=== PATIENT | female | born 1960 | race Caucasian/White ===

== ENCOUNTER 2017-06-29 10:26 | Observation (INO) | payer OTHER ==
--- NOTE | 2017-06-29 10:47 | ED ---
General Adult HPI - General Chief complaint: Recheck/Abnormal Lab/Rx Stated complaint: leg and feet swelling, hypertension Time Seen by Provider: 06/29/17 10:36 Source: patient, RN notes reviewed Mode of arrival: wheelchair Limitations: no limitations - History of Present Illness Initial comments: 57-year-old female presenting with bilateral lower extremity swelling. Patient was at her son's wedding yesterday, she was on her feet for prolonged period of time. She states she went home Susan bed and then slept the remaining portion of the night in a lazy boy. Her feet were elevated and she was in bed, but when she was in a lazy boy they were below her heart level. She also reports pain in her lower extremities. Patient has no known history of heart failure. She does have history diabetes and hypertension as well as obesity. Patient denies any chest pain today or over the past 6 weeks to months. She does have shortness of breath with exertion such as climbing stairs. No cough, no fever chills, no nausea vomiting or diarrhea. - Related Data Home Medications Medication Instructions Recorded Confirmed Lisinopril-Hctz 20-12.5 mg 1 tab PO DAILY 06/20/15 06/29/17 [Zestoretic 20-12.5] Omeprazole [PriLOSEC] 20 mg PO AC-BRKFST 06/20/15 06/29/17 Atorvastatin [Lipitor] 40 mg PO HS 11/12/15 06/29/17 Cholecalciferol [Vitamin D3] 2,000 unit PO DAILY 11/12/15 06/29/17 Aspirin [Adult Low Dose Aspirin EC] 81 mg PO HS 11/15/15 06/29/17 Sucralfate [Carafate] 1 gm PO DAILY 11/15/15 06/29/17 Cinnamon Bark [Cinnamon] 2,000 mg PO DAILY 01/23/16 06/29/17 Verapamil HCl [Verapamil ER] 180 mg PO DAILY 01/23/16 06/29/17 metFORMIN HCL [Glucophage] 2 tab PO BID 01/23/16 06/29/17 Amitriptyline HCl [Elavil] 10 mg PO HS 06/29/17 06/29/17 Gabapentin [Neurontin] 200 mg PO DAILY 06/29/17 06/29/17 Loratadine [Claritin] 10 mg PO DAILY 06/29/17 06/29/17 OLANZapine [ZyPREXA] 2.5 mg PO DAILY 06/29/17 06/29/17 Venlafaxine HCl [Effexor XR] 75 mg PO DAILY 06/29/17 06/29/17 glipiZIDE XL [Glucotrol Xl] 5 mg PO DAILY 06/29/17 06/29/17 Allergies Allergy/AdvReac Type Severity Reaction Status Date / Time erythromycin base Allergy Anaphylaxis Verified 06/29/17 11:04 Iodine and Iodide Containing Allergy Anaphylaxis Verified 06/29/17 11:04 Produc morphine Allergy Confusion Verified 06/29/17 11:04 shellfish derived [Shellfish] Allergy Anaphylaxis Verified 06/29/17 11:04 Review of Systems ROS Statement: Those systems with pertinent positive or pertinent negative responses have been documented in the HPI. ROS Other: All systems not noted in ROS Statement are negative. Past Medical History Past Medical History: Cancer, Diabetes Mellitus, GERD/Reflux, Hyperlipidemia, Hypertension, Sleep Apnea/CPAP/BIPAP Additional Past Medical History / Comment(s): 10/2015 Elevated blood sugar at home -380, NOT ON RX AT THAT TIME, admitted W/ C/O CP. Uterine CA w/ Hysterectomy. 2007 Rectal Bleed, colonoscopy showing Diverticulosis, internal/ external hemorrhoids. Bilateral hand numbness. NO TX FOR SLEEP APNEA. History of Any Multi-Drug Resistant Organisms: None Reported Past Surgical History: Appendectomy, Hernia Repair, Hysterectomy Additional Past Surgical History / Comment(s): Umbilical Hernia, post op Hematoma - was surgically drained, developed infection; was tx in wound center. 2007 colonoscopy. EGD. Past Anesthesia/Blood Transfusion Reactions: Postoperative Nausea & Vomiting ( PONV) Additional Past Anesthesia/Blood Transfusion Reaction / Comment(s): Pt had PONV after umbilical hernia repair. She has never received blood. Past Psychological History: Depression Smoking Status: Never smoker Past Alcohol Use History: None Reported Past Drug Use History: None Reported - Past Family History Brother(s) Family Medical History: Cancer Father Family Medical History: Coronary Artery Disease (CAD), Diabetes Mellitus, Eye Disorder, Renal Disease Additional Family Medical History / Comment(s): Father at age 81 yrs. He was on dialysis and was blind due to his diabetes. Mother Family Medical History: AFIB, Congestive Heart Failure (CHF), Hypertension, Osteoarthritis (OA) Additional Family Medical History / Comment(s): Mother at age 81 yrs. General Exam Limitations: no limitations General appearance: alert, in no apparent distress Head exam: Present: atraumatic, normocephalic Eye exam: Present: normal appearance, PERRL, EOMI ENT exam: Present: normal exam, mucous membranes moist Neck exam: Present: normal inspection, full ROM. Absent: tenderness Respiratory exam: Present: normal lung sounds bilaterally. Absent: respiratory distress, wheezes, rales Cardiovascular Exam: Present: regular rate, normal rhythm, normal heart sounds GI/Abdominal exam: Present: soft. Absent: distended, tenderness Extremities exam: Present: normal inspection, normal capillary refill, pedal edema (1+ pitting edema) Back exam: Present: normal inspection, full ROM. Absent: tenderness Neurological exam: Present: alert, oriented X3, CN II-XII intact. Absent: motor sensory deficit Psychiatric exam: Present: normal affect, normal mood Skin exam: Present: warm, dry. Absent: cyanosis, diaphoretic Course Vital Signs 06/29/17 10:30 Temperature 97.5 F L Pulse Rate 92 Respiratory 20 Rate Blood Pressure 129/80 O2 Sat by Pulse 98 Oximetry EKG Findings - EKG Comments: EKG Findings:: EKG shows normal sinus rhythm, ventricular rate of 74, WA interval 166, QRS duration 98, QTC 450, no ST segment elevation, no T-wave abnormality Medical Decision Making - Medical Decision Making 57-year-old female presents with bilateral lower extremity swelling and exertional dyspnea. Patient has no known history of heart failure. Denies any associated symptoms including no chest pain, no cough, no fever chills, no difficult breathing at rest. Patient does have history of hypertension, diabetes, and obesity. Laboratory studies including CBC, CMP, d-dimer, troponin and BNP are unremarkable. Chest x-ray does show pulmonary vascular congestion. EKG shows no arrhythmia or ischemic changes. Patient is informed of these results. Patient will be admitted for serial cardiac enzymes, echo, and cardiology consult. Patient is given an aspirin and 20 mg of IV Lasix in the emergency department. Patient is comfortable at rest, breathing room air, no oxygen requirement. Diagnosis: Pulmonary vascular congestion, concern for new onset heart failure - Lab Data Result diagrams: 06/29/17 11:00 06/29/17 11:00 Lab Results 06/29/17 06/29/17 06/29/17 Range/Units 11:00 11:00 11:00 WBC 5.4 (3.8-10.6) k/uL RBC 4.05 (3.80-5.40) m/uL Hgb 11.9 (11.4-16.0) gm/dL Hct 35.0 (34.0-46.0) % MCV 86.5 (80.0-100.0) fL MCH 29.5 (25.0-35.0) pg MCHC 34.1 (31.0-37.0) g/dL RDW 13.6 (11.5-15.5) % Plt Count 227 (150-450) k/uL Neutrophils % 59 % Lymphocytes % 31 % Monocytes % 5 % Eosinophils % 4 % Basophils % 0 % Neutrophils # 3.2 (1.3-7.7) k/uL Lymphocytes # 1.7 (1.0-4.8) k/uL Monocytes # 0.3 (0-1.0) k/uL Eosinophils # 0.2 (0-0.7) k/uL Basophils # 0.0 (0-0.2) k/uL D-Dimer 0.48 (<0.60) mg/L FEU Sodium 139 (137-145) mmol/L Potassium 3.9 (3.5-5.1) mmol/L Chloride 105 (98-107) mmol/L Carbon Dioxide 23 (22-30) mmol/L Anion Gap 11 mmol/L BUN 13 (7-17) mg/dL Creatinine 0.49 L (0.52-1.04) mg/dL Est GFR (MDRD) Af Amer >60 (>60 ml/min/1.73 sqM) Est GFR (MDRD) Non-Af >60 (>60 ml/min/1.73 sqM) Glucose 292 H (74-99) mg/dL Calcium 8.5 (8.4-10.2) mg/dL Total Bilirubin 0.6 (0.2-1.3) mg/dL AST 29 (14-36) U/L ALT 51 (9-52) U/L Alkaline Phosphatase 114 (38-126) U/L Troponin I (0.000-0.034) ng/mL NT-Pro-B Natriuret Pep pg/mL Total Protein 5.9 L (6.3-8.2) g/dL Albumin 3.6 (3.5-5.0) g/dL 06/29/17 06/29/17 Range/Units 11:00 11:00 WBC (3.8-10.6) k/uL RBC (3.80-5.40) m/uL Hgb (11.4-16.0) gm/dL Hct (34.0-46.0) % MCV (80.0-100.0) fL MCH (25.0-35.0) pg MCHC (31.0-37.0) g/dL RDW (11.5-15.5) % Plt Count (150-450) k/uL Neutrophils % % Lymphocytes % % Monocytes % % Eosinophils % % Basophils % % Neutrophils # (1.3-7.7) k/uL Lymphocytes # (1.0-4.8) k/uL Monocytes # (0-1.0) k/uL Eosinophils # (0-0.7) k/uL Basophils # (0-0.2) k/uL D-Dimer (<0.60) mg/L FEU Sodium (137-145) mmol/L Potassium (3.5-5.1) mmol/L Chloride (98-107) mmol/L Carbon Dioxide (22-30) mmol/L Anion Gap mmol/L BUN (7-17) mg/dL Creatinine (0.52-1.04) mg/dL Est GFR (MDRD) Af Amer (>60 ml/min/1.73 sqM) Est GFR (MDRD) Non-Af (>60 ml/min/1.73 sqM) Glucose (74-99) mg/dL Calcium (8.4-10.2) mg/dL Total Bilirubin (0.2-1.3) mg/dL AST (14-36) U/L ALT (9-52) U/L Alkaline Phosphatase (38-126) U/L Troponin I <0.012 (0.000-0.034) ng/mL NT-Pro-B Natriuret Pep 113 pg/mL Total Protein (6.3-8.2) g/dL Albumin (3.5-5.0) g/dL Disposition Clinical Impression: Pulmonary edema with congestive heart failure Disposition: ADMITTED IP TO THIS HOSP Condition: Stable Referrals: Shankar Veronica MD [Primary Care Provider] - 1-2 days Decision to Admit Reason: Admit from EC Decision Date: 06/29/17 Decision Time: 12:40
[2017-06-29 11:15] LABS: Basophils % (A) 0 %; CH 29.9; CHCM 34.7; Eosinophils # (A) 0.2 k/uL (0-0.7); Eosinophils % (A) 4 %; HGB 11.9 gm/dL (11.4-16.0); Luc # (Auto) 0.09; Luc % (Auto) 2; Lymphocytes # (A) 1.7 k/uL (1.0-4.8); Lymphocytes % (A) 31 %; MCH 29.5 pg (25.0-35.0); MCHC 34.1 g/dL (31.0-37.0); MCV 86.5 fL (80.0-100.0); Mean Platelet Volume 6.8; Monocytes # (A) 0.3 k/uL (0-1.0); Monocytes % (A) 5 %; Neutrophils # (A) 3.2 k/uL (1.3-7.7); Neutrophils % (A) 59 %; RBC 4.05 m/uL (3.80-5.40); RDW 13.6 % (11.5-15.5); WBC 5.4 k/uL (3.8-10.6)
--- NOTE | 2017-06-29 11:26 | XR ---
EXAMINATION TYPE: XR chest 2V DATE OF EXAM: 06/29/2017 HISTORY: Pain. REFERENCE: Previous study dated 02/15/2016. FINDINGS: There is apparent elevation right hemidiaphragm. Heart size is within normal limits. There is mild vascular congestion without suma edema. There is m inimal atelectatic change present at the right lung base. Pleural spaces are clear. IMPRESSION: 1. MILD VASCULAR CONGESTION. 2. PLATELIKE ATELECTASIS, RIGHT LUNG BASE.
[2017-06-29 11:34] LABS: ALT 51 U/L (9-52); AST 29 U/L (14-36); Alkaline Phosphatase 114 U/L (38-126); Anion Gap 11 mmol/L; Blood Urea Nitrogen 13 mg/dL (7-17); Calcium 8.5 mg/dL (8.4-10.2); Carbon Dioxide 23 mmol/L (22-30); Chloride 105 mmol/L (98-107); Glucose 292 mg/dL (74-99); Non-African American GFR(MDRD) >60 (>60 ml/min/1.73 sqM); Potassium 3.9 mmol/L (3.5-5.1); Sodium 139 mmol/L (137-145); Total Bilirubin 0.6 mg/dL (0.2-1.3); Total Protein 5.9 g/dL (6.3-8.2)
[2017-06-29] MEDS ORDERED: ASPIRIN 325 MG TAB PO STA (12:18)
[2017-06-29] MEDS ORDERED: FUROSEMIDE 10 MG/ML 2 ML VIAL IV ONE (12:18)
[2017-06-29] MEDS ORDERED: ONDANSETRON 4 MG/2 ML VIAL IVP PRN (12:51)
[2017-06-29] MEDS ORDERED: ACETAMINOPHEN TAB 325 MG TAB PO PRN (12:51)
[2017-06-29] MEDS ORDERED: NALOXONE 0.4 MG/ML 1 ML VIAL IV PRN (12:51)
[2017-06-29 16:05] LABS: Glucose,Whole Blood 230 mg/dL (75-99)
[2017-06-29] MEDS: OLANZapine 2.5 MG TAB PO SCH (17:02)
[2017-06-29] MEDS: GABAPENTIN 100 MG CAP PO SCH (17:02)
[2017-06-29] MEDS: LORATADINE 10 MG TAB PO SCH (17:02)
[2017-06-29] MEDS: PANTOPRAZOLE 40 MG TABLET PO SCH (17:02)
[2017-06-29] MEDS: ENOXAPARIN 40 MG/0.4 ML SYRINGE SQ SCH (17:02)
[2017-06-29] MEDS: metFORMIN 500 MG TAB PO SCH (17:18)
[2017-06-29 18:09] LABS: Creatine Kinase 238 U/L (30-135)
[2017-06-29 18:22] LABS: Creatine Kinase MB 2.3 ng/mL (0.0-2.4); Troponin I <0.012 ng/mL (0.000-0.034)
--- NOTE | 2017-06-29 18:43 | P.HPIM ---
History of Present Illness H&P Date: 06/29/17 Chief Complaint: Lower extremity swelling This is a pleasant 57-year-old patient of Dr. Bhatt. Chronic stable medical conditions include diabetes, GERD, hyperlipidemia, hypertension, obstructive sleep apnea and does not use a machine, diverticulosis , hemorrhoids, depression. Patient was was at her son's petroleum ge[employer] yesterday. Sat on the chair for about 4 hours. Noticed swelling of both the lower extremity. Went home and by this morning still is having lower extremity edema. Denies any chest pain. Mild shortness of breath. patient has noticed that she's been putting on weight the last 1 year. She uses 3 pillows at night. And get short winded on climbing stairs. Denies any fever and chills. No chest pain GEN.: Tired, weight gain EYES: None HEENT: None NECK: None RESPIRATORY: As above CARDIOVASCULAR: None GASTROINTESTINAL: None GENITOURINARY: None MUSCULOSKELETAL: None LYMPHATICS: None HEMATOLOGICAL: None PSYCHIATRY: Depression controlled NEUROLOGICAL: None Past medical history: diabetes, GERD, hyperlipidemia, hypertension, obstructive sleep apnea and does not use a machine, diverticulosis, hemorrhoids, depression. Past surgical history: Appendectomy, hernia repair, hysterectomy, a medical hernia repair, Social history: , no smoking or alcohol Family history: Coronary artery disease, diabetes, kidney disease VITAL SIGNS: 97.3, 87, 20, 106/87, 98% room air, BMI 42.6 GENERAL: Well built, sitting up, comfortable. EYES: Pupils equal. Conjunctiva normal. HEENT: External appearance of nose and ears normal, oral cavity grossly normal. NECK: JVD not raised; masses not palpable. HEART: First and second heart sounds are normal; mild edema. LUNGS: Respiratory rate normal; clear to auscultation. ABDOMEN: Soft, nontender, liver spleen not palpable, no masses palpable. LYMPHATICS: No lymph nodes palpable in the axilla and neck. PSYCH: Alert and oriented x3; mood and affect normal. NEUROLOGICAL: Cranial nerves grossly intact; no facial asymmetry, power and sensation grossly intact. Investigations: White count 5.4, hemoglobin 11.9, potassium 3.9, present 13, crit and 0.49 Glucose 292, proBNP 113 Chest [id number] reviewed EKG-normal sinus rhythm Assessment: -Bilateral lower extremity edema likely from venous insufficiency, being caused by weight gain/obesity. Patient clinically and have a normal proBNP does not seem to underlying CHF. -Morbid obesity BMI 42.6 -Diabetes mellitus type 2 on oral hypoglycemic -GERD -Hyperlipidemia -Hyperlipidemia -Obstructive sleep apnea does not use CPAP machine -Chronic diverticulosis -Depression not otherwise specified Plan: We will order 2-D echocardiogram. dietitian see the patient for weight loss measures. Ordered NAILA stockings. Home medications be resumed. Care was discussed with the patient. Past Medical History Past Medical History: Cancer, Diabetes Mellitus, GERD/Reflux, Hyperlipidemia, Hypertension, Sleep Apnea/CPAP/BIPAP Additional Past Medical History / Comment(s): Uterine CA w/ Hysterectomy. 2007 Rectal Bleed, colonoscopy showing Diverticulosis, internal/external hemorrhoids. Bilateral hand numbness. NO TX FOR SLEEP APNEA. History of Any Multi-Drug Resistant Organisms: None Reported Past Surgical History: Appendectomy, Hernia Repair, Hysterectomy Additional Past Surgical History / Comment(s): Umbilical Hernia, post op Hematoma - was surgically drained, developed infection; was tx in wound center. 2007 colonoscopy and EGD. Past Anesthesia/Blood Transfusion Reactions: No Reported Reaction Additional Past Anesthesia/Blood Transfusion Reaction / Comment(s): She has never received blood. Past Psychological History: Depression Additional Psychological History / Comment(s): She states her depression is well managed. Smoking Status: Never smoker Past Alcohol Use History: None Reported Past Drug Use History: None Reported - Past Family History Brother(s) Family Medical History: Cancer Father Family Medical History: Coronary Artery Disease (CAD), Diabetes Mellitus, Eye Disorder, Renal Disease Additional Family Medical History / Comment(s): Father at age 81 yrs. He was on dialysis and was blind due to his diabetes. Mother Family Medical History: AFIB, Congestive Heart Failure (CHF), Hypertension, Osteoarthritis (OA) Additional Family Medical History / Comment(s): Mother at age 81 yrs. Medications and Allergies Home Medications Medication Instructions Recorded Confirmed Type Lisinopril-Hctz 20-12.5 mg 1 tab PO DAILY 06/20/15 06/29/17 History [Zestoretic 20-12.5] Omeprazole [PriLOSEC] 20 mg PO AC-BRKFST 06/20/15 06/29/17 History Atorvastatin [Lipitor] 40 mg PO HS 11/12/15 06/29/17 History Cholecalciferol [Vitamin D3] 2,000 unit PO DAILY 11/12/15 06/29/17 History Aspirin [Adult Low Dose Aspirin EC] 81 mg PO HS 11/15/15 06/29/17 History Sucralfate [Carafate] 1 gm PO DAILY 11/15/15 06/29/17 History Cinnamon Bark [Cinnamon] 2,000 mg PO DAILY 01/23/16 06/29/17 History Verapamil HCl [Verapamil ER] 180 mg PO DAILY 01/23/16 06/29/17 History metFORMIN HCL [Glucophage] 2 tab PO BID 01/23/16 06/29/17 History Amitriptyline HCl [Elavil] 10 mg PO HS 06/29/17 06/29/17 History Gabapentin [Neurontin] 200 mg PO DAILY 06/29/17 06/29/17 History Loratadine [Claritin] 10 mg PO DAILY 06/29/17 06/29/17 History OLANZapine [ZyPREXA] 2.5 mg PO DAILY 06/29/17 06/29/17 History Venlafaxine HCl [Effexor XR] 75 mg PO DAILY 06/29/17 06/29/17 History glipiZIDE XL [Glucotrol Xl] 5 mg PO DAILY 06/29/17 06/29/17 History Allergies Allergy/AdvReac Type Severity Reaction Status Date / Time erythromycin base Allergy Anaphylaxis Verified 06/29/17 11:04 Iodine and Iodide Containing Allergy Anaphylaxis Verified 06/29/17 11:04 Produc morphine Allergy Confusion Verified 06/29/17 11:04 shellfish derived [Shellfish] Allergy Anaphylaxis Verified 06/29/17 11:04 Physical Exam Vitals: Delete Results CBC & Chem 7: 06/29/17 11:00 06/29/17 11:00
[2017-06-29 21:22] LABS: Glucose,Whole Blood 274 mg/dL (75-99)
[2017-06-29] MEDS: ATORVASTATIN 40 MG TAB PO SCH (22:32)
[2017-06-29] MEDS: AMITRIPTYLINE HCL 10 MG TAB PO SCH (22:33)
[2017-06-30 00:34] LABS: Creatine Kinase 216 U/L (30-135)
[2017-06-30 00:48] LABS: Troponin I <0.012 ng/mL (0.000-0.034)
[2017-06-30 01:17] VITALS: RESP 18
[2017-06-30 05:47] LABS: Glucose,Whole Blood 201 mg/dL (75-99)
[2017-06-30] MEDS: PANTOPRAZOLE 40 MG TABLET PO SCH (06:55)
[2017-06-30] MEDS: metFORMIN 500 MG TAB PO SCH ×2 (06:55→17:36)
[2017-06-30] MEDS: INSULIN LISPRO (humaLOG) 300 UNIT/3 ML VIAL SQ SCH ×4 (06:58→22:22)
[2017-06-30] MEDS: ENOXAPARIN 40 MG/0.4 ML SYRINGE SQ SCH (08:37)
[2017-06-30] MEDS: GABAPENTIN 100 MG CAP PO SCH (08:38)
[2017-06-30] MEDS: LISINOPRIL-HCTZ 20-12.5 MG 1 EACH TAB PO SCH (08:38)
[2017-06-30] MEDS: VENLAFAXINE HCL ER 75 MG CAP PO SCH (08:39)
[2017-06-30] MEDS: LORATADINE 10 MG TAB PO SCH (08:39)
[2017-06-30] MEDS: OLANZapine 2.5 MG TAB PO SCH (08:39)
[2017-06-30] MEDS: SUCRALFATE 1 GM TAB PO SCH (08:39)
--- NOTE | 2017-06-30 08:53 | P.CRDCN ---
History of Present Illness Consult date: 06/30/17 Requesting physician: James Longoria Reason for Consult (text): Bilateral leg swelling Chief complaint: Bilateral feet and leg swelling History of present illness: This is a pleasant 57-year-old female with history of hypertension, diabetes, hyperlipidemia, moderate obesity, she is a nonsmoker, who presents to the hospital with symptoms of bilateral feet and lower leg edema. Her son had apparently got on Friday, he states that she had been on her feet most of that day, in the evening she noticed significant swelling in her bilateral lower extremities. In spite of sleeping and lying flat the entire night Friday night, Friday morning they persisted to be quite swollen and for this reason she came to the emergency room for further evaluation. She denies any symptoms of chest discomfort, denies any overt shortness of breath over the past couple of days but does state that exertion only with climbing stairs she does get short of breath. Patient did have an echocardiogram with Doppler study performed in October 2015 which revealed an ejection fraction of 50-55%, she also underwent a stress echocardiographic study at that time which was negative for any reversible ischemia. EKG on arrival here showed a normal sinus rhythm with no acute changes. CBC normal. D-dimer 0.48, potassium 3.9, BUN 13, creatinine 0.4. Blood glucose on arrival 292. Troponins have been negative 3. BNP level 113. Patient was given a one-time dose of 20 mg IV Lasix in the emergency room. At the time of my examination this morning, the edema has resolved. Patient states she was recently started on glipizide approximately one month ago, she does take verapamil which she states she's been on for several years. Past Medical History Past Medical History: Cancer, Diabetes Mellitus, GERD/Reflux, Hyperlipidemia, Hypertension, Sleep Apnea/CPAP/BIPAP Additional Past Medical History / Comment(s): Uterine CA w/ Hysterectomy. 2007 Rectal Bleed, colonoscopy showing Diverticulosis, internal/external hemorrhoids. Bilateral hand numbness. NO TX FOR SLEEP APNEA. History of Any Multi-Drug Resistant Organisms: None Reported Past Surgical History: Appendectomy, Hernia Repair, Hysterectomy Additional Past Surgical History / Comment(s): Umbilical Hernia, post op Hematoma - was surgically drained, developed infection; was tx in wound center. 2007 colonoscopy and EGD. Past Anesthesia/Blood Transfusion Reactions: No Reported Reaction Additional Past Anesthesia/Blood Transfusion Reaction / Comment(s): She has never received blood. Past Psychological History: Depression Additional Psychological History / Comment(s): She states her depression is well managed. Smoking Status: Never smoker Past Alcohol Use History: None Reported Past Drug Use History: None Reported - Past Family History Brother(s) Family Medical History: Cancer Father Family Medical History: Coronary Artery Disease (CAD), Diabetes Mellitus, Eye Disorder, Renal Disease Additional Family Medical History / Comment(s): Father at age 81 yrs. He was on dialysis and was blind due to his diabetes. Mother Family Medical History: AFIB, Congestive Heart Failure (CHF), Hypertension, Osteoarthritis (OA) Additional Family Medical History / Comment(s): Mother at age 81 yrs. Medications and Allergies Home Medications Medication Instructions Recorded Confirmed Type Lisinopril-Hctz 20-12.5 mg 1 tab PO DAILY 06/20/15 06/29/17 History [Zestoretic 20-12.5] Omeprazole [PriLOSEC] 20 mg PO -BRKFST 06/20/15 06/29/17 History Atorvastatin [Lipitor] 40 mg PO HS 11/12/15 06/29/17 History Cholecalciferol [Vitamin D3] 2,000 unit PO DAILY 11/12/15 06/29/17 History Aspirin [Adult Low Dose Aspirin EC] 81 mg PO HS 11/15/15 06/29/17 History Sucralfate [Carafate] 1 gm PO DAILY 11/15/15 06/29/17 History Cinnamon Bark [Cinnamon] 2,000 mg PO DAILY 01/23/16 06/29/17 History Verapamil HCl [Verapamil ER] 180 mg PO DAILY 01/23/16 06/29/17 History metFORMIN HCL [Glucophage] 2 tab PO BID 01/23/16 06/29/17 History Amitriptyline HCl [Elavil] 10 mg PO HS 06/29/17 06/29/17 History Gabapentin [Neurontin] 200 mg PO DAILY 06/29/17 06/29/17 History Loratadine [Claritin] 10 mg PO DAILY 06/29/17 06/29/17 History OLANZapine [ZyPREXA] 2.5 mg PO DAILY 06/29/17 06/29/17 History Venlafaxine HCl [Effexor XR] 75 mg PO DAILY 06/29/17 06/29/17 History glipiZIDE XL [Glucotrol Xl] 5 mg PO DAILY 06/29/17 06/29/17 History Allergies Allergy/AdvReac Type Severity Reaction Status Date / Time erythromycin base Allergy Anaphylaxis Verified 06/29/17 11:04 Iodine and Iodide Containing Allergy Anaphylaxis Verified 06/29/17 11:04 Produc morphine Allergy Confusion Verified 06/29/17 11:04 shellfish derived [Shellfish] Allergy Anaphylaxis Verified 06/29/17 11:04 Physical Exam Vitals: Vital Signs Temp Pulse Pulse Resp BP BP BP 06/30/17 04:00 97.2 F L 90 18 149/87 06/30/17 00:00 91 18 132/69 06/29/17 20:00 97.9 F 85 18 131/88 06/29/17 15:32 97.2 F L 79 16 121/67 06/29/17 15:09 97.3 F L 87 20 106/87 06/29/17 13:59 87 20 06/29/17 13:00 71 20 111/60 06/29/17 12:00 71 18 128/61 06/29/17 10:30 97.5 F L 92 20 129/80 Pulse Ox 06/30/17 04:00 94 L 06/30/17 00:00 95 06/29/17 20:00 96 06/29/17 15:32 97 06/29/17 15:09 98 06/29/17 13:59 96 06/29/17 13:00 96 06/29/17 12:00 97 06/29/17 10:30 98 Intake and Output 06/29/17 06/30/17 06/30/17 22:59 06:59 14:59 Other: Voiding Method Toilet Toilet # Voids 1 2 Weight 116.1 kg 114.1 kg PHYSICAL EXAMINATION: HEENT: [Head is atraumatic, normocephalic. Pupils equal, round. Neck is supple. There is no elevated jugular venous pressure.] HEART EXAMINATION: [Heart S1, S2 normal. No murmur or gallop heard.] CHEST EXAMINATION:[ Lungs are clear to with fine crackles to bilateral bases . No chest wall tenderness is noted on palpation or with deep breathing.] ABDOMEN: [ Soft, obese, nontender. Bowel sounds are heard. No organomegaly noted]. EXTREMITIES:[ 2+ peripheral pulses with no evidence of peripheral edema and no calf tenderness noted]. NEUROLOGIC [patient is awake, alert and oriented -3.] . Results 06/29/17 11:00 06/29/17 11:00 Cardiac Enzymes 06/29/17 06/29/17 06/29/17 Range/Units 11:00 11:00 17:18 AST 29 (14-36) U/L CK-MB (CK-2) 2.3 (0.0-2.4) ng/mL Troponin I <0.012 <0.012 (0.000-0.034) ng/mL 06/29/17 Range/Units 23:56 AST (14-36) U/L CK-MB (CK-2) 2.0 (0.0-2.4) ng/mL Troponin I <0.012 (0.000-0.034) ng/mL CBC 06/29/17 Range/Units 11:00 WBC 5.4 (3.8-10.6) k/uL RBC 4.05 (3.80-5.40) m/uL Hgb 11.9 (11.4-16.0) gm/dL Hct 35.0 (34.0-46.0) % Plt Count 227 (150-450) k/uL Comprehensive Metabolic Panel 06/29/17 Range/Units 11:00 Sodium 139 (137-145) mmol/L Potassium 3.9 (3.5-5.1) mmol/L Chloride 105 (98-107) mmol/L Carbon Dioxide 23 (22-30) mmol/L BUN 13 (7-17) mg/dL Creatinine 0.49 L (0.52-1.04) mg/dL Glucose 292 H (74-99) mg/dL Calcium 8.5 (8.4-10.2) mg/dL AST 29 (14-36) U/L ALT 51 (9-52) U/L Alkaline Phosphatase 114 (38-126) U/L Total Protein 5.9 L (6.3-8.2) g/dL Albumin 3.6 (3.5-5.0) g/dL Current Medications Generic Name Dose Route Start Last Admin Trade Name Freq PRN Reason Stop Dose Admin Acetaminophen 650 mg 06/29/17 12:51 Tylenol Tab PO Q6HR PRN Mild Pain or Fever > 100.5 Amitriptyline HCl 10 mg 06/29/17 21:00 06/29/17 22:33 Elavil PO 10 mg HS [facility] Administration Aspirin 81 mg 06/30/17 21:00 Aspirin PO HS [facility] Atorvastatin Calcium 40 mg 06/29/17 21:00 06/29/17 22:32 Lipitor PO 40 mg HS [facility] Administration Cholecalciferol 2,000 unit 06/30/17 09:00 Vitamin D3 PO DAILY [facility] Enoxaparin Sodium 40 mg 06/29/17 16:00 06/29/17 17:02 Lovenox SQ Not Given DAILY [facility] Gabapentin 200 mg 06/29/17 15:30 06/29/17 17:02 Neurontin PO Not Given DAILY [facility] Glipizide 2.5 mg 06/30/17 07:30 06/30/17 06:55 Glucotrol PO 2.5 mg AC-BID [facility] Administration Lisinopril/HCTZ 1 each 06/30/17 09:00 Zestoretic 20-12.5 PO DAILY [facility] Insulin Human Lispro 0 unit 06/30/17 07:30 06/30/17 06:58 Humalog SQ 4 unit ACHS [facility] Administration Protocol Loratadine 10 mg 06/29/17 15:30 06/29/17 17:02 Claritin PO Not Given DAILY [facility] Metformin HCl 1,000 mg 06/29/17 17:30 06/30/17 06:55 Glucophage PO 1,000 mg BID-W/MEALS [facility] Administration Naloxone HCl 0.2 mg 06/29/17 12:51 Narcan IV Q2M PRN Opioid Reversal Olanzapine 2.5 mg 06/29/17 15:30 06/29/17 17:02 Zyprexa PO Not Given DAILY [facility] Ondansetron HCl 4 mg 06/29/17 12:51 Zofran IVP Q8HR PRN Nausea And Vomiting Pantoprazole Sodium 40 mg 06/29/17 15:30 06/30/17 06:55 Protonix PO 40 mg AC-BRKFST [facility] Administration Sucralfate 1 gm 06/30/17 09:00 Carafate PO DAILY [facility] Venlafaxine HCl 75 mg 06/30/17 09:00 Effexor Xr PO DAILY [facility] Verapamil HCl 180 mg 06/30/17 09:00 Isoptin Sr PO DAILY [facility] Intake and Output 06/29/17 06/30/17 06/30/17 22:59 06:59 14:59 Other: Voiding Method Toilet Toilet # Voids 1 2 Weight 116.1 kg 114.1 kg 06/29/17 11:00 06/29/17 11:00 EKG Interpretations (text) EKG shows a normal sinus rhythm with no acute changes. Assessment and Plan Plan: Assessment and plan #1 symptoms of bilateral lower extremity swelling, mild evidence of congestive cardiac failure diastolic acute on chronic. BNP level 114. Chest x-ray suggests mild vascular congestion possible atelectasis. Echocardiogram with Doppler study performed in 2014 revealed a normal left ventricular systolic function. Echo performed at that time was also negative for any ischemia. #2 hypertension #3 diabetes, uncontrolled, patient recently started on glipizide. #4 hyperlipidemia Plan Echo with Doppler study revealed an ejection fraction of 55-60%. We will give the patient more dose of IV Lasix and start her on oral Lasix. DNP note has been reviewed, I agree with a documented findings and plan of care. Patient was seen and examined.
[2017-06-30] MEDS: CHOLECALCIFEROL 1,000 UNIT TAB PO SCH (09:58)
[2017-06-30] MEDS: VERAPAMIL SR 180 MG TABLET.ER PO SCH (09:58)
[2017-06-30 12:02] LABS: Glucose,Whole Blood 162 mg/dL (75-99)
[2017-06-30 12:16] LABS: Hemoglobin A1C 8.2 % (4.2-6.1)
--- NOTE | 2017-06-30 12:23 | ECHOF ---
Referral Reason:assess LV function MEASUREMENTS -------- HEIGHT: 165.1 cm WEIGHT: 113.9 kg BP: 149/87 IVSd: 1.3 cm (0.6 - 1.1) LVIDd: 3.8 cm (3.9 - 5.3) LVPWd: 1.2 cm (0.6 - 1.1) IVSs: 1.9 cm LVIDs: 1.8 cm LVPWs: 2.1 cm Ao Diam: 3.2 cm (2.0 - 3.7) AV Cusp: 2.1 cm (1.5 - 2.6) LA Diam: 3.2 cm (2.7 - 3.8) MV EXCURSION: 10.065 mm (> 18.000) MV EF SLOPE: 52 mm/s (70 - 150) EPSS: 1.9 cm MV E Darren: 0.76 m/s MV DecT: 171 ms MV A Darren: 0.95 m/s MV E/A Ratio: 0.80 RAP: 5.00 mmHg RVSP: 14.10 mmHg FINDINGS -------- Sinus rhythm. This was a technically adequate study. There is borderline concentric left ventricular hypertrophy. Overall left ventricular systolic function is normal with, an EF between 55 - 60 %. The right ventricle is normal in size and function. The left atrium is normal in size. The right atrium is normal in size. The aortic valve is trileaflet, and appears structurally normal. No aortic stenosis or regurgitation. The mitral valve leaflets are mildly thickened. Mild mitral annular calcification present. There is trace mitral regurgitation. Trace tricuspid regurgitation present. The right ventricular systolic pressure, as measured by Doppler, is 14.10mmHg. Pulmonic valve appears structurally normal. The aortic root size is normal. The pericardium is normal. CONCLUSIONS -------- 1. Sinus rhythm. 2. Mild mitral annular calcification present. 3. There is trace mitral regurgitation. 4. Trace tricuspid regurgitation present. 5. The right ventricular systolic pressure, as measured by Doppler, is 14.10mmHg. 6. Pulmonic valve appears structurally normal. 7. The aortic root size is normal. 8. The pericardium is normal. 9. This was a technically adequate study. 10. There is borderline concentric left ventricular hypertrophy. 11. Overall left ventricular systolic function is normal with, an EF between 55 - 60 %. 12. The right ventricle is normal in size and function. 13. The left atrium is normal in size. 14. The right atrium is normal in size. 15. The aortic valve is trileaflet, and appears structurally normal. No aortic stenosis or regurgitation. 16. The mitral valve leaflets are mildly thickened. HIGH LIFT MULE OPERATOR: Ivana Charles RDCS
[2017-06-30] MEDS ORDERED: FUROSEMIDE 10 MG/ML 2 ML VIAL IV ONE (15:37)
[2017-06-30 16:55] LABS: Glucose,Whole Blood 201 mg/dL (75-99)
--- NOTE | 2017-06-30 19:00 | P.PN ---
<Alia Rivers - Last Filed: 06/30/17 18:49> Progress Note - Text DATE OF SERVICE: 06/30/2017 PRESENTING COMPLAINT: Lower extremity swelling INTERVAL HISTORY: 57-year-old patient putting on weight finds she is using 3 pillows at night short winded on climbing stairs. Noticeable increased swelling of her lower extremities REVIEW OF SYSTEMS: Done for constitutional ,cardiovascular, GI, pulmonary with relevant findings as above. CURRENT MEDICATIONS Aspirin, Lipitor, Lovenox, Lasix, Neurontin, Glucotrol, lisinopril, Zyprexa PHYSICAL EXAM VITAL SIGNS: Temperature 97.8, pulse 93, respiratory rate 18, blood pressure 134/75, oxygen saturation 95% on room air. GENERAL APPEARANCE: Lying in bed, not in distress. EYES: Pupils equal. Conjunctiva normal. NECK: JVD not raised. Mass not palpable. RESPIRATORY: Respiratory effort normal. Lungs clear to auscultation. CARDIOVASCULAR: First and second sounds normal. No edema. ABDOMEN: Soft. Liver and spleen not palpable. No tenderness. No mass palpable. PSYCHIATRY: Alert and oriented x3. Mood and affect normal. INVESTIGATIONS: Labs:None new Echocardiogram: Sinus rhythm, EF of 55-60% ASSESSMENT: -Bilateral lower extremity edema likely from venous insufficiency, being caused by weight gain/obesity. Patient clinically has a normal proBNP does not seem to be underlying CHF. -Morbid obesity BMI 42.6. -Diabetes mellitus type II on oral oral hypoglycemics, controlled in-GERD. -Hyperlipidemia. -Obstructive sleep apnea does not use a CPAP machine. -Chronic diverticulosis. -Depression not otherwise specified. PLAN: Extra dose of Lasix IV by cardiology will switch patient to by mouth Lasix in the morning. Probable discharge tomorrow if no acute events overnight we'll continue to monitor closely. YEAST WASHER statement: Patient was seen and examined by nurse practitioner Alia Rivers and all elements of the case discussed with attending Dr. Longoria <James Longoria - Last Filed: 07/02/17 18:32> Progress Note - Text Attending note. Date of service-06/30/2017 This patient was seen and examined by me . I reviewed the note of my nurse practitioner, Ms. Rivers. Discussed with her, additional findings as below. Edema is getting better. Patient did get some Lasix. Cardiology workup is in place. On examination: Lungs clear, cardiovascular hi up and decrease edema Investigations: 2-D echo shows EF of 55-60% Assessment and plan: Bilateral lower extremity edema secondary to venous insufficiency and possibly a side effect of verapamil. Doubt CHF care was discussed with the patient. Encouraged to ambulate
[2017-06-30] MEDS ORDERED: ASPIRIN 81 MG CHEW PO SCH (21:00)
[2017-06-30 21:06] LABS: Glucose,Whole Blood 237 mg/dL (75-99)
[2017-06-30] MEDS: AMITRIPTYLINE HCL 10 MG TAB PO SCH (22:21)
[2017-06-30] MEDS: ATORVASTATIN 40 MG TAB PO SCH (22:24)
[2017-07-01 05:53] LABS: Glucose,Whole Blood 160 mg/dL (75-99)
[2017-07-01] MEDS: INSULIN LISPRO (humaLOG) 300 UNIT/3 ML VIAL SQ SCH ×2 (06:44→12:01)
[2017-07-01] MEDS: PANTOPRAZOLE 40 MG TABLET PO SCH (06:45)
[2017-07-01] MEDS: metFORMIN 500 MG TAB PO SCH (06:45)
[2017-07-01] MEDS: CHOLECALCIFEROL 1,000 UNIT TAB PO SCH (08:26)
[2017-07-01] MEDS: FUROSEMIDE 20 MG TAB PO SCH ×2 (08:26→17:17)
[2017-07-01] MEDS: ENOXAPARIN 40 MG/0.4 ML SYRINGE SQ SCH (08:26)
[2017-07-01] MEDS: LISINOPRIL-HCTZ 20-12.5 MG 1 EACH TAB PO SCH (08:27)
[2017-07-01] MEDS: GABAPENTIN 100 MG CAP PO SCH (08:27)
[2017-07-01] MEDS: LORATADINE 10 MG TAB PO SCH (08:27)
[2017-07-01] MEDS: OLANZapine 2.5 MG TAB PO SCH (08:28)
[2017-07-01] MEDS: SUCRALFATE 1 GM TAB PO SCH (08:28)
[2017-07-01] MEDS: VERAPAMIL SR 180 MG TABLET.ER PO SCH (08:29)
[2017-07-01] MEDS: VENLAFAXINE HCL ER 75 MG CAP PO SCH (08:29)
[2017-07-01 11:18] VITALS: TEMP 97.3
[2017-07-01 11:33] VITALS: BMI 41.2
[2017-07-01 11:52] LABS: Glucose,Whole Blood 192 mg/dL (75-99)
--- NOTE | 2017-07-01 12:29 | P.PN ---
Subjective This is a pleasant 57-year-old female with history of hypertension, diabetes, hyperlipidemia, moderate obesity, she is a nonsmoker, who presents to the hospital with symptoms of bilateral feet and lower leg edema. Her son had apparently got on Friday, he states that she had been on her feet most of that day, in the evening she noticed significant swelling in her bilateral lower extremities. In spite of sleeping and lying flat the entire night Friday night, Friday morning they persisted to be quite swollen and for this reason she came to the emergency room for further evaluation. She denies any symptoms of chest discomfort, denies any overt shortness of breath over the past couple of days but does state that exertion only with climbing stairs she does get short of breath. Patient did have an echocardiogram with Doppler study performed in October 2015 which revealed an ejection fraction of 50-55%, she also underwent a stress echocardiographic study at that time which was negative for any reversible ischemia. EKG on arrival here showed a normal sinus rhythm with no acute changes. CBC normal. D-dimer 0.48, potassium 3.9, BUN 13, creatinine 0.4. Blood glucose on arrival 292. Troponins have been negative 3. BNP level 113. Patient was given a one-time dose of 20 mg IV Lasix in the emergency room. At the time of my examination this morning, the edema has resolved. Patient states she was recently started on glipizide approximately one month ago, she does take verapamil which she states she's been on for several years. 07/01/2017 Patient was seen and examined this morning, ambulating without difficulty. No peripheral edema today. Breathing is stable. She was given an additional dose of IV Lasix one time, weight is down 2 kg today. We also started her on Lasix 20 mg one tablet by mouth twice a day yesterday. Echocardiogram with Doppler study reveals normal left ventricular systolic function. From cardiology's perspective, patient may be able to be discharged home today. Objective - Vital Signs Vital signs: Vital Signs Temp 97.3 F L 07/01/17 11:14 Pulse 103 H 07/01/17 11:14 Resp 18 07/01/17 11:14 BP 134/87 07/01/17 11:14 Pulse Ox 96 07/01/17 11:14 Intake & Output 06/30/17 07/01/17 07/01/17 18:59 06:59 18:59 Intake Total 420 240 420 Balance 420 240 420 Weight 112.4 kg 112.4 kg Intake: Oral 420 240 420 Other: Voiding Method Toilet Toilet # Voids 0 1 # Bowel Movements 0 - Exam PHYSICAL EXAMINATION: HEENT: Head is atraumatic, normocephalic. Pupils equal, round. Neck is supple. There is no elevated jugular venous pressure. HEART EXAMINATION: Heart S1, S2 normal. No murmur or gallop heard. CHEST EXAMINATION: Lungs are clear to auscultation and precussion. No chest wall tenderness is noted on palpation or with deep breathing. ABDOMEN: Soft, nontender. Bowel sounds are heard. No organomegaly noted. EXTREMITIES: 2+ peripheral pulses with no evidence of peripheral edema and no calf tenderness noted. NEUROLOGIC [patient is awake, alert and oriented -3.] . - Labs CBC & Chem 7: 06/29/17 11:00 06/29/17 11:00 Labs: Abnormal Lab Results - Last 24 Hours (Table) 06/29/17 06/30/17 06/30/17 Range/Units 11:00 16:47 21:05 POC Glucose (mg/dL) 201 H 237 H (75-99) mg/dL Hemoglobin A1c 8.2 H (4.2-6.1) % 07/01/17 07/01/17 Range/Units 05:50 11:50 POC Glucose (mg/dL) 160 H 192 H (75-99) mg/dL Hemoglobin A1c (4.2-6.1) % Assessment and Plan Plan: Assessment and plan #1 symptoms of bilateral lower extremity swelling, mild evidence of congestive cardiac failure diastolic acute on chronic. BNP level 114. Chest x-ray suggests mild vascular congestion possible atelectasis. Echocardiogram with Doppler study performed in 2014 revealed a normal left ventricular systolic function. Echo performed at that time was also negative for any ischemia. #2 hypertension #3 diabetes, uncontrolled, patient recently started on glipizide. #4 hyperlipidemia Plan Echo with Doppler study revealed an ejection fraction of 55-60%. Patient may be able to be discharged home from cardiology's perspective, we will make her a follow-up appointment to see Dr. Araiza in the office post discharge. We will continue the patient on 20 mg of by mouth Lasix twice a day.. DNP note has been reviewed, I agree with a documented findings and plan of care. Patient was seen and examined.
[2017-07-01 16:52] LABS: Glucose,Whole Blood 278 mg/dL (75-99)
[2017-07-01 17:19] VITALS: BP 130/71; PULSE 94
[2017-07-01 17:40] LABS: Anion Gap 12 mmol/L; Blood Urea Nitrogen 16 mg/dL (7-17); Calcium 9.4 mg/dL (8.4-10.2); Carbon Dioxide 30 mmol/L (22-30); Chloride 94 mmol/L (98-107); Glucose 268 mg/dL (74-99); Non-African American GFR(MDRD) >60 (>60 ml/min/1.73 sqM); Sodium 136 mmol/L (137-145)
--- NOTE | 2017-07-02 18:35 | P.DS ---
Providers Date of admission: 06/29/17 12:56 Expected date of discharge: 07/01/17 Attending physician: James Longoria Consults: 06/29/17 12:53 Consult Physician Urgent Consulting Provider: Jarret Posada Consult Reason/Comments: Pulmonary edema, concern for new onset heart failure Do you want consulting provider notified?: Yes, Notify in am Primary care physician: Shankar Veronica Hospital Course: Final diagnoses: -Bilateral lower extremity edema likely from venous insufficiency, being caused by weight gain/obesity, and is a side effect of verapamil -Morbid obesity BMI 42.6. -Diabetes mellitus type II on oral oral hypoglycemics, controlled in-GERD. -Hyperlipidemia. -Obstructive sleep apnea does not use a CPAP machine. -Chronic diverticulosis. -Depression not otherwise specified. Hospital course: Patient presented with bilateral lower extremity edema. [place] to be combination of venous insufficiency and side effect of verapamil. Patient's BMP is normal and today showed preserved LV function. Patient advised to lose weight. Consultations: Antenna Engineer-Dr. VC Cortez Patient Condition at Discharge: Stable Plan - Discharge Summary New Discharge Prescriptions: New Furosemide [Lasix] 20 mg PO MOWEFR #30 tab Continue Lisinopril-Hctz 20-12.5 mg [Zestoretic 20-12.5] 1 tab PO DAILY Omeprazole [PriLOSEC] 20 mg PO AC-BRKFST Cholecalciferol [Vitamin D3] 2,000 unit PO DAILY Atorvastatin [Lipitor] 40 mg PO HS Sucralfate [Carafate] 1 gm PO DAILY Aspirin [Adult Low Dose Aspirin EC] 81 mg PO HS metFORMIN HCL [Glucophage] 2 tab PO BID Cinnamon Bark [Cinnamon] 2,000 mg PO DAILY Gabapentin [Neurontin] 200 mg PO DAILY Amitriptyline HCl [Elavil] 10 mg PO HS glipiZIDE XL [Glucotrol XL] 5 mg PO DAILY OLANZapine [ZyPREXA] 2.5 mg PO DAILY Loratadine [Claritin] 10 mg PO DAILY Venlafaxine HCl [Effexor XR] 75 mg PO DAILY Discontinued Verapamil HCl [Verapamil ER] 180 mg PO DAILY Discharge Medication List Lisinopril-Hctz 20-12.5 mg [Zestoretic 20-12.5] 1 tab PO DAILY 06/20/15 [History ] Omeprazole [PriLOSEC] 20 mg PO AC-BRKFST 06/20/15 [History] Atorvastatin [Lipitor] 40 mg PO HS 11/12/15 [History] Cholecalciferol [Vitamin D3] 2,000 unit PO DAILY 11/12/15 [History] Aspirin [Adult Low Dose Aspirin EC] 81 mg PO HS 11/15/15 [History] Sucralfate [Carafate] 1 gm PO DAILY 11/15/15 [History] Cinnamon Bark [Cinnamon] 2,000 mg PO DAILY 01/23/16 [History] metFORMIN HCL [Glucophage] 2 tab PO BID 01/23/16 [History] Amitriptyline HCl [Elavil] 10 mg PO HS 06/29/17 [History] Gabapentin [Neurontin] 200 mg PO DAILY 06/29/17 [History] Loratadine [Claritin] 10 mg PO DAILY 06/29/17 [History] OLANZapine [ZyPREXA] 2.5 mg PO DAILY 06/29/17 [History] Venlafaxine HCl [Effexor XR] 75 mg PO DAILY 06/29/17 [History] glipiZIDE XL [Glucotrol XL] 5 mg PO DAILY 06/29/17 [History] Furosemide [Lasix] 20 mg PO MOWEFR #30 tab 07/01/17 [Rx] Follow up Appointment(s)/Referral(s): Denver Gray MD [STAFF PHYSICIAN] - 07/08/17 4:15 pm () Shankar Veronica MD [Primary Care Provider] - 3 Days Ambulatory/Diagnostic Orders: Basic Metabolic Panel [LAB.AMB] Location: Determined By Patient Complete Blood Count w/diff [LAB.AMB] Location: Determined By Patient Patient Instructions/Handouts: Heart Failure (DC), Heart Healthy Diet (DC) Activity/Diet/Wound Care/Special Instructions: consistent carb heart healthy diet Discharge Disposition: HOME SELF-CARE
== END 2017-07-01 17:40 | disposition home or self-care (01) ==
LOC: EC 10:26 → INTOOBSV 12:56 → 6SEL 12:56
PROVIDERS: ADMIT Hospitalist; ATTEND Hospitalist
DX: R60.0 Localized edema (principal); I11.0 Hypertensive heart disease with heart failure; I50.33 Acute on chronic diastolic (congestive) heart failure; E11.9 Type 2 diabetes mellitus without complications; E66.01 Morbid (severe) obesity due to excess calories; Z68.41 Body mass index [BMI] 40.0-44.9, adult; G47.33 Obstructive sleep apnea (adult) (pediatric); K57.90 Diverticulosis of intestine, part unspecified, without perforation or abscess without bleeding; F32.9 Major depressive disorder, single episode, unspecified; E78.5 Hyperlipidemia, unspecified; K21.9 Gastro-esophageal reflux disease without esophagitis; Z79.899 Other long term (current) drug therapy; Z79.82 Long term (current) use of aspirin; Z79.84 Long term (current) use of oral hypoglycemic drugs; Z88.1 Allergy status to other antibiotic agents; Z88.3 Allergy status to other anti-infective agents; Z88.5 Allergy status to narcotic agent; Z91.013 Allergy to seafood; Z85.42 Personal history of malignant neoplasm of other parts of uterus; I87.2 Venous insufficiency (chronic) (peripheral)
CPT/HCPCS: 99284; 96374 ×2; 96376; 96372 ×2; 36415; 93005; 93306; 85379; 83880; 80053; 80048; 83036; 82550; 82553; 84484; 85025; 71020; G0378 ×3; J1940 ×2; J1650 ×2

== ENCOUNTER → 2017-07-03 | Outpatient (CLI) | payer OTHER ==
[2017-07-03 11:33] LABS: ALT 71 U/L (9-52); AST 41 U/L (14-36); Alkaline Phosphatase 144 U/L (38-126); Anion Gap 13 mmol/L; Blood Urea Nitrogen 14 mg/dL (7-17); Calcium 9.6 mg/dL (8.4-10.2); Carbon Dioxide 25 mmol/L (22-30); Chloride 99 mmol/L (98-107); Glucose 316 mg/dL (74-99); Non-African American GFR(MDRD) >60 (>60 ml/min/1.73 sqM); Potassium 4.7 mmol/L (3.5-5.1); Sodium 137 mmol/L (137-145); Total Bilirubin 0.7 mg/dL (0.2-1.3); Total Protein 7.1 g/dL (6.3-8.2)
[2017-07-03 11:34] LABS: CH 29.1; CHCM 34.3; HCT 38.3 % (34.0-46.0); HDW 3.18; HGB 13.8 gm/dL (11.4-16.0); MCH 30.6 pg (25.0-35.0); MCV 85.1 fL (80.0-100.0); Mean Platelet Volume 6.1; RDW 13.3 % (11.5-15.5); WBC 8.1 k/uL (3.8-10.6)
[2017-07-03 11:36] LABS: Appearance,Urine Clear (Clear); Bacteria,Urine Rare /hpf; Bilirubin,Urine Negative (Negative); Glucose,Urine (UA) 4+ (Negative); Ketones,Urine Negative (Negative); Leukocyte Esterase,Urine Negative (Negative); Mucus,Urine Rare /hpf; Nitrite,Urine Negative (Negative); Particle Count 1687; Protein,Urine Trace (Negative); RBC,Urine 1 /hpf (0-5); Specific Gravity,Urine 1.017 (1.001-1.035); Squamous Epithelial Cell,Urine 3 /hpf (0-4); UA Billing (MACRO vs. MICRO) MICRO; Urobilinogen,Urine <2.0 mg/dL (<2.0); WBC,Urine <1 /hpf (0-5)
[2017-07-03 12:23] LABS: INR 0.9 (<1.2)
[2017-07-03 12:24] LABS: Partial Thromboplastin Time 22.6 sec (22.0-30.0); Prothrombin Time 9.6 sec (9.0-12.0)
== END | disposition home or self-care (01) ==
LOC: LABPAT 10:35
PROVIDERS: ATTEND Orthopaedic Surgery Sports Medicine
DX: Z01.812 Encounter for preprocedural laboratory examination (principal)
CPT/HCPCS: 80053; 81001; 85027; 85610; 85730; 87070

== ENCOUNTER → 2017-07-09 | Outpatient (CLI) | payer OTHER ==
[2017-07-09 10:57] LABS: CH 29.4; CHCM 34.7; HCT 37.2 % (34.0-46.0); HDW 3.12; HGB 12.9 gm/dL (11.4-16.0); MCH 29.5 pg (25.0-35.0); MCHC 34.6 g/dL (31.0-37.0); MCV 85.3 fL (80.0-100.0); Mean Platelet Volume 6.4; RBC 4.36 m/uL (3.80-5.40); RDW 13.4 % (11.5-15.5); WBC 9.8 k/uL (3.8-10.6)
[2017-07-09 11:00] LABS: Anion Gap 11 mmol/L; Blood Urea Nitrogen 14 mg/dL (7-17); Carbon Dioxide 30 mmol/L (22-30); Chloride 99 mmol/L (98-107); Glucose 156 mg/dL (74-99); Non-African American GFR(MDRD) >60 (>60 ml/min/1.73 sqM); Sodium 140 mmol/L (137-145)
== END | disposition home or self-care (01) ==
LOC: LABWHC1 10:26
PROVIDERS: ATTEND Hospitalist
DX: E11.9 Type 2 diabetes mellitus without complications (principal)
CPT/HCPCS: 36415; 80048; 85027

== ENCOUNTER 2017-07-17 09:29 | Inpatient (IN) | payer OTHER ==
[~2017-07-17 09:29] MED LIST: ACETAMINOPHEN TAB 500 MG TAB PO ONE; DEXAMETHASONE SOD PHOSPHATE 10 MG/ML 1 ML VIAL IV ONE; LIDOCAINE 1% 20 ML VIAL (10MG/ML) FOR IV START INTRADERMA PRN; MELOXICAM 7.5 MG TAB PO ONE; ONDANSETRON 4 MG/2 ML VIAL IVP ONE; SCOPOLAMINE 1.5MG/72HR PATCH TRANSDERM ONE; TRANEXAMIC ACID 1,000 MG in SODIUM CHLORIDE 0.9% 100 ML IVPB ONE; ceFAZolin 2 GM in SODIUM CHLORIDE 0.9% 100 ML IVPB ONE; fentaNYL (PF) 50 MCG/ML 2 ML AMP IV PRN
[2017-07-17] MEDS: LACTATED RINGERS 1,000 ML IV SCH ×2 (10:31→22:53)
[2017-07-17 10:52] LABS: Glucose,Whole Blood 120 mg/dL (75-99)
[2017-07-17] MEDS ORDERED: ceFAZolin 3,000 MG in SODIUM CHLORIDE 0.9% IRRIGATIO 3,000 ML IRRIGATION ONE (12:10)
[2017-07-17] MEDS: ROPIVACAINE 246.25 MG, EPINEPHrine 0.5 MG, KETOROLAC 30 MG, cloNIDine HCL/PF 80 MCG, WA... MISCELLANE ONE ×10 (12:33→13:10)
[2017-07-17] MEDS ORDERED: LACTATED RINGERS 1,000 ML IV ONE (13:20)
[2017-07-17] MEDS ORDERED: ONDANSETRON 4 MG/2 ML VIAL IVP PRN (14:07)
[2017-07-17] MEDS ORDERED: HYDROmorphone 1 MG/ML 1 ML SYRINGE IVP PRN ×3 (14:07)
[2017-07-17] MEDS ORDERED: hydrOXYzine PAMOATE 25 MG CAP PO PRN (14:07)
[2017-07-17] MEDS ORDERED: HYDROcodone/APAP 7.5-325MG 1 EACH TAB PO PRN (14:07)
[2017-07-17] MEDS ORDERED: BISACODYL 10 MG SUPP RECTAL PRN (14:07)
[2017-07-17] MEDS ORDERED: ACETAMINOPHEN TAB 325 MG TAB PO PRN (14:07)
[2017-07-17] MEDS ORDERED: MAGNESIUM HYDROXIDE 2,400 MG/10 ML CUP PO PRN (14:07)
[2017-07-17] MEDS ORDERED: NA PHOS,M-B/NA PHOS,DI-BA 133 ML ENEMA RECTAL PRN (14:07)
[2017-07-17] MEDS ORDERED: DIAZEPAM 5 MG TAB PO PRN (14:07)
[2017-07-17] MEDS ORDERED: TEMAZEPAM 15 MG CAP PO PRN (14:07)
[2017-07-17] MEDS ORDERED: NALOXONE 0.4 MG/ML 1 ML VIAL IV PRN ×2 (14:07→14:58)
--- NOTE | 2017-07-17 14:32 | XR ---
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 There is soft tissue edema and emphysema. IMPRESSION: 1. Postoperative change. Appears in near-anatomic alignment
[2017-07-17] MEDS ORDERED: diphenhydrAMINE 50 MG/ML 1 ML VIAL IVP ONE (14:45)
[2017-07-17 14:58] LABS: Glucose,Whole Blood 145 mg/dL (75-99)
[2017-07-17] MEDS ORDERED: diphenhydrAMINE 50 MG/ML 1 ML VIAL IVP PRN (14:58)
[2017-07-17] MEDS ORDERED: MORPHINE SULFATE 4 MG/ML SYRINGE IVP PRN (14:58)
[2017-07-17 15:29] VITALS: BMI 40.2
[2017-07-17] MEDS: ONDANSETRON 4 MG/2 ML VIAL IVP PRN ×2 (15:49→23:20)
[2017-07-17 16:41] LABS: Glucose,Whole Blood 180 mg/dL (75-99)
[2017-07-17] MEDS: INSULIN LISPRO (humaLOG) 300 UNIT/3 ML VIAL SQ SCH ×2 (17:49→21:07)
[2017-07-17] MEDS ORDERED: METOCLOPRAMIDE 5 MG/ML 2 ML VIAL IVP PRN (19:47)
[2017-07-17] MEDS: ceFAZolin 2 GM in SODIUM CHLORIDE 0.9% 100 ML IVPB SCH (20:31)
[2017-07-17] MEDS: SENNOSIDES-DOCUSATE SODIUM 1 EACH TAB PO SCH (20:31)
[2017-07-17] MEDS: ASPIRIN 325 MG TAB PO SCH (20:31)
[2017-07-17 21:12] LABS: Glucose,Whole Blood 184 mg/dL (75-99)
--- NOTE | 2017-07-17 22:31 | P.CONS ---
History of Present Illness - Reason for Consult Consult date: 07/17/17 Medical management Requesting physician: Shen Alberts - Chief Complaint Knee surgery - History of Present Illness Consultation: This is a very pleasant [address] Veronica. Underwent right total knee arthroplasty per Dr. Alberts. Chronic stable medical conditions include diabetes , GERD, hyperlipidemia, hypertension, osteoarthritis, depression, diverticulosis. Postsurgery did have nausea vomiting. Feeling but better now. No chest pain or shortness of breath. GEN.: Tired EYES: None HEENT: None NECK: None RESPIRATORY: None CARDIOVASCULAR: None GASTROINTESTINAL: As above GENITOURINARY: None MUSCULOSKELETAL: Pain in different joints LYMPHATICS: None HEMATOLOGICAL: None PSYCHIATRY: None NEUROLOGICAL: None Past medical history: Diabetes, GERD, hyperlipidemia, hypertension, osteoarthritis, obstructive sleep apnea does not use CPAP, diverticulosis, uterine cancer with hysterectomy, depression, hemorrhoids he did Past surgical history: Appendectomy, hernia repair, history, homemaker hernia, Social history: Lives alone. no smoking. No alcohol. Family history: Diabetes and coronary artery disease Home medications: Reviewed in the computer. ALLERGIES: Erythromycin, iodine, morphine, shellfish VITAL SIGNS: 97.4, 104, 16, 151/91, 97% on room air, GENERAL: Well-built, BMI 40.3, laying in bed, tired appearing. EYES: Pupils equal. Conjunctiva normal. HEENT: External appearance of nose and ears normal, oral cavity grossly normal. NECK: JVD not raised; masses not palpable. HEART: First and second heart sounds are normal; no edema. LUNGS: Respiratory rate normal; decreased breath sounds. ABDOMEN: Soft, nontender, liver spleen not palpable, no masses palpable. LYMPHATICS: No lymph nodes palpable in the axilla and neck. PSYCH: Alert and oriented x3; mood and affect normal. NEUROLOGICAL: Cranial nerves grossly intact; no facial asymmetry, power and sensation grossly intact. MUSCULOSKELETAL: Dressing over the right knee Investigation: Accu-Cheks noted Labs from 07/09/2017 include white count 9.8, implement upper 9, potassium 4 Assessment: -Right total knee arthroplasty, -Diabetes mellitus type 2 on oral hypoglycemic -GERD -Hyperlipidemia -Essential hypertension -Primary osteoarthritis multiple joints -Obstructive sleep apnea does not use CPAP machine -Colonic diverticulosis -Depression not otherwise specified controlled -Morbid obesity BMI 40.3 Plan: Home medications are resumed. Accu-Cheks to be followed. Patient received antiemetics for nausea vomiting. Doing better now. Patient getting aspirin 325 twice a day put on daily prophylaxis. Care was discussed with the patient. Thank you Dr. Alberts Past Medical History Past Medical History: Cancer, Diabetes Mellitus, GERD/Reflux, Hyperlipidemia, Hypertension, Osteoarthritis (OA), Sleep Apnea/CPAP/BIPAP Additional Past Medical History / Comment(s): Uterine CA w/ Hysterectomy. 2007 Rectal Bleed, colonoscopy showing Diverticulosis, internal/external hemorrhoids. NO TX FOR SLEEP APNEA. EDEMA BLE 06/29/17, IMPROVED. USING CANE. History of Any Multi-Drug Resistant Organisms: None Reported Past Surgical History: Appendectomy, Hernia Repair, Hysterectomy Additional Past Surgical History / Comment(s): Umbilical Hernia, Post op Hematoma - was surgically drained, developed infection; was tx in wound center. 2007 colonoscopy. EGD. Past Anesthesia/Blood Transfusion Reactions: Postoperative Nausea & Vomiting ( PONV) Additional Past Anesthesia/Blood Transfusion Reaction / Comm: Pt had PONV after Umbilical Hernia Repair. She has never received blood. Smoking Status: Former smoker - Past Family History Brother(s) Family Medical History: Cancer Father Family Medical History: Coronary Artery Disease (CAD), Diabetes Mellitus, Eye Disorder, Renal Disease Additional Family Medical History / Comment(s): Father at age 81 yrs. He was on dialysis and was blind due to his diabetes. Mother Family Medical History: AFIB, Congestive Heart Failure (CHF), Hypertension, Osteoarthritis (OA) Additional Family Medical History / Comment(s): Mother at age 81 yrs. Medications and Allergies Home Medications Medication Instructions Recorded Confirmed Type Lisinopril-Hctz 20-12.5 mg 1 tab PO DAILY 06/20/15 07/17/17 History [Zestoretic 20-12.5] Omeprazole [PriLOSEC] 20 mg PO AC-BRKFST 06/20/15 07/17/17 History Atorvastatin [Lipitor] 40 mg PO HS 11/12/15 07/17/17 History Cholecalciferol [Vitamin D3] 2,000 unit PO DAILY 11/12/15 07/17/17 History Aspirin [Adult Low Dose Aspirin EC] 81 mg PO HS 11/15/15 07/17/17 History Sucralfate [Carafate] 1 gm PO DAILY 11/15/15 07/17/17 History Cinnamon Bark [Cinnamon] 1,000 mg PO BID 01/23/16 07/17/17 History metFORMIN HCL [Glucophage] 1,000 mg PO BID 01/23/16 07/17/17 History Amitriptyline HCl [Elavil] 10 mg PO HS 06/29/17 07/17/17 History Gabapentin [Neurontin] 100 mg PO DAILY 06/29/17 07/17/17 History Loratadine [Claritin] 10 mg PO DAILY 06/29/17 07/17/17 History OLANZapine [ZyPREXA] 2.5 mg PO HS 06/29/17 07/17/17 History glipiZIDE XL [Glucotrol XL] 5 mg PO DAILY 06/29/17 07/17/17 History Verapamil Sr [Isoptin Sr] 180 mg PO DAILY 07/11/17 07/17/17 History Venlafaxine HCl ER [Effexor Xr] 150 mg PO DAILY 07/17/17 07/17/17 History Allergies Allergy/AdvReac Type Severity Reaction Status Date / Time erythromycin base Allergy Anaphylaxis Verified 07/17/17 10:30 Iodine and Iodide Containing Allergy Anaphylaxis Verified 07/17/17 10:30 Produc morphine Allergy Confusion Verified 07/17/17 10:30 shellfish derived [Shellfish] Allergy Anaphylaxis Verified 07/17/17 10:30
[2017-07-17] MEDS: AMITRIPTYLINE HCL 10 MG TAB PO SCH (23:16)
[2017-07-17] MEDS: OLANZapine 2.5 MG TAB PO SCH (23:16)
[2017-07-17] MEDS: ATORVASTATIN 40 MG TAB PO SCH (23:16)
[2017-07-18] MEDS: LACTATED RINGERS 1,000 ML IV SCH ×3 (01:36→08:33)
[2017-07-18] MEDS: ceFAZolin 2 GM in SODIUM CHLORIDE 0.9% 100 ML IVPB SCH (03:22)
[2017-07-18 07:23] LABS: Glucose,Whole Blood 116 mg/dL (75-99)
--- NOTE | 2017-07-18 07:24 | P.PN ---
Progress Note - Text Date: 07/18/2017 Time: 706 The patient is status post, right total knee arthroplasty Vital signs stable VAS:[2-3-10. Patient incurred some nausea yesterday, the nausea has now subsided. The patient also incurred some itching yesterday, this itching is now subsiding. Pain meds to be managed by service.
[2017-07-18 07:33] LABS: Basophils % (A) 0 %; CH 30.2; CHCM 33.9; Eosinophils % (A) 0 %; HCT 33.2 % (34.0-46.0); HDW 3.03; HGB 10.7 gm/dL (11.4-16.0); Luc % (Auto) 1; Lymphocytes # (A) 1.2 k/uL (1.0-4.8); Lymphocytes % (A) 10 %; MCH 28.9 pg (25.0-35.0); MCHC 32.3 g/dL (31.0-37.0); MCV 89.5 fL (80.0-100.0); Mean Platelet Volume 6.7; Monocytes # (A) 0.5 k/uL (0-1.0); Monocytes % (A) 5 %; Neutrophils # (A) 9.5 k/uL (1.3-7.7); Neutrophils % (A) 84 %; RBC 3.71 m/uL (3.80-5.40); RDW 13.8 % (11.5-15.5); WBC 11.3 k/uL (3.8-10.6); WBC (Perox) 11.26
[2017-07-18] MEDS: INSULIN LISPRO (humaLOG) 300 UNIT/3 ML VIAL SQ SCH ×3 (07:47→17:17)
[2017-07-18 07:51] LABS: Anion Gap 6 mmol/L; Blood Urea Nitrogen 14 mg/dL (7-17); Calcium 8.2 mg/dL (8.4-10.2); Carbon Dioxide 30 mmol/L (22-30); Chloride 101 mmol/L (98-107); Glucose 120 mg/dL (74-99); Non-African American GFR(MDRD) >60 (>60 ml/min/1.73 sqM); Potassium 3.5 mmol/L (3.5-5.1); Sodium 137 mmol/L (137-145)
[2017-07-18] MEDS: metFORMIN 500 MG TAB PO SCH ×2 (08:06→17:29)
[2017-07-18] MEDS: VERAPAMIL SR 180 MG TABLET.ER PO SCH (08:06)
[2017-07-18] MEDS: LISINOPRIL-HCTZ 20-12.5 MG 1 EACH TAB PO SCH (08:06)
[2017-07-18] MEDS: VENLAFAXINE HCL ER 150 MG CAP PO SCH (08:06)
[2017-07-18] MEDS: GABAPENTIN 100 MG CAP PO SCH (08:06)
[2017-07-18] MEDS: SUCRALFATE 1 GM TAB PO SCH (08:06)
[2017-07-18] MEDS: PANTOPRAZOLE 40 MG TABLET PO SCH (08:06)
[2017-07-18] MEDS: LORATADINE 10 MG TAB PO SCH (08:06)
[2017-07-18] MEDS: ASPIRIN 325 MG TAB PO SCH ×2 (08:06→20:17)
[2017-07-18] MEDS: HYDROcodone/APAP 7.5-325MG 1 EACH TAB PO PRN ×2 (08:55→15:53)
--- NOTE | 2017-07-18 09:50 | P.PN ---
Subjective Principal diagnosis: Status post right total knee arthroplasty Patient is postop day #1 from right total knee arthroplasty. She is seen at bedside this morning. She has pain at the surgical site as expected. She has no new complaints. She denies calf pain, fever, chills, chest pain, shortness of breath, numbness, tingling or other. Objective - Vital Signs Vital signs: Vital Signs Temp 97.5 F L 07/18/17 07:00 Pulse 68 07/18/17 07:00 Resp 16 07/18/17 07:00 BP 109/71 07/18/17 07:00 Pulse Ox 98 07/18/17 07:00 Intake & Output 07/17/17 07/18/17 07/18/17 18:59 06:59 18:59 Intake Total 1301 1250 Output Total 280 1500 Balance 1021 1250 -1500 Weight 109.769 kg Intake: IV 1301 Intake, IV Titration 1000 Amount Lactated Ringers 1,000 ml 800 @ 100 mls/hr IV .Q10H ROSALVA Rx#:[id number] ceFAZolin 2 gm In Sodium 200 Chloride 0.9% 100 ml @ 100 mls/hr IVPB Q8H ROSALVA Rx#:[id number] Oral 250 Output: Urine 180 1500 Uretheral ([place]) 1500 Estimated Blood Loss 100 Other: Voiding Method Indwelling Catheter Indwelling Catheter Indwelling Catheter - Exam Inspection of the right lower extremity shows benign surgical wound. There is no active bleeding or drainage. Neurovascular status is intact throughout the right lower extremity with motor and sensation. 2+ dorsalis pedis pulses less than 2 second cap refill is present. Calf is soft and nontender. - Constitutional General appearance: Present: no acute distress - Psychiatric Psychiatric: Present: A&O x's 3, appropriate affect, intact judgment & insight - Labs CBC & Chem 7: 07/18/17 07:11 07/18/17 07:11 Labs: Abnormal Lab Results - Last 24 Hours (Table) 07/17/17 07/17/17 07/17/17 Range/Units 10:44 14:54 16:31 WBC (3.8-10.6) k/uL RBC (3.80-5.40) m/uL Hgb (11.4-16.0) gm/dL Hct (34.0-46.0) % Neutrophils # (1.3-7.7) k/uL Creatinine (0.52-1.04) mg/dL Glucose (74-99) mg/dL POC Glucose (mg/dL) 120 H 145 H 180 H (75-99) mg/dL Calcium (8.4-10.2) mg/dL 07/17/17 07/18/17 07/18/17 Range/Units 21:05 07:08 07:11 WBC 11.3 H (3.8-10.6) k/uL RBC 3.71 L (3.80-5.40) m/uL Hgb 10.7 L (11.4-16.0) gm/dL Hct 33.2 L (34.0-46.0) % Neutrophils # 9.5 H (1.3-7.7) k/uL Creatinine (0.52-1.04) mg/dL Glucose (74-99) mg/dL POC Glucose (mg/dL) 184 H 116 H (75-99) mg/dL Calcium (8.4-10.2) mg/dL 07/18/17 Range/Units 07:11 WBC (3.8-10.6) k/uL RBC (3.80-5.40) m/uL Hgb (11.4-16.0) gm/dL Hct (34.0-46.0) % Neutrophils # (1.3-7.7) k/uL Creatinine 0.51 L (0.52-1.04) mg/dL Glucose 120 H (74-99) mg/dL POC Glucose (mg/dL) (75-99) mg/dL Calcium 8.2 L (8.4-10.2) mg/dL Assessment and Plan (1) Osteoarthritis of right knee Narrative/Plan: She'll continue with routine postop orthopedic protocol including pain management, wound care, physical therapy, DVT prophylaxis and postoperative medical management. Expect discharge to either rehab or home with home health in the next 1-2 days. Status: Acute Time with Patient: Less than 30
[2017-07-18 11:49] LABS: Hemoglobin A1C 7.9 % (4.2-6.1)
[2017-07-18 11:52] LABS: Glucose,Whole Blood 190 mg/dL (75-99)
[2017-07-18] MEDS: MULTIVITAMINS, THERA 1 EACH TAB PO SCH (13:00)
[2017-07-18] MEDS: traMADol 50 MG TAB PO PRN ×2 (13:05→18:50)
--- NOTE | 2017-07-18 16:06 | OP ---
DATE OF PROCEDURE: 07/17/2017 PREOPERATIVE DIAGNOSIS: Right knee osteoarthrosis. POSTOPERATIVE DIAGNOSIS: Right knee osteoarthrosis. PROCEDURE PERFORMED: Right total knee arthroplasty. SURGEON: MARTIN QUEZADA MD OPERATIONS CONSULTANT: CURTIS HASKINS ANESTHESIA: Spinal with sedation. ESTIMATED BLOOD LOSS: 100 mL. TOURNIQUET: 52 minutes at 250 mmHg. DRAINS: None. COMPLICATIONS: None apparent. DISPOSITION: Postanesthesia care unit. INDICATIONS: Melany is a 57 -year-old female with long standing history of right knee pain. History and physical examination are consistent advanced right knee osteoarthrosis. She has been through significant nonoperative management at this point. Further treatment options were discussed and she has decided to go forward with right total knee arthroplasty. The risks of the procedure were discussed with her in detail. These risks include but are not limited to risk of infection, nerve damage, bleeding, pain, small risk of deep vein thrombosis which could lead to fatal pulmonary embolism. There is also risk of loosening of the implant which could require revision operation. The patient understands these risks and all her questions were answered to her satisfaction. Appropriate informed consent was obtained. DESCRIPTION OF THE PROCEDURE: The patient was identified in the preoperative holding area. Surgical site was marked by both the patient and myself. She was given 2 gm Ancef IV for prophylactic purposes. She was then transferred to the operative suite and placed supine on the operating room table. Spinal anesthetic was then administered and dosed per the anesthesia department without apparent complications. Examination under anesthesia was then performed. The patient was 2 to 3 degrees shy of full extension. She had 100 degrees of flexion in the medial collateral ligament, lateral collateral ligament and posterior cruciate ligaments were stable. The tourniquet was placed high on the right upper thigh, well padded in preparation for surgery. The patients right lower extremity was then prepped and draped in the usual sterile fashion. Standard surgical pause was then undertaken to ensure that we were operating in the correct site and that appropriate preoperative antibiotics had been given. All staff in the room were in agreement and we proceeded. The outlines of the patellar were marked with surgical pen. I planned a 12 cm incision, vertical incision centered over the patella with marked surgical pen. The leg was then exsanguinated with an Esmarch dressing. The knee was then flexed and tourniquet inflated to 250 mmHg. Total tourniquet time for the procedure was 52 minutes at 250 mmHg. Incision was then made with a 10 blade scalpel. Dissection was carried down sharply to the overlying fascia. Great care was taken to minimize the skin flaps. The knee was then exposed using standard medial parapatellar approach. A small cuff of quadriceps tendon was left for suturing. She was in a mild amount of varus preoperatively. Standard medial release was made. The superficial medial collateral ligament was dissected off bone, around the posterior aspect of the proximal tibial. The medial meniscus was also excised as well. The lateral meniscus was also released anteriorly. The leg was then externally rotated. The patellar was everted and the knee was flexed. The retractors were then placed to protect the collateral ligaments. I then proceeded to remove the infrapatellar fat pad. This was excised sharply tangentially with the fibers of the patellar tendon. I then proceed to remove the peripheral osteophytes. This was done with a rongeur. I then proceed with distal femoral resection. She did have near full extension. Planned 9 mm resection was done. The femoral canal was then entered in the midline of the femur, approximately 10 mm anterior to the origin of the posterior cruciate ligament. The reggie was then advanced down the center of the femur and placed intramedullary. Based on preoperative radiographs of the angle between the anatomic and the mechanical axis of the femur, was approximately 4 to 5 degrees. The valgus angle of the distal femoral cutting guide was then set at 4 degrees for the right knee. The distal femoral cutting guide was then advanced over the intramedullary reggie. This was seated firmly against the femur. I then, as mentioned, planned to take 9 mm off the distal femur. Cutting block was then secured onto the femur with pins. The jig was then removed and the distal femoral cut was made through the slot of the block. The pins were then removed from the distal femoral cutting block was removed. The accuracy of the distal femoral cuts was checked with two flats bars. I then proceeded with femoral sizing. The posterior referencing sizing guide was held firmly against it to resect the distal surface of the femur. The posterior condyles were resting on the posterior plane of the guide. Sizing stylist was then placed onto the anterior femur. The size was measured as a size 7. I then assessed for femoral rotation. The plan was for 3 degrees of external rotation. 3 degrees of external rotation was placed onto the jig. These holes were then marked. I then confirmed the rotation by three separate methods. This was done using epicondylar axis as well as white sides line and posterior referencing. It was deemed that the external rotation was proper. I then went forward placing the femoral cutting block. This was placed over the previously placed pin holes. The mayte wing was then placed onto the anterior slots to make sure that we had not notched the anterior femur with the anterior femoral cut. I then proceeded with the anterior femoral cut. This was flushed with the anterior cortex of the femur. Posterior cuts were then made followed by the anterior chamfer cut and the posterior chamfer cut. The cutting block was then removed. Throughout the resection, the collateral ligaments were protected with retractors. I then placed a trial size 7 femur. It fit flush with the distal end of the femur. It was slightly wide, medial and lateral. The notches for the narrow component were appropriate. The drill holes were then made. I then proceeded with tibial cutter. I planned for a cruciate retaining knee. The guide was placed and set for varus valgus and for slope. The height was set for approximate 2 mm resection from the medial tibial plateau which was the lower side. I was happy with the alignment and the amount of resection. The cutting block was then pinned to the proximal tibia. The alignment reggie was removed and the proximal tibia was resected with reciprocating saw. Again this was done with retractors protecting the collateral ligaments as well as the posterior cruciate ligament. I then proceeded to evaluate the flexion and extension gaps. 10 mm block was placed. The flexion and extension gaps were equal. I then proceeded with resection of the posterior osteophytes. She had very minimal posterior osteophytes. This was done with a curved osteotome. This resected the posterior osteophytes and posterior capsule. Stripping was also done of the posterior aspect of the femur at this time. The osteophytes were then removed. I then proceeded to resect the patella. The thickness of the patella was measured using the caliper. The thickness was 18 mm. The thickness anticipated of the patellar dome was taken into account. The resection was then performed and confirmed to be equal in four quadrants using a caliper. Approximately 11 mm of bone remained after resection. A 29 x 8 mm standard patellar trial was then placed. The holes were then drilled and trial was then placed. I then proceeded with sizing the tibial plate. A size D tibial plate fit very nicely. I then placed a trial femur, the tibial tray and the patellar button. A 10 mm trial tibial insert was also placed. The components fit very nicely. She had full flexion and extension. The extension flexion gaps were equal and stable to both varus and valgus stress. The patella tracked appropriately. The tibial tray rotation was marked with Bovie. This was externally rotated properly. I then proceeded with tibial preparation. I first drilled the femoral holes and removed the femoral component. The tibial tray was then set for proper external rotation as well as medial lateral placement onto the tibia. It was pinned into place. I then proceed with punching the [place]. I then proceeded with cementing of all our components. The knee was thoroughly irrigated with sterile saline solution via pulse lavage. The lateral geniculate artery was then identified and cauterized. All blood was removed from the bone at the tibial femur and patella with pulse lavage. I then proceeded with cementing. Two packs of antibiotic bone cement were prepared on the back table by pyrotechnic mixer. I then proceeded with cementing the tibia. First, the cement was impacted into the keel as well as deeply seated into the bone. A second coat of cement was then placed. The tibia was then impacted into place. Excess cement was removed with Cushings and Jokers. I then proceeded with cementing of the femoral component. Femoral component was also cemented using standard technique. Excess cement was removed. A 10 mm trial insert was then placed into the knee. It was brought into full extension with constant axial load placed until the cement had hardened. The patellar component was then cemented. This was held firmly with a compressive device until the cement had dried. When the cement had dried, the knee was taken out of extension. All excess cement was removed from around the prosthesis. I then trialed the knee with 10 mm insert. Flexion/extension gaps were appropriate. The knee was stable. It came into full extension. I decided to go forward with a 10 mm cross link medial congruent cruciate retaining tibial insert. Polyethylene was then placed onto the tibial tray and locked into place. The knee was then reduced. The knee was again further irrigated with sterile saline solution with antibiotic added. The tourniquet was then deflated. The total tourniquet time for the procedure was 52 minutes at 250 mmHg. Final components were Nora Persona size 7 narrow cruciate retaining femoral component, a size D tibial tray, a 10 mm medial congruent cruciate retaining polyethylene insert and a 29 x 8 mm patella. I then proceeded with closure. Again, the knee was then thoroughly irrigated. The quadriceps tendon and the medial retinaculum were then reapproximated with # 2 Ethibond suture. The extension mechanism was then closed with a running #2 Quill suture. Subcutaneous tissues were then closed with 2-0 Vicryl interrupted suture. The skin was closed with running 3-0 Quill suture. Dermabond was then applied to the incision. Sterile compressive dressings were then applied. All sponge and needle counts were deemed correct prior to closure. The patient then tolerated the procedure without apparent complications. She was transferred to recovery room in stable condition. LAZARO
[2017-07-18 16:59] LABS: Glucose,Whole Blood 130 mg/dL (75-99)
--- NOTE | 2017-07-18 19:19 | P.PN ---
<Alia Rivers - Last Filed: 07/18/17 19:11> Progress Note - Text DATE OF SERVICE: 07/18/2017 PRESENTING COMPLAINT: Status post right total knee arthroplasty-medical management INTERVAL HISTORY: 57-year-old female patient of Dr. Alberts who is status post right total knee arthroplasty. 07/18/2017: Patient lying in bed appears comfortable. Work with physical therapy, had some nausea and vomiting last night however is now able to tolerate her diet, passing some gas, pain fairly well controlled. REVIEW OF SYSTEMS: Done for constitutional ,cardiovascular, GI, pulmonary with relevant findings as above. CURRENT MEDICATIONS [place] aspirin, Lipitor, Dulcolax, Valium, Zyprexa, Protonix. PHYSICAL EXAM VITAL SIGNS: Temperature 97.5, pulse 68, respiratory rate 16, blood pressure 109/71, oxygen saturation 98% on room air. GENERAL APPEARANCE: Lying in bed, not in distress. EYES: Pupils equal. Conjunctiva normal. NECK: JVD not raised. Mass not palpable. RESPIRATORY: Respiratory effort normal. Lungs clear to auscultation. CARDIOVASCULAR: First and second sounds normal. No edema. ABDOMEN: Soft. Liver and spleen not palpable. No tenderness. No mass palpable. PSYCHIATRY: Alert and oriented x3. Mood and affect normal. NEUROLOGICAL: Power and sensation grossly intact MUSCULOSKELETAL: Right knee dressing in place mild swelling noted. INVESTIGATIONs: White blood cell count 11.3 hemoglobin 10.7 Accu-Cheks noted creatinine 0.51 ASSESSMENT: -Right total knee arthroplasty, -Leukocytosis as an acute phase reactant from surgery. -Diabetes mellitus type 2 on oral hypoglycemic -GERD -Hyperlipidemia -Essential hypertension -Primary osteoarthritis multiple joints -Obstructive sleep apnea does not use CPAP machine -Colonic diverticulosis -Depression not otherwise specified controlled -Morbid obesity BMI 40.3 PLAN: Continue current medication and treatment plan we will continue to follow closely. FIRMWARE ARCHITECT statement: Patient was seen and examined by nurse practitioner Alia Rivers and all elements of the case discussed with attending Dr. Longoria <James Longoria - Last Filed: 07/19/17 12:52> Progress Note - Text Attending note. Date of service-07/18/2017 This patient was seen and examined by me . Discussed the patient with my nurse practitioner Ms. Rivers. Feeling better. Some pain in the operative site. Did eat a meal. Been out of bed. On examination: Lungs-clear, cardiovascular-first seconds are normal Investigations: White count 11.3, bilirubin 10.7 Assessment and plan: Right total arthroplasty/other medical problems stable. Discussed with the patient. Doing well. Continue current medications.
[2017-07-18] MEDS: OLANZapine 2.5 MG TAB PO SCH (20:17)
[2017-07-18] MEDS: ATORVASTATIN 40 MG TAB PO SCH (20:17)
[2017-07-18] MEDS: AMITRIPTYLINE HCL 10 MG TAB PO SCH (20:17)
[2017-07-18] MEDS: SENNOSIDES-DOCUSATE SODIUM 1 EACH TAB PO SCH (20:17)
[2017-07-18 20:22] LABS: Glucose,Whole Blood 134 mg/dL (75-99)
[2017-07-19] MEDS: INSULIN LISPRO (humaLOG) 300 UNIT/3 ML VIAL SQ SCH ×5 (01:10→21:38)
[2017-07-19] MEDS: LACTATED RINGERS 1,000 ML IV SCH ×4 (01:10→15:03)
[2017-07-19] MEDS: HYDROcodone/APAP 7.5-325MG 1 EACH TAB PO PRN ×4 (05:09→21:37)
[2017-07-19 07:30] LABS: Glucose,Whole Blood 140 mg/dL (75-99)
[2017-07-19] MEDS: LORATADINE 10 MG TAB PO SCH (08:05)
[2017-07-19] MEDS: ASPIRIN 325 MG TAB PO SCH ×2 (08:05→21:17)
[2017-07-19] MEDS: VERAPAMIL SR 180 MG TABLET.ER PO SCH (08:05)
[2017-07-19] MEDS: VENLAFAXINE HCL ER 150 MG CAP PO SCH (08:05)
[2017-07-19] MEDS: LISINOPRIL-HCTZ 20-12.5 MG 1 EACH TAB PO SCH (08:05)
[2017-07-19] MEDS: metFORMIN 500 MG TAB PO SCH ×2 (08:06→17:44)
[2017-07-19] MEDS: GABAPENTIN 100 MG CAP PO SCH (08:06)
[2017-07-19] MEDS: SUCRALFATE 1 GM TAB PO SCH (08:06)
[2017-07-19] MEDS: PANTOPRAZOLE 40 MG TABLET PO SCH (08:06)
[2017-07-19] MEDS: traMADol 50 MG TAB PO PRN ×3 (08:10→19:56)
[2017-07-19 08:39] LABS: Anion Gap 8 mmol/L; Blood Urea Nitrogen 10 mg/dL (7-17); Calcium 8.7 mg/dL (8.4-10.2); Carbon Dioxide 29 mmol/L (22-30); Chloride 100 mmol/L (98-107); Glucose 136 mg/dL (74-99); Non-African American GFR(MDRD) >60 (>60 ml/min/1.73 sqM); Potassium 3.8 mmol/L (3.5-5.1); Sodium 137 mmol/L (137-145)
[2017-07-19 11:59] LABS: Glucose,Whole Blood 180 mg/dL (75-99)
--- NOTE | 2017-07-19 12:08 | P.PN ---
Progress Note - Text Patient is a very pleasant 57-year-old female who is seen and examined at the bedside for follow-up evaluation after undergoing a right total knee arthroplasty performed by Dr. Shen Alberts on 07/17/2017. Postsurgically she has continued to have some improvement. She's been able to ambulating the hallways with the assistance of therapy. She states she does not feel she'll be able to be discharged home as she does not have much help at home. She is planning discharge to debilitation facility at discharge. After discussion with the patient and her case mgr, she is currently planning for discharge to [facility] this coming 07/21/2017. She's been eating and voiding without difficulty. She does not have any new complaints. Physical Exam Total Knee Arthroplasty: Status post surgical day number 2 Patient is awake, alert, and oriented 3 Vital signs stable Good chest excursion with deep inspiration and expiration Abdomen soft nontender No signs or symptoms of DVT; no calf pain Dressing of the right knee is clean, dry, and intact; no erythema, purulence, or signs of infection Patient has full foot and ankle motion without difficulty bilateral lower extremities Dorsiflexion, plantar flexion, and extensor hallucis longus positive sustained bilaterally Neurovascular status left lower extremity intact Capillary refill lower extremity is bilaterally less than 2 seconds Assessment: Status post right total knee arthroplasty for right knee osteoarthrosis Plan: 1. Patient to remain weight-bear as tolerated on the lower extremity; patient may work with physical therapy to increase mobility and ambulation 2. Continue pain control 3. Medicine to continue following the patient for his other medical issues 4. Patient will continue with anticoagulation therapy 5. We'll continue to follow the patient 6. Patient will more than likely remain in the hospital over the weekend with plans to be discharged to [facility] this coming Friday, 828-17 7. Patient can follow-up with Dr. Shen Alberts at [facility] in 2-3 weeks following discharge
[2017-07-19] MEDS: MULTIVITAMINS, THERA 1 EACH TAB PO SCH (12:50)
--- NOTE | 2017-07-19 14:52 | P.PN ---
<Alia Rivers - Last Filed: 07/19/17 14:48> Progress Note - Text DATE OF SERVICE: 07/19/2017 PRESENTING COMPLAINT: Status post right total knee arthroplasty-medical management INTERVAL HISTORY: 57-year-old female patient of Dr. Alberts who is status post right total knee arthroplasty. 07/19/2017: Patient seen in follow-up, lying in bed appears comfortable. Agreeable to work with physical therapy, tolerating her diet passing gas, no BM. Pain fairly well controlled. 07/18/2017: Patient lying in bed appears comfortable. Work with physical therapy, had some nausea and vomiting last night however is now able to tolerate her diet, passing some gas, pain fairly well controlled. REVIEW OF SYSTEMS: Done for constitutional ,cardiovascular, GI, pulmonary with relevant findings as above. CURRENT MEDICATIONS [place] aspirin, Lipitor, Dulcolax, Valium, Zyprexa, Protonix. PHYSICAL EXAM VITAL SIGNS: Temperature 97.5, pulse 68, respiratory rate 16, blood pressure 109/71, oxygen saturation 98% on room air. GENERAL APPEARANCE: Lying in bed, not in distress. EYES: Pupils equal. Conjunctiva normal. NECK: JVD not raised. Mass not palpable. RESPIRATORY: Respiratory effort normal. Lungs clear to auscultation. CARDIOVASCULAR: First and second sounds normal. No edema. ABDOMEN: Soft. Liver and spleen not palpable. No tenderness. No mass palpable. PSYCHIATRY: Alert and oriented x3. Mood and affect normal. NEUROLOGICAL: Power and sensation grossly intact MUSCULOSKELETAL: Right knee dressing in place mild swelling noted. INVESTIGATIONs: Sodium 137 BUN 10, creatinine 0.50 Accu-Cheks noted. ASSESSMENT: -Right total knee arthroplasty, -Leukocytosis as an acute phase reactant from surgery. -Diabetes mellitus type 2 on oral hypoglycemic -GERD -Hyperlipidemia -Essential hypertension -Primary osteoarthritis multiple joints -Obstructive sleep apnea does not use CPAP machine -Colonic diverticulosis -Depression not otherwise specified controlled -Morbid obesity BMI 40.3 PLAN: Continue current medication and treatment plan, chronic medical condition stable. We will continue to follow closely. COLOR BLENDER statement: Patient was seen and examined by nurse practitioner Alia Rivers and all elements of the case discussed with attending Dr. Longoria <James Longoria - Last Filed: 07/19/17 17:18> Progress Note - Text Attending note. Date of service-07/19/2017 This patient was seen and examined by me . Discussed the patient with my nurse practitioner Ms. Rivers. Stable doing well. No chest pain starting a diet. Been out of bed. With therapy. Pain better controlled On examination: Lungs-clear, cardio vascular-first seconds are normal Investigations: Potassium 3.8 Assessment and plan: Right total arthroplasty. Stable. Continue current medication treatment plan. Care discussed with the patient.
[2017-07-19 17:05] LABS: Glucose,Whole Blood 162 mg/dL (75-99)
[2017-07-19 20:02] LABS: Glucose,Whole Blood 179 mg/dL (75-99)
[2017-07-19] MEDS: OLANZapine 2.5 MG TAB PO SCH (21:17)
[2017-07-19] MEDS: AMITRIPTYLINE HCL 10 MG TAB PO SCH (21:17)
[2017-07-19] MEDS: ATORVASTATIN 40 MG TAB PO SCH (21:17)
[2017-07-19] MEDS: SENNOSIDES-DOCUSATE SODIUM 1 EACH TAB PO SCH (21:17)
[2017-07-20] MEDS: LACTATED RINGERS 1,000 ML IV SCH ×3 (04:07→11:15)
[2017-07-20 07:12] LABS: Glucose,Whole Blood 130 mg/dL (75-99)
[2017-07-20] MEDS: INSULIN LISPRO (humaLOG) 300 UNIT/3 ML VIAL SQ SCH ×4 (07:30→20:23)
[2017-07-20] MEDS: LISINOPRIL-HCTZ 20-12.5 MG 1 EACH TAB PO SCH (07:53)
[2017-07-20] MEDS: SUCRALFATE 1 GM TAB PO SCH (07:53)
[2017-07-20] MEDS: GABAPENTIN 100 MG CAP PO SCH (07:53)
[2017-07-20] MEDS: VERAPAMIL SR 180 MG TABLET.ER PO SCH (07:53)
[2017-07-20] MEDS: HYDROcodone/APAP 7.5-325MG 1 EACH TAB PO PRN ×3 (07:53→20:15)
[2017-07-20] MEDS: ASPIRIN 325 MG TAB PO SCH ×2 (07:53→20:16)
[2017-07-20] MEDS: VENLAFAXINE HCL ER 150 MG CAP PO SCH (07:54)
[2017-07-20] MEDS: LORATADINE 10 MG TAB PO SCH (07:54)
[2017-07-20] MEDS: PANTOPRAZOLE 40 MG TABLET PO SCH (07:54)
[2017-07-20] MEDS: metFORMIN 500 MG TAB PO SCH ×2 (07:54→17:46)
[2017-07-20 08:48] LABS: Basophils % (A) 0 %; CH 29.3; Eosinophils # (A) 0.1 k/uL (0-0.7); Eosinophils % (A) 2 %; HCT 33.5 % (34.0-46.0); HDW 3.16; HGB 11.6 gm/dL (11.4-16.0); Luc # (Auto) 0.07; Luc % (Auto) 1; Lymphocytes # (A) 1.1 k/uL (1.0-4.8); Lymphocytes % (A) 15 %; MCHC 34.7 g/dL (31.0-37.0); MCV 86.6 fL (80.0-100.0); Mean Platelet Volume 6.1; Monocytes # (A) 0.4 k/uL (0-1.0); Monocytes % (A) 6 %; Neutrophils # (A) 5.8 k/uL (1.3-7.7); Neutrophils % (A) 77 %; RBC 3.87 m/uL (3.80-5.40); RDW 13.7 % (11.5-15.5); WBC 7.5 k/uL (3.8-10.6)
--- NOTE | 2017-07-20 10:58 | P.PN ---
Progress Note - Text Patient is a very pleasant 57-year-old female who is seen and examined at the bedside for follow-up evaluation after undergoing a right total knee arthroplasty performed by Dr. Shen Alberts on 07/17/2017. Postsurgically she has continued to have some improvement. She's been able to ambulating the hallways with the assistance of therapy. She again states today that she does not feel she'll be able to be discharged home as she does not have any help at home. She is planning discharge to debilitation facility at discharge. After discussion with the patient and her case assistant, she is currently planning for discharge to [facility] this coming 07/21/2017. She's been eating and voiding without difficulty. She does not have any new complaints. She feels she continues to improve as compared to yesterday. Physical Exam Total Knee Arthroplasty: Status post surgical day number 3 Patient is awake, alert, and oriented 3 Vital signs stable Good chest excursion with deep inspiration and expiration Abdomen soft nontender No signs or symptoms of DVT; no calf pain Dressing of the right knee is clean, dry, and intact; no erythema, purulence, or signs of infection Patient has full foot and ankle motion without difficulty bilateral lower extremities Dorsiflexion, plantar flexion, and extensor hallucis longus positive sustained bilaterally Neurovascular status left lower extremity intact Capillary refill lower extremity is bilaterally less than 2 seconds Assessment: Status post right total knee arthroplasty for right knee osteoarthrosis Plan: 1. Patient to remain weight-bear as tolerated on the lower extremity; patient may work with physical therapy to increase mobility and ambulation 2. Continue pain control 3. Medicine to continue following the patient for his other medical issues 4. Patient will continue with anticoagulation therapy 5. We'll continue to follow the patient 6. Patient will more than likely remain in the hospital over the weekend with plans to be discharged to [facility] this coming 07/21/17 7. Patient can follow-up with Dr. Shen Alberts at [facility] in 2-3 weeks following discharge
[2017-07-20] MEDS: traMADol 50 MG TAB PO PRN ×2 (11:05→17:48)
[2017-07-20] MEDS: MULTIVITAMINS, THERA 1 EACH TAB PO SCH (11:05)
[2017-07-20 11:51] LABS: Glucose,Whole Blood 181 mg/dL (75-99)
[2017-07-20 16:35] LABS: Glucose,Whole Blood 127 mg/dL (75-99)
--- NOTE | 2017-07-20 18:14 | US ---
EXAMINATION TYPE: US venous doppler duplex LE RT DATE OF EXAM: 07/20/2017 5:53 PM COMPARISON: NONE CLINICAL HISTORY: right lower ext swelling. s/p R TKA. Right leg edema, right knee replacement SIDE PERFORMED: Right TECHNIQUE: The lower extremity deep venous system is examined utilizing real time linear array sonog anthony with graded compression, doppler sonography and color-flow sonography. VESSELS IMAGED: External Iliac Vein (EIV) Common Femoral Vein Deep Femoral Vein Greater Saphenous Vein * Femoral Vein Popliteal Vein Small Saphenous Vein * Proximal Calf Veins (* superficial vessels) Right Leg: NO evidence of DVT Grayscale, color doppler, spectral doppler imaging performed of the deep veins of the lower extremiti es. There is normal flow, compressibility, vascular waveforms. IMPRESSION: No evidence of deep venous thrombosis within the right lower extremity.
--- NOTE | 2017-07-20 18:58 | P.PN ---
<Alia Rivers Varsha - Last Filed: 07/20/17 18:52> Progress Note - Text DATE OF SERVICE: 07/20/2017 PRESENTING COMPLAINT: Status post right total knee arthroplasty-medical management HISTORY OF PRESENT ILLNESS: 57-year-old female patient of Dr. Alberts who is status post right total knee arthroplasty. INTERVAL HISTORY: 07/19/2017: Patient seen in follow-up, sitting up in a recliner, appears calm and comfortable. Agreeable to work with physical therapy, tolerating her diet, passing gas no BM today. Pain fairly well controlled. Does notice some right calf swelling and pain. 07/19/2017: Patient seen in follow-up, lying in bed appears comfortable. Agreeable to work with physical therapy, tolerating her diet passing gas, no BM. Pain fairly well controlled. 07/18/2017: Patient lying in bed appears comfortable. Work with physical therapy, had some nausea and vomiting last night however is now able to tolerate her diet, passing some gas, pain fairly well controlled. REVIEW OF SYSTEMS: Done for constitutional ,cardiovascular, GI, pulmonary with relevant findings as above. CURRENT MEDICATIONS [place] aspirin, Lipitor, Dulcolax, Valium, gabapentin, lisinopril/ hydrochlorothiazide, Claritin, milk of magnesia, Glucophage, Zyprexa, Protonix. PHYSICAL EXAM VITAL SIGNS: Temperature 98.0, pulse 85, respirations 16, blood pressure 128/79, oxygen saturation 94% on room air. GENERAL APPEARANCE: Sitting up in a chair, appears comfortable. EYES: Pupils equal. Conjunctiva normal. NECK: JVD not raised. Mass not palpable. RESPIRATORY: Respiratory effort normal. Lungs diminished to auscultation. CARDIOVASCULAR: First and second sounds normal. No edema. ABDOMEN: Soft. Liver and spleen not palpable. No tenderness. No mass palpable. PSYCHIATRY: Alert and oriented x3. Mood and affect normal. NEUROLOGICAL: Power and sensation grossly intact MUSCULOSKELETAL: Right knee dressing in place mild swelling noted. Right calf painful with mild swelling. INVESTIGATIONs: White blood cell count 7.5, Accu-Cheks noted. ASSESSMENT: -Right total knee arthroplasty, -Leukocytosis as an acute phase reactant from surgery. -Diabetes mellitus type 2 on oral hypoglycemic -GERD -Hyperlipidemia -Essential hypertension -Primary osteoarthritis multiple joints -Obstructive sleep apnea does not use CPAP machine -Colonic diverticulosis -Depression not otherwise specified controlled -Morbid obesity BMI 40.3 PLAN: Continue current medication and treatment plan, chronic medical condition stable. Discharge planning to rehab on Friday. We will continue to follow closely. PAPER PATTERN FOLDER statement: Patient was seen and examined by nurse practitioner Alia Rivers and all elements of the case discussed with Dr. Longoria. <James Longoria - Last Filed: 07/20/17 21:51> Progress Note - Text Attending note. Date of service-07/20/2017 This patient was seen and examined by me . Discussed the patient with my nurse practitioner Ms. Rivers. Right knee arthroplasty. Complaining of some swelling of the right leg. Otherwise feeling well. Breathing stable. On examination: Some edema in the right lower extremity. Lungs-clear Investigations: Assessment and plan: Right lower extremity swelling likely venous insufficiency essentially from surgery. Doppler ultrasound was ordered to rule out DVT. Which did come back as negative. Other medical conditions stable
[2017-07-20] MEDS ORDERED: LACTULOSE 20 GM/30 ML CUP PO ONE (18:59)
[2017-07-20] MEDS: SENNOSIDES-DOCUSATE SODIUM 1 EACH TAB PO SCH (20:15)
[2017-07-20] MEDS: AMITRIPTYLINE HCL 10 MG TAB PO SCH (20:15)
[2017-07-20] MEDS: OLANZapine 2.5 MG TAB PO SCH (20:16)
[2017-07-20] MEDS: ATORVASTATIN 40 MG TAB PO SCH (20:16)
[2017-07-20 20:31] LABS: Glucose,Whole Blood 153 mg/dL (75-99)
[2017-07-21 03:07] VITALS: RESP 16
[2017-07-21] MEDS: HYDROcodone/APAP 7.5-325MG 1 EACH TAB PO PRN ×2 (05:39→11:22)
[2017-07-21 06:56] LABS: Glucose,Whole Blood 139 mg/dL (75-99)
[2017-07-21] MEDS: LACTATED RINGERS 1,000 ML IV SCH ×4 (07:46→12:10)
[2017-07-21] MEDS: VERAPAMIL SR 180 MG TABLET.ER PO SCH (09:28)
[2017-07-21] MEDS: INSULIN LISPRO (humaLOG) 300 UNIT/3 ML VIAL SQ SCH ×2 (09:28→12:09)
[2017-07-21] MEDS: LORATADINE 10 MG TAB PO SCH (09:29)
[2017-07-21] MEDS: ASPIRIN 325 MG TAB PO SCH (09:29)
[2017-07-21] MEDS: PANTOPRAZOLE 40 MG TABLET PO SCH (09:29)
[2017-07-21] MEDS: LISINOPRIL-HCTZ 20-12.5 MG 1 EACH TAB PO SCH (09:29)
[2017-07-21] MEDS: VENLAFAXINE HCL ER 150 MG CAP PO SCH (09:29)
[2017-07-21] MEDS: GABAPENTIN 100 MG CAP PO SCH (09:30)
[2017-07-21] MEDS: metFORMIN 500 MG TAB PO SCH (09:30)
[2017-07-21] MEDS: SUCRALFATE 1 GM TAB PO SCH (09:30)
[2017-07-21] MEDS ORDERED: NA PHOS,M-B/NA PHOS,DI-BA 133 ML ENEMA RECTAL ONE (10:15)
[2017-07-21] MEDS: MULTIVITAMINS, THERA 1 EACH TAB PO SCH (11:13)
[2017-07-21 11:38] LABS: Glucose,Whole Blood 121 mg/dL (75-99)
--- NOTE | 2017-07-21 12:05 | P.DS ---
Providers Date of admission: 07/17/17 09:29 Expected date of discharge: 07/21/17 Attending physician: Shen Alberts Consults: 07/17/17 14:07 Consult Physician Routine Consulting Provider: Shankar Veronica Consult Reason/Comments: post op medical management Do you want consulting provider notified?: Yes 07/17/17 15:28 Consult Physician Routine Consulting Provider: James Longoria Consult Reason/Comments: Medical management Do you want consulting provider notified?: Already Contacted Primary care physician: Shankar Veronica - Discharge Diagnosis(es) (1) Osteoarthritis of right knee Patient was admitted to the OR on 07/17/2017 to undergo right total knee arthroplasty. She had failed conservative measures as an outpatient and desired to proceed with elective surgery after given informed consent. She underwent the above procedure which she tolerated well without competition. Her postoperative hospital course has remained without complication. On day of discharge she desires transfer to extended care facility for further rehab and management. On day of discharge she is afebrile, vital signs stable, labs within acceptable ranges, pain is controlled with oral pain medication, tolerating by mouth meds and diet, denies any new complaints, wound is benign, neurovascular status intact, distal pulses intact, calf is soft and nontender, voiding without difficulty, positive bowel movement, abdomen soft and nontender , denying abdominal pain, denying calf pain. Review of systems is negative for fever, chills, chest pain, shortness breath, nausea, vomiting, dizziness, headaches, slurred speech, numbness, tingling, weakness or other. Current Visit: Yes Status: Acute Priority: Medium Procedures: Right total knee arthroplasty Patient Condition at Discharge: Good Plan - Discharge Summary New Discharge Prescriptions: New Aspirin 325 mg PO BID #60 tab Docusate [Colace] 100 mg PO BID #60 capsule HYDROcodone/APAP 7.5-325MG [[place] 7.5-325] 1 - 2 each PO Q6HR PRN #90 tab PRN Reason: Pain Continue Lisinopril-Hctz 20-12.5 mg [Zestoretic 20-12.5] 1 tab PO DAILY Omeprazole [PriLOSEC] 20 mg PO AC-BRKFST Cholecalciferol [Vitamin D3] 2,000 unit PO DAILY Atorvastatin [Lipitor] 40 mg PO HS Sucralfate [Carafate] 1 gm PO DAILY Aspirin [Adult Low Dose Aspirin EC] 81 mg PO HS metFORMIN HCL [Glucophage] 1,000 mg PO BID Cinnamon Bark [Cinnamon] 1,000 mg PO BID Gabapentin [Neurontin] 100 mg PO DAILY Amitriptyline HCl [Elavil] 10 mg PO HS glipiZIDE XL [Glucotrol XL] 5 mg PO DAILY OLANZapine [ZyPREXA] 2.5 mg PO HS Loratadine [Claritin] 10 mg PO DAILY Verapamil Sr [Isoptin Sr] 180 mg PO DAILY Venlafaxine HCl ER [Effexor XR] 150 mg PO DAILY Discharge Medication List Lisinopril-Hctz 20-12.5 mg [Zestoretic 20-12.5] 1 tab PO DAILY 06/20/15 [History ] Omeprazole [PriLOSEC] 20 mg PO AC-BRKFST 06/20/15 [History] Atorvastatin [Lipitor] 40 mg PO HS 11/12/15 [History] Cholecalciferol [Vitamin D3] 2,000 unit PO DAILY 11/12/15 [History] Aspirin [Adult Low Dose Aspirin EC] 81 mg PO HS 11/15/15 [History] Sucralfate [Carafate] 1 gm PO DAILY 11/15/15 [History] Cinnamon Bark [Cinnamon] 1,000 mg PO BID 01/23/16 [History] metFORMIN HCL [Glucophage] 1,000 mg PO BID 01/23/16 [History] Amitriptyline HCl [Elavil] 10 mg PO HS 06/29/17 [History] Gabapentin [Neurontin] 100 mg PO DAILY 06/29/17 [History] Loratadine [Claritin] 10 mg PO DAILY 06/29/17 [History] OLANZapine [ZyPREXA] 2.5 mg PO HS 06/29/17 [History] glipiZIDE XL [Glucotrol XL] 5 mg PO DAILY 06/29/17 [History] Verapamil Sr [Isoptin Sr] 180 mg PO DAILY 07/11/17 [History] Venlafaxine HCl ER [Effexor XR] 150 mg PO DAILY 07/17/17 [History] Aspirin 325 mg PO BID #60 tab 07/18/17 [Rx] Docusate [Colace] 100 mg PO BID #60 capsule 07/18/17 [Rx] HYDROcodone/APAP 7.5-325MG [[place] 7.5-325] 1 - 2 each PO Q6HR PRN #90 tab [Rx] Follow up Appointment(s)/Referral(s): Shen Alberts MD [STAFF PHYSICIAN] - 07/29/17 10:45 am Activity/Diet/Wound Care/Special Instructions: Weight-bear as tolerated Take meds as directed Keep wound clean and dry Follow up with Dr. Alberts in office May shower in 72 hours Discharge Disposition: TRANSFER TO SNF/ECF
[2017-07-21 14:17] VITALS: BP 130/61; PULSE 91; TEMP 98.1
--- NOTE | 2017-07-21 19:06 | PN ---
DATE OF SERVICE: 07/21/2017 PRESENTING COMPLAINT: Right knee surgery. INTERVAL HISTORY: The patient is status post right knee surgery, doing well, sitting up in a chair, comfortable. Through the night had a bowel movement. Up with therapy. Pain is controlled. REVIEW OF SYSTEMS: CONSTITUTIONAL: None. CARDIOVASCULAR: None. GI: None. PULMONARY: None. Findings as above. Current medications reviewed. On examination, temperature 98.1, pulse 91, respirations 16, blood pressure 130/ 61, pulse ox 95% on room air. GENERAL APPEARANCE: Sitting up in chair, comfortable. EYES: Conjunctivae normal. NECK: JVD not raised. Thyroid not palpable. RESPIRATORY EFFORT: Lungs have fair air entry. CARDIOVASCULAR: First and second sounds normal. Minimal edema. ABDOMEN: Soft, nontender. Liver and spleen not palpable. PSYCHIATRY: Alert and oriented x3. Mood and affect normal. INVESTIGATIONS: Accu-Cheks are noted. ASSESSMENT: 1. Right total knee arthroplasty. 2. Leukocytosis as an acute phase reaction from surgery with no evidence of infection. 3. Diabetes mellitus type 2 on oral hypoglycemic. 4. Gastroesophageal reflux disease. 5. Hyperlipidemia. 6. Essential hypertension. 7. Primary osteoarthritis in multiple joints. 8. Obstructive sleep apnea, does not use CPAP machine. 9. Colonic diverticulosis. 10. Depression, not otherwise specified. 11. Morbid obesity, body mass index 40.3. PLAN: Care was discussed with the patient, doing well. After discharge should follow up with her family doctor. LAZARO
== END 2017-07-21 14:20 | DRG 470 ==
LOC: 2ORMAIN 09:29 → 3SUR 14:30
PROVIDERS: ADMIT Orthopaedic Surgery Sports Medicine; ATTEND Orthopaedic Surgery Sports Medicine
PROC: 0SRC0J9 Replacement of Right Knee Joint with Synthetic Substitute, Cemented, Open Approach (ICD-10-PCS; principal; 2017-07-17 12:00)
DX: M17.11 Unilateral primary osteoarthritis, right knee (principal); Z68.41 Body mass index [BMI] 40.0-44.9, adult; I10 Essential (primary) hypertension; E66.01 Morbid (severe) obesity due to excess calories; E78.5 Hyperlipidemia, unspecified; F32.9 Major depressive disorder, single episode, unspecified; E11.9 Type 2 diabetes mellitus without complications; G47.33 Obstructive sleep apnea (adult) (pediatric); I87.2 Venous insufficiency (chronic) (peripheral); K21.9 Gastro-esophageal reflux disease without esophagitis; K57.30 Diverticulosis of large intestine without perforation or abscess without bleeding; Z79.82 Long term (current) use of aspirin; Z79.84 Long term (current) use of oral hypoglycemic drugs; Z79.899 Other long term (current) drug therapy; Z85.42 Personal history of malignant neoplasm of other parts of uterus; Z87.11 Personal history of peptic ulcer disease; Z91.041 Radiographic dye allergy status; Z90.710 Acquired absence of both cervix and uterus; Z88.5 Allergy status to narcotic agent; Z91.013 Allergy to seafood
CPT/HCPCS: 80048; 83036; 85025; 88300; 94760

== ENCOUNTER 2017-11-23 09:18 | Observation (INO) | payer OTHER ==
[2017-11-23] MEDS ORDERED: NITROGLYCERIN OINT 1 INCH/GM PACKET TOPICAL STA (09:54)
[2017-11-23] MEDS ORDERED: ASPIRIN 81 MG PO STA (09:54)
--- NOTE | 2017-11-23 09:56 | ED ---
General Adult HPI - General Chief complaint: Chest Pain Stated complaint: High heart rate Time Seen by Provider: 11/23/17 09:33 Source: patient, RN notes reviewed Mode of arrival: ambulatory Limitations: no limitations - History of Present Illness Initial comments: Patient is a pleasant 57-year-old female presenting to the emergency department complaining of chest discomfort. Onset of symptoms was a couple of weeks ago. Symptoms have been intermittent. Symptoms do usually worsen with exertion. Discomfort is described as tightness or no radiation. Yesterday and today patient has had some palpitations. Patient has had associated dyspnea, nausea, and diaphoresis. Last stress test was around 2 years ago. discomfort is currently rated 3/10. - Related Data Home Medications Medication Instructions Recorded Confirmed Lisinopril-Hctz 20-12.5 mg 1 tab PO DAILY 06/20/15 11/23/17 [Zestoretic 20-12.5] Atorvastatin [Lipitor] 40 mg PO HS 11/12/15 11/23/17 Cholecalciferol [Vitamin D3] 2,000 unit PO DAILY 11/12/15 11/23/17 Cinnamon Bark [Cinnamon] 1,000 mg PO BID 01/23/16 11/23/17 metFORMIN HCL [Glucophage] 1,000 mg PO BID 01/23/16 11/23/17 Amitriptyline HCl [Elavil] 10 mg PO HS 06/29/17 11/23/17 Loratadine [Claritin] 10 mg PO DAILY 06/29/17 11/23/17 OLANZapine [ZyPREXA] 2.5 mg PO BID 06/29/17 11/23/17 glipiZIDE XL [Glucotrol XL] 5 mg PO DAILY 06/29/17 11/23/17 Venlafaxine HCl ER [Effexor XR] 150 mg PO DAILY 07/17/17 11/23/17 Allergies Allergy/AdvReac Type Severity Reaction Status Date / Time erythromycin base Allergy Anaphylaxis Verified 11/23/17 09:59 Iodine and Iodide Containing Allergy Anaphylaxis Verified 11/23/17 09:59 Produc morphine Allergy Confusion Verified 11/23/17 09:59 shellfish derived [Shellfish] Allergy Anaphylaxis Verified 11/23/17 09:59 Review of Systems ROS Statement: Those systems with pertinent positive or pertinent negative responses have been documented in the HPI. ROS Other: All systems not noted in ROS Statement are negative. Constitutional: Denies: fever Eyes: Denies: eye pain ENT: Denies: ear pain Respiratory: Denies: cough Cardiovascular: Reports: chest pain Endocrine: Denies: fatigue Gastrointestinal: Reports: nausea. Denies: abdominal pain Genitourinary: Denies: dysuria Musculoskeletal: Denies: back pain Skin: Denies: rash Neurological: Denies: weakness Past Medical History Past Medical History: Cancer, Diabetes Mellitus, GERD/Reflux, Hyperlipidemia, Hypertension, Sleep Apnea/CPAP/BIPAP Additional Past Medical History / Comment(s): Uterine CA w/ Hysterectomy. 2007 Rectal Bleed, colonoscopy showing Diverticulosis, internal/external hemorrhoids. Bilateral hand numbness. NO TX FOR SLEEP APNEA. History of Any Multi-Drug Resistant Organisms: None Reported Past Surgical History: Appendectomy, Hernia Repair, Hysterectomy, Orthopedic Surgery Additional Past Surgical History / Comment(s): Umbilical Hernia, post op Hematoma - was surgically drained, developed infection; was tx in wound center. 2007 colonoscopy and EGD. right knee surgery Past Anesthesia/Blood Transfusion Reactions: No Reported Reaction Additional Past Anesthesia/Blood Transfusion Reaction / Comment(s): She has never received blood. Past Psychological History: Anxiety, Depression, Panic Disorder Smoking Status: Former smoker Past Alcohol Use History: None Reported Past Drug Use History: None Reported - Past Family History Brother(s) Family Medical History: Cancer Father Family Medical History: Coronary Artery Disease (CAD), Diabetes Mellitus, Eye Disorder, Renal Disease Additional Family Medical History / Comment(s): Father at age 81 yrs. He was on dialysis and was blind due to his diabetes. Mother Family Medical History: AFIB, Congestive Heart Failure (CHF), Hypertension, Osteoarthritis (OA) Additional Family Medical History / Comment(s): Mother at age 81 yrs. General Exam Limitations: no limitations General appearance: alert, in no apparent distress Head exam: Present: atraumatic Eye exam: Present: normal appearance, PERRL ENT exam: Present: normal oropharynx Neck exam: Present: normal inspection Respiratory exam: Present: normal lung sounds bilaterally Cardiovascular Exam: Present: regular rate, normal rhythm Expanded Peripheral pulses: 2+: Radial (R), Radial (L), Dorsalis Pedis (R), Dorsalis Pedis (L) GI/Abdominal exam: Present: soft. Absent: tenderness Extremities exam: Present: normal inspection. Absent: pedal edema, calf tenderness Neurological exam: Present: alert Psychiatric exam: Present: normal affect, normal mood Skin exam: Present: normal color. Absent: rash Course Vital Signs 11/23/17 11/23/17 09:23 10:26 Temperature 97 F L Pulse Rate 103 H 88 Respiratory 18 18 Rate Blood Pressure 152/81 129/68 O2 Sat by Pulse 98 97 Oximetry EKG Findings - EKG Comments: EKG Findings:: normal sinus rhythm 100. WA 150. QRS 86. QT 324. QTC 417. Left axis. Q waves in [address]VF. No acute ST change. Medical Decision Making - Medical Decision Making patient reevaluated and resting comfortably in bed. Patient is still having some discomfort. Patient updated on results and plan. Case discussed in detail with Dr. Hawk, who will admit for Dr. tinsley, who admits for Dr. Veronica. VQ scan will be ordered. - Lab Data Result diagrams: 11/23/17 09:41 11/23/17 09:41 Lab Results 11/23/17 11/23/17 11/23/17 Range/Units 09:41 09:41 09:41 WBC 9.1 (3.8-10.6) k/uL RBC 4.81 (3.80-5.40) m/uL Hgb 13.5 (11.4-16.0) gm/dL Hct 42.0 (34.0-46.0) % MCV 87.3 (80.0-100.0) fL MCH 27.9 (25.0-35.0) pg MCHC 32.0 (31.0-37.0) g/dL RDW 15.0 (11.5-15.5) % Plt Count 290 (150-450) k/uL Neutrophils % 78 % Lymphocytes % 16 % Monocytes % 4 % Eosinophils % 1 % Basophils % 0 % Neutrophils # 7.1 (1.3-7.7) k/uL Lymphocytes # 1.5 (1.0-4.8) k/uL Monocytes # 0.4 (0-1.0) k/uL Eosinophils # 0.1 (0-0.7) k/uL Basophils # 0.0 (0-0.2) k/uL PT (9.0-12.0) sec INR (<1.2) APTT (22.0-30.0) sec D-Dimer (<0.60) mg/L FEU Sodium 138 (137-145) mmol/L Potassium 4.3 (3.5-5.1) mmol/L Chloride 98 (98-107) mmol/L Carbon Dioxide 26 (22-30) mmol/L Anion Gap 14 mmol/L BUN 16 (7-17) mg/dL Creatinine 0.60 (0.52-1.04) mg/dL Est GFR (MDRD) Af Amer >60 (>60 ml/min/1.73 sqM) Est GFR (MDRD) Non-Af >60 (>60 ml/min/1.73 sqM) Glucose 153 H (74-99) mg/dL Calcium 9.9 (8.4-10.2) mg/dL Magnesium 1.6 (1.6-2.3) mg/dL Total Bilirubin 0.6 (0.2-1.3) mg/dL AST 22 (14-36) U/L ALT 42 (9-52) U/L Alkaline Phosphatase 172 H (38-126) U/L Total Creatine Kinase 79 (30-135) U/L CK-MB (CK-2) 1.2 (0.0-2.4) ng/mL CK-MB (CK-2) Rel Index 1.5 Troponin I <0.012 (0.000-0.034) ng/mL NT-Pro-B Natriuret Pep pg/mL Total Protein 7.3 (6.3-8.2) g/dL Albumin 4.3 (3.5-5.0) g/dL 11/23/17 11/23/17 Range/Units 09:41 09:41 WBC (3.8-10.6) k/uL RBC (3.80-5.40) m/uL Hgb (11.4-16.0) gm/dL Hct (34.0-46.0) % MCV (80.0-100.0) fL MCH (25.0-35.0) pg MCHC (31.0-37.0) g/dL RDW (11.5-15.5) % Plt Count (150-450) k/uL Neutrophils % % Lymphocytes % % Monocytes % % Eosinophils % % Basophils % % Neutrophils # (1.3-7.7) k/uL Lymphocytes # (1.0-4.8) k/uL Monocytes # (0-1.0) k/uL Eosinophils # (0-0.7) k/uL Basophils # (0-0.2) k/uL PT 9.6 (9.0-12.0) sec INR 1.0 (<1.2) APTT 22.8 (22.0-30.0) sec D-Dimer 1.40 H (<0.60) mg/L FEU Sodium (137-145) mmol/L Potassium (3.5-5.1) mmol/L Chloride (98-107) mmol/L Carbon Dioxide (22-30) mmol/L Anion Gap mmol/L BUN (7-17) mg/dL Creatinine (0.52-1.04) mg/dL Est GFR (MDRD) Af Amer (>60 ml/min/1.73 sqM) Est GFR (MDRD) Non-Af (>60 ml/min/1.73 sqM) Glucose (74-99) mg/dL Calcium (8.4-10.2) mg/dL Magnesium (1.6-2.3) mg/dL Total Bilirubin (0.2-1.3) mg/dL AST (14-36) U/L ALT (9-52) U/L Alkaline Phosphatase (38-126) U/L Total Creatine Kinase (30-135) U/L CK-MB (CK-2) (0.0-2.4) ng/mL CK-MB (CK-2) Rel Index Troponin I (0.000-0.034) ng/mL NT-Pro-B Natriuret Pep 32 pg/mL Total Protein (6.3-8.2) g/dL Albumin (3.5-5.0) g/dL - Radiology Data Radiology results: image reviewed (Chest x-ray shows no acute process) Critical Care Time Critical Care Time: Yes Total Critical Care Time: 31 Disposition Clinical Impression: Unstable angina pectoris Disposition: ADMITTED IP TO THIS [facility] Referrals: Shankar Veronica MD [Primary Care Provider] - 1-2 days Decision Time: 11:00
[2017-11-23 10:02] LABS: Basophils % (A) 0 %; Eosinophils # (A) 0.1 k/uL (0-0.7); Eosinophils % (A) 1 %; HGB 13.5 gm/dL (11.4-16.0); Lymphocytes # (A) 1.5 k/uL (1.0-4.8); Lymphocytes % (A) 16 %; MCH 27.9 pg (25.0-35.0); MCV 87.3 fL (80.0-100.0); Mean Platelet Volume 6.4; Monocytes # (A) 0.4 k/uL (0-1.0); Monocytes % (A) 4 %; Neutrophils # (A) 7.1 k/uL (1.3-7.7); Neutrophils % (A) 78 %; Platelet Count 290 k/uL (150-450); RBC 4.81 m/uL (3.80-5.40); WBC 9.1 k/uL (3.8-10.6)
[2017-11-23] MEDS ORDERED: OLANZapine 2.5 MG TAB PO ONE (10:15)
[2017-11-23 10:16] LABS: D-Dimer 1.4 mg/L FEU (<0.60); Partial Thromboplastin Time 22.8 sec (22.0-30.0); Prothrombin Time 9.6 sec (9.0-12.0)
[2017-11-23 10:18] LABS: ALT 42 U/L (9-52); AST 22 U/L (14-36); Albumin 4.3 g/dL (3.5-5.0); Alkaline Phosphatase 172 U/L (38-126); Anion Gap 14 mmol/L; Blood Urea Nitrogen 16 mg/dL (7-17); Calcium 9.9 mg/dL (8.4-10.2); Carbon Dioxide 26 mmol/L (22-30); Chloride 98 mmol/L (98-107); Glucose 153 mg/dL (74-99); Magnesium 1.6 mg/dL (1.6-2.3); Potassium 4.3 mmol/L (3.5-5.1); Sodium 138 mmol/L (137-145); Total Bilirubin 0.6 mg/dL (0.2-1.3); Total Protein 7.3 g/dL (6.3-8.2)
--- NOTE | 2017-11-23 10:20 | XR ---
EXAMINATION TYPE: XR chest 2V DATE OF EXAM: 11/23/2017 COMPARISON: 10/20/2017 HISTORY: Chest pain TECHNIQUE: Frontal and lateral views of the chest are obtained. FINDINGS: There is no heart failure nor confluent pneumonic infiltrate. Heart and mediastinum are no rmal. There are chest leads. Bony thorax is intact. IMPRESSION: Normal chest. No change.
[2017-11-23 10:27] LABS: Creatine Kinase 79 U/L (30-135)
[2017-11-23 10:39] LABS: Creatine Kinase MB 1.2 ng/mL (0.0-2.4); Troponin I <0.012 ng/mL (0.000-0.034)
[2017-11-23] MEDS ORDERED: NITROGLYCERIN SL TABS 0.4 MG TAB SUBLINGUAL PRN (11:01)
[2017-11-23] MEDS ORDERED: HEPARIN SODIUM,PORCINE 5,000 UNIT/ML 1 ML VIAL IV ONE (11:01)
[2017-11-23] MEDS: HEPARIN SOD,PORK IN 0.45% NACL 25,000 UNIT in 0.45% NACL 1 500ML.BAG IV SCH (11:26)
[2017-11-23 11:48] LABS: Glucose,Whole Blood 110 mg/dL (75-99)
[2017-11-23] MEDS: INSULIN ASPART 100 UNIT/ML 1 ML 10 ML VIAL SQ SCH ×3 (13:28→21:11)
[2017-11-23] MEDS: NITROGLYCERIN OINT 1 INCH/GM PACKET TOPICAL SCH ×3 (13:33→23:08)
[2017-11-23 15:21] VITALS: BMI 42.7
--- NOTE | 2017-11-23 15:39 | NM ---
EXAMINATION TYPE: NM pul vent and perfuse DATE OF EXAM: 11/23/2017 COMPARISON: NONE HISTORY: TECHNIQUE: Utilizing inhalation of 75.8 mCi Tc 99m DTPA aerosol and intravenous injection of 5.4 mCi of Tc 99m MAA, ventilation and perfusion images are acquired post injection in multiple projections. FINDINGS: Normal radiotracer distribution is noted in the lungs. There is no evidence of mismatched defects. IMPRESSION: Normal exam. There is a very low probability of pulmonary embolism.
[2017-11-23 16:36] LABS: Glucose,Whole Blood 119 mg/dL (75-99)
[2017-11-23] MEDS ORDERED: HEPARIN SODIUM,PORCINE 5,000 UNIT/ML 1 ML VIAL IV PRN (17:28)
[2017-11-23 17:34] LABS: Creatine Kinase 59 U/L (30-135)
[2017-11-23 17:43] LABS: Creatine Kinase MB 0.9 ng/mL (0.0-2.4); Troponin I <0.012 ng/mL (0.000-0.034)
--- NOTE | 2017-11-23 18:44 | HP ---
HISTORY AND PHYSICAL CHIEF COMPLAINT: Chest discomfort and palpations. HISTORY OF PRESENT ILLNESS: This 57-year-old woman with a past medical history of multiple medical problems including history of diabetes, hypertension, hyperlipidemia, also had panic episodes. The patient also had chest discomfort today and the patient was presented to [facility] for further evaluation and treatment. The patient was felt to be high heart rate with heart palpitating at this time. The patient is followed by Dr. Veronica in the outpatient setting. There is no history of fever, rigors or chills. No history of cough, hemoptysis, hematemesis, hematuria or melena at this time. PAST MEDICAL HISTORY: History of diabetes type 2, GERD, hypertension, hyperlipidemia, sleep apnea, uterine cancer, anxiety and depression. MEDICATIONS: Prior to admission include home medications are: 1. Glucophage 1000 mg p.o. b.i.d. 2. Glucotrol 5 mg p.o. daily. 3. Effexor XR 150 mg p.o. daily. 4. Zyprexa 2.5 mg b.i.d. 5. Claritin 10 mg p.o. daily. 6. Zestoretic 1 tablet p.o. daily. 7. Cinnamon 1000 p.o. b.i.d. 8. Vitamin D3 2000 daily. 9. Lipitor 40 mg p.o. q.h.s. 10.Elavil 10 mg q.h.s. ALLERGIES: ERYTHROMYCIN BASE, IODINE, MORPHINE, SHELLFISH. FAMILY HISTORY: History of CAD, diabetes type 2, history of renal disease. SOCIAL HISTORY: No history of smoking, no history of alcohol. REVIEW OF SYSTEMS: ENT: No diminished vision. No diminished hearing. CARDIOVASCULAR: No angina or palpitations. Respiratory: As mentioned earlier. GI: As mentioned earlier. : No dysuria. Central nervous system: No numbness or weakness. Allergy/Immunology: No asthma or hayfever. Musculoskeletal: As mentioned earlier. HEMATOLOGY/ONCOLOGY: No history of anemia. Endocrine: Diabetes present. Constitutional: As mentioned earlier. Dermatology: Negative. Rheumatology: Negative. Psychiatric: As mentioned earlier. PHYSICAL EXAMINATION: The patient is alert and oriented x3. The pulse is 88, blood pressure 105/66, respirations 16, temperature 98.9, pulse ox 98% on 2 L. HEENT is conjunctivae normal. Oral mucosa moist. Neck is no jugular venous distention. No carotid bruit. No lymph node enlargement. Cardiovascular S1, S2 muffled. No S3, no S4. RESPIRATORY: Breath sounds diminished in the bases. No rhonchi and no crackles. ABDOMEN: Soft, nontender. No mass palpable. Legs no edema. No swelling. NERVOUS SYSTEM: Higher functions as mentioned earlier. Moves all 4 limbs, no focal motor or sensory deficits. Lymphatics: No lymph nodes palpable in the neck, axillae or groin. Skin: No ulcer, rash or bleeding. LABS: CBC within normal limits. D-dimer is 1.4. ASSESSMENT: 1. Chest pain possible unstable angina possibly musculoskeletal or possibly secondary to panic disorder. 2. History of tachycardia with possible panic disorder. 3. Increased D-dimer with no evidence of pulmonary embolism very low V/Q scan. 4. Diabetes type 2. 5. Gastroesophageal reflux disease. 6. Hypertension. 7. Obstructive sleep apnea. 8. Uterine cancer. 9. History of anxiety/depression, panic disorder. RECOMMENDATIONS AND DISCUSSION: In this 57-year-old woman who presented with multiple complex medical issues, we will monitor the patient closely, continue the current management and symptomatic treatment. Otherwise, at this time, we will obtain cardiology consultation. I would also rule out myocardial infarction, resume the home medications also. Obtain psych evaluation also. We will resume the home medications. MMODL / IJN: [id number] /
[2017-11-23 21:07] LABS: Glucose,Whole Blood 178 mg/dL (75-99)
[2017-11-23] MEDS: OLANZapine 2.5 MG TAB PO SCH (21:11)
[2017-11-23] MEDS: metFORMIN 500 MG TAB PO SCH (21:11)
[2017-11-23] MEDS: ATORVASTATIN 40 MG TAB PO SCH (21:11)
[2017-11-23] MEDS: AMITRIPTYLINE HCL 10 MG TAB PO SCH (21:11)
[2017-11-23 21:14] VITALS: RESP 18
[2017-11-23 22:51] LABS: Hemoglobin A1C 7.5 % (4.0-6.0)
[2017-11-23 23:12] LABS: Creatine Kinase 58 U/L (30-135)
[2017-11-23 23:24] LABS: Creatine Kinase MB 0.9 ng/mL (0.0-2.4); Troponin I <0.012 ng/mL (0.000-0.034)
[2017-11-24] MEDS: NITROGLYCERIN OINT 1 INCH/GM PACKET TOPICAL SCH ×5 (04:41→18:11)
[2017-11-24 06:56] LABS: Glucose,Whole Blood 116 mg/dL (75-99)
[2017-11-24 07:17] LABS: Basophils % (A) 0 %; Eosinophils # (A) 0.1 k/uL (0-0.7); Eosinophils % (A) 1 %; HCT 37.8 % (34.0-46.0); HGB 11.9 gm/dL (11.4-16.0); Lymphocytes # (A) 2.7 k/uL (1.0-4.8); Lymphocytes % (A) 29 %; MCH 27.8 pg (25.0-35.0); MCHC 31.5 g/dL (31.0-37.0); MCV 88.3 fL (80.0-100.0); Mean Platelet Volume 6.3; Monocytes # (A) 0.4 k/uL (0-1.0); Monocytes % (A) 4 %; Neutrophils # (A) 5.8 k/uL (1.3-7.7); Neutrophils % (A) 63 %; Platelet Count 252 k/uL (150-450); RBC 4.28 m/uL (3.80-5.40); RDW 14.9 % (11.5-15.5); WBC 9.2 k/uL (3.8-10.6)
[2017-11-24] MEDS: INSULIN ASPART 100 UNIT/ML 1 ML 10 ML VIAL SQ SCH ×3 (07:46→17:13)
[2017-11-24] MEDS: HEPARIN SOD,PORK IN 0.45% NACL 25,000 UNIT in 0.45% NACL 1 500ML.BAG IV SCH (08:29)
[2017-11-24 08:42] LABS: Anion Gap 8 mmol/L; Blood Urea Nitrogen 17 mg/dL (7-17); Calcium 9.5 mg/dL (8.4-10.2); Carbon Dioxide 30 mmol/L (22-30); Chloride 100 mmol/L (98-107); Cholesterol 129 mg/dL (<200); Glucose 113 mg/dL (74-99); HDL Cholesterol 46 mg/dL (40-60); LDL Cholesterol,Calculated 63 mg/dL (0-99); Potassium 4.6 mmol/L (3.5-5.1); Sodium 138 mmol/L (137-145); Triglycerides 101 mg/dL (<150)
[2017-11-24] MEDS ORDERED: OLANZapine 2.5 MG TAB PO SCH (09:00)
[2017-11-24] MEDS: ASPIRIN 325 MG TAB PO SCH (10:42)
[2017-11-24] MEDS: LORATADINE 10 MG TAB PO SCH (10:43)
[2017-11-24] MEDS: CHOLECALCIFEROL 1,000 UNIT TAB PO SCH (10:43)
[2017-11-24] MEDS: LISINOPRIL-HCTZ 20-12.5 MG 1 EACH TAB PO SCH (10:43)
[2017-11-24] MEDS: metFORMIN 500 MG TAB PO SCH ×2 (10:43→20:27)
[2017-11-24] MEDS: VENLAFAXINE HCL ER 150 MG CAP PO SCH (10:43)
[2017-11-24] MEDS: OLANZapine 2.5 MG TAB PO SCH ×2 (10:43→20:27)
--- NOTE | 2017-11-24 11:54 | CONS ---
CONSULTATION Mrs. Hector is a 57-year-old female, who is seen for cardiac evaluation. The patient's medical records were reviewed. The patient came with a complaint of chest heaviness and discomfort on and off for couple of weeks. The pain comes and goes. It frequently occurs when she lies on the right side and may last for an hour. The pain is associated with some palpitations. The patient denies any prior history of myocardial infarction. Patient has a history of diabetes or hypertension. The patient is moderately active physically. She can walk 3-4 blocks. The patient in the emergency room patient had a lung scan done which was low probability of pulmonary embolism. HOME MEDICATIONS: Include: 1. Lisinopril. 2. Lipitor. 3. Glucophage. 4. Elavil. 5. Claritin. 6. Zyprexa. 7. Glucotrol. ALLERGIES: IODINE. REVIEW OF THE SYSTEM: Otherwise unremarkable. PAST MEDICAL HISTORY: Includes appendicectomy, hernia repair, hysterectomy, orthopedic surgery, umbilical hernia surgery. PHYSICAL EXAMINATION: At present reveals a 57-year-old, obesely built female who does not appear to be in any acute distress. In the emergency room, patient's oxygen saturation was 98%. The patient's blood pressure now is 127/73 mmHg. Heart rate is 100 per minute. HEENT examination is negative. NECK: Supple. There is no increase in jugular venous pressure. Both the carotid pulses are felt. There is no bruit. Chest is symmetrical. Heart the PMI is not felt. First and second heart sounds are normal. There is no evidence of any murmur. Lungs are clinically clear to auscultation and percussion. ABDOMEN: Soft. Liver and spleen are not enlarged. Bowel sounds are heard. Extremities: Peripheral pulsations are 2+. EKG shows normal sinus rhythm, sinus tachycardia without any acute ischemic changes. Cardiac enzymes are normal. Patient's electrolytes are normal. Chest x-ray is normal. FINAL IMPRESSION: Chest pain, suggestive of atypical angina. Patient has a multiple risk factors, including diabetes, hypertension, and hyperlipidemia. RECOMMENDATIONS: Patient will be evaluated with echocardiogram and stress echocardiographic study. Thank you very much for letting me participate in the care of this nice lady. MMODL / IJN: [id number] /
[2017-11-24 12:27] LABS: Glucose,Whole Blood 211 mg/dL (75-99)
[2017-11-24 17:04] LABS: Glucose,Whole Blood 90 mg/dL (75-99)
[2017-11-24] MEDS: AMITRIPTYLINE HCL 10 MG TAB PO SCH (20:27)
[2017-11-24] MEDS: ATORVASTATIN 40 MG TAB PO SCH (20:27)
[2017-11-24 20:44] LABS: Glucose,Whole Blood 118 mg/dL (75-99)
[2017-11-25] MEDS: NITROGLYCERIN OINT 1 INCH/GM PACKET TOPICAL SCH ×3 (01:30→12:54)
[2017-11-25] MEDS: INSULIN ASPART 100 UNIT/ML 1 ML 10 ML VIAL SQ SCH ×3 (01:30→13:12)
[2017-11-25 06:59] LABS: Glucose,Whole Blood 133 mg/dL (75-99)
[2017-11-25 07:04] LABS: Basophils % (A) 0 %; Eosinophils # (A) 0.1 k/uL (0-0.7); Eosinophils % (A) 2 %; HCT 40.9 % (34.0-46.0); HGB 12.8 gm/dL (11.4-16.0); Lymphocytes # (A) 2.1 k/uL (1.0-4.8); Lymphocytes % (A) 25 %; MCH 27.3 pg (25.0-35.0); MCHC 31.3 g/dL (31.0-37.0); MCV 87.3 fL (80.0-100.0); Mean Platelet Volume 6.6; Monocytes # (A) 0.5 k/uL (0-1.0); Monocytes % (A) 5 %; Neutrophils # (A) 5.6 k/uL (1.3-7.7); Neutrophils % (A) 67 %; Platelet Count 255 k/uL (150-450); RBC 4.69 m/uL (3.80-5.40); RDW 14.9 % (11.5-15.5); WBC 8.4 k/uL (3.8-10.6)
[2017-11-25 07:29] LABS: Anion Gap 10 mmol/L; Blood Urea Nitrogen 18 mg/dL (7-17); Calcium 9.7 mg/dL (8.4-10.2); Carbon Dioxide 28 mmol/L (22-30); Chloride 98 mmol/L (98-107); Glucose 133 mg/dL (74-99); Potassium 4.9 mmol/L (3.5-5.1); Sodium 136 mmol/L (137-145)
--- NOTE | 2017-11-25 10:55 | P.PN ---
Subjective Progress Note Date: 11/25/17 Mrs. Hector is a pleasant 57-year-old female with past medical history significant for diabetes mellitus, anxiety, hypertension and dyslipidemia. We are seeing her in follow-up today from initial consultation for chest pain. She denies any further episodes of chest pain and telemetry tracings have been unremarkable. D-dimer on admission was elevated and she had a negative pulmonary perfusion scan. Cardiac enzymes are negative x3. Repeat labs this am are unremarkable. Objective - Vital Signs Vital signs: Vital Signs Temp 98.0 F 11/25/17 08:00 Pulse 95 11/25/17 08:00 Resp 18 11/25/17 08:00 BP 126/78 11/25/17 08:00 Pulse Ox 94 L 11/25/17 08:00 Intake & Output 11/24/17 11/25/17 11/25/17 18:59 06:59 18:59 Intake Total 1240.333 Balance 1240.333 Weight 116.5 kg Intake: Intake, IV Titration 380.333 Amount Heparin Sod,Pork in 0.45% 380.333 NaCl 25,000 unit In 0.45 % NaCl 1 500ml.bag @ 8. 579 UNITS/KG/HR 20 mls/hr IV .Q24H ROSALVA Rx#: [id number] Oral 660 Other 200 Other: Voiding Method Toilet Toilet Toilet # Voids 3 2 - Exam Blood pressure 126/78, heart rate 95, afebrile. GENERAL: Well-appearing, well-nourished and in no acute distress. Morbidly obese. NECK: Supple without JVD or thyromegaly. LUNGS: Breath sounds clear to auscultation bilaterally. Respiration equal and unlabored. No wheezes, rales or rhonchi. HEART: Regular rate and rhythm without murmurs, rubs or gallops. S1 and S2 heard. EXTREMITIES: Normal range of motion, no edema. No clubbing or cyanosis. Peripheral pulses intact and strong. - Labs CBC & Chem 7: 11/25/17 06:38 11/25/17 06:38 Labs: Abnormal Lab Results - Last 24 Hours (Table) 11/23/17 11/24/17 11/24/17 Range/Units 16:51 12:20 20:23 Sodium (137-145) mmol/L BUN (7-17) mg/dL Glucose (74-99) mg/dL POC Glucose (mg/dL) 211 H 118 H (75-99) mg/dL Hemoglobin A1c 7.5 H (4.0-6.0) % 11/25/17 11/25/17 Range/Units 06:38 06:56 Sodium 136 L (137-145) mmol/L BUN 18 H (7-17) mg/dL Glucose 133 H (74-99) mg/dL POC Glucose (mg/dL) 133 H (75-99) mg/dL Hemoglobin A1c (4.0-6.0) % Assessment and Plan Assessment: ASSESSMENT 1. Chest pain, atypical for an acute coronary event 2. Hypertension 3. Diabetes mellitus 4. Dyslipidemia 5. Morbid obesity 6. Former tobacco use PLAN Proceed with stress echocardiogram as was previously ordered. Nurse Practitioner note has been reviewed, I agree with a documented findings and plan of care. Patient was seen and examined.
[2017-11-25] MEDS: LISINOPRIL-HCTZ 20-12.5 MG 1 EACH TAB PO SCH (11:04)
[2017-11-25] MEDS: VENLAFAXINE HCL ER 150 MG CAP PO SCH (11:05)
[2017-11-25] MEDS: metFORMIN 500 MG TAB PO SCH (11:05)
[2017-11-25] MEDS: LORATADINE 10 MG TAB PO SCH (11:05)
[2017-11-25] MEDS: ASPIRIN 325 MG TAB PO SCH (11:05)
[2017-11-25] MEDS: CHOLECALCIFEROL 1,000 UNIT TAB PO SCH (11:05)
[2017-11-25] MEDS: OLANZapine 2.5 MG TAB PO SCH (11:05)
[2017-11-25 12:09] LABS: Glucose,Whole Blood 244 mg/dL (75-99)
--- NOTE | 2017-11-25 12:25 | ECHOF ---
Referral Reason:chest pain MEASUREMENTS -------- HEIGHT: 165.1 cm WEIGHT: 116.1 kg BP: 118/65 RVIDd: 2.8 cm (< 3.3) IVSd: 1.2 cm (0.6 - 1.1) LVIDd: 3.9 cm (3.9 - 5.3) LVPWd: 1.1 cm (0.6 - 1.1) IVSs: 1.7 cm LVIDs: 2.6 cm LVPWs: 1.6 cm LA Diam: 3.3 cm (2.7 - 3.8) LAESV Index (A-L): 15.68 ml/m Ao Diam: 3.0 cm (2.0 - 3.7) AV Cusp: 1.8 cm (1.5 - 2.6) MV EXCURSION: 13.189 mm (> 18.000) MV EF SLOPE: 59 mm/s (70 - 150) EPSS: 0.9 cm MV E Darren: 0.73 m/s MV DecT: 187 ms MV A Darren: 1.09 m/s MV E/A Ratio: 0.67 FINDINGS -------- Resting tachycardia (HR>100bpm). This was a technically adequate study. The left ventricular size is normal. There is borderline concentric left ventricular hypertrophy. Overall left ventricular systolic function is normal with, an EF between 55 - 60 %. The right ventricle is normal in size. The left atrial size is normal. The right atrium is normal in size. The aortic valve is trileaflet and appears structurally normal. The mitral valve is normal. The tricuspid valve appears structurally normal. Trace/mild (physiologic) pulmonic regurgitation. The aortic root size is normal. IVC Not well visulized. There is no pericardial effusion. CONCLUSIONS -------- 1. Resting tachycardia (HR>100bpm). 2. This was a technically adequate study. 3. The left ventricular size is normal. 4. There is borderline concentric left ventricular hypertrophy. 5. Overall left ventricular systolic function is normal with, an EF between 55 - 60 %. 6. The right ventricle is normal in size. 7. The left atrial size is normal. 8. The right atrium is normal in size. 9. The aortic valve is trileaflet and appears structurally normal. 10. The mitral valve is normal. 11. The tricuspid valve appears structurally normal. 12. Trace/mild (physiologic) pulmonic regurgitation. 13. The aortic root size is normal. 14. IVC Not well visulized. 15. There is no pericardial effusion. OFFICE SERVICES ASSISTANT: Maria Luisa Billingsley RDCS
--- NOTE | 2017-11-25 14:13 | ECHOS ---
STRESS ECHOCARDIOGRAM INDICATIONS: History of chest discomfort. BASELINE HEART RATE: 100 BASELINE BLOOD PRESSURE: 140/82 MAXIMUM HEART RATE: 147 MAXIMUM BLOOD PRESSURE: 173/66 85% MPHR: 140 100% MPHR: 165 METS: 6.4 MAXIMUM STAGE REACHED: I TOTAL EXERCISE TIME: 4:30 CLINICAL INFORMATION: Baseline heart rate 100 beats per minute. Baseline blood pressure of 140/82 mmHg. Baseline 12-lead ECG showed nonspecific ST-T abnormalities. The patient exercised on a Caden protocol for only 4 minutes 30 seconds. She complained of low back pain during the procedure. Normal heart rate and blood pressure in response to exercise. There was no ECG evidence for ischemia. No arrhythmias were noted. The baseline 2D echo images showed normal LV size and systolic function without segmental wall motion abnormalities. At peak exercise, there was augmentation of overall LV contractility without developing any wall motion abnormalities. At recovery, regional global LV systolic function remained normal. IMPRESSION: 1. No ECG or echocardiographic evidence of ischemia. 2. Low workload level achieved during stress test. MMODL / IJN: [id number] /
--- NOTE | 2017-11-25 15:33 | P.PN ---
Subjective Progress Note Date: 11/24/17 Principal diagnosis: Chest pain Patient is a 57-year-old female with known history of hypertension, diabetes and hyperlipidemia and also history of panic attacks admitted to the hospital with complaints of chest discomfort and heart racing up fast palpitations. Otherwise patient denied any nausea vomiting or abdominal pain. No recent illnesses or sick contacts. Serial EKG and troponins are negative. Patient had elevated d-dimer and VQ scan showed low probability for PE. Currently patient denied any chest pain. Cardiology has seen the patient and recommended stress test possibly tomorrow. Other review of systems negative except the above Current medications reviewed Objective - Vital Signs Vital signs: Vital Signs Temp 97.6 F 11/25/17 11:45 Pulse 102 H 11/25/17 11:45 Resp 18 11/25/17 11:45 BP 139/79 11/25/17 11:45 Pulse Ox 94 L 11/25/17 11:45 Intake & Output 11/24/17 11/25/17 11/25/17 18:59 06:59 18:59 Intake Total 1240.333 657 Balance 1240.333 657 Weight 116.5 kg Intake: Intake, IV Titration 380.333 Amount Heparin Sod,Pork in 0.45% 380.333 NaCl 25,000 unit In 0.45 % NaCl 1 500ml.bag @ 8. 579 UNITS/KG/HR 20 mls/hr IV .Q24H ROSALVA Rx#: [id number] Oral 660 657 Other 200 Other: Voiding Method Toilet Toilet Toilet # Voids 3 2 - Exam PHYSICAL EXAMINATION: Patient is lying in the bed comfortably, no acute distress, awake alert and oriented.. HEENT: Normocephalic. Neck is supple. Pupils reactive. Nostrils clear. Oral cavity is moist. Ears reveal no drainage. Neck reveals no JVD, carotid bruits, or thyromegaly. CHEST EXAMINATION: Trachea is central. Symmetrical expansion. Lung abdi clear to auscultation and percussion. CARDIAC: Normal S1, S2 with no gallops. No murmurs ABDOMEN: Soft. Bowel sounds normal. No organomegaly. No abdominal bruits. Extremities: reveal no edema. No clubbing or cyanosis Neurologically awake, alert, oriented x3 with well-coordinated movements. No focal deficits noted Skin: No rash or skin lesions. Psychiatric: Coperative. Nonsuicidal Musculoskeletal: No joint swelling or deformity. Normal range of motion. - Labs CBC & Chem 7: 11/25/17 06:38 11/25/17 06:38 Labs: Abnormal Lab Results - Last 24 Hours (Table) 11/23/17 11/24/17 11/25/17 Range/Units 16:51 20:23 06:38 Sodium 136 L (137-145) mmol/L BUN 18 H (7-17) mg/dL Glucose 133 H (74-99) mg/dL POC Glucose (mg/dL) 118 H (75-99) mg/dL Hemoglobin A1c 7.5 H (4.0-6.0) % 11/25/17 11/25/17 Range/Units 06:56 12:07 Sodium (137-145) mmol/L BUN (7-17) mg/dL Glucose (74-99) mg/dL POC Glucose (mg/dL) 133 H 244 H (75-99) mg/dL Hemoglobin A1c (4.0-6.0) % Assessment and Plan Assessment: Atypical chest pain. Likely due to musculoskeletal versus panic disorder Tachycardia Elevated d-dimer with low probability for pulmonary embolism on v/q scan Diabetes mellitus II GERD Hypertension Obstetrical sleep apnea History of uterine cancer Anxiety depression and panic disorder. Plan: Patient will be continued on telemetry monitoring. Serial EKG and troponins are negative. No evidence of PE on VQ scan. Cardiology is planning for stress test tomorrow. We'll continue the current management and follow closely. We consider psych evaluation if needed. Time with Patient: Greater than 30
[2017-11-26 22:55] VITALS: BP 137/73; PULSE 104; TEMP 98.1
--- NOTE | 2018-01-01 11:23 | P.DS ---
Providers Date of admission: 11/23/17 11:01 Expected date of discharge: 11/25/17 Attending physician: Coby Patterson MD Consults: 11/23/17 11:01 Consult Physician Urgent Consulting Provider: Denver Gray Consult Reason/Comments: ua Do you want consulting provider notified?: Yes 11/23/17 16:06 Consult Physician Routine Consulting Provider: Otoniel Maguire Consult Reason/Comments: Anxiety attack Do you want consulting provider notified?: Already Contacted Primary care physician: Shankar Veronica Hospital Course: Discharge diagnosis Atypical chest pain. Likely due to musculoskeletal versus panic disorder Tachycardia Elevated d-dimer with low probability for pulmonary embolism on v/q scan Diabetes mellitus II GERD Hypertension Obstetrical sleep apnea History of uterine cancer Anxiety depression and panic disorder. Patient is a 57-year-old female with known history of hypertension, diabetes and hyperlipidemia and also history of panic attacks admitted to the hospital with complaints of chest discomfort and heart racing up fast palpitations. Otherwise patient denied any nausea vomiting or abdominal pain. No recent illnesses or sick contacts. Serial EKG and troponins are negative. Patient had elevated d-dimer and VQ scan showed low probability for PE. Currently patient denied any chest pain. Cardiology has seen the patient and recommended stress test. Patient was continued on telemetry monitoring. Serial EKG and troponins are negative. No evidence of PE on VQ scan. Cardiology is planning for stress test . Patient underwent stress echocardiogram showed no EKG are echocardiographic evidence of ischemia. Patient is cleared for discharge at this time. Discharge physical examination was done and vitals reviewed. Patient Condition at Discharge: Fair Plan - Discharge Summary Discharge Rx Participant: No New Discharge Prescriptions: New Pantoprazole Sodium [Protonix] 40 mg PO -BRKFST #30 tablet.dr Continue Lisinopril-Hctz 20-12.5 mg [Zestoretic 20-12.5] 1 tab PO DAILY Cholecalciferol [Vitamin D3] 2,000 unit PO DAILY Atorvastatin [Lipitor] 40 mg PO HS metFORMIN HCL [Glucophage] 1,000 mg PO BID Cinnamon Bark [Cinnamon] 1,000 mg PO BID Amitriptyline HCl [Elavil] 10 mg PO HS glipiZIDE XL [Glucotrol XL] 5 mg PO DAILY Loratadine [Claritin] 10 mg PO DAILY Venlafaxine HCl ER [Effexor XR] 150 mg PO DAILY OLANZapine [ZyPREXA] 2.5 mg PO BID #30 tablet No Action Famotidine [Pepcid] 40 mg PO DAILY Aspirin 81 mg PO DAILY Aspirin 325 mg PO BID #60 tab Docusate [Colace] 100 mg PO BID #60 capsule Verapamil HCl [Verapamil ER] 180 mg PO DAILY HYDROcodone/APAP 10-325MG [[place] 10-325] 1 - 2 tab PO Q4-6H PRN #90 tab PRN Reason: Pain Discharge Medication List Lisinopril-Hctz 20-12.5 mg [Zestoretic 20-12.5] 1 tab PO DAILY 06/20/15 [History ] Atorvastatin [Lipitor] 40 mg PO HS 11/12/15 [History] Cholecalciferol [Vitamin D3] 2,000 unit PO DAILY 11/12/15 [History] Cinnamon Bark [Cinnamon] 1,000 mg PO BID 01/23/16 [History] metFORMIN HCL [Glucophage] 1,000 mg PO BID 01/23/16 [History] Amitriptyline HCl [Elavil] 10 mg PO HS 06/29/17 [History] Loratadine [Claritin] 10 mg PO DAILY 06/29/17 [History] glipiZIDE XL [Glucotrol XL] 5 mg PO DAILY 06/29/17 [History] Venlafaxine HCl ER [Effexor XR] 150 mg PO DAILY 07/17/17 [History] OLANZapine [ZyPREXA] 2.5 mg PO BID #30 tablet 11/25/17 [Rx] Pantoprazole Sodium [Protonix] 40 mg PO [place]DRICK #30 tablet. 11/25/17 [Rx] Aspirin 81 mg PO DAILY 12/18/17 [History] Famotidine [Pepcid] 40 mg PO DAILY 12/18/17 [History] Aspirin 325 mg PO BID #60 tab 12/25/17 [Rx] Docusate [Colace] 100 mg PO BID #60 capsule 12/25/17 [Rx] HYDROcodone/APAP 10-325MG [[place] 10-325] 1 - 2 tab PO Q4-6H PRN #90 tab [Rx] Verapamil HCl [Verapamil ER] 180 mg PO DAILY 12/27/17 [History] Follow up Appointment(s)/Referral(s): Shankar Veronica MD [Primary Care Provider] - 1-2 days Patient Instructions/Handouts: Chest Pain (DC) Discharge Disposition: HOME SELF-CARE
== END 2017-11-25 16:16 | disposition home or self-care (01) ==
LOC: EC 09:18 → 6SEL 11:01 → 3OBS 19:50
PROVIDERS: ADMIT Internal Medicine; ATTEND Internal Medicine
DX: R07.89 Other chest pain (principal); R00.2 Palpitations; R61 Generalized hyperhidrosis; R11.0 Nausea; R79.89 Other specified abnormal findings of blood chemistry; R06.00 Dyspnea, unspecified; R00.0 Tachycardia, unspecified; E11.9 Type 2 diabetes mellitus without complications; I10 Essential (primary) hypertension; E78.5 Hyperlipidemia, unspecified; K21.9 Gastro-esophageal reflux disease without esophagitis; G47.33 Obstructive sleep apnea (adult) (pediatric); F32.9 Major depressive disorder, single episode, unspecified; F41.0 Panic disorder [episodic paroxysmal anxiety]; Z85.42 Personal history of malignant neoplasm of other parts of uterus; Z79.899 Other long term (current) drug therapy; Z79.84 Long term (current) use of oral hypoglycemic drugs; Z88.1 Allergy status to other antibiotic agents; Z88.5 Allergy status to narcotic agent; Z91.013 Allergy to seafood; Z91.048 Other nonmedicinal substance allergy status; Z82.49 Family history of ischemic heart disease and other diseases of the circulatory system; Z87.891 Personal history of nicotine dependence; E66.01 Morbid (severe) obesity due to excess calories; Z68.41 Body mass index [BMI] 40.0-44.9, adult; Z99.89 Dependence on other enabling machines and devices
CPT/HCPCS: 99291; 96376 ×3; 96365; 96366; 36415; 94760; 93005; 93017; 93306; 93350; 85379; 83880; 80061; 80053; 80048 ×2; 82550; 82553; 83735; 84484; 85025 ×3; 85610; 85730; 87502; 83036; 71020; 78582; G0378 ×4; A9540; A9567; J1644 ×3

== ENCOUNTER → 2017-12-11 | Outpatient (CLI) | payer OTHER ==
[2017-12-11 10:47] LABS: Appearance,Urine Clear (Clear); Bilirubin,Urine Negative (Negative); Blood,Urine Negative (Negative); Color,Urine Light Yellow; Glucose,Urine (UA) Negative (Negative); Ketones,Urine Negative (Negative); Leukocyte Esterase,Urine Negative (Negative); Nitrite,Urine Negative (Negative); Protein,Urine Negative (Negative); Specific Gravity,Urine 1.008 (1.001-1.035); Urobilinogen,Urine <2.0 mg/dL (<2.0)
[2017-12-11 10:56] LABS: HCT 37.4 % (34.0-46.0); HGB 11.9 gm/dL (11.4-16.0); MCHC 31.8 g/dL (31.0-37.0); MCV 87.9 fL (80.0-100.0); Mean Platelet Volume 6.3; Platelet Count 316 k/uL (150-450); RBC 4.26 m/uL (3.80-5.40); RDW 14.3 % (11.5-15.5); WBC 7.7 k/uL (3.8-10.6)
[2017-12-11 10:57] LABS: ALT 46 U/L (9-52); AST 23 U/L (14-36); Albumin 3.9 g/dL (3.5-5.0); Alkaline Phosphatase 134 U/L (38-126); Anion Gap 12 mmol/L; Blood Urea Nitrogen 12 mg/dL (7-17); Calcium 9.9 mg/dL (8.4-10.2); Carbon Dioxide 30 mmol/L (22-30); Chloride 99 mmol/L (98-107); Glucose 209 mg/dL (74-99); Potassium 4.9 mmol/L (3.5-5.1); Sodium 141 mmol/L (137-145); Total Bilirubin 0.6 mg/dL (0.2-1.3); Total Protein 6.6 g/dL (6.3-8.2)
[2017-12-11 11:35] LABS: INR 0.9 (<1.2); Partial Thromboplastin Time 22.1 sec (22.0-30.0); Prothrombin Time 9.4 sec (9.0-12.0)
== END | disposition home or self-care (01) ==
LOC: LABPAT 10:05
PROVIDERS: ATTEND Orthopaedic Surgery Sports Medicine
DX: Z01.818 Encounter for other preprocedural examination (principal)
CPT/HCPCS: 36415; 80053; 81003; 85027; 85610; 85730; 87070

== ENCOUNTER 2017-12-25 09:50 | Inpatient (IN) | payer OTHER ==
[2017-12-18 09:40] VITALS: BMI 44.4
[~2017-12-25 09:50] MED LIST changes: +HYDROmorphone 0.5 MG/0.5 ML SYRINGE IVP PRN; +MIDAZOLAM 2 MG/2 ML VIAL IV PRN; +ROPIVACAINE 246.25 MG, EPINEPHrine 0.5 MG, KETOROLAC 30 MG, cloNIDine HCL/PF 80 MCG, WA... MISCELLANE ONE; -TRANEXAMIC ACID 1,000 MG in SODIUM CHLORIDE 0.9% 100 ML IVPB ONE; +TRANEXAMIC ACID 1,000 MG in SODIUM CHLORIDE 0.9% 50 ML IVPB ONE; -ceFAZolin 2 GM in SODIUM CHLORIDE 0.9% 100 ML IVPB ONE; -fentaNYL (PF) 50 MCG/ML 2 ML AMP IV PRN
[2017-12-25] MEDS: LACTATED RINGERS 1,000 ML IV SCH ×2 (10:39→16:04)
[2017-12-25 10:43] LABS: Glucose,Whole Blood 206 mg/dL (75-99)
[2017-12-25] MEDS ORDERED: MIDAZOLAM 2 MG/2 ML VIAL ONE (11:30)
[2017-12-25] MEDS ORDERED: SODIUM CHLORIDE 0.9% 100 ML BAG ONE (11:30)
[2017-12-25] MEDS ORDERED: TRANEXAMIC ACID 1,000 MG/10 ML VIAL ONE (11:30)
[2017-12-25] MEDS ORDERED: ePHEDrine SULFATE/0.9% NACL/PF 50 MG/5 ML SYRINGE IV ONE (11:30)
[2017-12-25] MEDS ORDERED: PHENYLEPHRINE-0.9% NACL SYG 1 MG/10 ML SYRINGE ONE (11:30)
[2017-12-25] MEDS ORDERED: SODIUM CHLORIDE 0.9% 50 ML with ceFAZolin 2,000 MG IV ONE ×2 (11:42)
[2017-12-25] MEDS ORDERED: ceFAZolin 1,000 MG in SODIUM CHLORIDE 0.9% 1,000 ML IRRIGATION ONE ×3 (12:06→12:49)
[2017-12-25] MEDS ORDERED: HYDROmorphone 4 MG/ML 1 ML SYRINGE IVP PRN ×3 (13:45)
[2017-12-25] MEDS ORDERED: ONDANSETRON 4 MG/2 ML VIAL IVP PRN (13:45)
[2017-12-25] MEDS ORDERED: TEMAZEPAM 15 MG CAP PO PRN (13:45)
[2017-12-25] MEDS ORDERED: MAGNESIUM HYDROXIDE 2,400 MG/10 ML CUP PO PRN (13:45)
[2017-12-25] MEDS ORDERED: DIAZEPAM 5 MG TAB PO PRN (13:45)
[2017-12-25] MEDS ORDERED: NALOXONE 0.4 MG/ML 1 ML VIAL IV PRN (13:45)
[2017-12-25] MEDS ORDERED: ACETAMINOPHEN TAB 325 MG TAB PO PRN (13:45)
[2017-12-25] MEDS ORDERED: BISACODYL 10 MG SUPP RECTAL PRN (13:45)
[2017-12-25] MEDS ORDERED: HYDROcodone/APAP 7.5-325MG 1 EACH TAB PO PRN (13:45)
[2017-12-25] MEDS ORDERED: NA PHOS,M-B/NA PHOS,DI-BA 133 ML ENEMA RECTAL PRN (13:45)
--- NOTE | 2017-12-25 13:59 | OP ---
OPERATIVE REPORT DATE OF PROCEDURE: 12/25/2017 PREOPERATIVE DIAGNOSIS: Left knee osteoarthrosis. POSTOPERATIVE DIAGNOSIS: Left knee osteoarthrosis. OPERATION: Left total knee arthroplasty. SURGEON: Shen Alberts MD [employer] INSPECTOR: CURTIS Morales ANESTHESIA: Spinal with sedation. ESTIMATED BLOOD LOSS: 100 mL. TOURNIQUET TIME: 52 minutes at 250 mmHg. COMPLICATIONS: None apparent. DRAINS: None. DISPOSITION: Postanesthesia care unit. INDICATIONS: Melany is a very pleasant 57-year-old female with longstanding history of left knee pain. History and physical examination are consist with advanced left knee osteoarthrosis. She has been through significant nonoperative management up to this point. Further treatment options were discussed and she has decided to go forward with a left total knee arthroplasty. The risks of the procedure were discussed with her in detail. These risks include, but are not limited to risk of infection, nerve damage, bleeding, pain, and a small risk of deep vein thrombosis which could lead to fatal pulmonary embolism. There is also risk of loosening of the implant which could require revision operation. The patient understands these risks. All of her questions were answered to her satisfaction. An appropriate informed consent was obtained. DESCRIPTION OF THE PROCEDURE: patient was identified in the preoperative holding area. Surgical site marked by both the patient and myself. She was given 3 g of Ancef IV for prophylactic purposes. She was then transferred to the operative suite. She was placed supine on the operative table. Spinal anesthetic was administered and dosed per the Anesthesia Department without apparent complication. An examination under anesthesia was then performed. The patient had full extension. She had 100 degrees of flexion and the medial collateral ligament, lateral collateral ligament and posterior cruciate ligaments were stable. Tourniquet was then placed high on the left upper thigh well-padded in preparation for surgery. The patient's left lower extremity was then prepped and draped in usual sterile fashion. Standard surgical pause was then undertaken to ensure that we were operating on the correct site and that appropriate preoperative antibiotics have been given. All staff in the room were in agreement and then we proceeded. The outlines of the patella were marked with a surgical pen. A planned 12 cm vertical incision centered over the patella was marked with a surgical pen. The leg was then exsanguinated with an Esmarch dressing. The knee was then flexed and the tourniquet was inflated to 250 mmHg. The total tourniquet time for the procedure was 52 minutes. Incision was then made with a 10 blade scalpel. Dissection was carried down sharply of the overlying fascia. Great care was taken to minimize the skin flaps. The knee was then exposed using a standard medial parapatellar approach. A small cuff of quadriceps tendon was left for suturing. She was in a bit of varus preoperatively. A standard medial release was then made. Superficial medial collateral ligament was dissected off of the bone around the posterior aspect of the proximal tibia. The medial meniscus was then excised as well. The lateral meniscus was also released anteriorly. The leg was then externally rotated. The patella was everted and the knee was flexed. The retractors were then placed to protect the collateral ligaments. I then proceeded to remove the infrapatellar fat pad. This was excised sharply, tangentially with the fibers of the patellar tendon. I then proceeded to remove peripheral osteophytes. This was done with a rongeur. I then proceeded with distal femoral resection. She did have full extension. A planned 9 mm resection was then done. The femoral canal was then entered in the midline of the femur approximately 10 mm anterior to the origin of the posterior cruciate ligament. The reggie was then advanced down the center of the femur and placed intramedullary. Based on preop radiographs, the angle between the anatomic and mechanical axis of the femur was approximately 4 to 5 degrees. The valgus angle of the distal femoral cutting guide was then set at 4 degrees for the left knee. The distal femoral cutting guide was then advanced over the intramedullary reggie. This was seated firmly against the femur. I then as mentioned planned to take 9 mm off the distal femur. The cutting block was then secured to the femur with pins. The jig was removed and the distal femoral cut was made through the slot of the block. The pins were then removed and the distal femoral cutting block was removed. The accuracy of the distal femoral cuts was checked with 2 flat bars. I then proceeded to femoral sizing. The posterior referencing sizing guide was held firmly against the resected distal surface of the femur. The posterior condyles were resting on the posterior plane of the guide. The sizing stylus was then placed on the anterior femur. The size was measured as a size 6 narrow. I then assessed for femoral rotation. The plan was for 3 degrees of external rotation. Three degrees of external rotation was placed onto the jig. These holes were then marked. I then confirmed the rotation by 3 separate methods. This was done using the epicondylar axis as well as Whitesides line and posterior referencing. It was deemed that the external rotation was proper. I then went forward with placing the femoral cutting block. This was placed over the previously placed pin holes. The Oneal wing was then placed onto the anterior slots to ensure that we would not notch the anterior femur with the anterior femoral cut. I then proceeded with the anterior femoral cut. This was flush with the anterior cortex of the femur. Posterior cuts were then made followed by the anterior chamfer cut, then the posterior chamfer cut. The cutting block was then removed. Throughout the resection, the collateral ligaments were protected with retractors. I then placed a trial size 6 narrow femur. It fit very nice medial-lateral and fit flush with the distal end of the femur. The drill holes were then made. I then proceeded with the tibial cut. I planned for a cruciate retaining knee. The guide was placed and set for varus valgus, then for slope. The height was set for approximate 2 mm resection from the medial tibial plateau which was the lower side. I was happy with the alignment and the amount of resection. The cutting block was then pinned to the proximal tibia. The alignment reggie was removed and the proximal tibia was resected with a reciprocating saw. Again, this was done with retractors protecting the collateral ligaments as well as the posterior cruciate ligament. I then proceeded to evaluate the flexion and extension gaps. A 10 mm block was placed. The flexion and extension gaps were equal. I then proceeded with resection of the posterior osteophytes. She had very minimal posterior osteophytes. This is done using a curved osteotome. This resected the posterior osteophytes and posterior capsule stripping was also done off the posterior aspect of the femur at this time. The osteophytes were removed. I then proceed to resection of the patella. The thickness of the patella was measured using the caliper. The thickness was 22 mm. The thickness of the anticipated patellar dome was taken into account. The resection was then performed and confirmed to be equal in 4 quadrants using a caliper. Approximately 14 mm of bone remained after the resection. A 29 x 8 standard patellar trial was then placed. The holes were drilled and the trial was then placed. I then proceeded with sizing the tibial plate. A size D tibial plate fit very nicely. I then placed the trial femur, the tibial tray and patellar button. A 10 mm trial tibial insert was also placed. The components fit very nicely. She had full flexion and extension. The extension and flexion gaps were equal and stable to both varus and valgus stress. The patella tracked appropriately. The tibial tray rotation was marked with a Bovie. This was externally rotated properly. I then proceed with tibial preparation. I first drilled the femoral holes and removed femoral component. The tibial tray was then set for proper external rotation as well as mediolateral placement onto the tibia. It was then pinned into place. I then proceeded with punching the keel. I then decided to proceed with cementing of all of our components. The knee was thoroughly irrigated with sterile saline solution via pulse lavage. The lateral geniculate artery was identified and cauterized. All blood was removed from the bone of the tibia, femur and patella with pulse lavage. I then proceeded with cementing. Two packs of antibiotic bone cement were prepared on the back table by the surgical pathologist. I then proceed with cementing the tibia first. The cement was impacted into the keel as well as deeply seated in the bone. A second coat of cement was then placed. The tibia was then impacted into place. The excess cement was removed with Alexandria's and Joker's. I then proceeded with cementing the femoral component. The femoral component was also cemented using standard technique. Excess cement was removed. A 10 mm trial insert was then placed into the knee. It was brought into full extension with a constant axial load placed until the cement had hardened. The patellar component was then cemented. This was held firmly with a compressive device until the cement had dried. When the cement had dried, the knee was taken out of extension. All excess cement was removed from around the prosthesis. I then trialed the knee with a 10 mm insert. The flexion-extension gaps were appropriate. The knee was stable. It came into full extension. I decided to go forward with a 10 mm cross-linked cruciate-retaining tibial insert. Polyethylene was then placed onto the tibial tray and locked into place. The knee was then reduced. The knee was again further irrigated with sterile saline solution with antibiotic added. The tourniquet was then deflated. Total tourniquet time for the procedure was 52 minutes at 250 mmHg. Final components were a Nora Persona size 6 narrow, cruciate-retaining femoral component a size D tibial tray, a 10 mm medial congruent cruciate-retaining polyethylene insert, and a 29 x 8 mm patella I then proceeded with closure. Again, the knee was thoroughly irrigated. The quadriceps tendon and the medial retinaculum were reapproximated with #2 Ethibond suture. The extensor mechanism was then closed with a running #2 Quill suture. Subcutaneous tissues were then closed with 2-0 Vicryl interrupted suture. The skin was closed with a running 3-0 Quill suture. Dermabond was applied to the incision. Sterile compressive dressings were then applied. All sponge and needle counts were deemed correct prior to closure. The patient tolerated the procedure without apparent complication. She was transferred to the recovery room in stable condition. MMODL / IJN: [id number] /
--- NOTE | 2017-12-25 14:20 | XR ---
Limited left knee HISTORY: Status post left knee arthroplasty 2 views of the left knee No comparisons Patient is status post left knee arthroplasty. There is anatomic alignment. Lucency present in the so ft tissues compatible with postop state. IMPRESSION: Orthopedic follow-up.
[2017-12-25] MEDS ORDERED: INSULIN ASPART 100 UNIT/ML 1 ML 10 ML VIAL SQ ONE ×2 (14:30→14:34)
[2017-12-25] MEDS ORDERED: HYDROmorphone 2 MG/ML 1 ML SYRINGE IVP ONE ×3 (14:35→14:45)
[2017-12-25 14:41] LABS: Glucose,Whole Blood 234 mg/dL (75-99)
[2017-12-25] MEDS ORDERED: ceFAZolin 3 GM in SODIUM CHLORIDE 0.9% 100 ML IVPB SCH (16:00)
[2017-12-25] MEDS: hydrOXYzine PAMOATE 25 MG CAP PO PRN (16:40)
[2017-12-25] MEDS: HYDROcodone/APAP 7.5-325MG 1 EACH TAB PO PRN ×2 (16:40→21:54)
[2017-12-25 17:05] LABS: Glucose,Whole Blood 323 mg/dL (75-99)
[2017-12-25 17:05] LABS: Glucose,Whole Blood 318 mg/dL (75-99)
[2017-12-25] MEDS: INSULIN ASPART 100 UNIT/ML 1 ML 10 ML VIAL SQ SCH ×2 (17:28→20:42)
[2017-12-25 20:13] LABS: Glucose,Whole Blood 294 mg/dL (75-99)
[2017-12-25] MEDS: ASPIRIN 325 MG TAB PO SCH (20:42)
[2017-12-25] MEDS: SENNOSIDES-DOCUSATE SODIUM 1 EACH TAB PO SCH (20:42)
--- NOTE | 2017-12-25 23:34 | CONS ---
CONSULTATION DATE OF CONSULTATION: 12/25/2017 REASON FOR CONSULTATION: Medical management, requested by Dr. Alberts. CONSULTATION: This is a 57-year-old patient of Dr. Veronica who has undergone a left total knee arthroplasty. Having some pain. Did tolerate her supper. No chest pain or shortness of breath. The patient's chronic stable medical conditions include diabetes, GERD, hypertension, hyperlipidemia, arthritis, anxiety, depression. Patient is lying in bed. REVIEW OF SYSTEMS: CONSTITUTIONAL: None. HEENT: None. RESPIRATORY: None. CARDIOVASCULAR: None. GASTROINTESTINAL: Heartburn GENITOURINARY: catheter. MUSCULOSKELETAL: Pains in different joints. HEMATOLOGICAL: None. LYMPHATICS: None. PSYCHIATRY: Anxiety, depression, controlled. NEUROLOGICAL: None. PAST MEDICAL HISTORY: 1. Diabetes, type 2. 2. GERD. 3. Hypertension. 4. Hyperlipidemia. 5. Osteoarthritis. 6. Anxiety. 7. Depression. PAST SURGICAL HISTORY: 1. Appendectomy. 2. Hernia repair. 3. Hysterectomy. 4. Joint replacement. Umbilical hernia repair. 5. Drainage of hematoma. PSYCH HISTORY: Anxiety, depression. SOCIAL HISTORY: Lives by herself. Alcohol rarely. Does not smoke. FAMILY HISTORY: Father was on dialysis due to diabetes. Cancer, type unknown. HOME MEDICATIONS: 1. Glucophage 1000 mg p.o. b.i.d. 2. Glucotrol XL 5 mg p.o. daily. 3. Effexor XR 150 mg p.o. daily. 4. Protonix 40 mg with breakfast. 5. Zyprexa 2.5 p.o. b.i.d. 6. Claritin 10 mg p.o. daily. 7. Zestoretic 12.5 one tablet p.o. daily. 8. Pepcid 40 mg p.o. daily. 9. Cinnamon 1000 mg p.o. b.i.d. 10.Vitamin D3 2000 units p.o. daily. 11.Lipitor 40 mg at bedtime. 12.Aspirin 81 mg p.o. daily. 13.Elavil 10 mg p.o. at bedtime. 14.[place] 7.5 one to two tablets q.6 p.r.n. 15.Colace 100 mg p.o. b.i.d. 16.Aspirin 325 p.o. b.i.d. ALLERGIES: 1. ERYTHROMYCIN. 2. IODINE. 3. MORPHINE. 4. SHELLFISH. PHYSICAL EXAMINATION: Afebrile, pulse 100, respiration 16, blood pressure 130/92, pulse ox 94%. GENERAL APPEARANCE: Well built. BMI of 44.4. Lying in bed, propped up, awake. EYES: Pupils equal. Conjunctivae normal. HEENT: Oral cavity normal. NECK: JVD unable to assess. Mass not palpable. RESPIRATORY: Effort normal. LUNGS: Slightly decreased breath sounds. CARDIOVASCULAR: First and second sounds normal. No edema. ABDOMEN: Soft, nontender. Liver and spleen not palpable. LYMPHATIC: No lymph node palpable in neck or axillae. PSYCHIATRY: Alert and oriented x3. Mood and affect normal. NEUROLOGICAL: Pupils equal. Cranial nerves grossly intact. Power and sensation grossly intact. MUSCULOSKELETAL: Dressing of the left knee. Evidence of osteoarthritis in the hands. INVESTIGATIONS: Accu-Cheks are noted. Blood work from 12/11/2017 shows a white count of 7.7, hemoglobin 11.9, potassium 4.9. BUN creatinine are normal. ASSESSMENT: 1. Left total knee arthroplasty. 2. Morbid obesity; body mass index of 44.4. 3. Diabetes mellitus, type 2, on oral hypoglycemic. 4. Gastroesophageal reflux disease. 5. Hypertension. 6. Hyperlipidemia. 7. Primary osteoarthritis in multiple joints. 8. Anxiety, depression not otherwise specified. PLAN: Home medications are resumed. Accu-Cheks will be followed. The patient is on aspirin 325 twice a day for DVT prophylaxis per Dr. Alberts. Pain control is in place. Care was discussed with the patient. She should see a dietitian for weight loss measures. Thank you, Dr. Alberts. MMDUKEL / IJN: [id number] /
[2017-12-26] MEDS: AMITRIPTYLINE HCL 10 MG TAB PO SCH ×2 (00:47→20:39)
[2017-12-26] MEDS: OLANZapine 2.5 MG TAB PO SCH ×3 (00:47→20:40)
[2017-12-26] MEDS: metFORMIN 500 MG TAB PO SCH ×3 (00:47→20:40)
[2017-12-26] MEDS: ATORVASTATIN 40 MG TAB PO SCH ×2 (00:47→20:40)
[2017-12-26] MEDS: LACTATED RINGERS 1,000 ML IV SCH ×2 (00:48→07:43)
[2017-12-26] MEDS: HYDROcodone/APAP 7.5-325MG 1 EACH TAB PO PRN ×4 (03:42→20:40)
[2017-12-26] MEDS: hydrOXYzine PAMOATE 25 MG CAP PO PRN ×4 (03:43→20:41)
[2017-12-26 07:27] LABS: Glucose,Whole Blood 187 mg/dL (75-99)
[2017-12-26 07:38] LABS: Basophils % (A) 0 %; Eosinophils # (A) 0.1 k/uL (0-0.7); Eosinophils % (A) 1 %; Lymphocytes # (A) 1.9 k/uL (1.0-4.8); Lymphocytes % (A) 27 %; MCH 28.5 pg (25.0-35.0); MCHC 32.3 g/dL (31.0-37.0); MCV 88.2 fL (80.0-100.0); Mean Platelet Volume 6.7; Monocytes # (A) 0.4 k/uL (0-1.0); Monocytes % (A) 6 %; Neutrophils # (A) 4.6 k/uL (1.3-7.7); Neutrophils % (A) 65 %; Platelet Count 295 k/uL (150-450); RBC 3.85 m/uL (3.80-5.40); RDW 14.4 % (11.5-15.5); WBC 7.1 k/uL (3.8-10.6)
[2017-12-26] MEDS: INSULIN ASPART 100 UNIT/ML 1 ML 10 ML VIAL SQ SCH ×4 (07:39→20:40)
[2017-12-26] MEDS: PANTOPRAZOLE 40 MG TABLET PO SCH (07:45)
[2017-12-26] MEDS: LISINOPRIL-HCTZ 20-12.5 MG 1 EACH TAB PO SCH (07:45)
[2017-12-26] MEDS: ASPIRIN 325 MG TAB PO SCH ×2 (07:45→20:40)
[2017-12-26] MEDS: glipiZIDE 5 MG TAB PO SCH (07:45)
[2017-12-26] MEDS: VENLAFAXINE HCL ER 150 MG CAP PO SCH (07:46)
--- NOTE | 2017-12-26 08:53 | P.PN ---
Subjective Progress Note Date: 12/26/17 This is a 57 year-old female who is status post left total knee arthroplasty. This is postoperative day #1. Patient does complain of pain to the left knee and states she has not been up and out of bed yet. Patient states her plan is to go to rehab. Patient denies any chest pain, shortness of breath, abdominal pain, calf pain, numbness, weakness or tingling. Objective - Vital Signs Vital signs: Vital Signs Temp 97.5 F L 12/26/17 07:42 Pulse 93 12/26/17 07:42 Resp 18 12/26/17 07:42 BP 129/76 12/26/17 07:42 Pulse Ox 97 12/26/17 07:42 Intake & Output 12/25/17 12/26/17 12/26/17 18:59 06:59 18:59 Intake Total 1003 240 711 Output Total 500 800 Balance 503 -560 711 Weight 121.109 kg 121.109 kg Intake: IV 1003 Oral 240 711 Output: Urine 400 800 Estimated Blood Loss 100 Other: Voiding Method Toilet # Voids 1 - Exam Vital signs are stable. Patient is in no acute distress and is alert and oriented 3. Calf is soft and nontender to palpation. Incision is clean, dry, and intact. Patient has full foot and ankle motion without pain or difficulty. Neurovascular status and circulatory status are intact. - Labs CBC & Chem 7: 12/26/17 06:22 Labs: Abnormal Lab Results - Last 24 Hours (Table) 12/25/17 12/25/17 12/25/17 Range/Units 10:38 14:24 17:02 Hgb (11.4-16.0) gm/dL POC Glucose (mg/dL) 206 H 234 H 318 H (75-99) mg/dL 12/25/17 12/25/17 12/26/17 Range/Units 17:03 20:08 06:22 Hgb 11.0 L (11.4-16.0) gm/dL POC Glucose (mg/dL) 323 H 294 H (75-99) mg/dL 12/26/17 Range/Units 07:14 Hgb (11.4-16.0) gm/dL POC Glucose (mg/dL) 187 H (75-99) mg/dL Assessment and Plan (1) S/P total knee arthroplasty Current Visit: Yes Status: Acute Code(s): Z96.659 - PRESENCE OF UNSPECIFIED ARTIFICIAL KNEE JOINT SNOMED Code(s): 1679515912630 (2) Primary osteoarthritis of left knee Current Visit: Yes Status: Acute Code(s): M17.12 - UNILATERAL PRIMARY OSTEOARTHRITIS, LEFT KNEE SNOMED Code(s): 796921751 Plan: #1 Continue with routine postoperative care #2 Anticoagulation with aspirin. #3 Physical therapy today. #4 Appreciate input from medicine. #5 Anticipate discharge to rehab on Friday.
[2017-12-26] MEDS: traMADol 50 MG TAB PO PRN ×2 (10:21→17:41)
--- NOTE | 2017-12-26 10:55 | XR ---
EXAMINATION TYPE: XR chest 1V DATE OF EXAM: 12/26/2017 COMPARISON: 11/23/2017 HISTORY: Rehabilitation placement TECHNIQUE: Single frontal view of the chest is obtained. FINDINGS: There is no focal air space opacity, pleural effusion, or pneumothorax seen. There is unc hanged mild right hemidiaphragm elevation. The cardiac silhouette size is within normal limits. The osseous structures are intact. Copious soft tissues partially obscure the left costophrenic angle. IMPRESSION: No acute cardiopulmonary process.
[2017-12-26 11:33] LABS: Glucose,Whole Blood 203 mg/dL (75-99)
[2017-12-26] MEDS ORDERED: MULTIVITAMINS, THERA 1 EACH TAB PO SCH (12:00)
[2017-12-26] MEDS ORDERED: HYDROmorphone 2 MG TAB PO PRN ×3 (13:04→13:07)
[2017-12-26] MEDS ORDERED: HYDROmorphone 4 MG TABLET PO PRN (13:07)
[2017-12-26 16:04] LABS: Hemoglobin A1C 7.1 % (4.0-6.0)
[2017-12-26 16:57] LABS: Glucose,Whole Blood 188 mg/dL (75-99)
[2017-12-26 19:07] LABS: Glucose,Whole Blood 195 mg/dL (75-99)
[2017-12-26] MEDS: SENNOSIDES-DOCUSATE SODIUM 1 EACH TAB PO SCH (20:44)
--- NOTE | 2017-12-27 01:30 | P.PN ---
Progress Note - Text Progress Note Date: 12/26/17 DATE OF SERVICE: 12/26/2017 PRESENTING COMPLAINT: Left knee osteoarthritis HISTORY OF PRESENT ILLNESS: 57-year-old female with status post left total knee arthroplasty. INTERVAL HISTORY: 12/26/2017 Lying in bed appears somewhat comfortable. States pain is is controlled but operative the is really tender. Agreeable to work with physical therapy. Ambulatory with the use of walker and assistance. Tolerating her diet eating about 50% of each meal. Has a long-standing history of constipation has not yet had any gas or bowel movement. Cathartics added. REVIEW OF SYSTEMS: Done for constitutional ,cardiovascular, GI, pulmonary with relevant findings as above. CURRENT MEDICATIONS Tylenol, [place], aspirin, Lipitor, Dulcolax, Valium, Vistaril, NovoLog, milk of magnesia, Glucophage, Theragran vitamin, Narcan, Zyprexa, Zofran, Protonix, Senokot-S, fleets enema, Restoril, Ultram, Effexor XR PHYSICAL EXAM VITAL SIGNS: Temperature 98.7, pulse 81, respiratory rate 17, blood pressure 127/67, oxygen saturation 96% on room air. GENERAL APPEARANCE: Lying in bed, not in distress. HENT: Normocephalic, JVD not raised. Mass not palpable. Oral cavity normal, external appearance of ears and nose normal. EYES:Pupils equal. Conjunctiva normal. RESPIRATORY: Respiratory effort normal. Lungs clear to auscultation. CARDIOVASCULAR: First and second sounds normal. No edema. ABDOMEN: Soft. Liver and spleen not palpable. No tenderness. No mass palpable. PSYCHIATRY: Alert and oriented x3. Mood and affect normal. MUSCULOSKELETAL: Dressing on the left knee intact. Evidence of osteoarthritis of the hands. INVESTIGATIONS: LABS: Hemoglobin 11.0 Chest x-ray: No acute cardiopulmonary process. ASSESSMENT: -Left total knee arthroplasty. -Morbid obesity, body mass index of 44.4. -Diabetes mellitus type 2 on oral hypoglycemics. -Gastroesophageal reflux disease. -Essential Hypertension. -Hyperlipidemia. -Primary osteoarthritis in multiple joints. -Anxiety, depression not otherwise specified. PLAN: Continue aspirin for DVT prophylaxis per Dr. Alberts. Continue current pain management regimen. Continue to work PT and OT. Discharge planning per orthopedic preference. We will continue to follow closely plan of care discussed at the bedside patient's agreeable. RN PRIVATE DUTY statement: Patient was seen and examined by nurse practitioner Alia Rivers and all elements of the case discussed with attending Dr. Longoria
[2017-12-27] MEDS: hydrOXYzine PAMOATE 25 MG CAP PO PRN (03:53)
[2017-12-27] MEDS: HYDROcodone/APAP 7.5-325MG 1 EACH TAB PO PRN (03:53)
[2017-12-27 06:53] LABS: Glucose,Whole Blood 192 mg/dL (75-99)
--- NOTE | 2017-12-27 07:47 | PN ---
PROGRESS NOTE DATE OF SERVICE: December 26, 2017. ATTENDING NOTE: Patient seen and examined by me on December 26, 2017. I discussed with nurse practitioner, Ms. Rivers. The patient is status post left knee surgery having some pain at the operative site. Has been out of bed. Tolerating a diet. No chest pain. No shortness of breath. PHYSICAL EXAMINATION: Afebrile. Pulse 93, respiration 18, blood pressure 110/76, pulse ox 97% room air. Lungs distant breath sounds. Cardiovascular 1st and 2nd sounds normal. INVESTIGATION: White count 7.1, hemoglobin 11. ASSESSMENT: 1. Left total knee arthroplasty. 2. Diabetes mellitus type 2. 3. Other medical conditions stable. Continue current medication and treatment plan. MMODL / IJN: [id number] /
[2017-12-27] MEDS: PANTOPRAZOLE 40 MG TABLET PO SCH (07:48)
[2017-12-27] MEDS: ASPIRIN 325 MG TAB PO SCH ×2 (07:49→20:34)
[2017-12-27] MEDS: traMADol 50 MG TAB PO PRN (07:49)
[2017-12-27] MEDS: glipiZIDE 5 MG TAB PO SCH (07:51)
[2017-12-27] MEDS: LISINOPRIL-HCTZ 20-12.5 MG 1 EACH TAB PO SCH (07:51)
[2017-12-27] MEDS: metFORMIN 500 MG TAB PO SCH ×2 (07:51→20:34)
[2017-12-27] MEDS: OLANZapine 2.5 MG TAB PO SCH ×2 (07:52→20:34)
[2017-12-27] MEDS: VENLAFAXINE HCL ER 150 MG CAP PO SCH (07:53)
[2017-12-27] MEDS: INSULIN ASPART 100 UNIT/ML 1 ML 10 ML VIAL SQ SCH ×4 (08:04→20:33)
[2017-12-27] MEDS ORDERED: HYDROcodone/APAP 10-325MG 1 EACH TAB PO PRN (08:58)
--- NOTE | 2017-12-27 09:02 | P.PN ---
Subjective Progress Note Date: 12/27/17 This is a 57 year-old female who is status post left total knee arthroplasty. This is postoperative day #2. States her pain is a little worse today after working with physical therapy. Patient states she's been up and walking and this is going well. Patient denies any chest pain, shortness of breath, abdominal pain, calf pain, numbness, weakness or tingling. Objective - Vital Signs Vital signs: Vital Signs Temp 98.8 F 12/27/17 07:00 Pulse 112 H 12/27/17 07:00 Resp 18 12/27/17 07:00 BP 159/91 12/27/17 07:00 Pulse Ox 97 12/27/17 07:00 Intake & Output 12/26/17 12/27/17 12/27/17 18:59 06:59 18:59 Intake Total 948 Balance 948 Intake: Oral 948 Other: Voiding Method Toilet Toilet # Voids 3 1 1 - Exam Vital signs are stable. Patient is in no acute distress and is alert and oriented 3. Calf is soft and nontender to palpation. Dressing is clean, dry, and intact. Patient has full foot and ankle motion without pain or difficulty. Neurovascular status and circulatory status are intact. - Labs CBC & Chem 7: 12/26/17 06:22 Labs: Abnormal Lab Results - Last 24 Hours (Table) 12/26/17 12/26/17 12/26/17 Range/Units 06:22 11:12 16:55 POC Glucose (mg/dL) 203 H 188 H (75-99) mg/dL Hemoglobin A1c 7.1 H (4.0-6.0) % 12/26/17 12/27/17 Range/Units 19:04 06:51 POC Glucose (mg/dL) 195 H 192 H (75-99) mg/dL Hemoglobin A1c (4.0-6.0) % Assessment and Plan (1) S/P total knee arthroplasty Current Visit: Yes Status: Acute Code(s): Z96.659 - PRESENCE OF UNSPECIFIED ARTIFICIAL KNEE JOINT SNOMED Code(s): 7574026265289 (2) Primary osteoarthritis of left knee Current Visit: Yes Status: Acute Code(s): M17.12 - UNILATERAL PRIMARY OSTEOARTHRITIS, LEFT KNEE SNOMED Code(s): 707467699 Plan: #1 Continue with routine postoperative care. Increase [place] for pain. #2 Anticoagulation with aspirin. #3 Physical therapy today. #4 Appreciate input from medicine. #5 Anticipate discharge to rehab on Friday.
[2017-12-27] MEDS: HYDROcodone/APAP 10-325MG 1 EACH TAB PO PRN ×2 (10:16→16:15)
[2017-12-27 10:51] LABS: Glucose,Whole Blood 223 mg/dL (75-99)
[2017-12-27 17:45] LABS: Glucose,Whole Blood 213 mg/dL (75-99)
[2017-12-27 19:58] LABS: Glucose,Whole Blood 240 mg/dL (75-99)
[2017-12-27] MEDS: ATORVASTATIN 40 MG TAB PO SCH (20:34)
[2017-12-27] MEDS: AMITRIPTYLINE HCL 10 MG TAB PO SCH (20:34)
--- NOTE | 2017-12-27 23:05 | PN ---
PROGRESS NOTE DATE OF SERVICE: 12/27/2017 PRESENT COMPLAINT: Left knee surgery. INTERVAL HISTORY: Patient is status post left total knee arthroplasty. Pain is still present, but doing better. No nausea, vomiting, tolerating a diet. Did work with Therapy. REVIEW OF SYSTEMS: Done for constitutional, cardiovascular, GI, pulmonary, musculoskeletal; relevant findings as above. CURRENT MEDICATIONS: Reviewed that include aspirin for DVT prophylaxis. PHYSICAL EXAMINATION: Temperature 97.8, pulse 116, respirations 21, blood pressure 136/82, pulse ox 94% on room air. GENERAL APPEARANCE: Lying in bed, comfortable. EYES: Pupils equal. Conjunctivae normal. HEENT: External appearance of nose, ears normal. Oral cavity normal. RESPIRATORY: Effort normal/ LUNGS: Slightly distant breath sounds. CARDIOVASCULAR: First and second sounds normal. No edema. ABDOMEN: Soft, nontender. Liver and spleen not palpable. No mass palpable. PSYCHIATRY: Alert and oriented x3. Mood and affect normal. MUSCULOSKELETAL: Dressing on the left knee. INVESTIGATIONS: Accu-Cheks are noted. ASSESSMENT: 1. Left total knee arthroplasty. 2. Morbid obesity, BMI 44.1. 3. Diabetes mellitus type 2 on oral hypoglycemic. 4. Gastroesophageal reflux disease. 5. Essential hypertension. 6. Hyperlipidemia. 7. Primary osteoarthritis in multiple joints. 8. Anxiety, depression, not otherwise specified. PLAN: Continue medication and treatment plan. [facility] MMDUKEL / MISTIN: [id number] /
[2017-12-28] MEDS: HYDROcodone/APAP 10-325MG 1 EACH TAB PO PRN ×5 (00:01→22:55)
[2017-12-28 07:03] LABS: Glucose,Whole Blood 196 mg/dL (75-99)
[2017-12-28] MEDS: INSULIN ASPART 100 UNIT/ML 1 ML 10 ML VIAL SQ SCH ×4 (08:10→22:54)
[2017-12-28] MEDS: ASPIRIN 325 MG TAB PO SCH ×2 (08:23→22:56)
[2017-12-28] MEDS: metFORMIN 500 MG TAB PO SCH ×2 (08:23→22:55)
[2017-12-28] MEDS: glipiZIDE 5 MG TAB PO SCH (08:23)
[2017-12-28] MEDS: PANTOPRAZOLE 40 MG TABLET PO SCH (08:24)
[2017-12-28] MEDS: LISINOPRIL-HCTZ 20-12.5 MG 1 EACH TAB PO SCH (08:24)
[2017-12-28] MEDS: VENLAFAXINE HCL ER 150 MG CAP PO SCH (08:24)
[2017-12-28] MEDS: OLANZapine 2.5 MG TAB PO SCH ×2 (08:24→22:56)
--- NOTE | 2017-12-28 09:21 | P.PN ---
Subjective Progress Note Date: 12/28/17 Principal diagnosis: Status post total left knee arthroplasty This is a 57-year-old female who is status post total left knee arthroplasty. She is postoperative day #3. She is doing well from an orthopedic standpoint. She states that her pain is a little bit better controlled today. She is awaiting discharged to inpatient rehab tomorrow. She denies shortness of breath or calf pain. Objective - Vital Signs Vital signs: Vital Signs Temp 98.2 F 12/28/17 01:15 Pulse 117 H 12/28/17 01:15 Resp 18 12/28/17 01:15 BP 142/84 12/28/17 01:15 Pulse Ox 94 L 12/28/17 07:42 Intake & Output 12/27/17 12/28/17 12/28/17 18:59 06:59 18:59 Intake Total 1060 500 Balance 1060 500 Intake: Oral 1060 500 Other: # Voids 1 1 - Exam this is a pleasant 57-year-old female in no acute distress. She is alert and oriented 3. Exam of the left knee reveals that her dressing is clean, dry and intact. There is no drainage noted on the dressing. She has full foot and ankle motion without difficulty or pain. There is no calf pain with palpation. Neurovascular status to the lower extremities intact. - Labs CBC & Chem 7: 12/26/17 06:22 Labs: Abnormal Lab Results - Last 24 Hours (Table) 12/27/17 12/27/17 12/27/17 Range/Units 10:49 17:42 19:50 POC Glucose (mg/dL) 223 H 213 H 240 H (75-99) mg/dL 12/28/17 Range/Units 06:55 POC Glucose (mg/dL) 196 H (75-99) mg/dL Assessment and Plan (1) Osteoarthritis of left knee Current Visit: Yes Status: Acute Code(s): M17.12 - UNILATERAL PRIMARY OSTEOARTHRITIS, LEFT KNEE SNOMED Code(s): 984442697471339 (2) S/P total knee arthroplasty Current Visit: Yes Status: Acute Code(s): Z96.659 - PRESENCE OF UNSPECIFIED ARTIFICIAL KNEE JOINT SNOMED Code(s): 7210351555856 Plan: The clinical findings are discussed with the patient. We are planning discharge to inpatient rehab tomorrow if cleared medically. Continue physical therapy.
[2017-12-28 11:19] LABS: Glucose,Whole Blood 177 mg/dL (75-99)
[2017-12-28] MEDS: VERAPAMIL SR 180 MG TABLET.ER PO SCH (16:29)
[2017-12-28 17:09] LABS: Glucose,Whole Blood 220 mg/dL (75-99)
[2017-12-28 19:41] LABS: Glucose,Whole Blood 299 mg/dL (75-99)
--- NOTE | 2017-12-28 20:28 | PN ---
PROGRESS NOTE DATE OF SERVICE: 12/28/17 PRESENT COMPLAINT: Left knee surgery. INTERVAL HISTORY: Patient is status post left knee arthroplasty. Some pain is still present. Working with physical therapy. Tolerating a diet. No new issues. The patient is a little bit tachycardic. The patient mentioned that she takes verapamil at home, that will be resumed. REVIEW OF SYSTEMS: Done for constitutional, cardiovascular, GI, pulmonary, relevant findings as above. The patient is not short of breath. CURRENT MEDICATIONS: Reviewed. EXAMINATION: Temperature 98.3, pulse 101, respiration 21, blood pressure 120/85, pulse ox 96% on room air. General appearance: Sitting up in a chair, comfortable. Eyes: Pupil equal. Conjunctivae normal. HEENT external appearance of nose and ears, oral cavity normal. Neck JVD not raised. Mass not palpable. Respiratory effort: Lungs distant breath sounds. Cardiovascular 1st 2nd sounds normal. No edema. ABDOMEN: Soft, nontender. Liver and spleen not palpable. Psychiatry: Alert and oriented times three. Mood and affect normal. INVESTIGATIONS: Accu-Cheks are noted. EKG shows sinus tachycardia. ASSESSMENT: 1. Left total knee arthroplasty. 2. Morbid obesity BMI 44.1. 3. Diabetes mellitus type 2 on oral hypoglycemic. 4. Gastroesophageal reflux disease. 5. Essential hypertension. 6. Hyperlipidemia. 7. Primary osteoarthritis multiple joints. 8. Anxiety, depression, not otherwise specified. 9. Sinus tachycardia confirmed on EKG. PLAN: The patient does take verapamil at home, that will be started. Continue other medical treatment plan. MMODL / IJN: [id number] /
[2017-12-28] MEDS: AMITRIPTYLINE HCL 10 MG TAB PO SCH (22:56)
[2017-12-28] MEDS: ATORVASTATIN 40 MG TAB PO SCH (23:49)
[2017-12-29] MEDS: HYDROcodone/APAP 10-325MG 1 EACH TAB PO PRN ×2 (06:05→11:56)
[2017-12-29 07:28] LABS: Glucose,Whole Blood 206 mg/dL (75-99)
[2017-12-29] MEDS: INSULIN ASPART 100 UNIT/ML 1 ML 10 ML VIAL SQ SCH ×2 (07:50→11:56)
[2017-12-29] MEDS: LISINOPRIL-HCTZ 20-12.5 MG 1 EACH TAB PO SCH (07:51)
[2017-12-29] MEDS: ASPIRIN 325 MG TAB PO SCH (07:51)
[2017-12-29] MEDS: OLANZapine 2.5 MG TAB PO SCH (07:51)
[2017-12-29] MEDS: VERAPAMIL SR 180 MG TABLET.ER PO SCH (07:52)
[2017-12-29] MEDS: metFORMIN 500 MG TAB PO SCH (07:52)
[2017-12-29] MEDS: PANTOPRAZOLE 40 MG TABLET PO SCH (07:52)
[2017-12-29] MEDS: VENLAFAXINE HCL ER 150 MG CAP PO SCH (07:53)
[2017-12-29] MEDS: glipiZIDE 5 MG TAB PO SCH (07:53)
--- NOTE | 2017-12-29 09:41 | P.DS ---
Providers Date of admission: 12/25/17 09:50 Expected date of discharge: 12/25/17 Attending physician: Shen Alberts Consults: 12/25/17 13:45 Consult Physician Routine Consulting Provider: Shankar Veronica Consult Reason/Comments: post op medical management Do you want consulting provider notified?: Yes 12/25/17 14:40 Consult Physician Routine Consulting Provider: James Longoria Consult Reason/Comments: Medical Management Do you want consulting provider notified?: Yes Primary care physician: Shankar Veronica - Discharge Diagnosis(es) (1) Osteoarthritis of left knee Patient was admitted to the OR on 12/25/17 to undergo left total knee arthroplasty. She had failed conservative measures as an outpatient and desired to proceed with elective surgery after given informed consent. She underwent the above procedure which she tolerated well without complication. Postoperative hospital course has remained without complication. On day of discharge she is afebrile, vital signs stable, labs within acceptable ranges, tolerating by mouth meds and diet, voiding without difficulty, positive flatus, denies abdominal pain or calf pain, pain is controlled on oral pain medication and has no new complaints. Wound is benign, neurovascular status is intact, calf is soft and nontender, abdomen soft and nontender. Review of systems is negative for numbness, tingling, fever, chills, chest pain, shortness breath, nausea, vomiting, dizziness, headaches, slurred speech or other. Current Visit: Yes Status: Acute Priority: Medium Procedures: Left TKA Patient Condition at Discharge: Good Plan - Discharge Summary Discharge Rx Participant: Yes New Discharge Prescriptions: New Aspirin 325 mg PO BID #60 tab Docusate [Colace] 100 mg PO BID #60 capsule HYDROcodone/APAP 10-325MG [[place] 10-325] 1 - 2 tab PO Q4-6H PRN #90 tab PRN Reason: Pain No Action Lisinopril-Hctz 20-12.5 mg [Zestoretic 20-12.5] 1 tab PO DAILY Cholecalciferol [Vitamin D3] 2,000 unit PO DAILY Atorvastatin [Lipitor] 40 mg PO HS metFORMIN HCL [Glucophage] 1,000 mg PO BID Cinnamon Bark [Cinnamon] 1,000 mg PO BID Amitriptyline HCl [Elavil] 10 mg PO HS glipiZIDE XL [Glucotrol XL] 5 mg PO DAILY Loratadine [Claritin] 10 mg PO DAILY Venlafaxine HCl ER [Effexor XR] 150 mg PO DAILY OLANZapine [ZyPREXA] 2.5 mg PO BID #30 tablet Pantoprazole Sodium [Protonix] 40 mg PO AC-BRKFST #30 tablet. Famotidine [Pepcid] 40 mg PO DAILY Aspirin 81 mg PO DAILY Verapamil HCl [Verapamil ER] 180 mg PO DAILY Discharge Medication List Lisinopril-Hctz 20-12.5 mg [Zestoretic 20-12.5] 1 tab PO DAILY 06/20/15 [History ] Atorvastatin [Lipitor] 40 mg PO HS 11/12/15 [History] Cholecalciferol [Vitamin D3] 2,000 unit PO DAILY 11/12/15 [History] Cinnamon Bark [Cinnamon] 1,000 mg PO BID 01/23/16 [History] metFORMIN HCL [Glucophage] 1,000 mg PO BID 01/23/16 [History] Amitriptyline HCl [Elavil] 10 mg PO HS 06/29/17 [History] Loratadine [Claritin] 10 mg PO DAILY 06/29/17 [History] glipiZIDE XL [Glucotrol XL] 5 mg PO DAILY 06/29/17 [History] Venlafaxine HCl ER [Effexor XR] 150 mg PO DAILY 07/17/17 [History] OLANZapine [ZyPREXA] 2.5 mg PO BID #30 tablet 11/25/17 [Rx] Pantoprazole Sodium [Protonix] 40 mg PO AC-BRKFST #30 tablet. 11/25/17 [Rx] Aspirin 81 mg PO DAILY 12/18/17 [History] Famotidine [Pepcid] 40 mg PO DAILY 12/18/17 [History] Aspirin 325 mg PO BID #60 tab 12/25/17 [Rx] Docusate [Colace] 100 mg PO BID #60 capsule 12/25/17 [Rx] HYDROcodone/APAP 10-325MG [[place] 10-325] 1 - 2 tab PO Q4-6H PRN #90 tab [Rx] Verapamil HCl [Verapamil ER] 180 mg PO DAILY 12/27/17 [History] Follow up Appointment(s)/Referral(s): Shen Alberts MD [STAFF PHYSICIAN] - 01/05/18 3:05 pm Activity/Diet/Wound Care/Special Instructions: take meds as directed f/u with Dr. Alberts in office WBAT keep wound clean and dry may shower in 72 hrs Discharge Disposition: TRANSFER TO SNF/ECF
[2017-12-29 12:05] LABS: Glucose,Whole Blood 223 mg/dL (75-99)
[2017-12-29 14:43] VITALS: BP 118/68; PULSE 100; RESP 17; TEMP 98.2
--- NOTE | 2018-01-04 22:03 | PN ---
PROGRESS NOTE DATE OF SERVICE: 12/29/17. PRESENTING COMPLAINT: Left knee surgery. INTERVAL HISTORY: This patient was seen on 12/29/17. Status post left knee surgery, doing much better. No chest pain or shortness of breath. Heart rate is doing better. REVIEW OF SYSTEMS: Done for constitutional, cardiovascular, GI, pulmonary done, relevant findings as above. CURRENT MEDICATIONS: Reviewed. EXAMINATION: Temperature 98.3, pulse 103, respiration 18, blood pressure 150/87, pulse ox 92% on room air. General appearance: Sitting up comfortable. Eyes: Pupils equal. Conjunctivae normal. HEENT: External appearance of nose and ears normal. Oral cavity normal. Neck JVD not raised. Mass not palpable. Respiratory effort lungs distant breath sounds. Cardiovascular 1st and 2nd sounds normal. No edema. ABDOMEN: Soft, nontender. Liver and spleen not palpable. Psychiatry: Alert and oriented times three. Mood and affect is normal. INVESTIGATIONS: Accu-Cheks noted. ASSESSMENT: 1. Left total knee arthroplasty. 2. Morbid obesity BMI 44.1. 3. Diabetes mellitus type 2, on oral hypoglycemic. 4. Gastroesophageal reflux disease. 5. Essential hypertension. 6. Hyperlipidemia. 7. Primary osteoarthritis multiple joints. 8. Anxiety, depression not otherwise specified. 9. Sinus tachycardia. PLAN: The patient is stable. Continue current medication and treatment plan. The patient otherwise doing well. MMODL / IJN: [id number] /
== END 2017-12-29 17:05 | DRG 470 ==
LOC: 2ORMAIN 09:50 → 3SUR 13:40
PROVIDERS: ADMIT Orthopaedic Surgery Sports Medicine; ATTEND Orthopaedic Surgery Sports Medicine
PROC: 0SRD069 Replacement of Left Knee Joint with Oxidized Zirconium on Polyethylene Synthetic Substitute, Cemented, Open Approach (ICD-10-PCS; principal; 2017-12-25 12:00)
DX: M17.12 Unilateral primary osteoarthritis, left knee (principal); E66.01 Morbid (severe) obesity due to excess calories; Z68.41 Body mass index [BMI] 40.0-44.9, adult; E11.9 Type 2 diabetes mellitus without complications; M25.762 Osteophyte, left knee; K21.9 Gastro-esophageal reflux disease without esophagitis; I10 Essential (primary) hypertension; E78.5 Hyperlipidemia, unspecified; R00.0 Tachycardia, unspecified; F32.9 Major depressive disorder, single episode, unspecified; F41.9 Anxiety disorder, unspecified; K59.00 Constipation, unspecified; Z79.84 Long term (current) use of oral hypoglycemic drugs; Z79.899 Other long term (current) drug therapy; Z79.82 Long term (current) use of aspirin; Z79.891 Long term (current) use of opiate analgesic; Z90.89 Acquired absence of other organs; Z83.3 Family history of diabetes mellitus; Z87.19 Personal history of other diseases of the digestive system; Z90.710 Acquired absence of both cervix and uterus; Z88.6 Allergy status to analgesic agent; Z88.1 Allergy status to other antibiotic agents; Z91.041 Radiographic dye allergy status; Z91.013 Allergy to seafood; Z87.11 Personal history of peptic ulcer disease; Z96.651 Presence of right artificial knee joint; Z82.49 Family history of ischemic heart disease and other diseases of the circulatory system; Z85.42 Personal history of malignant neoplasm of other parts of uterus
CPT/HCPCS: 71045; 83036; 85025; 88300; 93005; 94760

== ENCOUNTER 2017-12-30 12:41 | Emergency (ER) | payer OTHER ==
[2017-12-30 12:54] VITALS: TEMP 96.9
--- NOTE | 2017-12-30 14:38 | ED ---
General Adult HPI - General Chief complaint: Extremity Problem,Nontraumatic Stated complaint: Knee Pain-post op Time Seen by Provider: 12/30/17 14:01 Source: patient, RN notes reviewed Mode of arrival: ambulatory Limitations: no limitations - History of Present Illness Initial comments: 57 yo female presents to the ER with cc of left knee pain. She was discharged from hospice today she states she's having some increased pain in her upper does not seem to be helping. She does feel pop in her knee when she fell onto it yesterday when she was getting out of the bed and states that she is concerned that she may have injured it. She is still able to ambulate. She states that she is hoping we can give her something stronger for pain here. She denies any head injury from the fall. She denies any other symptoms at this time. She denies any redness or erythema around the area. Patient denies any recent fever, chills, shortness of breath, chest pain, back pain, abdominal pain, nausea vomiting, numbness or tingling, dysuria or hematuria, constipation or diarrhea, headaches or visual changes, or any other current symptoms. - Related Data Home Medications Medication Instructions Recorded Confirmed Lisinopril-Hctz 20-12.5 mg 1 tab PO DAILY 06/20/15 12/25/17 [Zestoretic 20-12.5] Atorvastatin [Lipitor] 40 mg PO HS 11/12/15 12/25/17 Cholecalciferol [Vitamin D3] 2,000 unit PO DAILY 11/12/15 12/25/17 Cinnamon Bark [Cinnamon] 1,000 mg PO BID 01/23/16 12/25/17 metFORMIN HCL [Glucophage] 1,000 mg PO BID 01/23/16 12/25/17 Amitriptyline HCl [Elavil] 10 mg PO HS 06/29/17 12/25/17 Loratadine [Claritin] 10 mg PO DAILY 06/29/17 12/25/17 glipiZIDE XL [Glucotrol XL] 5 mg PO DAILY 06/29/17 12/25/17 Venlafaxine HCl ER [Effexor XR] 150 mg PO DAILY 07/17/17 12/25/17 Aspirin 81 mg PO DAILY 12/18/17 12/25/17 Famotidine [Pepcid] 40 mg PO DAILY 12/18/17 12/25/17 Verapamil HCl [Verapamil ER] 180 mg PO DAILY 12/27/17 12/27/17 Previous Rx's Medication Instructions Recorded OLANZapine [ZyPREXA] 2.5 mg PO BID #30 tablet 11/25/17 Pantoprazole Sodium [Protonix] 40 mg PO AC-BRKFST #30 tablet. 11/25/17 Aspirin 325 mg PO BID #60 tab 12/25/17 Docusate [Colace] 100 mg PO BID #60 capsule 12/25/17 HYDROcodone/APAP 10-325MG [[place] 1 - 2 tab PO Q4-6H PRN #90 tab 12/27/17 10-325] Allergies Allergy/AdvReac Type Severity Reaction Status Date / Time erythromycin base Allergy Anaphylaxis Verified 12/30/17 12:54 Iodine and Iodide Containing Allergy Anaphylaxis Verified 12/30/17 12:54 Produc morphine Allergy Confusion Verified 12/30/17 12:54 shellfish derived [Shellfish] Allergy Anaphylaxis Verified 12/30/17 12:54 Review of Systems ROS Statement: Those systems with pertinent positive or pertinent negative responses have been documented in the HPI. ROS Other: All systems not noted in ROS Statement are negative. Past Medical History Past Medical History: Cancer, Diabetes Mellitus, GERD/Reflux, Hyperlipidemia, Hypertension, Sleep Apnea/CPAP/BIPAP Additional Past Medical History / Comment(s): Uterine CA w/ Hysterectomy. 2007 Rectal Bleed, colonoscopy showing Diverticulosis, internal/external hemorrhoids. Bilateral hand numbness. NO TX FOR SLEEP APNEA. History of Any Multi-Drug Resistant Organisms: None Reported Past Surgical History: Appendectomy, Hernia Repair, Hysterectomy, Joint Replacement, Orthopedic Surgery Additional Past Surgical History / Comment(s): left knee replacement Past Anesthesia/Blood Transfusion Reactions: No Reported Reaction Additional Past Anesthesia/Blood Transfusion Reaction / Comment(s): She has never received blood. Past Psychological History: Anxiety, Depression, Panic Disorder Smoking Status: Never smoker Past Alcohol Use History: None Reported - Past Family History Brother(s) Family Medical History: Cancer Father Family Medical History: Coronary Artery Disease (CAD), Diabetes Mellitus, Eye Disorder, Renal Disease Additional Family Medical History / Comment(s): Father at age 81 yrs. He was on dialysis and was blind due to his diabetes. Mother Family Medical History: AFIB, Congestive Heart Failure (CHF), Hypertension, Osteoarthritis (OA) Additional Family Medical History / Comment(s): Mother at age 81 yrs. General Exam - General Exam Comments Initial Comments: General: The patient is awake and alert, in no distress, and does not appear acutely ill. Neck: The neck is supple, there is no tenderness. Cardiovascular: There is a regular rate and rhythm. No murmur, rub or gallop is appreciated. Respiratory: Lungs are clear to auscultation, respirations are non-labored, breath sounds are equal. No wheezes, stridor, rales, or rhonchi. Musculoskeletal: Sensation intact with 2+ pulses throughout the left lower extremity. Full range of motion of left hip. Patient does have a bandage over the left knee no associated erythema around the area. Patient has good range of motion of the left knee good range of motion of left ankle. Neurological: CN II-XII intact, There are no obvious motor or sensory deficits. Coordination appears grossly intact. Speech is normal. Skin: Skin is warm and dry and no rashes or lesions are noted. Psychiatric: Normal mood and affect. Limitations: no limitations Course Vital Signs 12/30/17 12/30/17 12:50 15:06 Temperature 96.9 F L Pulse Rate 120 H 105 H Respiratory 20 16 Rate Blood Pressure 118/57 150/88 O2 Sat by Pulse 97 97 Oximetry Medical Decision Making - Medical Decision Making 57-year-old female presents with a left knee pain after a fall. At this time patient's x-rays reviewed that essentially acute process. There does not appear to be infection around the site. She is requesting to the edition for pain. We discussed she is to call her surgeon for follow-up information and continued pain control. We did give her Percocet prior to discharge. We discussed return parameters all questions. Patient stated that she understood. All her questions have been answered. She's had a tachycardic however when reviewing the patient's obstruction, history of tachycardia that they Don't for this. This does appear to be a chronic problem for the patient. All questions have been answered. Patient discharged home at this time. - Radiology Data Radiology results: report reviewed, image reviewed Disposition Clinical Impression: Left knee pain Disposition: HOME SELF-CARE Condition: Stable Instructions: Knee Pain (ED) Additional Instructions: Please use medication as discussed. Please follow up with family doctor if symptoms have not improved over the next two days. Please return to the emergency room if your symptoms increase or worsen or for any other concerns. Referrals: Shankar Veronica MD [Primary Care Provider] - 1-2 days Time of Disposition: 15:09
--- NOTE | 2017-12-30 14:39 | XR ---
EXAMINATION TYPE: XR knee complete LT DATE OF EXAM: 12/30/2017 CLINICAL HISTORY: pain TECHNIQUE: Three views of the left knee are obtained. COMPARISON: None. FINDINGS: There is no acute fracture/dislocation total knee arthroplasty in place. Suprapatellar kendal nt effusion noted. The overlying soft tissue appears unremarkable. IMPRESSION: There is no acute fracture or dislocation ICD 10 NO FRACTURE, INITIAL EVALUATION
[2017-12-30] MEDS ORDERED: HYDROmorphone 4 MG/ML 1 ML SYRINGE IM STA (14:40)
[2017-12-30] MEDS ORDERED: oxyCODONE-APAP 10-325MG 1 EACH TAB PO STA (14:51)
[2017-12-30 15:06] VITALS: BP 150/88; PULSE 105; RESP 16
== END 2017-12-30 15:16 | disposition home or self-care (01) ==
LOC: EC 12:41
DX: M25.562 Pain in left knee (principal); E11.9 Type 2 diabetes mellitus without complications; K21.9 Gastro-esophageal reflux disease without esophagitis; E78.5 Hyperlipidemia, unspecified; I10 Essential (primary) hypertension; G47.30 Sleep apnea, unspecified; Z99.89 Dependence on other enabling machines and devices; F32.9 Major depressive disorder, single episode, unspecified; F41.0 Panic disorder [episodic paroxysmal anxiety]; Z85.42 Personal history of malignant neoplasm of other parts of uterus; Z96.652 Presence of left artificial knee joint; Z79.82 Long term (current) use of aspirin; Z79.84 Long term (current) use of oral hypoglycemic drugs; Z79.899 Other long term (current) drug therapy; Z88.1 Allergy status to other antibiotic agents; Z88.5 Allergy status to narcotic agent; Z91.013 Allergy to seafood; Z88.8 Allergy status to other drugs, medicaments and biological substances; Z98.890 Other specified postprocedural states; W06.XXXA Fall from bed, initial encounter; Z53.8 Procedure and treatment not carried out for other reasons
CPT/HCPCS: 99283

== ENCOUNTER 2018-04-22 13:12 | Emergency (ER) | payer OTHER ==
[2018-04-22 13:21] VITALS: RESP 18
[2018-04-22] MEDS ORDERED: KETOROLAC 60 MG/2 ML VIAL IM STA (15:05)
--- NOTE | 2018-04-22 15:17 | ED ---
General Adult HPI - General Chief complaint: Abdominal Pain Stated complaint: Constipated Time Seen by Provider: 04/22/18 13:20 Source: patient, RN notes reviewed Mode of arrival: ambulatory - History of Present Illness Initial comments: This is a 58-year-old female presents emergency Department complaining of constipation. Patient states when she tries ago she has some rectal pain as well. Patient denies any abdominal pain. Patient denies any nausea or vomiting. Patient denies any recent fevers. Patient states she has history of some constipation but this is the worst ever been. Patient denies any blood per rectum. Patient states she had a colonoscopy about 3 years ago. - Related Data Home Medications Medication Instructions Recorded Confirmed Lisinopril-Hctz 20-12.5 mg 1 tab PO DAILY 06/20/15 04/22/18 [Zestoretic 20-12.5] Atorvastatin [Lipitor] 40 mg PO HS 11/12/15 04/22/18 Cinnamon Bark [Cinnamon] 1,000 mg PO DAILY 01/23/16 04/22/18 metFORMIN HCL [Glucophage] 500 mg PO DAILY 01/23/16 04/22/18 Amitriptyline HCl [Elavil] 10 mg PO HS 06/29/17 04/22/18 Loratadine [Claritin] 10 mg PO DAILY 06/29/17 04/22/18 glipiZIDE XL [Glucotrol XL] 5 mg PO DAILY 06/29/17 04/22/18 Venlafaxine HCl ER [Effexor XR] 150 mg PO DAILY 07/17/17 04/22/18 Verapamil HCl [Verapamil ER] 180 mg PO DAILY 12/27/17 04/22/18 Empagliflozin [Jardiance] 25 mg PO DAILY 04/22/18 04/22/18 OLANZapine [ZyPREXA] 10 mg PO DAILY 04/22/18 04/22/18 sitaGLIPtin [Januvia] 100 mg PO DAILY 04/22/18 04/22/18 Allergies Allergy/AdvReac Type Severity Reaction Status Date / Time erythromycin base Allergy Anaphylaxis Verified 04/22/18 15:10 Iodine and Iodide Containing Allergy Anaphylaxis Verified 04/22/18 15:10 Produc morphine Allergy Confusion Verified 04/22/18 15:10 shellfish derived [Shellfish] Allergy Anaphylaxis Verified 04/22/18 15:10 Review of Systems ROS Statement: Those systems with pertinent positive or pertinent negative responses have been documented in the HPI. ROS Other: All systems not noted in ROS Statement are negative. Past Medical History Past Medical History: Cancer, Diabetes Mellitus, GERD/Reflux, Hyperlipidemia, Hypertension, Sleep Apnea/CPAP/BIPAP Additional Past Medical History / Comment(s): Uterine CA w/ Hysterectomy. 2008 Rectal Bleed, colonoscopy showing Diverticulosis, internal/external hemorrhoids. Bilateral hand numbness. NO TX FOR SLEEP APNEA. History of Any Multi-Drug Resistant Organisms: None Reported Past Surgical History: Appendectomy, Hernia Repair, Hysterectomy, Joint Replacement, Orthopedic Surgery Additional Past Surgical History / Comment(s): left knee replacement Past Anesthesia/Blood Transfusion Reactions: No Reported Reaction Additional Past Anesthesia/Blood Transfusion Reaction / Comment(s): She has never received blood. Past Psychological History: Anxiety, Depression, Panic Disorder Smoking Status: Never smoker Past Alcohol Use History: None Reported Past Drug Use History: None Reported - Past Family History Brother(s) Family Medical History: Cancer Father Family Medical History: Coronary Artery Disease (CAD), Diabetes Mellitus, Eye Disorder, Renal Disease Additional Family Medical History / Comment(s): Father at age 81 yrs. He was on dialysis and was blind due to his diabetes. Mother Family Medical History: AFIB, Congestive Heart Failure (CHF), Hypertension, Osteoarthritis (OA) Additional Family Medical History / Comment(s): Mother at age 81 yrs. General Exam - General Exam Comments Initial Comments: GENERAL: Patient is well-developed and well-nourished. Patient is nontoxic and well- hydrated and is in mild distress. ENT: Neck is soft and supple. No significant lymphadenopathy is noted. Oropharynx is clear. Moist mucous membranes. Neck has full range of motion without eliciting any pain. EYES: The sclera were anicteric and conjunctiva were pink and moist. Extraocular movements were intact and pupils were equal round and reactive to light. Eyelids were unremarkable. PULMONARY: Unlabored respirations. Good breath sounds bilaterally. No audible rales rhonchi or wheezing was noted. CARDIOVASCULAR: There is a regular rate and rhythm without any murmurs gallops or rubs. ABDOMEN: Soft and nontender with normal bowel sounds. No palpable organomegaly was noted. There is no palpable pulsatile mass. SKIN: Skin is clear with no lesions or rashes and otherwise unremarkable. NEUROLOGIC: Patient is alert and oriented x3. Cranial nerves II through XII are grossly intact. Motor and sensory are also intact. Normal speech, volume and content. Symmetrical smile. MUSCULOSKELETAL: Normal extremities with adequate strength and full range of motion. No lower extremity swelling or edema. No calf tenderness. LYMPHATICS: No significant lymphadenopathy is noted PSYCHIATRIC: Normal psychiatric evaluation. RECTAL: No fissures or hemorrhoids are noted. Course Vital Signs 04/22/18 04/22/18 13:17 15:15 Temperature 97.9 F Pulse Rate 112 H 98 Respiratory 18 18 Rate Blood Pressure 114/72 116/74 O2 Sat by Pulse 94 L 94 L Oximetry Medical Decision Making - Medical Decision Making Patient has an enema in the emergency Department with great success. Disposition Clinical Impression: Constipation Disposition: HOME SELF-CARE Condition: Good Instructions: Constipation in Children (ED), High Fiber Diet (ED) Is patient prescribed a controlled substance at d/c from ED?: No Referrals: Shankar Veronica MD [Primary Care Provider] - 1-2 days Time of Disposition: 17:06
--- NOTE | 2018-04-22 15:42 | XR ---
EXAMINATION TYPE: XR KUB DATE OF EXAM: 04/22/2018 COMPARISON: 11/15/2015 INDICATION: Pain, constipation TECHNIQUE: Single view abdomen upright view FINDINGS: Nonspecific bowel gas is present. Fecal debris is in the ascending colon. Psoas margins are normal. No organomegaly is present. Osseous structures appear unremarkable. IMPRESSION: 1. Unremarkable Abdomen
[2018-04-22 17:15] VITALS: BP 122/58; PULSE 94; TEMP 97.6
== END 2018-04-22 17:15 | disposition home or self-care (01) ==
LOC: EC 13:12
DX: K59.00 Constipation, unspecified (principal); E11.9 Type 2 diabetes mellitus without complications; K21.9 Gastro-esophageal reflux disease without esophagitis; E78.5 Hyperlipidemia, unspecified; I10 Essential (primary) hypertension; F32.9 Major depressive disorder, single episode, unspecified; F41.0 Panic disorder [episodic paroxysmal anxiety]; Z90.49 Acquired absence of other specified parts of digestive tract; Z88.1 Allergy status to other antibiotic agents; Z88.5 Allergy status to narcotic agent; Z91.013 Allergy to seafood; Z91.048 Other nonmedicinal substance allergy status; Z79.84 Long term (current) use of oral hypoglycemic drugs; Z79.899 Other long term (current) drug therapy
CPT/HCPCS: 99284; 96372; 93005; 74018; J1885

== ENCOUNTER 2018-06-04 20:25 | Emergency (ER) | payer OTHER ==
[2018-06-04 20:39] VITALS: BP 103/60; PULSE 105; RESP 18; TEMP 98.8
--- NOTE | 2018-06-04 21:32 | ED ---
Lower Extremity Injury HPI - General Chief Complaint: Extremity Injury, Lower Stated Complaint: foot injury Time Seen by Provider: 06/04/18 20:57 Source: patient, RN notes reviewed, old records reviewed Mode of arrival: wheelchair Limitations: no limitations - History of Present Illness Initial Comments: Patient's 58-year-old female presenting to emergency Department with complaint of right foot and ankle pain. She reports she was stepping on a boat today and she twisted her foot and ankle. She reports she felt a pop. She's not been able to bear weight. Patient states that she's had no other symptoms. She does have bilateral knee surgeries. She reports no knee pain or leg pain. Patient denies any recent fever, chills, shortness of breath, chest pain, back pain, abdominal pain, nausea vomiting, numbness or tingling, dysuria or hematuria, constipation or diarrhea, headaches or visual changes, or any other current symptoms - Related Data Home Medications Medication Instructions Recorded Confirmed Lisinopril-Hctz 20-12.5 mg 1 tab PO DAILY 06/20/15 04/22/18 [Zestoretic 20-12.5] Atorvastatin [Lipitor] 40 mg PO HS 11/12/15 04/22/18 Cinnamon Bark [Cinnamon] 1,000 mg PO DAILY 01/23/16 04/22/18 metFORMIN HCL [Glucophage] 500 mg PO DAILY 01/23/16 04/22/18 Amitriptyline HCl [Elavil] 10 mg PO HS 06/29/17 04/22/18 Loratadine [Claritin] 10 mg PO DAILY 06/29/17 04/22/18 glipiZIDE XL [Glucotrol XL] 5 mg PO DAILY 06/29/17 04/22/18 Venlafaxine HCl ER [Effexor XR] 150 mg PO DAILY 07/17/17 04/22/18 Verapamil HCl [Verapamil ER] 180 mg PO DAILY 12/27/17 04/22/18 Empagliflozin [Jardiance] 25 mg PO DAILY 04/22/18 04/22/18 OLANZapine [ZyPREXA] 10 mg PO DAILY 04/22/18 04/22/18 sitaGLIPtin [Januvia] 100 mg PO DAILY 04/22/18 04/22/18 Previous Rx's Medication Instructions Recorded Ibuprofen [Motrin] 600 mg PO Q8HR PRN #20 tab 06/04/18 Allergies Allergy/AdvReac Type Severity Reaction Status Date / Time erythromycin base Allergy Anaphylaxis Verified 06/04/18 20:39 Iodine and Iodide Containing Allergy Anaphylaxis Verified 06/04/18 20:39 Produc morphine Allergy Confusion Verified 06/04/18 20:39 shellfish derived [Shellfish] Allergy Anaphylaxis Verified 06/04/18 20:39 Review of Systems ROS Statement: Those systems with pertinent positive or pertinent negative responses have been documented in the HPI. ROS Other: All systems not noted in ROS Statement are negative. Past Medical History Past Medical History: Cancer, Diabetes Mellitus, GERD/Reflux, Hyperlipidemia, Hypertension, Sleep Apnea/CPAP/BIPAP Additional Past Medical History / Comment(s): Uterine CA w/ Hysterectomy. 2007 Rectal Bleed, colonoscopy showing Diverticulosis, internal/external hemorrhoids. Bilateral hand numbness. NO TX FOR SLEEP APNEA. History of Any Multi-Drug Resistant Organisms: None Reported Past Surgical History: Appendectomy, Hernia Repair, Hysterectomy, Joint Replacement, Orthopedic Surgery Additional Past Surgical History / Comment(s): left knee replacement Past Anesthesia/Blood Transfusion Reactions: No Reported Reaction Additional Past Anesthesia/Blood Transfusion Reaction / Comment(s): She has never received blood. Past Psychological History: Anxiety, Depression, Panic Disorder Smoking Status: Never smoker Past Alcohol Use History: None Reported Past Drug Use History: None Reported - Past Family History Brother(s) Family Medical History: Cancer Father Family Medical History: Coronary Artery Disease (CAD), Diabetes Mellitus, Eye Disorder, Renal Disease Additional Family Medical History / Comment(s): Father at age 81 yrs. He was on dialysis and was blind due to his diabetes. Mother Family Medical History: AFIB, Congestive Heart Failure (CHF), Hypertension, Osteoarthritis (OA) Additional Family Medical History / Comment(s): Mother at age 81 yrs. General Exam - General Exam Comments Initial Comments: Patient 58-year-old male. Alert and oriented. No significant distress. Limitations: no limitations General appearance: alert, in no apparent distress Head exam: Present: atraumatic, normocephalic, normal inspection Eye exam: Present: normal appearance, PERRL, EOMI. Absent: scleral icterus, conjunctival injection, periorbital swelling ENT exam: Present: normal exam, mucous membranes moist Neck exam: Present: normal inspection. Absent: tenderness, meningismus, lymphadenopathy Respiratory exam: Present: normal lung sounds bilaterally. Absent: respiratory distress, wheezes, rales, rhonchi, stridor Cardiovascular Exam: Present: regular rate, normal rhythm, normal heart sounds. Absent: systolic murmur, diastolic murmur, rubs, gallop, clicks GI/Abdominal exam: Present: soft, normal bowel sounds. Absent: distended, tenderness, guarding, rebound, rigid Extremities exam: Present: normal inspection, full ROM, normal capillary refill. Absent: tenderness, pedal edema, joint swelling, calf tenderness Right Lower Leg exam: Present: normal inspection, full ROM Ankle exam: Present: full ROM, tenderness (Over lateral malleolus.). Absent: normal inspection Foot/Toe exam: Present: normal inspection, full ROM Neurovascular tendon exam: Present: no vascular compromise Gait: antalgic Back exam: Present: normal inspection Neurological exam: Present: alert, oriented X3, CN II-XII intact Psychiatric exam: Present: normal affect, normal mood Skin exam: Present: warm, dry, intact, normal color. Absent: rash Course Vital Signs 06/04/18 20:37 Temperature 98.8 F Pulse Rate 105 H Respiratory 18 Rate Blood Pressure 103/60 O2 Sat by Pulse 95 Oximetry Medical Decision Making - Medical Decision Making 58-year-old female presents after rolling her right foot and ankle of stepping on a boat. She complains of pain over the lateral malleolus. She has no significant swelling noted this time. Patient has full range of motion of the toes and foot. Neurovascularly intact. Patient's x-rays were negative for any acute process. At this time Patient was placed in a ankle stirrup splint and Austen wrap. Discussed I'll discharge her with crutches. She can follow-up with computer system validation specialist. SINCE RETURN PARAMETERS WERE DISCUSSED. Disposition Clinical Impression: Foot sprain, Ankle sprain Disposition: HOME SELF-CARE Condition: Good Instructions: Ankle Sprain (ED) Additional Instructions: Patient has a take Motrin for pain. Rest, ice, and elevate the foot and ankle. Return to emergency department if any alarming signs or symptoms occur. Prescriptions: Ibuprofen [Motrin] 600 mg PO Q8HR PRN #20 tab PRN Reason: Pain Is patient prescribed a controlled substance at d/c from ED?: No When asked, does pt state using other controlled substances?: No If prescribed controlled substance>3 days was MAPS reviewed?: No If opioid is for acute pain is fill amount 7 days or less?: No If Rx opioid, was Start Talking consent form obtained?: No Referrals: Shankar Veronica MD [Primary Care Provider] - 1-2 days Shen Alberts MD [STAFF PHYSICIAN] - 1-2 days Time of Disposition: 21:55
--- NOTE | 2018-06-04 21:40 | XR ---
PROCEDURE: XR foot complete RT 3 views DATE AND TIME: 06/04/2018 9:16 PM REFERRING PHYSICIAN: Deepika Matthew CLINICAL INDICATION: [facility], Pain TECHNIQUE: Department protocol. COMPARISON: None FINDINGS: There is no fracture or malalignment. The soft tissues are unremarkable. Multifocal moderat enma advanced osteoarthritis changes noted. IMPRESSION: NO ACUTE PROCESS.
--- NOTE | 2018-06-04 21:41 | XR ---
PROCEDURE: XR ankle complete RT 3 views DATE AND TIME: 06/04/2018 9:15 PM REFERRING PHYSICIAN: Deepika Matthew CLINICAL INDICATION: [facility], Pain TECHNIQUE: Department protocol. COMPARISON: None FINDINGS: There is no fracture or malalignment. The soft tissues are unremarkable. IMPRESSION: NO ACUTE PROCESS.
== END 2018-06-04 22:12 | disposition home or self-care (01) ==
LOC: EC 20:25
DX: S93.401A Sprain of unspecified ligament of right ankle, initial encounter (principal); S93.601A Unspecified sprain of right foot, initial encounter; E11.9 Type 2 diabetes mellitus without complications; K21.9 Gastro-esophageal reflux disease without esophagitis; E78.5 Hyperlipidemia, unspecified; I10 Essential (primary) hypertension; F41.0 Panic disorder [episodic paroxysmal anxiety]; F32.9 Major depressive disorder, single episode, unspecified; Z79.84 Long term (current) use of oral hypoglycemic drugs; Z79.899 Other long term (current) drug therapy; Z88.1 Allergy status to other antibiotic agents; Z88.5 Allergy status to narcotic agent; Z91.013 Allergy to seafood; Z88.8 Allergy status to other drugs, medicaments and biological substances; Z85.42 Personal history of malignant neoplasm of other parts of uterus; Z96.652 Presence of left artificial knee joint; X50.1XXA Overexertion from prolonged static or awkward postures, initial encounter; Y92.89 Other specified places as the place of occurrence of the external cause
CPT/HCPCS: 73610; 73630; 99284; 29515; L4350

== ENCOUNTER 2018-09-28 11:08 | Emergency (ER) | payer OTHER ==
--- NOTE | 2018-09-28 11:30 | ED ---
Psych HPI - General Chief Complaint: Psychiatric Symptoms Stated Complaint: Panic attack/depression Time Seen by Provider: 09/28/18 11:24 Source: patient, RN notes reviewed Mode of arrival: ambulatory Limitations: no limitations - History of Present Illness Initial Comments: This a 58-year-old female presents to the emergency Department chief complaint of depression, anxiety she's. Patient states she has been offered Zyprexa for 1 week states that she is very depressed and is not sure what to do. Patient states she needs help. Patient denies any thoughts of suicide or homicidal ideations. Denies any drug or alcohol abuse. Patient states that the pharmacy has been out of her medications so she has not had a. Patient felt that she is to be evaluated for her psychiatric issues. Denies any other complaints. - Related Data Home Medications Medication Instructions Recorded Confirmed Lisinopril-Hctz 20-12.5 mg 1 tab PO DAILY 06/20/15 09/28/18 [Zestoretic 20-12.5] Atorvastatin [Lipitor] 40 mg PO HS 11/12/15 09/28/18 Cinnamon Bark [Cinnamon] 1,000 mg PO DAILY 01/23/16 09/28/18 metFORMIN HCL [Glucophage] 1,000 mg PO BID 01/23/16 09/28/18 Amitriptyline HCl [Elavil] 10 mg PO HS 06/29/17 09/28/18 Loratadine [Claritin] 10 mg PO DAILY 06/29/17 09/28/18 Venlafaxine HCl ER [Effexor XR] 150 mg PO DAILY 07/17/17 09/28/18 Verapamil HCl [Verapamil ER] 180 mg PO DAILY 12/27/17 09/28/18 Empagliflozin [Jardiance] 25 mg PO DAILY 04/22/18 09/28/18 sitaGLIPtin [Januvia] 100 mg PO DAILY 04/22/18 09/28/18 Docusate [Colace] 100 mg PO BID PRN 09/28/18 09/28/18 Famotidine 40 mg PO DAILY 09/28/18 09/28/18 Mirabegron [Myrbetriq] 50 mg PO DAILY 09/28/18 09/28/18 OLANZapine 15 mg PO DAILY 09/28/18 09/28/18 OLANZapine [ZyPREXA] 5 mg PO BID 09/28/18 09/28/18 Omeprazole [PriLOSEC] 20 mg PO DAILY 09/28/18 09/28/18 Pantoprazole [Protonix] 40 mg PO DAILY 09/28/18 09/28/18 Allergies Allergy/AdvReac Type Severity Reaction Status Date / Time erythromycin base Allergy Anaphylaxis Verified 09/28/18 12:06 Iodine and Iodide Containing Allergy Anaphylaxis Verified 09/28/18 12:06 Produc morphine Allergy Confusion Verified 09/28/18 12:06 shellfish derived [Shellfish] Allergy Anaphylaxis Verified 09/28/18 12:06 Review of Systems ROS Statement: Those systems with pertinent positive or pertinent negative responses have been documented in the HPI. ROS Other: All systems not noted in ROS Statement are negative. Past Medical History Past Medical History: Cancer, Diabetes Mellitus, GERD/Reflux, Hyperlipidemia, Hypertension, Sleep Apnea/CPAP/BIPAP Additional Past Medical History / Comment(s): Uterine CA w/ Hysterectomy. 2007 Rectal Bleed, colonoscopy showing Diverticulosis, internal/external hemorrhoids. Bilateral hand numbness. NO TX FOR SLEEP APNEA. History of Any Multi-Drug Resistant Organisms: None Reported Past Surgical History: Appendectomy, Hernia Repair, Hysterectomy, Joint Replacement, Orthopedic Surgery Additional Past Surgical History / Comment(s): left knee replacement Past Anesthesia/Blood Transfusion Reactions: No Reported Reaction Additional Past Anesthesia/Blood Transfusion Reaction / Comment(s): She has never received blood. Past Psychological History: Anxiety, Depression, Panic Disorder Smoking Status: Never smoker Past Alcohol Use History: None Reported Past Drug Use History: None Reported - Past Family History Brother(s) Family Medical History: Cancer Father Family Medical History: Coronary Artery Disease (CAD), Diabetes Mellitus, Eye Disorder, Renal Disease Additional Family Medical History / Comment(s): Father at age 81 yrs. He was on dialysis and was blind due to his diabetes. Mother Family Medical History: AFIB, Congestive Heart Failure (CHF), Hypertension, Osteoarthritis (OA) Additional Family Medical History / Comment(s): Mother at age 81 yrs. General Exam Limitations: no limitations General appearance: alert, in no apparent distress, other (Patient is tearful) Neck exam: Present: normal inspection. Absent: tenderness, meningismus, lymphadenopathy Respiratory exam: Present: normal lung sounds bilaterally. Absent: respiratory distress, wheezes, rales, rhonchi, stridor Cardiovascular Exam: Present: regular rate, normal rhythm, normal heart sounds. Absent: systolic murmur, diastolic murmur, rubs, gallop, clicks Neurological exam: Present: alert, oriented X3, CN II-XII intact Psychiatric exam: Present: depressed Course Vital Signs 09/28/18 11:17 Temperature 98.1 F Pulse Rate 95 Respiratory 16 Rate Blood Pressure 125/80 O2 Sat by Pulse 96 Oximetry Medical Decision Making - Medical Decision Making 58-year-old female presented emergency from for psychiatric evaluation. Patient is depressed and anxious secondary to not having her Zyprexa. Patient not suicidal or homicidal. Patient was evaluated by [facility] and [facility] and a discuss case with psychiatrist who does not recommend inpatient treatment. Patient was given doses Zyprexa here and is scheduled to have her prescription filled today. - Lab Data Lab Results 09/28/18 Range/Units 13:13 Urine Opiates Screen Not Detected (NotDetected) Ur Oxycodone Screen Not Detected (NotDetected) Urine Methadone Screen Not Detected (NotDetected) Ur Propoxyphene Screen Not Detected (NotDetected) Ur Barbiturates Screen Not Detected (NotDetected) U Tricyclic Antidepress Not Detected (NotDetected) Ur Phencyclidine Scrn Not Detected (NotDetected) Ur Amphetamines Screen Not Detected (NotDetected) U Methamphetamines Scrn Not Detected (NotDetected) U Benzodiazepines Scrn Not Detected (NotDetected) Urine Cocaine Screen Not Detected (NotDetected) U Marijuana (THC) Screen Not Detected (NotDetected) Disposition Clinical Impression: Depression, Acute anxiety Disposition: HOME SELF-CARE Condition: Stable Instructions: Depression (ED) Additional Instructions: Please return to the Emergency Department if symptoms worsen or any other concerns. Is patient prescribed a controlled substance at d/c from ED?: No Referrals: Shankar Veronica MD [Primary Care Provider] - 1-2 days Time of Disposition: 13:58
[2018-09-28] MEDS ORDERED: OLANZapine 5 MG TAB PO STA (12:13)
[2018-09-28 13:32] LABS: Amphetamine Screen,Urine Not Detected (NotDetected); Barbiturate Screen,Urine Not Detected (NotDetected); Benzodiazepines Screen,Urine Not Detected (NotDetected); Cocaine Screen,Urine Not Detected (NotDetected); Methadone Screen, Urine Not Detected (NotDetected); Opiate Screen,Urine Not Detected (NotDetected); Oxycodone Screen, Urine Not Detected (NotDetected); Phencyclidine Screen,Urine Not Detected (NotDetected); Tricyclic Antidepressant,Urine Not Detected (NotDetected); Urn Cannabinoid Scrn Not Detected (NotDetected)
[2018-09-28 14:58] VITALS: BP 118/65; PULSE 80; RESP 18; TEMP 98
== END 2018-09-28 14:57 | disposition home or self-care (01) ==
LOC: EC 11:08
DX: F32.9 Major depressive disorder, single episode, unspecified (principal); F41.0 Panic disorder [episodic paroxysmal anxiety]; E11.9 Type 2 diabetes mellitus without complications; K21.9 Gastro-esophageal reflux disease without esophagitis; E78.5 Hyperlipidemia, unspecified; I10 Essential (primary) hypertension; Z85.42 Personal history of malignant neoplasm of other parts of uterus; Z79.84 Long term (current) use of oral hypoglycemic drugs; Z79.899 Other long term (current) drug therapy; Z88.1 Allergy status to other antibiotic agents; Z88.5 Allergy status to narcotic agent; Z91.013 Allergy to seafood; Z88.8 Allergy status to other drugs, medicaments and biological substances
CPT/HCPCS: 80306; 99284

== ENCOUNTER → 2019-01-01 | Outpatient (CLI) | payer OTHER ==
[2019-01-01 14:46] VITALS: BP 124/83; PULSE 95; RESP 18; TEMP 98.8
--- NOTE | 2019-01-01 14:57 | P.GSHP ---
History of Present Illness H&P Date: 01/01/19 Chief Complaint: Lump in her right breast Melany is a 58-year-old white female who presents for breast evaluation. She states she has had an area of nodularity in her right breast in the upper inner quadrant for multiple years. This has not changed. On her mammogram however she was noted to have an area of concern at the 6 o'clock position in the right breast. This was a 1.7 cm mass in the anterior subareolar region with associated heterogeneous calcifications. The patient had an ultrasound performed and at the 6 o'clock position 1 cm from the nipple there is an irregular mass corresponding to the mammographic abnormality with echogenic margins that are indistinct and a central radiating stellate hypoechoic pattern was present. The mass was oriented in a parallel fashion. Ultrasound-guided core biopsy of this area is recommended. The patient's last mammogram was approximately 3 years ago. The patient has no history of any recent trauma or infection in the breast. Patient has no nipple discharge or skin changes for which she is concerned. The patient does complain of some discomfort posterior to her right nipple areolar complex. The patient has been present several months. Family History: 1. brother: colon cancer 2. neice: bilateral breast cancer at 35, not know if she was tested for BRCA gene 3. patient: uterine cancer Hormonal History: menarche: 16 : 1 at 28, 1 child, breat fed: no menopause: 52 BCP: none hormones: 2 months Past surgical history: 1. Hysterectomy removed ovaries done for uterine cancer 2. hernia repairs right abdomen 3. arthroscopic bilateral knee surgery, bilateral knee replacement Past medical history: 1. Diabetic 2. Hypertension 3. High cholesterol 4. Depression 5. GERD Social History: smoke: none alcohol: none drugs: none - Constitutional Constitutional: Denies chills, Denies fever - EENT Eyes: denies blurred vision, denies pain Ears: deny: decreased hearing, tinnitus Ears, nose, mouth and throat: Denies headache, Denies sore throat - Breasts Breasts: bilateral: as per HPI - Cardiovascular Cardiovascular: Reports high blood pressure - Respiratory Respiratory: Denies cough, Denies 7 - Gastrointestinal Comment: last colonoscopy 4 years ago GERD Gastrointestinal: Denies abdominal pain, Denies diarrhea, Denies nausea, Denies vomiting - Genitourinary (Female) Genitourinary: Denies dysuria, Denies hematuria - Menstruation Comment: uterine cancer Menstruation: Reports post hysterectomy - Musculoskeletal Comment: arthritis - Integumentary Integumentary: Denies pruritus, Denies rash - Neurological Neurological: Reports numbness, Denies weakness - Psychiatric Psychiatric: Reports anxiety, Reports depression - Endocrine Comment: diabetes since 2004 - Hematologic/Lymphatic Comment: none - Allergic/Immunologic Allergic/Immunologic: Reports seasonal allergies Past Medical History Past Medical History: Cancer, Diabetes Mellitus, GERD/Reflux, Hyperlipidemia, Hypertension, Sleep Apnea/CPAP/BIPAP Additional Past Medical History / Comment(s): Uterine CA w/ Hysterectomy. 2008 Rectal Bleed, colonoscopy showing Diverticulosis, internal/external hemorrhoids. Bilateral hand numbness. NO TX FOR SLEEP APNEA. History of Any Multi-Drug Resistant Organisms: None Reported Past Surgical History: Appendectomy, Hernia Repair, Hysterectomy, Joint Replacement, Orthopedic Surgery Additional Past Surgical History / Comment(s): left knee replacement, right knee replacement 2017 Past Anesthesia/Blood Transfusion Reactions: No Reported Reaction Additional Past Anesthesia/Blood Transfusion Reaction / Comment(s): She has never received blood. Past Psychological History: Anxiety, Depression, Panic Disorder Additional Psychological History / Comment(s): She states her depression is well managed. Smoking Status: Never smoker Past Alcohol Use History: None Reported Past Drug Use History: None Reported - Past Family History Brother(s) Family Medical History: Cancer Father Family Medical History: Coronary Artery Disease (CAD), Diabetes Mellitus, Eye Disorder, Renal Disease Additional Family Medical History / Comment(s): Father at age 81 yrs. He was on dialysis and was blind due to his diabetes. Mother Family Medical History: AFIB, Congestive Heart Failure (CHF), Hypertension, Osteoarthritis (OA) Additional Family Medical History / Comment(s): Mother at age 81 yrs. Medications and Allergies Home Medications Medication Instructions Recorded Confirmed Type Lisinopril-Hctz 20-12.5 mg 1 tab PO QAM 06/20/15 01/01/19 History [Zestoretic 20-12.5] Atorvastatin [Lipitor] 40 mg PO HS 11/12/15 01/01/19 History Cinnamon Bark [Cinnamon] 1,000 mg PO DAILY 01/23/16 01/01/19 History metFORMIN HCL [Glucophage] 500 mg PO QAM 01/23/16 01/01/19 History Loratadine [Claritin] 10 mg PO QAM 06/29/17 01/01/19 History Venlafaxine HCl ER [Effexor XR] 150 mg PO QAM 07/17/17 01/01/19 History Verapamil HCl [Verapamil ER] 180 mg PO QAM 12/27/17 01/01/19 History Empagliflozin [Jardiance] 25 mg PO QAM 04/22/18 01/01/19 History sitaGLIPtin [Januvia] 100 mg PO QAM 04/22/18 01/01/19 History Mirabegron [Myrbetriq] 50 mg PO QAM 09/28/18 01/01/19 History buPROPion XL [Wellbutrin Xl] 150 mg PO DAILY 12/24/18 01/01/19 History QUEtiapine XR [SEROquel XR] 50 mg PO HS 01/01/19 01/01/19 History Allergies Allergy/AdvReac Type Severity Reaction Status Date / Time erythromycin base Allergy Anaphylaxis Verified 01/01/19 14:19 Iodine and Iodide Containing Allergy Anaphylaxis Verified 01/01/19 14:19 Produc morphine Allergy Confusion Verified 01/01/19 14:19 shellfish derived [Shellfish] Allergy Anaphylaxis Verified 01/01/19 14:19 Surgical - Exam BMI 40.8 - General well developed, well nourished, no distress, obese - Eyes normal ocular movement - ENT no hearing loss, no congestion - Neck no masses, trachea midline - Respiratory normal respiratory effort, clear to auscultation - Cardiovascular Rhythm: regular Heart Sounds: normal: S1, S2 - Abdomen Abdomen: soft, non tender, no guarding, no rigid, no rebound - Integumentary no rash, no abnormal pigmentation - Neurologic no disoriented, no combative - Musculoskeletal normal gait - Psychiatric oriented to time, oriented to person, oriented to place, speech is normal, memory intact Breast exam: Right breast: Multi-positional examination reveals 2 areas of concern, there is a soft mobile area in the upper inner quadrant which may be consistent with a lipoma, there is a second area near the 6 o'clock position in the retroareolar region which is firmer and I believe corresponds to that seen radiographically and on the ultrasound this will undergo ultrasound core biopsy No other lesions of concern identified in the breast, fibrocystic changes are noted Right axilla: No adenopathy of concern Left breast: Multi-positional exam fibrocystic changes no dominant masses or notches of concern Left axilla: No adenopathy of concern Results Mammogram and ultrasound reports reviewed Assessment and Plan Assessment: Impression: 1. Radiographic abnormality right breast 2. Palpable abnormality right breast which is in a different location the radiographic abnormality 3. Hypertension 4. Diabetes 5. Bilateral knee replacement 6. High cholesterol 7. GERD 8. Anxiety/depression 9. Prior history of uterine cancer status post total abdominal hysterectomy Plan: 1. Ultrasound-guided core biopsy of the right breast 2. Patient will undergo FNA for ultrasound-guided core biopsies of palpable abnormality in the upper inner quadrant 3. Medical management of medical conditions 4. Follow-up 1 week after ultrasound core biopsy of the right breast Cc: Dr. Veronica
== END ==
LOC: WWCWWP 13:58
PROVIDERS: ATTEND Surgery
DX: Z53.9 Procedure and treatment not carried out, unspecified reason (principal)

== ENCOUNTER → 2019-01-07 | Day surgery (SDC) | payer OTHER ==
[2019-01-07 11:49] VITALS: RESP 12; BMI 40.7
[2019-01-07 12:57] VITALS: BP 99/60; PULSE 87; TEMP 98.7
--- NOTE | 2019-01-07 16:35 | USB ---
EXAMINATION TYPE: US biopsy breast VAD RT DATE OF EXAM: 01/07/2019 CLINICAL HISTORY: R92.8 ABNORMAL MAMMOGRAM. TECHNIQUE: Ultrasound guided core biopsy of right breast. COMPARISON: 12/07/2018 FINDINGS: The procedure of ultrasound guided core biopsy was explained to the patient. Benefits, alternatives, and risks were discussed. An informed consent was then obtained. Timeout was performed. The patient was placed in supine positioning for imaging and for the procedure. The overlying skin was prepped and draped in usual sterile fashion. Lidocaine buffered with bicarbonate was used as anesthetic into the skin and subcutaneous tissue up to area of concern in the right breast. A bryson was made with surgical scalpel. Under ultrasound guidance, a 12-gauge vacuum assisted biopsy gun device was used to obtain 6 core samples. Following this, a biopsy clip was left in lesion. Postprocedure mammogram was obtained. Clip is identified in the nodular density within the right breast. IMPRESSION: 1. Successful ultrasound-guided core biopsy right breast. Recommendations: 1. Recommendations are pending pathology results. Pathology Results: Malignant RIGHT BREAST, ULTRASOUND GUIDED CORE BIOPSY: Invasive high grade ductal carcinoma (Grade 3). See Surgical Pathology Cancer Case Summary and Comment. Recommendation Surgical consult of the right breast. (Definitive surgical management. Note of a second satellite mass at the 5 o' clock position is made on biopsy exam of 01/07/19 image 6. This is located 1cm away and measures 3mm.) [facility] [place] [facility]
--- NOTE | 2019-01-07 16:36 | MM ---
EXAMINATION TYPE: US biopsy breast VAD RT DATE OF EXAM: 01/07/2019 CLINICAL HISTORY: R92.8 ABNORMAL MAMMOGRAM. TECHNIQUE: Ultrasound guided core biopsy of right breast. COMPARISON: 12/07/2018 FINDINGS: The procedure of ultrasound guided core biopsy was explained to the patient. Benefits, alt ernatives, and risks were discussed. An informed consent was then obtained. Timeout was performed. The patient was placed in supine positioning for imaging and for the procedure. The overlying skin w as prepped and draped in usual sterile fashion. Lidocaine buffered with bicarbonate was used as anes thetic into the skin and subcutaneous tissue up to area of concern in the right breast. A bryson was m carey with surgical scalpel. Under ultrasound guidance, a 12-gauge vacuum assisted biopsy gun device was used to obtain 6 core salome ples. Following this, a biopsy clip was left in lesion. Postprocedure mammogram was obtained. Clip is identified in the nodular density within the right kem st. IMPRESSION: 1. Successful ultrasound-guided core biopsy right breast. Recommendations: 1. Recommendations are pending pathology results.
== END ==
LOC: RADUSWWP 11:26
PROVIDERS: ATTEND Surgery
DX: C50.911 Malignant neoplasm of unspecified site of right female breast (principal)
CPT/HCPCS: 77065; 19083; A4648; J2001; 88305; 88341; 88342

== ENCOUNTER → 2019-01-14 | Outpatient (CLI) | payer OTHER ==
[2019-01-14 16:14] VITALS: BP 134/76; PULSE 92; RESP 18; TEMP 97.1; BMI 40.1
--- NOTE | 2019-01-14 16:44 | P.PCN ---
Date of Procedure: 01/14/19 Preoperative Diagnosis: Right breast nodule, probable lipoma Postoperative Diagnosis: same Procedure(s) Performed: Right breast core biopsy Anesthesia: local Surgeon: Ellie Menon Estimated Blood Loss (ml): 0 Pathology: other (Breast tissue) Condition: stable Disposition: same day Indications for Procedure: The patient is a 58-year-old white female with a palpable abnormality at the 2 to 3 o'clock position of the right breast, this was not seen radiographically. Operative Findings: Fatty tissue Description of Procedure: Melany was brought to the procedure room. The area of concern in the right breast was prepped using Betadine. 1% lidocaine was used to anesthetize the area of concern. The area was approximately 2 to 3 o'clock position of the upper inner area of the right breast. This appears to be soft and is most likely consistent with a lipoma. The lesion was not seen radiographically. An 18-gauge spring-loaded core biopsy needle was inserted into the area of concern. 3 samples were obtained. The specimens were retrieved and will be sent to pathology for evaluation. The patient tolerated the procedure in stable condition.
--- NOTE | 2019-01-14 17:05 | P.PN ---
Subjective Progress Note Date: 01/14/19 Principal diagnosis: Invasive high-grade ductal carcinoma right breast Melany is a 58-year-old white female status post ultrasound-guided core biopsy of a 1.7 cm solid lesion in the retroareolar area of the right breast on . Pathology revealed invasive high-grade ductal carcinoma. After review of her radiographs with the radiologist. 2 additional areas of some concern in the right breast. He has recommended stereotactic core biopsy of both of these areas. Additionally the patient has a palpable change in the 2 o' clock position of the right breast and a core biopsy of this area was obtained today. This is most likely consistent with a lipoma. Objective - Vital Signs Vital signs: Vital Signs Temp 97.1 F L 01/14/19 16:09 Pulse 92 01/14/19 16:09 Resp 18 01/14/19 16:09 BP 134/76 01/14/19 16:09 Pulse Ox 96 01/14/19 16:09 Intake & Output 01/13/19 01/14/19 01/14/19 18:59 06:59 18:59 Weight 111.13 kg - Exam MS 40.1 - Constitutional General appearance: Present: obese - EENT Eyes: Present: EOMI ENT: Present: hearing grossly normal - Neck Neck: Present: normal ROM - Respiratory Respiratory: bilateral: CTA - Cardiovascular Rhythm: regular Heart sounds: normal: S1, S2 - Integumentary Integumentary Comment(s): Mild ecchymosis 6 o'clock position right breast - Psychiatric Psychiatric: Present: A&O x's 3, appropriate affect, intact judgment & insight Assessment and Plan Assessment: Impression: 1. 1.7 cm invasive high-grade ductal carcinoma right breast 2. 2 additional radiographic areas of concern stereo biopsy recommended right breast 3. Patient status post biopsy palpable lesion right breast in the 2 to 3 o' clock position probable lipoma 4. Patient has had discussion regarding BRCA1 testing, a niece with breast cancer at 35 BRCA1 positive Plan: 1. Appointment with medical oncology 2. Appointment with radiation oncology 3. Stereo biopsy of 2 areas of concern in the right breast 4. Consider genetic testing 5. Presentation at tumor board 6. Follow-up next week for results of core biopsy of palpable abnormality Risk and benefits of stereo biopsy of been discussed with the patient is scheduled in the near future. CC: Dr. Veronica
== END | disposition home or self-care (01) ==
LOC: WWCWWP 15:26
PROVIDERS: ATTEND Surgery
DX: N63.10 Unspecified lump in the right breast, unspecified quadrant (principal)
CPT/HCPCS: 88305

== ENCOUNTER → 2019-01-21 | Outpatient (CLI) | payer OTHER ==
[2019-01-21 16:36] VITALS: BP 124/76; PULSE 85; RESP 18; TEMP 98; BMI 39.6
--- NOTE | 2019-01-21 16:39 | P.PN ---
Progress Note - Text Progress Note Date: 01/21/19 Melany is a 58-year-old white female who is status post ultrasound-guided core biopsy of the lesion in the right breast. This was a 1.7 cm subareolar lesion which was a grade 3 invasive ductal carcinoma. This is ER/KS positive and HER-2 negative. Secondary to the high grade and discordant HER-2 status she will most likely have to studies done on the HER-2. The patient additionally had a palpable area in the right breast in the upper inner quadrant area for which a core biopsy was performed. Findings were consistent with benign fibroadipose tissue, which would be in concordance with the fact that it was felt to be a lipoma. The patient additionally has 2 areas of microcalcifications within the breast for which stereotactic core biopsy had been recommended. The patient states that she is concerned and feels that she would like to have a bilateral mastectomy performed. I have discussed with her that if the additional biopsies in the right breast are consistent with malignancy and this was multifocal disease that this would be reasonable. I have also discussed with her that if these are negative for cancer that she would be a candidate for lumpectomy and radiation therapy. The patient has no complaints related to the recent core biopsy. Physical exam: Lungs: Clear Heart: Regular rate and rhythm Breasts: Biopsy site clean and dry Impression: 1. Invasive ductal carcinoma right breast T1 N0 M0 ER positive. Positive HER-2 /deepa negative grade 3 stage Ia 2. Probable lipoma of the medial aspect of the right breast 3. 2 areas of microcalcification of concern in the right breast Plan: 1. Stereo biopsy 2 areas of concern in the right breast 2. Consultation with radiation oncology 3. Presentation at tumor board after results of stereo biopsy obtained CC:DR. Veronica
== END ==
LOC: WWCWWP 16:15
PROVIDERS: ATTEND Surgery
DX: Z53.9 Procedure and treatment not carried out, unspecified reason (principal)

== ENCOUNTER 2019-08-07 12:00 | Emergency (ER) | payer MEDICARE, OTHER ==
[2019-08-07 12:24] VITALS: BP 95/62; PULSE 117; RESP 18; TEMP 98.5
[2019-08-07] MEDS ORDERED: HYDROcodone/APAP 5-325MG 1 EACH TAB PO STA (12:59)
[2019-08-07] MEDS ORDERED: KETOROLAC 30 MG/ML 1 ML VIAL IM STA (12:59)
--- NOTE | 2019-08-07 13:42 | XR ---
EXAMINATION TYPE: XR knee complete RT , 3 VIEWS DATE OF EXAM ORDERED: 08/07/2019 HISTORY: knee pain, hx cancer, replaced. COMPARISON: Previous study dated 07/17/2017. FINDINGS: The right knee arthroplasty has been performed. Prosthetic elements appear in good positio n. No fracture, dislocation or other acute osseous lesion is seen. IMPRESSION: STATUS POST RIGHT ARTHROPLASTY.
--- NOTE | 2019-08-07 13:48 | ED ---
Lower Extremity Injury HPI - General Chief Complaint: Extremity Injury, Lower Stated Complaint: right knee swelling/pain Time Seen by Provider: 08/07/19 12:38 Source: patient, RN notes reviewed, old records reviewed Mode of arrival: ambulatory Limitations: no limitations - History of Present Illness Initial Comments: Patient is a 59-year-old female presenting today with chief complaint of right knee pain. Patient reports that she had a right knee replacement approximately year ago with Dr. Alberts. Patient reportedly has had increased pain with amb ulation over the past 2 days. Patient reports that she has some warmth and swelling to the medial aspect of her knee. Patient reports the pain is better when she is resting it. Patient denies any fevers or chills. She denies any recent falls or trauma. - Related Data Home Medications Medication Instructions Recorded Confirmed Lisinopril-Hctz 20-12.5 mg 1 tab PO QAM 06/20/15 01/21/19 [Zestoretic 20-12.5] Atorvastatin [Lipitor] 40 mg PO HS 11/12/15 01/21/19 Cinnamon Bark [Cinnamon] 1,000 mg PO DAILY 01/23/16 01/21/19 metFORMIN HCL [Glucophage] 500 mg PO QAM 01/23/16 01/21/19 Loratadine [Claritin] 10 mg PO QAM 06/29/17 01/21/19 Venlafaxine HCl ER [Effexor XR] 150 mg PO QAM 07/17/17 01/21/19 Verapamil HCl [Verapamil ER] 180 mg PO QAM 12/27/17 01/21/19 Empagliflozin [Jardiance] 25 mg PO QAM 04/22/18 01/21/19 sitaGLIPtin [Januvia] 100 mg PO QAM 04/22/18 01/21/19 Mirabegron [Myrbetriq] 50 mg PO QAM 09/28/18 01/21/19 buPROPion XL [Wellbutrin Xl] 150 mg PO DAILY 12/24/18 01/21/19 QUEtiapine XR [SEROquel XR] 100 mg PO HS 01/01/19 01/21/19 Previous Rx's Medication Instructions Recorded Acetaminophen with Codeine 1 tab PO Q6H PRN 3 Days #12 tab 08/07/19 [Tylenol w/codeine #3] Ibuprofen [Motrin] 600 mg PO Q8HR PRN #12 tab 08/07/19 Allergies Allergy/AdvReac Type Severity Reaction Status Date / Time erythromycin base Allergy Anaphylaxis Verified 08/07/19 12:22 Iodine and Iodide Containing Allergy Anaphylaxis Verified 08/07/19 12:22 Produc morphine Allergy Confusion Verified 08/07/19 12:22 shellfish derived [Shellfish] Allergy Anaphylaxis Verified 08/07/19 12:22 Review of Systems ROS Statement: Those systems with pertinent positive or pertinent negative responses have been documented in the HPI. ROS Other: All systems not noted in ROS Statement are negative. Past Medical History Past Medical History: Cancer, Diabetes Mellitus, GERD/Reflux, Hyperlipidemia, Hypertension, Sleep Apnea/CPAP/BIPAP Additional Past Medical History / Comment(s): Uterine CA w/ Hysterectomy. 2007 Rectal Bleed, colonoscopy showing Diverticulosis, internal/external hemorrhoids. Bilateral hand numbness. NO TX FOR SLEEP APNEA. breast CA History of Any Multi-Drug Resistant Organisms: None Reported Past Surgical History: Appendectomy, Hernia Repair, Hysterectomy, Joint Replacement, Orthopedic Surgery Additional Past Surgical History / Comment(s): left knee replacement, right knee replacement 2018 Past Anesthesia/Blood Transfusion Reactions: No Reported Reaction Additional Past Anesthesia/Blood Transfusion Reaction / Comment(s): She has never received blood. Past Psychological History: Anxiety, Depression, Panic Disorder Smoking Status: Former smoker Past Alcohol Use History: None Reported Past Drug Use History: None Reported - Past Family History Brother(s) Family Medical History: Cancer Additional Family Medical History / Comment(s): COLON CANCER Father Family Medical History: Coronary Artery Disease (CAD), Diabetes Mellitus, Eye Disorder, Renal Disease Additional Family Medical History / Comment(s): Father at age 81 yrs. He was on dialysis and was blind due to his diabetes. Mother Family Medical History: AFIB, Congestive Heart Failure (CHF), Hypertension, Osteoarthritis (OA) Additional Family Medical History / Comment(s): Mother at age 81 yrs. General Exam - General Exam Comments Initial Comments: Alert and oriented 59-year-old female. No distress. Limitations: no limitations General appearance: alert, in no apparent distress Head exam: Present: atraumatic Eye exam: Present: normal appearance ENT exam: Present: normal exam, mucous membranes moist Neck exam: Present: normal inspection. Absent: tenderness, meningismus, lymphadenopathy Respiratory exam: Present: normal lung sounds bilaterally. Absent: respiratory distress, wheezes, rales, rhonchi, stridor Cardiovascular Exam: Present: regular rate, normal rhythm, normal heart sounds. Absent: systolic murmur, diastolic murmur, rubs, gallop, clicks GI/Abdominal exam: Present: soft, normal bowel sounds. Absent: distended, tenderness, guarding, rebound, rigid Extremities exam: Present: normal inspection, full ROM, normal capillary refill. Absent: tenderness, pedal edema, joint swelling, calf tenderness Right Upper Leg exam: Present: normal inspection, full ROM Knee exam: Present: full ROM, swelling (over medial aspect. ). Absent: normal inspection Lower Leg exam: Present: normal inspection, full ROM Ankle exam: Present: normal inspection Foot/Toe exam: Present: normal inspection, full ROM Neurovascular tendon exam: Present: no vascular compromise Gait: observed and normal Back exam: Present: normal inspection Neurological exam: Present: alert Psychiatric exam: Present: normal affect, normal mood Skin exam: Present: warm, dry, intact, normal color. Absent: rash Course Vital Signs 08/07/19 12:22 Temperature 98.5 F Pulse Rate 117 H Respiratory 18 Rate Blood Pressure 95/62 O2 Sat by Pulse 97 Oximetry Medical Decision Making - Medical Decision Making 59-year-old feel presents emergency department today with nontraumatic right knee pain. Status post knee replacement one year ago. When he is warm, swollen over the medial aspect. Discussed possibly bursitis. Patient was advised that she's with history of chemotherapy and not do any knee injections or fluid drainage. She can follow-up with orthopedic for this procedure. Discussed that she should take Motrin Tylenol for pain. We'll discharge patient's short course of pain management. All questions answered return parameters were discussed. - Radiology Data Radiology results: report reviewed Status post right arthroplasty. Disposition Clinical Impression: Right knee pain, Bursitis, knee Disposition: HOME SELF-CARE Condition: Good Instructions (If sedation given, give patient instructions): Knee Pain (ED) Additional Instructions: Take medications as prescribed. Follow-up with her primary care physician. Take Motrin Tylenol with Austen wrap. Rest ice and elevate the knee. follow up with clinical support specialist. Prescriptions: Ibuprofen [Motrin] 600 mg PO Q8HR PRN #12 tab PRN Reason: Pain Acetaminophen with Codeine [Tylenol w/codeine #3] 1 tab PO Q6H PRN 3 Days #12 tab PRN Reason: Pain Is patient prescribed a controlled substance at d/c from ED?: No Referrals: Shankar Veronica MD [Primary Care Provider] - 1-2 days Shen Alberts MD [STAFF PHYSICIAN] - 1-2 days Time of Disposition: 13:48
== END 2019-08-07 14:05 | disposition home or self-care (01) ==
LOC: EC 12:00
DX: M70.51 Other bursitis of knee, right knee (principal); E11.9 Type 2 diabetes mellitus without complications; E78.5 Hyperlipidemia, unspecified; I10 Essential (primary) hypertension; F32.9 Major depressive disorder, single episode, unspecified; F41.0 Panic disorder [episodic paroxysmal anxiety]; Z87.891 Personal history of nicotine dependence; Z88.1 Allergy status to other antibiotic agents; Z88.5 Allergy status to narcotic agent; Z91.013 Allergy to seafood; Z91.041 Radiographic dye allergy status; Z79.84 Long term (current) use of oral hypoglycemic drugs; Z79.899 Other long term (current) drug therapy; Z92.21 Personal history of antineoplastic chemotherapy; Z85.42 Personal history of malignant neoplasm of other parts of uterus; Z85.3 Personal history of malignant neoplasm of breast; Z90.710 Acquired absence of both cervix and uterus; Z96.653 Presence of artificial knee joint, bilateral; Z82.61 Family history of arthritis
CPT/HCPCS: 73562; 99284; 96372; J1885

== ENCOUNTER 2019-11-26 12:04 | Emergency (ER) | payer MEDICARE, OTHER ==
[2019-11-26 12:18] VITALS: RESP 18
[2019-11-26] MEDS ORDERED: ASPIRIN 81 MG PO STA (13:07)
--- NOTE | 2019-11-26 13:11 | ED ---
General Adult HPI - General Chief complaint: Neck Pain/Injury Stated complaint: neck & shoulder pain Time Seen by Provider: 11/26/19 12:42 Source: patient Mode of arrival: ambulatory Limitations: no limitations - History of Present Illness Initial comments: Patient is 59-year-old female with history of diabetes, hypertension and hyperlipidemia presenting to emergency Department with a chief complaint of right-sided neck pain and right upper extremity pain. She reports a sudden onset of pain about 2 hours prior to ED arrival. She denies any traumatic injury to the region. She also reports lightheadedness and feeling clammy right after the onset of pain. She reports the pain is throbbing in nature and exacerbated with any movement of the upper extremity. Denies any chest pain or shortness of breath. However, she does report dyspnea on exertion that occurred recently. Denies any nausea vomiting blurry vision one-sided weakness or paresthesias. Patient is currently in remission for breast cancer. Denies shortness of breath, one-sided leg swelling. Denies recent physically extraneous activity - Related Data Home Medications Medication Instructions Recorded Confirmed Lisinopril-Hctz 20-12.5 mg 1 tab PO QAM 06/20/15 01/21/19 [Zestoretic 20-12.5] Atorvastatin [Lipitor] 40 mg PO HS 11/12/15 01/21/19 Cinnamon Bark [Cinnamon] 1,000 mg PO DAILY 01/23/16 01/21/19 metFORMIN HCL [Glucophage] 500 mg PO QAM 01/23/16 01/21/19 Loratadine [Claritin] 10 mg PO QAM 06/29/17 01/21/19 Venlafaxine HCl ER [Effexor XR] 150 mg PO QAM 07/17/17 01/21/19 Verapamil HCl [Verapamil ER] 180 mg PO QAM 12/27/17 01/21/19 Empagliflozin [Jardiance] 25 mg PO QAM 04/22/18 01/21/19 sitaGLIPtin [Januvia] 100 mg PO QAM 04/22/18 01/21/19 Mirabegron [Myrbetriq] 50 mg PO QAM 09/28/18 01/21/19 buPROPion XL [Wellbutrin Xl] 150 mg PO DAILY 12/24/18 01/21/19 QUEtiapine XR [SEROquel XR] 100 mg PO HS 01/01/19 01/21/19 Previous Rx's Medication Instructions Recorded Acetaminophen with Codeine 1 tab PO Q6H PRN 3 Days #12 tab 08/07/19 [Tylenol w/codeine #3] Ibuprofen [Motrin] 600 mg PO Q8HR PRN #12 tab 08/07/19 Allergies Allergy/AdvReac Type Severity Reaction Status Date / Time erythromycin base Allergy Anaphylaxis Verified 08/07/19 12:22 Iodine and Iodide Containing Allergy Anaphylaxis Verified 08/07/19 12:22 Produc morphine Allergy Confusion Verified 08/07/19 12:22 shellfish derived [Shellfish] Allergy Anaphylaxis Verified 08/07/19 12:22 Review of Systems ROS Statement: Those systems with pertinent positive or pertinent negative responses have been documented in the HPI. ROS Other: All systems not noted in ROS Statement are negative. Past Medical History Past Medical History: Cancer, Diabetes Mellitus, GERD/Reflux, Hyperlipidemia, Hypertension, Sleep Apnea/CPAP/BIPAP Additional Past Medical History / Comment(s): Uterine CA w/ Hysterectomy. 2008 Rectal Bleed, colonoscopy showing Diverticulosis, internal/external hemorrhoids. Bilateral hand numbness. NO TX FOR SLEEP APNEA. breast CA History of Any Multi-Drug Resistant Organisms: None Reported Past Surgical History: Appendectomy, Hernia Repair, Hysterectomy, Joint Replacement, Orthopedic Surgery Additional Past Surgical History / Comment(s): left knee replacement, right knee replacement 2017 Past Anesthesia/Blood Transfusion Reactions: No Reported Reaction Additional Past Anesthesia/Blood Transfusion Reaction / Comment(s): She has never received blood. Past Psychological History: Anxiety, Depression, Panic Disorder Smoking Status: Former smoker Past Alcohol Use History: None Reported Past Drug Use History: None Reported - Past Family History Brother(s) Family Medical History: Cancer Additional Family Medical History / Comment(s): COLON CANCER Father Family Medical History: Coronary Artery Disease (CAD), Diabetes Mellitus, Eye Disorder, Renal Disease Additional Family Medical History / Comment(s): Father at age 81 yrs. He was on dialysis and was blind due to his diabetes. Mother Family Medical History: AFIB, Congestive Heart Failure (CHF), Hypertension, Osteoarthritis (OA) Additional Family Medical History / Comment(s): Mother at age 81 yrs. General Exam Limitations: no limitations General appearance: alert, in no apparent distress, obese Head exam: Present: atraumatic, normocephalic, normal inspection Eye exam: Present: normal appearance, PERRL, EOMI Pupils: Present: normal accommodation ENT exam: Present: normal exam, normal oropharynx, mucous membranes moist, TM's normal bilaterally, normal external ear exam Neck exam: Present: normal inspection, tenderness (Tenderness along the right trapezius. No midline cervical tenderness.), full ROM Respiratory exam: Present: normal lung sounds bilaterally. Absent: respiratory distress, wheezes Cardiovascular Exam: Present: regular rate, normal rhythm, normal heart sounds Extremities exam: Present: normal inspection, full ROM, tenderness (Tenderness along the right shoulder and right upper extremity), normal capillary refill, other (+2 ulnar and radial pulses bilaterally.) Back exam: Present: normal inspection, full ROM. Absent: tenderness, CVA tenderness (R), CVA tenderness (L) Neurological exam: Present: alert, oriented X3 Psychiatric exam: Present: normal affect, normal mood Skin exam: Present: warm, dry, intact, normal color Course Vital Signs 11/26/19 11/26/19 11/26/19 12:15 13:00 16:54 Temperature 98.6 F 98.4 F Pulse Rate 64 66 76 Respiratory 18 18 18 Rate Blood Pressure 103/54 106/69 O2 Sat by Pulse 97 Oximetry EKG Findings - EKG Comments: EKG Findings:: Normal sinus rhythm T-wave inversion in lead 2 through and aVF. Ventricular rate 74, IA interval 156, QR duration 88, QTC 437. Medical Decision Making - Medical Decision Making Patient is a 59-year-old female with history of diabetes, hyperlipidemia, hypertension and breast cancer presenting to emergency Department with a chief complaint of right arm pain. On exam patient does have some tenderness along the right side of the neck, trapezius and the right shoulder. Patient neurovascularly intact in her right upper extremity. No signs of weakness or paresthesias in the right lower extremity. Neurological examination unremarkable. EKG shows sinus rhythm. Initial troponin is negative. D-dimer elevated. CT of chest x-ray shows no signs of pulmonary embolism. CBC CMP are unremarkable. At this point, I suspect the patient has musculoskeletal pain. Patient advised to alternate between Tylenol and ibuprofen for pain control. She was also advised to apply ice compress to minimize symptoms. Strict return parameters were thoroughly discussed with patient was understanding and agreeable. Case discussed with physician. - Lab Data Result diagrams: 11/26/19 13:40 11/26/19 13:40 Lab Results 11/26/19 11/26/19 11/26/19 Range/Units 13:40 13:40 13:40 WBC 7.9 (3.8-10.6) k/uL RBC 4.13 (3.80-5.40) m/uL Hgb 11.8 (11.4-16.0) gm/dL Hct 35.7 (34.0-46.0) % MCV 86.3 (80.0-100.0) fL MCH 28.6 (25.0-35.0) pg MCHC 33.1 (31.0-37.0) g/dL RDW 14.4 (11.5-15.5) % Plt Count 309 (150-450) k/uL Neutrophils % 75 % Lymphocytes % 17 % Monocytes % 4 % Eosinophils % 2 % Basophils % 0 % Neutrophils # 5.9 (1.3-7.7) k/uL Lymphocytes # 1.4 (1.0-4.8) k/uL Monocytes # 0.3 (0-1.0) k/uL Eosinophils # 0.2 (0-0.7) k/uL Basophils # 0.0 (0-0.2) k/uL PT 9.4 (9.0-12.0) sec INR 0.9 (<1.2) APTT 22.7 (22.0-30.0) sec D-Dimer 1.39 H (<0.60) mg/L FEU Sodium 135 L (137-145) mmol/L Potassium 4.9 (3.5-5.1) mmol/L Chloride 101 (98-107) mmol/L Carbon Dioxide 24 (22-30) mmol/L Anion Gap 10 mmol/L BUN 26 H (7-17) mg/dL Creatinine 0.79 (0.52-1.04) mg/dL Est GFR (CKD-EPI)AfAm >90 (>60 ml/min/1.73 sqM) Est GFR (CKD-EPI)NonAf 84 (>60 ml/min/1.73 sqM) Glucose 264 H (74-99) mg/dL Calcium 9.6 (8.4-10.2) mg/dL Magnesium 1.7 (1.6-2.3) mg/dL Total Bilirubin 0.5 (0.2-1.3) mg/dL AST 21 (14-36) U/L ALT 18 (4-34) U/L Alkaline Phosphatase 119 (38-126) U/L Troponin I (0.000-0.034) ng/mL Total Protein 6.5 (6.3-8.2) g/dL Albumin 3.9 (3.5-5.0) g/dL 11/26/19 Range/Units 13:40 WBC (3.8-10.6) k/uL RBC (3.80-5.40) m/uL Hgb (11.4-16.0) gm/dL Hct (34.0-46.0) % MCV (80.0-100.0) fL MCH (25.0-35.0) pg MCHC (31.0-37.0) g/dL RDW (11.5-15.5) % Plt Count (150-450) k/uL Neutrophils % % Lymphocytes % % Monocytes % % Eosinophils % % Basophils % % Neutrophils # (1.3-7.7) k/uL Lymphocytes # (1.0-4.8) k/uL Monocytes # (0-1.0) k/uL Eosinophils # (0-0.7) k/uL Basophils # (0-0.2) k/uL PT (9.0-12.0) sec INR (<1.2) APTT (22.0-30.0) sec D-Dimer (<0.60) mg/L FEU Sodium (137-145) mmol/L Potassium (3.5-5.1) mmol/L Chloride (98-107) mmol/L Carbon Dioxide (22-30) mmol/L Anion Gap mmol/L BUN (7-17) mg/dL Creatinine (0.52-1.04) mg/dL Est GFR (CKD-EPI)AfAm (>60 ml/min/1.73 sqM) Est GFR (CKD-EPI)NonAf (>60 ml/min/1.73 sqM) Glucose (74-99) mg/dL Calcium (8.4-10.2) mg/dL Magnesium (1.6-2.3) mg/dL Total Bilirubin (0.2-1.3) mg/dL AST (14-36) U/L ALT (4-34) U/L Alkaline Phosphatase (38-126) U/L Troponin I <0.012 (0.000-0.034) ng/mL Total Protein (6.3-8.2) g/dL Albumin (3.5-5.0) g/dL Disposition Clinical Impression: Strain of neck muscle Disposition: HOME SELF-CARE Condition: Stable Instructions (If sedation given, give patient instructions): Cervical Strain (ED) Additional Instructions: Please follow up with primary care alternate between Tylenol and ibuprofen for pain control. Please return to emergency department if symptoms worsen. Is patient prescribed a controlled substance at d/c from ED?: No Referrals: Shankar Veronica MD [Primary Care Provider] - 1-2 days Anthony Rajan MD [STAFF PHYSICIAN] - 1-2 days Time of Disposition: 16:46
[2019-11-26 13:49] LABS: Basophils % (A) 0 %; Eosinophils # (A) 0.2 k/uL (0-0.7); Eosinophils % (A) 2 %; HCT 35.7 % (34.0-46.0); HGB 11.8 gm/dL (11.4-16.0); Lymphocytes # (A) 1.4 k/uL (1.0-4.8); Lymphocytes % (A) 17 %; MCH 28.6 pg (25.0-35.0); MCHC 33.1 g/dL (31.0-37.0); MCV 86.3 fL (80.0-100.0); Mean Platelet Volume 6.4; Monocytes # (A) 0.3 k/uL (0-1.0); Monocytes % (A) 4 %; Neutrophils # (A) 5.9 k/uL (1.3-7.7); Neutrophils % (A) 75 %; Platelet Count 309 k/uL (150-450); RBC 4.13 m/uL (3.80-5.40); RDW 14.4 % (11.5-15.5); WBC 7.9 k/uL (3.8-10.6)
[2019-11-26 13:57] LABS: ALT 18 U/L (4-34); AST 21 U/L (14-36); African American GFR (CKD) >90 (>60 ml/min/1.73 sqM); Albumin 3.9 g/dL (3.5-5.0); Alkaline Phosphatase 119 U/L (38-126); Anion Gap 10 mmol/L; Blood Urea Nitrogen 26 mg/dL (7-17); Calcium 9.6 mg/dL (8.4-10.2); Carbon Dioxide 24 mmol/L (22-30); Chloride 101 mmol/L (98-107); Glucose 264 mg/dL (74-99); Magnesium 1.7 mg/dL (1.6-2.3); Non-African American GFR(CKD) 84 (>60 ml/min/1.73 sqM); Potassium 4.9 mmol/L (3.5-5.1); Sodium 135 mmol/L (137-145); Total Bilirubin 0.5 mg/dL (0.2-1.3); Total Protein 6.5 g/dL (6.3-8.2)
--- NOTE | 2019-11-26 13:58 | XR ---
EXAMINATION TYPE: XR chest 2V DATE OF EXAM: 11/26/2019 COMPARISON: 12/26/2017 TECHNIQUE: PA and lateral views submitted. HISTORY: Pain FINDINGS: The lungs are clear and there is no pneumothorax, pleural effusion, or focal pneumonia. Limited ins piration. No overt failure. Hypertrophic and degenerative change of the spine. IMPRESSION: 1. No acute process.
[2019-11-26 14:01] LABS: INR 0.9 (<1.2); Partial Thromboplastin Time 22.7 sec (22.0-30.0); Prothrombin Time 9.4 sec (9.0-12.0)
[2019-11-26 14:12] LABS: D-Dimer 1.39 mg/L FEU (<0.60)
[2019-11-26] MEDS ORDERED: FAMOTIDINE 20 MG/2 ML VIAL IV STA (14:57)
[2019-11-26] MEDS ORDERED: diphenhydrAMINE 50 MG/ML 1 ML VIAL IVP STA (14:57)
[2019-11-26] MEDS ORDERED: methylPREDNISolone SOD SUCCI 125 MG/2 ML VIAL IV STA (14:58)
--- NOTE | 2019-11-26 16:32 | CT ---
CT CHEST FOR PULMONARY EMBOLISM. EXAMINATION TYPE: CT chest angio for PE DATE OF EXAM: 11/26/2019 INDICATION: suspected pe CT DLP: 584.6 mGycm, Automated exposure control for dose reduction was used. CONTRAST: Patient injected with 100 mL of Isovue 370. COMPARISON: None TECHNIQUE: CT of the chest is performed on a spiral scan at 2 mm thick sections. Study is performed with intravenous contrast timed for evaluation for pulmonary embolism. This will limit additional po rtions of the evaluation. 3-D MIP images reconstructed by the technologist are reviewed on the compu ter in the coronal and sagittal planes. FINDINGS: No persistent filling defects are evident to suggest an acute pulmonary embolism. No mediastinal or hilar adenopathy enlarged by CT criteria is evident. The ascending aorta diameter at the level of the main pulmonary artery is 3.5 cm. The main pulmonary artery diameter at the bifur cation is 2.5 cm. No right heart strain is evident. Lung windows are clear. Limited CT section through the upper abdomen are unremarkable. IMPRESSIONS: 1. No acute pulmonary embolism.
[2019-11-26 16:55] VITALS: BP 106/69; PULSE 76; TEMP 98.4
== END 2019-11-26 16:54 | disposition home or self-care (01) ==
LOC: EC 12:04
DX: S16.1XXA Strain of muscle, fascia and tendon at neck level, initial encounter (principal); R79.1 Abnormal coagulation profile; M79.601 Pain in right arm; R06.09 Other forms of dyspnea; R42 Dizziness and giddiness; E11.9 Type 2 diabetes mellitus without complications; E78.5 Hyperlipidemia, unspecified; I10 Essential (primary) hypertension; F32.9 Major depressive disorder, single episode, unspecified; F41.0 Panic disorder [episodic paroxysmal anxiety]; Z87.891 Personal history of nicotine dependence; Z88.1 Allergy status to other antibiotic agents; Z88.5 Allergy status to narcotic agent; Z91.013 Allergy to seafood; Z91.048 Other nonmedicinal substance allergy status; Z79.84 Long term (current) use of oral hypoglycemic drugs; Z79.899 Other long term (current) drug therapy; Z85.3 Personal history of malignant neoplasm of breast; Z85.42 Personal history of malignant neoplasm of other parts of uterus; Z90.710 Acquired absence of both cervix and uterus; X58.XXXA Exposure to other specified factors, initial encounter
CPT/HCPCS: 36415; 93005; 85379; 80053; 83735; 84484; 85025; 85610; 85730; 71046; 71275; 99284; 96374; 96375 ×2; J1200; J2930; Q9967

== ENCOUNTER 2019-12-05 14:52 | Observation (INO) | payer MEDICARE, OTHER ==
[2019-12-05] MEDS ORDERED: SODIUM CHLORIDE 0.9% 1,000 ML IV STA ×2 (15:17)
--- NOTE | 2019-12-05 15:26 | ED ---
Arrhythmia/Palpitations HPI - General Chief Complaint: Arrhythmia/Palpitations Stated Complaint: Shoulder/neck pain Time Seen by Provider: 12/05/19 15:12 Source: patient, RN notes reviewed Mode of arrival: ambulatory Limitations: no limitations - History of Present Illness Initial Comments: This is a 59-year-old female history of breast cancer intermittent atrial fibrillation diabetes depression who is status post chemotherapy in August of this past year who presents with complaints of the onset of sharp pain in the right side of her neck and shoulder area additionally she had lightheadedness shortness of breath with it. Upon arrival she was found have a blood pressure of 72/40 in the triage department. She states she believes she's been drinking enough fluids she states her urine is been very clear. She denies any fevers chills sweats she has had some palpitations no chest pain no cough or phlegm production. She has exertional dyspnea. No other modifying factors MD Complaint: palpitations - Related Data Home Medications Medication Instructions Recorded Confirmed Lisinopril-Hctz 20-12.5 mg 1 tab PO QAM 06/20/15 01/21/19 [Zestoretic 20-12.5] Atorvastatin [Lipitor] 40 mg PO HS 11/12/15 01/21/19 Cinnamon Bark [Cinnamon] 1,000 mg PO DAILY 01/23/16 01/21/19 metFORMIN HCL [Glucophage] 500 mg PO QAM 01/23/16 01/21/19 Loratadine [Claritin] 10 mg PO QAM 06/29/17 01/21/19 Venlafaxine HCl ER [Effexor XR] 150 mg PO QAM 07/17/17 01/21/19 Verapamil HCl [Verapamil ER] 180 mg PO QAM 12/27/17 01/21/19 Empagliflozin [Jardiance] 25 mg PO QAM 04/22/18 01/21/19 sitaGLIPtin [Januvia] 100 mg PO QAM 04/22/18 01/21/19 Mirabegron [Myrbetriq] 50 mg PO QAM 09/28/18 01/21/19 buPROPion XL [Wellbutrin Xl] 150 mg PO DAILY 12/24/18 01/21/19 QUEtiapine XR [SEROquel XR] 100 mg PO HS 02/08/19 02/28/19 Previous Rx's Medication Instructions Recorded Acetaminophen with Codeine 1 tab PO Q6H PRN 3 Days #12 tab 08/07/19 [Tylenol w/codeine #3] Ibuprofen [Motrin] 600 mg PO Q8HR PRN #12 tab 08/07/19 Allergies Allergy/AdvReac Type Severity Reaction Status Date / Time erythromycin base Allergy Anaphylaxis Verified 12/05/19 15:08 Iodine and Iodide Containing Allergy Anaphylaxis Verified 12/05/19 15:08 Produc morphine Allergy Confusion Verified 12/05/19 15:08 shellfish derived [Shellfish] Allergy Anaphylaxis Verified 12/05/19 15:08 Review of Systems ROS Statement: Those systems with pertinent positive or pertinent negative responses have been documented in the HPI. ROS Other: All systems not noted in ROS Statement are negative. Past Medical History Past Medical History: Cancer, Diabetes Mellitus, GERD/Reflux, Hyperlipidemia, Hypertension, Sleep Apnea/CPAP/BIPAP Additional Past Medical History / Comment(s): Uterine CA w/ Hysterectomy. 2007 Rectal Bleed, colonoscopy showing Diverticulosis, internal/external hemorrhoids. Bilateral hand numbness. NO TX FOR SLEEP APNEA. breast CA History of Any Multi-Drug Resistant Organisms: None Reported Past Surgical History: Appendectomy, Hernia Repair, Hysterectomy, Joint Replacement, Orthopedic Surgery Additional Past Surgical History / Comment(s): left knee replacement, right knee replacement 2018 Past Anesthesia/Blood Transfusion Reactions: No Reported Reaction Additional Past Anesthesia/Blood Transfusion Reaction / Comment(s): She has never received blood. Past Psychological History: Anxiety, Depression, Panic Disorder Smoking Status: Former smoker Past Alcohol Use History: None Reported Past Drug Use History: None Reported - Past Family History Brother(s) Family Medical History: Cancer Additional Family Medical History / Comment(s): COLON CANCER Father Family Medical History: Coronary Artery Disease (CAD), Diabetes Mellitus, Eye Disorder, Renal Disease Additional Family Medical History / Comment(s): Father at age 81 yrs. He was on dialysis and was blind due to his diabetes. Mother Family Medical History: AFIB, Congestive Heart Failure (CHF), Hypertension, Osteoarthritis (OA) Additional Family Medical History / Comment(s): Mother at age 81 yrs. General Exam - General Exam Comments Initial Comments: This is a well-developed well-nourished awake alert oriented 3 female Limitations: no limitations General appearance: alert, anxious Head exam: Present: atraumatic, normocephalic, normal inspection Eye exam: Present: normal appearance, PERRL, EOMI. Absent: scleral icterus, conjunctival injection, periorbital swelling ENT exam: Present: mucous membranes dry Neck exam: Present: normal inspection. Absent: tenderness, meningismus, lymphadenopathy Respiratory exam: Present: normal lung sounds bilaterally, other (Postsurgical changes on both breasts). Absent: respiratory distress, wheezes, rales, rhonchi, stridor Cardiovascular Exam: Present: bradycardia, irregular rhythm. Absent: systolic murmur, diastolic murmur, rubs, gallop, clicks GI/Abdominal exam: Present: soft, normal bowel sounds. Absent: distended, tenderness, guarding, rebound, rigid Extremities exam: Present: normal inspection, full ROM, normal capillary refill. Absent: tenderness, pedal edema, joint swelling, calf tenderness Back exam: Present: normal inspection Neurological exam: Present: alert, oriented X3, CN II-XII intact Psychiatric exam: Present: normal affect, normal mood Skin exam: Present: warm, dry, intact, normal color. Absent: rash Course Vital Signs 12/05/19 12/05/19 12/05/19 14:59 15:30 15:54 Temperature 98.0 F Pulse Rate 55 L 47 L 44 L Pulse Rate [ 47 L Supine Apical] Respiratory 20 16 16 Rate Blood Pressure 72/47 89/53 77/43 O2 Sat by Pulse 98 98 98 Oximetry 12/05/19 12/05/19 16:03 17:55 Temperature Pulse Rate 44 L 57 L Pulse Rate [ Supine Apical] Respiratory 16 16 Rate Blood Pressure 88/51 96/58 O2 Sat by Pulse 98 99 Oximetry EKG Findings - EKG Results: EKG: interpreted by ERMBárbara (A. fib rate of 53 QRS 90 QT since QTC 420/41 low- voltage poor R-wave progression) Medical Decision Making - Medical Decision Making I did discuss findings with the patient and with Dr. Castanon who did come and see the patient patient will be admitted she does have evidence of dehydration and hypomagnesemia hyperglycemia. She will be admitted for evaluation and treatment The patient is atypical he did have a CAT scan done on the third for a similar presentation which is negative for PE after discussion with patient repeat CT will be held at this time - Lab Data Result diagrams: 12/05/19 15:22 12/05/19 15:22 Lab Results 12/05/19 12/05/19 12/05/19 Range/Units 15:22 15:22 15:22 WBC 11.4 H (3.8-10.6) k/uL RBC 4.33 (3.80-5.40) m/uL Hgb 12.8 (11.4-16.0) gm/dL Hct 38.8 (34.0-46.0) % MCV 89.6 (80.0-100.0) fL MCH 29.6 (25.0-35.0) pg MCHC 33.1 (31.0-37.0) g/dL RDW 14.1 (11.5-15.5) % Plt Count 382 (150-450) k/uL Neutrophils % 70 % Lymphocytes % 19 % Monocytes % 6 % Eosinophils % 3 % Basophils % 1 % Neutrophils # 8.0 H (1.3-7.7) k/uL Lymphocytes # 2.1 (1.0-4.8) k/uL Monocytes # 0.6 (0-1.0) k/uL Eosinophils # 0.4 (0-0.7) k/uL Basophils # 0.1 (0-0.2) k/uL Hypochromasia Slight PT 9.7 (9.0-12.0) sec INR 0.9 (<1.2) APTT 25.1 (22.0-30.0) sec D-Dimer 1.52 H (<0.60) mg/L FEU Sodium 131 L (137-145) mmol/L Potassium 5.7 H (3.5-5.1) mmol/L Chloride 100 (98-107) mmol/L Carbon Dioxide 17 L (22-30) mmol/L Anion Gap 14 mmol/L BUN 31 H (7-17) mg/dL Creatinine 1.01 (0.52-1.04) mg/dL Est GFR (CKD-EPI)AfAm 72 (>60 ml/min/1.73 sqM) Est GFR (CKD-EPI)NonAf 62 (>60 ml/min/1.73 sqM) Glucose 544 H* (74-99) mg/dL POC Glucose (mg/dL) (75-99) mg/dL POC Glu [employer] Operator Helper ID Calcium 9.3 (8.4-10.2) mg/dL Magnesium 1.5 L (1.6-2.3) mg/dL Total Bilirubin 0.7 (0.2-1.3) mg/dL AST 26 (14-36) U/L ALT 21 (4-34) U/L Alkaline Phosphatase 123 (38-126) U/L Creatine Kinase 61 (30-135) U/L Troponin I (0.000-0.034) ng/mL Total Protein 6.8 (6.3-8.2) g/dL Albumin 4.1 (3.5-5.0) g/dL Acetone, Qual (Negative) 12/05/19 12/05/19 12/05/19 Range/Units 15:22 15:22 17:31 WBC (3.8-10.6) k/uL RBC (3.80-5.40) m/uL Hgb (11.4-16.0) gm/dL Hct (34.0-46.0) % MCV (80.0-100.0) fL MCH (25.0-35.0) pg MCHC (31.0-37.0) g/dL RDW (11.5-15.5) % Plt Count (150-450) k/uL Neutrophils % % Lymphocytes % % Monocytes % % Eosinophils % % Basophils % % Neutrophils # (1.3-7.7) k/uL Lymphocytes # (1.0-4.8) k/uL Monocytes # (0-1.0) k/uL Eosinophils # (0-0.7) k/uL Basophils # (0-0.2) k/uL Hypochromasia PT (9.0-12.0) sec INR (<1.2) APTT (22.0-30.0) sec D-Dimer (<0.60) mg/L FEU Sodium (137-145) mmol/L Potassium (3.5-5.1) mmol/L Chloride (98-107) mmol/L Carbon Dioxide (22-30) mmol/L Anion Gap mmol/L BUN (7-17) mg/dL Creatinine (0.52-1.04) mg/dL Est GFR (CKD-EPI)AfAm (>60 ml/min/1.73 sqM) Est GFR (CKD-EPI)NonAf (>60 ml/min/1.73 sqM) Glucose (74-99) mg/dL POC Glucose (mg/dL) 350 H (75-99) mg/dL POC Glu [employer] Operator Helper ID Darnell Smith Calcium (8.4-10.2) mg/dL Magnesium (1.6-2.3) mg/dL Total Bilirubin (0.2-1.3) mg/dL AST (14-36) U/L ALT (4-34) U/L Alkaline Phosphatase (38-126) U/L Creatine Kinase (30-135) U/L Troponin I <0.012 (0.000-0.034) ng/mL Total Protein (6.3-8.2) g/dL Albumin (3.5-5.0) g/dL Acetone, Qual Negative (Negative) - Radiology Data Radiology results: report reviewed (I did review the imaging no definite acute findings.), image reviewed Disposition Clinical Impression: Atypical chest pain, Uncontrolled diabetes mellitus, Hypomagnesemia syndrome, Hypotensive episode Disposition: ADMITTED IP TO THIS [facility] Condition: Fair Referrals: Shankar Veronica MD [Primary Care Provider] - 1-2 days
[2019-12-05 15:46] LABS: Basophils # (A) 0.1 k/uL (0-0.2); Basophils % (A) 1 %; Eosinophils # (A) 0.4 k/uL (0-0.7); Eosinophils % (A) 3 %; HCT 38.8 % (34.0-46.0); HGB 12.8 gm/dL (11.4-16.0); Hypochromasia Slight; Lymphocytes # (A) 2.1 k/uL (1.0-4.8); Lymphocytes % (A) 19 %; MCH 29.6 pg (25.0-35.0); MCHC 33.1 g/dL (31.0-37.0); MCV 89.6 fL (80.0-100.0); Mean Platelet Volume 6.8; Monocytes # (A) 0.6 k/uL (0-1.0); Monocytes % (A) 6 %; Neutrophils % (A) 70 %; Platelet Count 382 k/uL (150-450); RBC 4.33 m/uL (3.80-5.40); RDW 14.1 % (11.5-15.5); WBC 11.4 k/uL (3.8-10.6)
[2019-12-05 15:59] LABS: Albumin 4.1 g/dL (3.5-5.0); Calcium 9.3 mg/dL (8.4-10.2); Magnesium 1.5 mg/dL (1.6-2.3); Potassium 5.7 mmol/L (3.5-5.1); Total Bilirubin 0.7 mg/dL (0.2-1.3); Total Protein 6.8 g/dL (6.3-8.2)
--- NOTE | 2019-12-05 16:01 | XR ---
EXAMINATION TYPE: XR chest 2V DATE OF EXAM: 12/05/2019 COMPARISON: 11/26/2019 HISTORY: Dysrhythmia TECHNIQUE: FINDINGS: Heart and mediastinum are normal. There is mild elevation of the right diaphragm. Lungs are clear of infiltrate. There are chest leads. Bony thorax is intact. IMPRESSION: Elevated right diaphragm unchanged. No acute lung disease. Normal heart.
[2019-12-05 16:15] LABS: INR 0.9 (<1.2); Partial Thromboplastin Time 25.1 sec (22.0-30.0); Prothrombin Time 9.7 sec (9.0-12.0)
[2019-12-05 16:17] LABS: D-Dimer 1.52 mg/L FEU (<0.60)
[2019-12-05] MEDS ORDERED: INSULIN REGULAR 100 UNIT/ML VIAL IV ONE (16:28)
[2019-12-05] MEDS: MAGNESIUM SULFATE-D5W PMX 1 GM in DEXTROSE/WATER 1 100ML.BAG IVPB SCH ×2 (16:52→22:06)
[2019-12-05] MEDS ORDERED: SODIUM CHLORIDE 0.9% 500 ML 500 ML IV STA (16:55)
[2019-12-05 17:33] LABS: Glucose,Whole Blood 350 mg/dL (75-99)
[2019-12-05] MEDS ORDERED: NALOXONE 0.4 MG/ML 1 ML VIAL IV PRN (18:04)
[2019-12-05] MEDS ORDERED: Acetaminophen-Codeine 300-30mg TAB PO PRN (18:06)
[2019-12-05] MEDS ORDERED: IBUPROFEN 600 MG TAB PO PRN (18:06)
[2019-12-05] MEDS ORDERED: SODIUM CHLORIDE 0.9% 1,000 ML IV SCH (18:15)
[2019-12-05] MEDS ORDERED: ASPIRIN 325 MG TAB PO STA (18:38)
[2019-12-05] MEDS ORDERED: MELATONIN 3 MG TABLET PO PRN (19:02)
[2019-12-05] MEDS ORDERED: MAGNESIUM SULFATE-D5W PMX 1 GM in DEXTROSE/WATER 1 100ML.BAG IVPB ONE (19:11)
--- NOTE | 2019-12-05 19:13 | P.HPIM ---
History of Present Illness H&P Date: 12/05/19 Chief Complaint: neck pain Patient is a 59-year-old female past medical history of breast cancer status post double mastectomy with completion of chemo in August 2019, diabetes mellitus type 2 [id number], high blood pressure, dyslipidemia, and prior tobacco abuse who presented to the ER with worsening right sided shoulder and neck pain. In the ER she underwent an extensive evaluation. On arrival she was found to be hypotensive with a blood pressure of 72/47 and bradycardic with a pulse of 55. EKG is reviewed by myself revealed possible junctional rhythm at a rate of 55 with QRS 90, QTc 48, no significant ST-T wave changes. Laboratory analysis showed slightly elevated white blood cell count 11.4, sodium 131, potassium 5.7, carbon dioxide 17, anion gap 14, BUN 31, glucose 544, magnesium 1.5, troponin less than 0.012, and acetone was negative. Chest x-ray showed no acute process. She was given 2 g of mag sulfate, IV fluids, and 10 units of IV insulin in the ER. Arrangements were made for admission for hyperglycemia, hyperkalemia, and dehydration. Patient seen and examined at bedside. She states that today she was at [employer] and had returned from lunch and directly after walking she developed severe right-sided neck pain with radiation into her right upper extremity and chest wall. When she was walking she was experiencing some spots and blurry vision, she felt off balance was staggering, she was very short of breath, and felt sweaty. She reports that this felt better after sitting still. She had a similar episode on 11/26/19 and was seen in the emergency department. Review of those records demonstrate that she had a CTA that was negative for pulmonary embolism. She does report that she has had increased thirst and increased urination over the last several weeks. 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 She last checked her blood sugars 2 days ago and with 120. She states it typically is well controlled. She notes that her last medication change with the addition of metoprolol by Dr. Veronica. This occurred when she was on chemotherapy and had to run up a flight of stairs and felt as though she was going to pass out. She has also come off her Jardiance and is getting a sample medication from Dr. Veronica for diabetes. Review of Systems Pertinent positives and negatives as discussed in HPI, a complete review of systems was performed and all other systems are negative. Past Medical History Past Medical History: Cancer, Diabetes Mellitus, GERD/Reflux, Hyperlipidemia, Hypertension, Sleep Apnea/CPAP/BIPAP Additional Past Medical History / Comment(s): Uterine CA w/ Hysterectomy. 2008 Rectal Bleed, colonoscopy showing Diverticulosis, internal/external hemorrhoids. Bilateral hand numbness. NO TX FOR SLEEP APNEA. breast CA History of Any Multi-Drug Resistant Organisms: None Reported Past Surgical History: Appendectomy, Hernia Repair, Hysterectomy, Joint Replacement, Orthopedic Surgery Additional Past Surgical History / Comment(s): left knee replacement, right knee replacement 2018, double mastectomy Past Anesthesia/Blood Transfusion Reactions: No Reported Reaction Additional Past Anesthesia/Blood Transfusion Reaction / Comment(s): She has never received blood. Past Psychological History: Anxiety, Depression, Panic Disorder Smoking Status: Former smoker Past Alcohol Use History: None Reported Past Drug Use History: None Reported Additional History: Lives alone, no assistive devices - Past Family History Brother(s) Family Medical History: Cancer Additional Family Medical History / Comment(s): COLON CANCER Father Family Medical History: Coronary Artery Disease (CAD), Diabetes Mellitus, Eye Disorder, Renal Disease Additional Family Medical History / Comment(s): Father at age 81 yrs. He was on dialysis and was blind due to his diabetes. Mother Family Medical History: AFIB, Congestive Heart Failure (CHF), Hypertension, Osteoarthritis (OA) Additional Family Medical History / Comment(s): Mother at age 81 yrs. Medications and Allergies Home Medications Medication Instructions Recorded Confirmed Type Lisinopril-Hctz 20-12.5 mg 1 tab PO QAM 06/20/15 01/21/19 History [Zestoretic 20-12.5] Cinnamon Bark [Cinnamon] 1,000 mg PO DAILY 01/23/16 01/21/19 History metFORMIN HCL [Glucophage] 500 mg PO QAM 01/23/16 01/21/19 History Venlafaxine HCl ER [Effexor XR] 150 mg PO QAM 07/17/17 01/21/19 History Verapamil HCl [Verapamil ER] 180 mg PO QAM 12/27/17 01/21/19 History sitaGLIPtin [Januvia] 100 mg PO QAM 04/22/18 01/21/19 History Mirabegron [Myrbetriq] 50 mg PO QAM 09/28/18 01/21/19 History buPROPion XL [Wellbutrin Xl] 150 mg PO DAILY 12/24/18 01/21/19 History Anastrozole [Arimidex] 1 mg PO DAILY 12/05/19 12/05/19 History Atorvastatin [Lipitor] 80 mg PO HS 12/05/19 12/05/19 History Gabapentin [Neurontin] 300 mg PO TID 12/05/19 12/05/19 History Metoprolol Tartrate [Lopressor] 50 mg PO DAILY 12/05/19 12/05/19 History QUEtiapine [SEROquel] 100 mg PO HS 12/05/19 12/05/19 History Allergies Allergy/AdvReac Type Severity Reaction Status Date / Time erythromycin base Allergy Anaphylaxis Verified 12/05/19 18:46 Iodine and Iodide Containing Allergy Anaphylaxis Verified 12/05/19 18:46 Produc shellfish derived [Shellfish] Allergy Anaphylaxis Verified 12/05/19 18:46 morphine AdvReac Confusion Verified 12/05/19 18:46 Physical Exam Osteopathic Statement: *. No significant issues noted on an osteopathic structural exam other than those noted in the History and Physical/Consult. Vitals: Vital Signs Temp Pulse Pulse Resp BP Pulse Ox 12/05/19 17:55 57 L 16 96/58 99 12/05/19 16:03 44 L 16 88/51 98 12/05/19 15:54 44 L 16 77/43 98 12/05/19 15:30 47 L 47 L 16 89/53 98 12/05/19 14:59 98.0 F 55 L 20 72/47 98 Intake and Output 12/05/19 12/05/19 12/05/19 06:59 14:59 22:59 Other: Weight 106.141 kg General: non toxic, no distress, appears older than stated age, Obese Derm: + hair loss, no unusual rashes/lesions no unusual ecchymoses, warm, dry Head: atraumatic, normocephalic, symmetric Eyes: EOMI, no lid lag, anicteric sclera, pupils equal round reactive to light ENT: Nose and ears atraumatic, no thrush, no pharyngeal erythema Neck: No thyromegaly, no cervical lymphadenopathy, trachea midline, supple Mouth: no lip lesion, mucus membranes moist Cardiovascular: S1S2 reg, no murmur, positive posterior tibial pulse bilateral, no edema, capillary refill less than 2 seconds Lungs: Decreased breath sounds bilateral, no rhonchi, no rales , no accessory muscle use Abdominal: soft, nontender to palpation, no guarding, no appreciable organomegaly, normal bowel sounds Ext: no gross muscle atrophy, muscle strength 5 out of 5 in all 4 extremities grossly, no contractures, Pain to palpation over right side of her neck, pain with abbduction and adduction of shoulder no pain with flexion at shoulder, No pain with loading pressure on head. negative spurlings test Neuro: CN II-XI grossly intact, light touch intact all 4 extremities, finger to nose within normal limits, Psych: Alert, oriented, appropriate affect Results CBC & Chem 7: 12/05/19 15:22 12/05/19 15:22 Labs: Abnormal Lab Results - Last 24 Hours (Table) 12/05/19 12/05/19 12/05/19 Range/Units 15:22 15:22 15:22 WBC 11.4 H (3.8-10.6) k/uL Neutrophils # 8.0 H (1.3-7.7) k/uL D-Dimer 1.52 H (<0.60) mg/L FEU Sodium 131 L (137-145) mmol/L Potassium 5.7 H (3.5-5.1) mmol/L Carbon Dioxide 17 L (22-30) mmol/L BUN 31 H (7-17) mg/dL Glucose 544 H* (74-99) mg/dL POC Glucose (mg/dL) (75-99) mg/dL Magnesium 1.5 L (1.6-2.3) mg/dL 12/05/19 Range/Units 17:31 WBC (3.8-10.6) k/uL Neutrophils # (1.3-7.7) k/uL D-Dimer (<0.60) mg/L FEU Sodium (137-145) mmol/L Potassium (3.5-5.1) mmol/L Carbon Dioxide (22-30) mmol/L BUN (7-17) mg/dL Glucose (74-99) mg/dL POC Glucose (mg/dL) 350 H (75-99) mg/dL Magnesium (1.6-2.3) mg/dL Chest x-ray: report reviewed, image reviewed Thrombosis Risk Factor Assmnt - DVT/VTE Prophylaxis DVT/VTE Prophylaxis: Pharmacologic Prophylaxis ordered - Choose All That Apply Each Factor Represents 1 point: Age 41-60 years, Obesity (BMI >25) Each Risk Factor Represents 2 Points: Malignancy Thrombosis Risk Factor Assessment Total Risk Factor Score: 4 Thrombosis Risk Factor Assessment Level: Moderate Risk Assessment and Plan Assessment: Neck and shoulder pain with radiation to her chest -Possible anginal equivalent -Serial troponins, telemetry, echocardiogram in a.m. -Aspirin 1 now and repeat in a.m. -Check CT cervical spine without contrast -Pain control -PT and OT evaluation Diabetes mellitus type 2 with hyperglycemia -Sliding-scale insulin, IV fluids -Follow blood sugars -Check hemoglobin A1c -Hold oral medications at this point in time Hypotension with bradycardia -Possible junction escape rhythm -Hold metoprolol, lisinopril, hydrochlorothiazide -IV fluids -Follow blood pressures -Check orthostatic blood pressures -Echocardiogram in a.m. Nonanion gap acidosis - Possible due to medications vs dehydration - IVF - Repeat BMP in 4 hours Hypomagnesemia -Replace and recheck in a.m. Hyperkalemia -Hold lisinopril, correction of blood glucose acidosis -Repeat basic metabolic profile in 4 hours Hyponatremia -Pseudo-secondary to elevated blood sugars -IV fluids -Correction of sugars Chronic: Dyslipidemia Arthritis GERD Diverticulosis History of breast and uterine cancer The patient is admitted with an anticipated greater than 2 midnight stay for evaluation of Dehydration and hyperglycemia with impending DKA. Surrogate decision-maker: [id number] Elizabeth Hector CODE STATUS:Full DVT prophylaxis: Heparin Discussed with: Patient, nursing Anticipated discharge date: 1-[address]: home A total of 75 minutes was spent on the care of this complex patient more than 50% of the time was spent in counseling and care coordination.
--- NOTE | 2019-12-05 19:18 | CT ---
EXAMINATION TYPE: CT cervical spine wo con DATE OF EXAM: 12/05/2019 COMPARISON: None HISTORY: Right sided neck pain. CT DLP: 662.7 mGycm Automated exposure control for dose reduction was used. Multiple axial sections were obtained from the level of the skull base to T1 vertebra without contras t. Cervical vertebra have normal spacing and alignment. Posterior elements are intact. Facet joints are intact. I see no significant spur formation. The skull base is intact. There is some mucosal thickeni ng in the maxillary sinuses. Temporal bones show normal aeration of the mastoid sinuses. I see no bon y destructive process. IMPRESSION: Negative CT scan cervical spine. Normal exam.
[2019-12-05 20:19] LABS: Albumin 3.8 g/dL (3.5-5.0); Calcium 9.1 mg/dL (8.4-10.2); Magnesium 1.9 mg/dL (1.6-2.3); Potassium 4.8 mmol/L (3.5-5.1); Total Bilirubin 0.3 mg/dL (0.2-1.3); Total Protein 6.4 g/dL (6.3-8.2)
[2019-12-05 20:21] LABS: Basophils % (A) 0 %; Eosinophils # (A) 0.3 k/uL (0-0.7); Eosinophils % (A) 3 %; HCT 36.6 % (34.0-46.0); HGB 11.7 gm/dL (11.4-16.0); Lymphocytes # (A) 1.4 k/uL (1.0-4.8); Lymphocytes % (A) 17 %; MCH 28.5 pg (25.0-35.0); MCHC 32.1 g/dL (31.0-37.0); MCV 88.6 fL (80.0-100.0); Mean Platelet Volume 6.7; Monocytes # (A) 0.4 k/uL (0-1.0); Monocytes % (A) 4 %; Neutrophils # (A) 6.4 k/uL (1.3-7.7); Neutrophils % (A) 74 %; Platelet Count 287 k/uL (150-450); RBC 4.13 m/uL (3.80-5.40); WBC 8.6 k/uL (3.8-10.6)
[2019-12-05 20:26] LABS: INR 0.9 (<1.2); Partial Thromboplastin Time 23.7 sec (22.0-30.0); Prothrombin Time 9.5 sec (9.0-12.0)
[2019-12-05 20:40] LABS: Glucose,Whole Blood 302 mg/dL (75-99)
[2019-12-05] MEDS ORDERED: ATORVASTATIN 40 MG TAB PO SCH (21:00)
[2019-12-05] MEDS: INSULIN ASPART (NovoLOG) 100 UNIT/ML VIAL SQ SCH (22:04)
[2019-12-05] MEDS: SODIUM CHLORIDE 0.9% 1,000 ML IV SCH (22:06)
[2019-12-05 23:53] LABS: African American GFR (CKD) >90 (>60 ml/min/1.73 sqM); Anion Gap 8 mmol/L; Blood Urea Nitrogen 29 mg/dL (7-17); Calcium 8.9 mg/dL (8.4-10.2); Carbon Dioxide 22 mmol/L (22-30); Chloride 103 mmol/L (98-107); Glucose 228 mg/dL (74-99); Magnesium 2.3 mg/dL (1.6-2.3); Non-African American GFR(CKD) >90 (>60 ml/min/1.73 sqM); Potassium 4.3 mmol/L (3.5-5.1); Sodium 133 mmol/L (137-145)
[2019-12-06 04:06] LABS: HCT 36.2 % (34.0-46.0); MCH 29.3 pg (25.0-35.0); MCHC 33.2 g/dL (31.0-37.0); MCV 88.3 fL (80.0-100.0); Mean Platelet Volume 6.7; Platelet Count 211 k/uL (150-450); RDW 14.2 % (11.5-15.5); WBC 6.5 k/uL (3.8-10.6)
[2019-12-06 04:31] LABS: African American GFR (CKD) >90 (>60 ml/min/1.73 sqM); Anion Gap 6 mmol/L; Blood Urea Nitrogen 27 mg/dL (7-17); Calcium 8.9 mg/dL (8.4-10.2); Carbon Dioxide 23 mmol/L (22-30); Chloride 105 mmol/L (98-107); Glucose 141 mg/dL (74-99); Magnesium 2.1 mg/dL (1.6-2.3); Non-African American GFR(CKD) >90 (>60 ml/min/1.73 sqM); Potassium 4.4 mmol/L (3.5-5.1); Sodium 134 mmol/L (137-145)
[2019-12-06 06:01] LABS: Glucose,Whole Blood 157 mg/dL (75-99)
[2019-12-06] MEDS: INSULIN ASPART (NovoLOG) 100 UNIT/ML VIAL SQ SCH ×2 (06:55→12:05)
[2019-12-06] MEDS: SODIUM CHLORIDE 0.9% 1,000 ML IV SCH ×2 (07:01→09:37)
--- NOTE | 2019-12-06 07:58 | P.CRDCN ---
History of Present Illness Consult date: 12/06/19 Requesting physician: Maribel Solorzano Consult reason: chest pain Chief complaint: Left shoulder and neck discomfort, dizziness History of present illness: This is a pleasant 59-year-old female with history of hypertension, diabetes, hyperlipidemia, moderate obesity, nonsmoker, history of breast cancer for which the patient underwent chemotherapy, her last bout of chemotherapy was in August 2019, patient had an echocardiogram with Doppler study performed here in November 2017 which revealed a normal left ventricular systolic function, she underwent a stress echocardiographic study at that time as well which was negative for any reversible ischemia. She does state that her diabetes has not been under good control recently, recent hemoglobin A1c was 9.7 in the office. Patient presents to the hospital with symptoms of shoulder and neck discomfort with this is dated dizziness, and disturbance in her vision. She does state that had a recent doctor's visit last week it was noted that her heart rate was low blood pressure was low, she had been started on a beta florian as an outpatient because of episodes of tachycardia during her chemotherapy. Chest x- ray on presentation here showed an elevated right diaphragm with no acute lung disease. EKG showed sinus bradycardia with a heart rate of 50. CT of the cervical spine was normal. Blood pressure on arrival here 72/40 with a heart rate in the 50s, 98% on room air. Temperature 90.8. White blood cell count is normal, hemoglobin 12.0, platelet count 211. Sodium 134, potassium 4.4, BUN 27, creatinine 0.5. Troponins negative 2. Magnesium 2.1. TSH 2.7. At the time of my examination this morning, patient feels well, no complaints. Past Medical History Past Medical History: Cancer, Diabetes Mellitus, GERD/Reflux, Hyperlipidemia, Hypertension, Sleep Apnea/CPAP/BIPAP Additional Past Medical History / Comment(s): Uterine CA w/ Hysterectomy. 2008 Rectal Bleed, colonoscopy showing Diverticulosis, internal/external hemorrhoids. Bilateral hand numbness. NO TX FOR SLEEP APNEA. breast CA History of Any Multi-Drug Resistant Organisms: None Reported Past Surgical History: Appendectomy, Hernia Repair, Hysterectomy, Joint Replacement, Orthopedic Surgery Additional Past Surgical History / Comment(s): left knee replacement, right knee replacement 2018, double mastectomy Past Anesthesia/Blood Transfusion Reactions: No Reported Reaction Additional Past Anesthesia/Blood Transfusion Reaction / Comment(s): She has never received blood. Smoking Status: Former smoker - Past Family History Brother(s) Family Medical History: Cancer Additional Family Medical History / Comment(s): COLON CANCER Father Family Medical History: No Reported History, Unable to Obtain Additional Family Medical History / Comment(s): Father at age 81 yrs. He was on dialysis and was blind due to his diabetes. Mother Family Medical History: No Reported History, Unable to Obtain Additional Family Medical History / Comment(s): Mother at age 81 yrs. Medications and Allergies Home Medications Medication Instructions Recorded Confirmed Type Lisinopril-Hctz 20-12.5 mg 1 tab PO QAM 06/20/15 12/05/19 History [Zestoretic 20-12.5] Cinnamon Bark [Cinnamon] 1,000 mg PO DAILY 01/23/16 12/05/19 History metFORMIN HCL [Glucophage] 1,000 mg PO BID 01/23/16 12/05/19 History Venlafaxine HCl ER [Effexor XR] 150 mg PO QAM 07/17/17 12/05/19 History Verapamil HCl [Verapamil ER] 180 mg PO QAM 12/27/17 12/05/19 History sitaGLIPtin [Januvia] 100 mg PO QAM 04/22/18 12/05/19 History Mirabegron [Myrbetriq] 50 mg PO QAM 09/28/18 12/05/19 History buPROPion XL [Wellbutrin Xl] 150 mg PO DAILY 12/24/18 12/05/19 History Anastrozole [Arimidex] 1 mg PO DAILY 12/05/19 12/05/19 History Atorvastatin [Lipitor] 80 mg PO 12/05/19 12/05/19 History Gabapentin [Neurontin] 300 mg PO TID 12/05/19 12/05/19 History Metoprolol Tartrate [Lopressor] 50 mg PO DAILY 12/05/19 12/05/19 History QUEtiapine [SEROquel] 100 mg PO HS 12/05/19 12/05/19 History Allergies Allergy/AdvReac Type Severity Reaction Status Date / Time erythromycin base Allergy Anaphylaxis Verified 12/05/19 18:46 Iodine and Iodide Containing Allergy Anaphylaxis Verified 12/05/19 18:46 Produc shellfish derived [Shellfish] Allergy Anaphylaxis Verified 12/05/19 18:46 morphine AdvReac Confusion Verified 12/05/19 18:46 Physical Exam Vitals: Vital Signs Temp Pulse Pulse Resp BP BP Pulse Ox 12/06/19 04:00 97.7 F 76 18 117/72 97 12/05/19 23:03 98.4 F 78 18 110/65 94 L 12/05/19 19:29 98.2 F 61 18 97/63 99 12/05/19 18:38 59 L 16 90/30 96 12/05/19 17:55 57 L 16 96/58 99 12/05/19 16:03 44 L 16 88/51 98 12/05/19 15:54 44 L 16 77/43 98 12/05/19 15:30 47 L 47 L 16 89/53 98 12/05/19 14:59 98.0 F 55 L 20 72/47 98 Intake and Output 12/05/19 12/06/19 12/06/19 22:59 06:59 14:59 Intake Total 118 400 Balance 118 400 Intake: Intake, IV Titration 250 Amount Magnesium Sulfate-D5w Pmx 100 1 gm In Dextrose/Water 1 100ml.bag @ 100 mls/hr IVPB ONCE ONE Rx#: [id number] Sodium Chloride 0.9% 1, 150 000 ml @ 150 mls/hr IV . Q6H40M [facility] Rx#:[id number] Oral 118 150 Other: # Voids 2 Weight 106.141 kg 114.3 kg PHYSICAL EXAMINATION: GENERAL: 59-year-old female in no acute distress at the time of my examination HEENT: Head is atraumatic, normocephalic. Pupils equal, round. Sclera anicteric. Conjunctiva are clear. Mucous membranes of the mouth are moist. Neck is supple. There is no elevated jugular venous pressure. No carotid bruit is heard. HEART EXAMINATION: Heart S1, S2 normal. No murmur or gallop heard. CHEST EXAMINATION: Lungs are clear to auscultation and precussion. No chest wall tenderness is noted on palpation or with deep breathing. ABDOMEN: Soft, nontender. Bowel sounds are heard. No organomegaly noted. EXTREMITIES: 2+ peripheral pulses with no evidence of peripheral edema and no calf tenderness noted. NEUROLOGIC patient is awake, alert and oriented 3 . . Results 12/06/19 03:54 01/13/20 03:54 Cardiac Enzymes 12/05/19 12/05/19 12/05/19 Range/Units 15:22 15:22 19:55 AST 26 21 (14-36) U/L Troponin I <0.012 (0.000-0.034) ng/mL 12/05/19 12/06/19 Range/Units 19:55 03:54 AST (14-36) U/L Troponin I <0.012 <0.012 (0.000-0.034) ng/mL Coagulation 12/05/19 12/05/19 Range/Units 15:22 19:55 PT 9.7 9.5 (9.0-12.0) sec APTT 25.1 23.7 (22.0-30.0) sec CBC 12/05/19 12/05/19 12/06/19 Range/Units 15:22 19:55 03:54 WBC 11.4 H 8.6 6.5 (3.8-10.6) k/uL RBC 4.33 4.13 4.10 (3.80-5.40) m/uL Hgb 12.8 11.7 12.0 (11.4-16.0) gm/dL Hct 38.8 36.6 36.2 (34.0-46.0) % Plt Count 382 287 211 (150-450) k/uL Comprehensive Metabolic Panel 12/05/19 12/05/19 12/05/19 Range/Units 15:22 19:55 23:15 Sodium 131 L 136 L 133 L (137-145) mmol/L Potassium 5.7 H 4.8 4.3 (3.5-5.1) mmol/L Chloride 100 103 103 (98-107) mmol/L Carbon Dioxide 17 L 24 22 (22-30) mmol/L BUN 31 H 31 H 29 H (7-17) mg/dL Creatinine 1.01 0.88 0.74 (0.52-1.04) mg/dL Glucose 544 H* 242 H 228 H (74-99) mg/dL Calcium 9.3 9.1 8.9 (8.4-10.2) mg/dL AST 26 21 (14-36) U/L ALT 21 20 (4-34) U/L Alkaline Phosphatase 123 123 (38-126) U/L Total Protein 6.8 6.4 (6.3-8.2) g/dL Albumin 4.1 3.8 (3.5-5.0) g/dL 12/06/19 Range/Units 03:54 Sodium 134 L (137-145) mmol/L Potassium 4.4 (3.5-5.1) mmol/L Chloride 105 (98-107) mmol/L Carbon Dioxide 23 (22-30) mmol/L BUN 27 H (7-17) mg/dL Creatinine 0.57 (0.52-1.04) mg/dL Glucose 141 H (74-99) mg/dL Calcium 8.9 (8.4-10.2) mg/dL AST (14-36) U/L ALT (4-34) U/L Alkaline Phosphatase (38-126) U/L Total Protein (6.3-8.2) g/dL Albumin (3.5-5.0) g/dL Current Medications Generic Name Dose Route Start Last Admin Trade Name Freq PRN Reason Stop Dose Admin Acetaminophen/Codeine Phosphate 1 each 12/05/19 18:06 12/06/19 06:55 Tylenol #3 PO 1 each Q6H PRN Administration Pain Atorvastatin Calcium 40 mg 12/05/19 21:00 12/05/19 22:05 Lipitor PO 40 mg HS [facility] Administration Bupropion HCl 150 mg 12/06/19 09:00 Wellbutrin Xl PO DAILY [facility] Sodium Chloride 1,000 mls @ 150 mls/hr 12/05/19 19:15 12/06/19 07:01 Saline 0.9% IV Not Given .Q6H40M [facility] Insulin Aspart 0 unit 12/05/19 21:00 12/06/19 06:55 Novolog SQ 2 unit ACHS [facility] Administration Protocol Loratadine 10 mg 12/06/19 09:00 Claritin PO QAM [facility] Melatonin 3 mg 12/05/19 19:02 12/05/19 22:04 Melatonin PO 3 mg HS PRN Administration Insomnia Naloxone HCl 0.2 mg 12/05/19 18:04 Narcan IV Q2M PRN Opioid Reversal Mirabegron [ 50 mg 12/06/19 09:00 Myrbetriq] PO QAM [facility] Quetiapine Fumarate 50 mg 12/06/19 09:00 Seroquel PO BID [facility] Venlafaxine HCl 150 mg 12/06/19 09:00 Effexor Xr PO QAM [facility] Intake and Output 12/05/19 12/06/19 12/06/19 22:59 06:59 14:59 Intake Total 118 400 Balance 118 400 Intake: Intake, IV Titration 250 Amount Magnesium Sulfate-D5w Pmx 100 1 gm In Dextrose/Water 1 100ml.bag @ 100 mls/hr IVPB ONCE ONE Rx#: [id number] Sodium Chloride 0.9% 1, 150 000 ml @ 150 mls/hr IV . Q6H40M [facility] Rx#:[id number] Oral 118 150 Other: # Voids 2 Weight 106.141 kg 114.3 kg 12/06/19 03:54 12/06/19 03:54 EKG Interpretations (text) EKG on presentation here shows a sinus bradycardia/junctional bradycardia with a heart rate 50 Assessment and Plan Plan: Assessment and plan #1 Left shoulder and neck discomfort, atypical features for acute coronary syndrome. Troponins are negative 2, EKG does not show any acute changes. #2 symptoms of dizziness and lightheadedness, could be secondary to hypotension and bradycardia #3 diabetes #4 hypertension #5 hyperlipidemia #6 obesity #7 history of breast cancer, we'll most recent chemotherapy was in August #8 sleep apnea #9 GERD Plan We will obtain an echocardiogram with Doppler study. Patient's TSH level was normal on admission. Continue statin, verapamil and Lopressor are currently on hold. Negative stress echocardiographic study in 2018. Patient is somewhat ta chycardic this morning, we'll start her on metoprolol 25 mg one tablet by mouth twice a day, continue to hold the verapamil. She may be able to be discharged home from our perspective, follow-up with Dr. SHAWN Aggarwal in the office on the of this month, we will do a stress test as an outpatient. Further recommendations to follow. DNP note has been reviewed, I agree with a documented findings and plan of care. Patient was seen and examined.
[2019-12-06] MEDS ORDERED: LISINOPRIL-HCTZ 20-12.5 MG 1 EACH TAB PO SCH (09:00)
[2019-12-06] MEDS ORDERED: metFORMIN 500 MG TAB PO SCH (09:00)
[2019-12-06] MEDS ORDERED: VERAPAMIL SR 180 MG TABLET.ER PO SCH (09:00)
[2019-12-06] MEDS ORDERED: Empagliflozin [Jardiance] PO SCH (09:00)
[2019-12-06] MEDS ORDERED: LINAGLIPTIN 5 MG TABLET PO SCH (09:00)
[2019-12-06] MEDS ORDERED: VENLAFAXINE HCL ER 150 MG CAP PO SCH (09:00)
[2019-12-06] MEDS ORDERED: buPROPion XL 150 MG TAB.ER.24H PO SCH (09:00)
[2019-12-06] MEDS ORDERED: LORATADINE 10 MG TAB PO SCH (09:00)
[2019-12-06] MEDS ORDERED: Mirabegron [Myrbetriq] PO SCH (09:00)
[2019-12-06] MEDS: QUEtiapine 50 MG TAB PO SCH ×2 (09:33→09:38)
[2019-12-06] MEDS ORDERED: METOPROLOL TARTRATE 25 MG TAB PO SCH (10:00)
[2019-12-06 10:03] VITALS: RESP 18
[2019-12-06 11:43] LABS: Glucose,Whole Blood 152 mg/dL (75-99)
--- NOTE | 2019-12-06 12:01 | ECHOF ---
Referral Reason:CHF MEASUREMENTS -------- HEIGHT: 165.1 cm WEIGHT: 106.1 kg BP: 117/72 RVIDd: 3.1 cm (< 3.3) IVSd: 1.3 cm (0.6 - 1.1) LVIDd: 3.4 cm (3.9 - 5.3) LVPWd: 1.2 cm (0.6 - 1.1) IVSs: 1.7 cm LVIDs: 2.5 cm LVPWs: 1.8 cm LA Diam: 3.3 cm (2.7 - 3.8) LAESV Index (A-L): 18.98 ml/m Ao Diam: 3.2 cm (2.0 - 3.7) AV Cusp: 2.2 cm (1.5 - 2.6) MV EXCURSION: 9.371 mm (> 18.000) MV EF SLOPE: 68 mm/s (70 - 150) EPSS: 0.8 cm MV E Darren: 0.83 m/s MV DecT: 291 ms MV A Darren: 0.99 m/s MV E/A Ratio: 0.83 RAP: 5.00 mmHg RVSP: 32.41 mmHg FINDINGS -------- Sinus rhythm. This was a technically adequate study. The left ventricular size is normal. There is mild concentric left ventricular hypertrophy. Overa ll left ventricular systolic function is normal with, an EF between 60 - 65 %. The right ventricle is normal in size. Normal LA size by volume 22+/-6 ml/m2. The right atrium is normal in size. Interatrial and interventricular septum intact. The aortic valve is trileaflet and appears structurally normal. There is trace to mild mitral regurgitation. Mild tricuspid regurgitation present. Right ventricular systolic pressure is normal at < 35 mmHg. The pulmonic valve was not well visualized. The aortic root size is normal. Normal inferior vena cava with normal inspiratory collapse consistent with estimated right atrial pre ssure of 5 mmHg. There is no pericardial effusion. CONCLUSIONS -------- 1. Sinus rhythm. 2. This was a technically adequate study. 3. The left ventricular size is normal. 4. There is mild concentric left ventricular hypertrophy. 5. Overall left ventricular systolic function is normal with, an EF between 60 - 65 %. 6. The right ventricle is normal in size. 7. Normal LA size by volume 22+/-6 ml/m2. 8. The right atrium is normal in size. 9. Interatrial and interventricular septum intact. 10. The aortic valve is trileaflet and appears structurally normal. 11. There is trace to mild mitral regurgitation. 12. Mild tricuspid regurgitation present. 13. Right ventricular systolic pressure is normal at < 35 mmHg. 14. The pulmonic valve was not well visualized. 15. The aortic root size is normal. 16. Normal inferior vena cava with normal inspiratory collapse consistent with estimated right atrial pressure of 5 mmHg. 17. There is no pericardial effusion. MECHANIC SENIOR: Maria Luisa Billingsley RDCS
[2019-12-06 12:04] VITALS: PULSE 90; TEMP 97.9
[2019-12-06 12:53] VITALS: BP 116/74
--- NOTE | 2019-12-06 14:46 | P.DS ---
Providers Date of admission: 12/05/19 18:04 Attending physician: Maribel Solorzano DO Consults: 12/05/19 18:55 Consult Physician Routine Consulting Provider: Tristan Aggarwal Consult Reason/Comments: bradycardia Do you want consulting provider notified?: Yes Primary care physician: Shankar Veronica Hospital Course: Date of admission: 12/05/2019 Echo discharge 12/06/2019 Consultations: Cardiology Admission diagnosis: Orthostatic lightheadedness Discharge diagnosis 1. Hypotension and bradycardia 2. Orthostatic hypotension 3. Mild hyponatremia and hypokalemia hypomagnesemia 4. Diabetes mellitus 5. Breast cancer status post chemotherapy 6. Peripheral neuropathy History of present illness and reason for admission: This is a very pleasant 59-year-old female who presented to emergency department with generalized weakness orthostatic lightheadedness some neck discomfort. Emergency department she was found to have admission blood pressure was 70/50 and heart rate 50s consistently sinus bradycardia. Patient has been on lisinopril hydrochlorothiazide and verapamil and recently started metoprolol for tachycardia. Also she has a history of chemotherapy and presumably chemotherapy-induced peripheral neuropathy. Hospital course: Blood pressure medications were discontinued. Patient was given IV fluids and her electrolytes replaced. She was evaluated by cardiology. Echocardiogram showed preserved ejection fraction without significant valvular disease. On the day of discharge patient felt much better. Energy and is her baseline. Her blood pressures were stable in 130s 140s and orthostatics were negative. Due to some mild tachycardia Lopressor was restarted by cardiology and orthostatics were checked which were stable. She was a symptom. Disposition: Patient will discharge home. She was advised not to take verapamil lisinopril or hydrochlorothiazide for now. She is to continue metoprolol 12.5 twice a day. She was advised on increasing intake of fluid electrolytes and protein. We also advised patient to discontinue her gabapentin and fifth possible to discontinue or decrease Seroquel which can be also contributed.Myrbetriq was discontinued on discharge as well. Patient is to follow-up with cardiology within 2 weeks as discussed. Physical examination: Vital Signs: I have reviewed the vital signs. GENERAL: Well-nourished, Well-developed , no apparent distress, cooperative Eyes: PERRL, extraoculry movements intact, clear conjunctiva Head: : Atraumatic external nose and ears, oropharyngeal mucosa is moist without lesions or exudates Neck: Symmetric, trachea midline, No thyromegaly, no masses or neck vain pulsation, no neck rigidity CVS: +S1/S2, No murmurs or gallops. Peripheral pulses 2+ and equal in all extremities. RESP: Unlabored respiratory effort. Clear to auscultation bilaterally. Abdomen: Bowel sounds present in all 4 quadrants, Soft to palpation, Nontender/Nondistended, No hepatosplenomegaly, no hernias or masses, no CVA tnderness Musculoskeletal: Extremities w/o deformity, No cyanosis or clubbing, no joint swelling Skin: Warm, Dry. No rashes or lesions Neuro: educational therapist II-XII grossly intact, motor strenght 5/5 i upper and lower extremities, no clonus, patellar DTRs 2+ and sympetrical Psych: Awake, Alert, & Oriented (AAO) x3 Appropriate mood and affect Patient Condition at Discharge: Fair Plan - Discharge Summary Discharge Rx Participant: No New Discharge Prescriptions: New Metoprolol Tartrate [Lopressor] 12.5 mg PO BID #20 tab Continue metFORMIN HCL [Glucophage] 1,000 mg PO BID Venlafaxine HCl ER [Effexor XR] 150 mg PO QAM sitaGLIPtin [Januvia] 100 mg PO QAM buPROPion XL [Wellbutrin XL] 150 mg PO DAILY Atorvastatin [Lipitor] 80 mg PO HS Anastrozole [Arimidex] 1 mg PO DAILY QUEtiapine [SEROquel] 100 mg PO HS Discontinued Lisinopril-Hctz 20-12.5 mg [Zestoretic 20-12.5] 1 tab PO QAM Cinnamon Bark [Cinnamon] 1,000 mg PO DAILY Verapamil HCl [Verapamil ER] 180 mg PO QAM Mirabegron [Myrbetriq] 50 mg PO QAM Metoprolol Tartrate [Lopressor] 50 mg PO DAILY Gabapentin [Neurontin] 300 mg PO TID Discharge Medication List metFORMIN HCL [Glucophage] 1,000 mg PO BID 01/23/16 [History] Venlafaxine HCl ER [Effexor XR] 150 mg PO QAM 07/17/17 [History] sitaGLIPtin [Januvia] 100 mg PO QAM 04/22/18 [History] buPROPion XL [Wellbutrin XL] 150 mg PO DAILY 01/31/19 [History] Anastrozole [Arimidex] 1 mg PO DAILY 12/05/19 [History] Atorvastatin [Lipitor] 80 mg PO HS 12/05/19 [History] QUEtiapine [SEROquel] 100 mg PO HS 12/05/19 [History] Metoprolol Tartrate [Lopressor] 12.5 mg PO BID #20 tab 12/06/19 [Rx] Follow up Appointment(s)/Referral(s): Denver Gray MD [STAFF PHYSICIAN] - 12/20/19 3:30 pm Shankar Veronica MD [Primary Care Provider] - 12/09/19 10:15 am Patient Instructions/Handouts: Hyponatremia (DC), Hypotension (DC) Discharge Disposition: HOME SELF-CARE
== END 2019-12-06 14:01 | disposition home or self-care (01) ==
LOC: EC 14:52 → 3SCARD 18:04 → 1SOBS 12-06 09:54
PROVIDERS: ADMIT Internal Medicine; ATTEND Internal Medicine
DX: R07.89 Other chest pain (principal); I95.1 Orthostatic hypotension; R00.1 Bradycardia, unspecified; E83.42 Hypomagnesemia; E87.6 Hypokalemia; E87.1 Hypo-osmolality and hyponatremia; Z87.891 Personal history of nicotine dependence; Z85.3 Personal history of malignant neoplasm of breast; Z85.42 Personal history of malignant neoplasm of other parts of uterus; M54.2 Cervicalgia; I48.91 Unspecified atrial fibrillation; E11.65 Type 2 diabetes mellitus with hyperglycemia; E11.40 Type 2 diabetes mellitus with diabetic neuropathy, unspecified; F32.9 Major depressive disorder, single episode, unspecified; F41.9 Anxiety disorder, unspecified; G47.30 Sleep apnea, unspecified; Z99.89 Dependence on other enabling machines and devices; Z87.19 Personal history of other diseases of the digestive system; Z79.84 Long term (current) use of oral hypoglycemic drugs; Z79.899 Other long term (current) drug therapy; I10 Essential (primary) hypertension; E78.5 Hyperlipidemia, unspecified; K21.9 Gastro-esophageal reflux disease without esophagitis; I08.1 Rheumatic disorders of both mitral and tricuspid valves; Z92.21 Personal history of antineoplastic chemotherapy; Z90.710 Acquired absence of both cervix and uterus; Z90.13 Acquired absence of bilateral breasts and nipples; Z90.49 Acquired absence of other specified parts of digestive tract; Z96.653 Presence of artificial knee joint, bilateral; Z88.1 Allergy status to other antibiotic agents; Z88.5 Allergy status to narcotic agent; Z91.013 Allergy to seafood; Z80.0 Family history of malignant neoplasm of digestive organs; Z83.3 Family history of diabetes mellitus; Z84.1 Family history of disorders of kidney and ureter; Z82.49 Family history of ischemic heart disease and other diseases of the circulatory system
CPT/HCPCS: 96365 ×2; 96366; 96361; 99285; 36415; 93005; 93306; 85379; 83880; 80053; 80048 ×2; 84443; 82550; 82009; 83735 ×2; 84484 ×2; 85025; 85027; 85610; 85730; 71046; 72125; G0378 ×3; J3475

== ENCOUNTER 2020-04-08 14:26 | Emergency (ER) | payer MEDICARE, OTHER ==
[2020-04-08 14:32] VITALS: BP 131/84; PULSE 90; RESP 18; TEMP 98.2
[2020-04-08] MEDS ORDERED: KETOROLAC 60 MG/2 ML VIAL IM STA (14:40)
--- NOTE | 2020-04-08 14:54 | XR ---
EXAMINATION TYPE: XR wrist complete RT DATE OF EXAM: 04/08/2020 COMPARISON: NONE HISTORY: Wrist pain TECHNIQUE: 3 views FINDINGS: Carpal bones are intact. I see no fracture nor dislocation. Intercarpal joint spaces are fa irly normal. The metacarpals appear intact. IMPRESSION: Negative right wrist exam. No fracture. No significant arthritic disease.
--- NOTE | 2020-04-08 15:18 | ED ---
Extremity Problem HPI - General Chief complaint: Extremity Problem,Nontraumatic Stated complaint: wrist pain Time Seen by Provider: 04/08/20 14:33 Source: patient Mode of arrival: ambulatory Limitations: no limitations - History of Present Illness Initial comments: 60yo female presenting to the ER for chief complaint of atraumatic right wrist pain. Patient states the past week she has had right wrist pain she denies any redness. Patient denies any warmth or fevers chills or night sweats. Patient denies history of gout. Patient denies noting any specific repetitive motions. Stable increased with ulnar deviation of wrist. Patient has not experienced this in the past. Denies falls or trauma. No additional complaints. Patient appears well on arrival. - Related Data Home Medications Medication Instructions Recorded Confirmed metFORMIN HCL [Glucophage] 1,000 mg PO BID 01/23/16 12/05/19 Venlafaxine HCl ER [Effexor XR] 150 mg PO QAM 07/17/17 12/05/19 sitaGLIPtin [Januvia] 100 mg PO QAM 04/22/18 12/05/19 buPROPion XL [Wellbutrin XL] 150 mg PO DAILY 12/24/18 12/05/19 Anastrozole [Arimidex] 1 mg PO DAILY 12/05/19 12/05/19 Atorvastatin [Lipitor] 80 mg PO HS 12/05/19 12/05/19 QUEtiapine [SEROquel] 100 mg PO HS 12/05/19 12/05/19 Previous Rx's Medication Instructions Recorded Metoprolol Tartrate [Lopressor] 12.5 mg PO BID #20 tab 12/06/19 Allergies Allergy/AdvReac Type Severity Reaction Status Date / Time erythromycin base Allergy Anaphylaxis Verified 12/05/19 18:46 Iodine and Iodide Containing Allergy Anaphylaxis Verified 12/05/19 18:46 Produc shellfish derived [Shellfish] Allergy Anaphylaxis Verified 12/05/19 18:46 morphine AdvReac Confusion Verified 12/05/19 18:46 Review of Systems ROS Statement: Those systems with pertinent positive or pertinent negative responses have been documented in the HPI. ROS Other: All systems not noted in ROS Statement are negative. Past Medical History Past Medical History: Cancer, Diabetes Mellitus, GERD/Reflux, Hyperlipidemia, Hypertension, Sleep Apnea/CPAP/BIPAP Additional Past Medical History / Comment(s): Uterine CA w/ Hysterectomy. 2008 Rectal Bleed, colonoscopy showing Diverticulosis, internal/external hemorrhoids. Bilateral hand numbness. NO TX FOR SLEEP APNEA. breast CA History of Any Multi-Drug Resistant Organisms: None Reported Past Surgical History: Appendectomy, Hernia Repair, Hysterectomy, Joint Replacement, Orthopedic Surgery Additional Past Surgical History / Comment(s): left knee replacement, right knee replacement 2018, double mastectomy Past Anesthesia/Blood Transfusion Reactions: No Reported Reaction Additional Past Anesthesia/Blood Transfusion Reaction / Comment(s): She has never received blood. Past Psychological History: Anxiety, Depression, Panic Disorder Smoking Status: Former smoker Past Alcohol Use History: None Reported Past Drug Use History: None Reported - Past Family History Brother(s) Family Medical History: Cancer Additional Family Medical History / Comment(s): COLON CANCER Father Family Medical History: No Reported History, Unable to Obtain Additional Family Medical History / Comment(s): Father at age 81 yrs. He was on dialysis and was blind due to his diabetes. Mother Family Medical History: No Reported History, Unable to Obtain Additional Family Medical History / Comment(s): Mother at age 81 yrs. General Exam - General Exam Comments Initial Comments: General: The patient is awake and alert, in no distress, and does not appear acutely ill. Eye: Pupils are equal, round and reactive to light, extra-ocular movements are intact. No nystagmus. There is normal conjunctiva bilaterally. No signs of icterus. Cardiovascular: There is a regular rate and rhythm. No murmur, rub or gallop is appreciated. Musculoskeletal: Normal ROM of the wrists b/l, no redness. No obvious swelling. Tenderness along the ulnar aspect of the wrist--+ ami. Strength 5/5. Sensation intact. Radial pulses equal bilaterally 2+. Neurological: A&O x 3. CN II-XII intact grossly, There are no obvious motor or sensory deficits. Coordination appears grossly intact. Speech is normal. Skin: Skin is warm and dry and no rashes or lesions are noted. Psychiatric: Cooperative, appropriate mood & affect, normal judgment. Limitations: no limitations Course Vital Signs 04/08/20 14:30 Temperature 98.2 F Pulse Rate 90 Respiratory 18 Rate Blood Pressure 131/84 O2 Sat by Pulse 98 Oximetry Medical Decision Making - Medical Decision Making 52-year-old female presenting today for chief complaint of right wrist pain. No obvious swelling or redness patient is able to range the wrist patient is positive Ami concerning for de Quervain's tenosynovitis. There is no swelling of the digits. No pain out of proportion. Vascular exam intact. Patient will be discharged with orthopedic f/u, strict return parameters and instruction to take NSAIDs for pain denies GI bleed/peptic ulcer hx or use of steroids. Patient discharged appearing well afrer discussing case with Dr. Cornell. Disposition Clinical Impression: Wrist pain Disposition: HOME SELF-CARE Condition: Good Instructions (If sedation given, give patient instructions): Wrist Injury (ED) Additional Instructions: Please use medication as discussed. Please follow-up with family doctor in the next 2 days, recommend orthopedic surgery. Please return to emergency room if the symptoms increase or worsen or for any other concerns. Is patient prescribed a controlled substance at d/c from ED?: No Referrals: Shankar Veronica MD [Primary Care Provider] - 1-2 days Garo Lindo PAC [PHYSICIAN GRIEF COUNSELLOR] - 1-2 days Time of Disposition: 15:17
== END 2020-04-08 15:25 | disposition home or self-care (01) ==
LOC: EC 14:26
DX: F41.9 Anxiety disorder, unspecified (principal); M25.531 Pain in right wrist; F32.9 Major depressive disorder, single episode, unspecified; F41.0 Panic disorder [episodic paroxysmal anxiety]; E11.9 Type 2 diabetes mellitus without complications; E78.5 Hyperlipidemia, unspecified; I10 Essential (primary) hypertension; Z79.899 Other long term (current) drug therapy; Z79.84 Long term (current) use of oral hypoglycemic drugs; Z88.1 Allergy status to other antibiotic agents; Z91.041 Radiographic dye allergy status; Z88.5 Allergy status to narcotic agent; Z91.013 Allergy to seafood; Z85.3 Personal history of malignant neoplasm of breast; Z85.42 Personal history of malignant neoplasm of other parts of uterus; Z87.891 Personal history of nicotine dependence; Z90.710 Acquired absence of both cervix and uterus; Z90.13 Acquired absence of bilateral breasts and nipples; Z96.651 Presence of right artificial knee joint
CPT/HCPCS: 73110; 96372; 99283; J1885

== ENCOUNTER 2020-09-25 11:52 | Emergency (ER) | payer MEDICARE, OTHER ==
[2020-09-25 12:01] VITALS: TEMP 99.1
[2020-09-25] MEDS ORDERED: KETOROLAC 15 MG/ML 1 ML VIAL IM STA (12:37)
--- NOTE | 2020-09-25 13:25 | XR ---
EXAMINATION TYPE: XR foot complete RT DATE OF EXAM: 09/25/2020 CLINICAL HISTORY: Lateral pain worse over base of fifth metatarsal TECHNIQUE: Frontal, lateral, and oblique images of the right foot are obtained. COMPARISON: Right foot x-ray June 04, 2018 FINDINGS: There is no acute fracture/dislocation evident in the right foot with particular attention to fifth toe. Flexion in the distal second through fifth toes. Moderate narrowing table navicular moises int greatest medially is redemonstrated. The overlying soft tissue appears unremarkable. IMPRESSION: There is no acute fracture or dislocation in the right foot.
--- NOTE | 2020-09-25 13:46 | ED ---
General Adult HPI - General Chief complaint: Extremity Injury, Lower Stated complaint: rt foot pain Time Seen by Provider: 09/25/20 12:00 Source: patient, RN notes reviewed, old records reviewed Mode of arrival: wheelchair Limitations: no limitations - History of Present Illness Initial comments: This is a 60-year-old female who presents emergency Department complaining of right lateral foot pain. Patient states the pain started about a week ago and yesterday she was walking and felt a pop and the pain got much worse. Patient states the pain is there only when you touch it or when you are walking on it. Patient denies any direct trauma. Patient denies any redness or swelling. - Related Data Home Medications Medication Instructions Recorded Confirmed metFORMIN HCL [Glucophage] 1,000 mg PO BID 01/23/16 12/05/19 Venlafaxine HCl ER [Effexor XR] 150 mg PO QAM 07/17/17 12/05/19 sitaGLIPtin [Januvia] 100 mg PO QAM 04/22/18 12/05/19 buPROPion XL [Wellbutrin XL] 150 mg PO DAILY 12/24/18 12/05/19 Anastrozole [Arimidex] 1 mg PO DAILY 12/05/19 12/05/19 Atorvastatin [Lipitor] 80 mg PO HS 12/05/19 12/05/19 QUEtiapine [SEROquel] 100 mg PO HS 12/05/19 12/05/19 Previous Rx's Medication Instructions Recorded Metoprolol Tartrate [Lopressor] 12.5 mg PO BID #20 tab 12/06/19 Cephalexin [Keflex] 500 mg PO Q6HR 7 Days #28 cap 06/10/20 Ibuprofen [Motrin] 600 mg PO Q6HR PRN #20 tab 09/25/20 Allergies Allergy/AdvReac Type Severity Reaction Status Date / Time azithromycin Allergy Swelling Verified 09/25/20 12:01 erythromycin base Allergy Anaphylaxis Verified 09/25/20 12:01 Iodinated Contrast Media Allergy Anaphylaxis Verified 09/25/20 12:01 Iodine and Iodide Containing Allergy Anaphylaxis Verified 09/25/20 12:01 Produc shellfish derived [Shellfish] Allergy Anaphylaxis Verified 09/25/20 12:01 morphine AdvReac Confusion Verified 09/25/20 12:01 Review of Systems ROS Statement: Those systems with pertinent positive or pertinent negative responses have been documented in the HPI. ROS Other: All systems not noted in ROS Statement are negative. Past Medical History Past Medical History: Cancer, Diabetes Mellitus, GERD/Reflux, Hyperlipidemia, Hypertension, Sleep Apnea/CPAP/BIPAP Additional Past Medical History / Comment(s): Uterine CA w/ Hysterectomy. 2008 Rectal Bleed, colonoscopy showing Diverticulosis, internal/external hemorrhoids. Bilateral hand numbness. NO TX FOR SLEEP APNEA. breast CA History of Any Multi-Drug Resistant Organisms: None Reported Past Surgical History: Adenoidectomy, Appendectomy, Breast Surgery, Hernia Repair, Hysterectomy, Joint Replacement, Orthopedic Surgery Additional Past Surgical History / Comment(s): left knee replacement, right knee replacement 2018, double mastectomy Past Anesthesia/Blood Transfusion Reactions: No Reported Reaction Additional Past Anesthesia/Blood Transfusion Reaction / Comment(s): She has never received blood. Past Psychological History: Anxiety, Bipolar, Depression, Panic Disorder Smoking Status: Former smoker Past Alcohol Use History: None Reported Past Drug Use History: None Reported - Past Family History Brother(s) Family Medical History: Cancer Additional Family Medical History / Comment(s): COLON CANCER Father Family Medical History: No Reported History, Unable to Obtain Additional Family Medical History / Comment(s): Father at age 81 yrs. He was on dialysis and was blind due to his diabetes. Mother Family Medical History: No Reported History, Unable to Obtain Additional Family Medical History / Comment(s): Mother at age 81 yrs. General Exam - General Exam Comments Initial Comments: GENERAL Patient is well-developed and well-nourished. Patient is in mild distress. EYES Patient's pupils are equal and round. Extraocular motion is intact SKIN Unremarkable NEURO The patient is alert and oriented 3 PYSCH Patient has normal interpersonal interactions. MUSCULOSKELETAL Patient has tenderness at the base of fifth metatarsal Limitations: no limitations Course Vital Signs 09/25/20 12:00 Temperature 99.1 F Pulse Rate 86 Respiratory 22 Rate Blood Pressure 131/75 O2 Sat by Pulse 99 Oximetry Disposition Clinical Impression: Foot sprain Disposition: HOME SELF-CARE Condition: Good Instructions (If sedation given, give patient instructions): Foot Sprain (ED) Prescriptions: Ibuprofen [Motrin] 600 mg PO Q6HR PRN #20 tab PRN Reason: For pain Is patient prescribed a controlled substance at d/c from ED?: No Referrals: Dennis Lopez DO [Doctor of Osteopathic Medicine] - 1-2 days Time of Disposition: 13:46
[2020-09-25 14:05] VITALS: BP 127/77; PULSE 81; RESP 18
== END 2020-09-25 14:10 | disposition home or self-care (01) ==
LOC: EC 11:52
DX: S93.601A Unspecified sprain of right foot, initial encounter (principal); E11.9 Type 2 diabetes mellitus without complications; E78.5 Hyperlipidemia, unspecified; C50.919 Malignant neoplasm of unspecified site of unspecified female breast; G47.30 Sleep apnea, unspecified; F41.9 Anxiety disorder, unspecified; F32.9 Major depressive disorder, single episode, unspecified; F41.0 Panic disorder [episodic paroxysmal anxiety]; Z79.899 Other long term (current) drug therapy; Z79.84 Long term (current) use of oral hypoglycemic drugs; Z88.1 Allergy status to other antibiotic agents; Z91.041 Radiographic dye allergy status; Z91.048 Other nonmedicinal substance allergy status; Z91.013 Allergy to seafood; Z88.5 Allergy status to narcotic agent; Z99.89 Dependence on other enabling machines and devices; Z96.653 Presence of artificial knee joint, bilateral; Z87.891 Personal history of nicotine dependence; Z85.42 Personal history of malignant neoplasm of other parts of uterus; Y93.01 Activity, walking, marching and hiking
CPT/HCPCS: 99284 ×2; 96372 ×2; 73630; J1885

== ENCOUNTER 2020-09-30 11:06 | Inpatient (IN) | payer MEDICARE, OTHER ==
[2020-09-30] MEDS ORDERED: ACETAMINOPHEN TAB 325 MG TAB PO STA (11:26)
--- NOTE | 2020-09-30 11:30 | ED ---
Extremity Problem HPI - General Chief complaint: Extremity Problem,Nontraumatic Stated complaint: R Foot Pain Time Seen by Provider: 09/30/20 11:25 Source: patient Mode of arrival: ambulatory Limitations: no limitations - History of Present Illness Initial comments: 60-year-old feel presents today for chief complaint of right foot pain, diagnosed with right foot infection [facility]. She was told to come to the ER today if she was not better with the bactrim> patient states she continues to have right foot pain. Patient states it is slightly red and warm to touch. Denies calf pain. Denies chset pain, SOB, URI symptoms, urinary symptoms. Patient is diabetic. Patient has no additional complaints and was unaware she was febrile on arrival in the ER today. Patient does not appear toxic and is in good spirits on arrival. - Related Data Home Medications Medication Instructions Recorded Confirmed metFORMIN HCL [Glucophage] 1,000 mg PO BID 01/23/16 12/05/19 Venlafaxine HCl ER [Effexor XR] 150 mg PO QAM 07/17/17 12/05/19 sitaGLIPtin [Januvia] 100 mg PO QAM 04/22/18 12/05/19 buPROPion XL [Wellbutrin XL] 150 mg PO DAILY 12/24/18 12/05/19 Anastrozole [Arimidex] 1 mg PO DAILY 12/05/19 12/05/19 Atorvastatin [Lipitor] 80 mg PO HS 12/05/19 12/05/19 QUEtiapine [SEROquel] 100 mg PO HS 12/05/19 12/05/19 Previous Rx's Medication Instructions Recorded Metoprolol Tartrate [Lopressor] 12.5 mg PO BID #20 tab 12/06/19 Cephalexin [Keflex] 500 mg PO Q6HR 7 Days #28 cap 06/10/20 Ibuprofen [Motrin] 600 mg PO Q6HR PRN #20 tab 09/25/20 Allergies Allergy/AdvReac Type Severity Reaction Status Date / Time azithromycin Allergy Swelling Verified 09/30/20 11:13 erythromycin base Allergy Anaphylaxis Verified 09/30/20 11:13 Iodinated Contrast Media Allergy Anaphylaxis Verified 09/30/20 11:13 Iodine and Iodide Containing Allergy Anaphylaxis Verified 09/30/20 11:13 Produc shellfish derived [Shellfish] Allergy Anaphylaxis Verified 09/30/20 11:13 morphine AdvReac Confusion Verified 09/30/20 11:13 Review of Systems ROS Statement: Those systems with pertinent positive or pertinent negative responses have been documented in the HPI. ROS Other: All systems not noted in ROS Statement are negative. Past Medical History Past Medical History: Cancer, Diabetes Mellitus, GERD/Reflux, Hyperlipidemia, Hypertension, Sleep Apnea/CPAP/BIPAP Additional Past Medical History / Comment(s): Uterine CA w/ Hysterectomy. 2008 Rectal Bleed, colonoscopy showing Diverticulosis, internal/external hemorrhoids. Bilateral hand numbness. NO TX FOR SLEEP APNEA. breast CA History of Any Multi-Drug Resistant Organisms: None Reported Past Surgical History: Adenoidectomy, Appendectomy, Breast Surgery, Hernia Repair, Hysterectomy, Joint Replacement, Orthopedic Surgery Additional Past Surgical History / Comment(s): left knee replacement, right knee replacement 2018, double mastectomy Past Anesthesia/Blood Transfusion Reactions: No Reported Reaction Additional Past Anesthesia/Blood Transfusion Reaction / Comment(s): She has never received blood. Past Psychological History: Anxiety, Bipolar, Depression, Panic Disorder Smoking Status: Former smoker Past Alcohol Use History: None Reported Past Drug Use History: None Reported - Past Family History Brother(s) Family Medical History: Cancer Additional Family Medical History / Comment(s): COLON CANCER Father Family Medical History: No Reported History, Unable to Obtain Additional Family Medical History / Comment(s): Father at age 81 yrs. He was on dialysis and was blind due to his diabetes. Mother Family Medical History: No Reported History, Unable to Obtain Additional Family Medical History / Comment(s): Mother at age 81 yrs. General Exam - General Exam Comments Initial Comments: General: The patient is awake and alert, in no distress Eye: +3 mm pupils are equal, round and reactive to light, extra-ocular movements are intact. No nystagmus. There is normal conjunctiva bilaterally. No signs of icterus. Ears, nose, mouth and throat: There are moist mucous membranes and no oral lesions. Neck: The neck is supple, there is no tenderness or JVD. Cardiovascular: There is a regular rate and rhythm. No murmur, rub or gallop is appreciated. Respiratory: Lungs are clear to auscultation, respirations are non-labored, breath sounds are equal. No wheezes, stridor, rales, or rhonchi. Gastrointestinal: Soft, non-distended, non-tender abdomen without masses or organomegaly noted. There is no rebound or guarding present. Musculoskeletal: Normal ROM, no tenderness. Strength 5/5. Sensation intact. DP pulses equal bilaterally 2+. Neurological: A&O x 3. CN II-XII intact, There are no obvious motor or sensory deficits. Coordination appears grossly intact. Speech is normal. Skin: Skin is warm and dry and no rashes. Warmth and slight redness of the lateral aspect of right foot Psychiatric: Cooperative, appropriate mood & affect, normal judgment. Limitations: no limitations Course Vital Signs 09/30/20 09/30/20 09/30/20 11:08 13:06 13:48 Temperature 100.4 F H 98.9 F Pulse Rate 82 86 Respiratory 20 12 Rate Blood Pressure 127/88 112/68 O2 Sat by Pulse 97 99 Oximetry 09/30/20 14:25 Temperature Pulse Rate 84 Respiratory 16 Rate Blood Pressure 120/64 O2 Sat by Pulse 98 Oximetry Medical Decision Making - Medical Decision Making XR concerning for osteomyelitis, givne clinical exam, PMH. Patient initiated on IV abx. Labs stable. Patient does not appears septic. Patient blood culture pending. Patient agreeable to admission. [facility] accepted admission. Dr. Medrano attending is agreeable to care plan. - Lab Data Result diagrams: 09/30/20 11:48 09/30/20 11:48 Lab Results 09/30/20 09/30/20 09/30/20 Range/Units 11:48 11:48 11:48 WBC 7.5 (3.8-10.6) k/uL RBC 4.45 (3.80-5.40) m/uL Hgb 13.0 (11.4-16.0) gm/dL Hct 39.8 (34.0-46.0) % MCV 89.4 (80.0-100.0) fL MCH 29.3 (25.0-35.0) pg MCHC 32.8 (31.0-37.0) g/dL RDW 13.9 (11.5-15.5) % Plt Count 264 (150-450) k/uL Neutrophils % 70 % Lymphocytes % 22 % Monocytes % 5 % Eosinophils % 2 % Basophils % 1 % Neutrophils # 5.2 (1.3-7.7) k/uL Lymphocytes # 1.7 (1.0-4.8) k/uL Monocytes # 0.3 (0-1.0) k/uL Eosinophils # 0.1 (0-0.7) k/uL Basophils # 0.0 (0-0.2) k/uL Sodium 138 (137-145) mmol/L Potassium 4.8 (3.5-5.1) mmol/L Chloride 102 (98-107) mmol/L Carbon Dioxide 28 (22-30) mmol/L Anion Gap 8 mmol/L BUN 18 H (7-17) mg/dL Creatinine 0.69 (0.52-1.04) mg/dL Est GFR (CKD-EPI)AfAm >90 (>60 ml/min/1.73 sqM) Est GFR (CKD-EPI)NonAf >90 (>60 ml/min/1.73 sqM) Glucose 202 H (74-99) mg/dL Plasma Lactic Acid Jimi 1.9 (0.7-2.0) mmol/L Calcium 9.2 (8.4-10.2) mg/dL Total Bilirubin 0.8 (0.2-1.3) mg/dL AST 32 (14-36) U/L ALT 31 (4-34) U/L Alkaline Phosphatase 135 H (38-126) U/L Total Protein 6.6 (6.3-8.2) g/dL Albumin 4.0 (3.5-5.0) g/dL Urine Color Urine Appearance (Clear) Urine pH (5.0-8.0) Ur Specific [place] (1.001-1.035) Urine Protein (Negative) Urine Glucose (UA) (Negative) Urine Ketones (Negative) Urine Blood (Negative) Urine Nitrite (Negative) Urine Bilirubin (Negative) Urine Urobilinogen (<2.0) mg/dL Ur Leukocyte Esterase (Negative) Coronavirus (PCR) (Not Detectd) 09/30/20 09/30/20 Range/Units 11:48 13:05 WBC (3.8-10.6) k/uL RBC (3.80-5.40) m/uL Hgb (11.4-16.0) gm/dL Hct (34.0-46.0) % MCV (80.0-100.0) fL MCH (25.0-35.0) pg MCHC (31.0-37.0) g/dL RDW (11.5-15.5) % Plt Count (150-450) k/uL Neutrophils % % Lymphocytes % % Monocytes % % Eosinophils % % Basophils % % Neutrophils # (1.3-7.7) k/uL Lymphocytes # (1.0-4.8) k/uL Monocytes # (0-1.0) k/uL Eosinophils # (0-0.7) k/uL Basophils # (0-0.2) k/uL Sodium (137-145) mmol/L Potassium (3.5-5.1) mmol/L Chloride (98-107) mmol/L Carbon Dioxide (22-30) mmol/L Anion Gap mmol/L BUN (7-17) mg/dL Creatinine (0.52-1.04) mg/dL Est GFR (CKD-EPI)AfAm (>60 ml/min/1.73 sqM) Est GFR (CKD-EPI)NonAf (>60 ml/min/1.73 sqM) Glucose (74-99) mg/dL Plasma Lactic Acid Jimi (0.7-2.0) mmol/L Calcium (8.4-10.2) mg/dL Total Bilirubin (0.2-1.3) mg/dL AST (14-36) U/L ALT (4-34) U/L Alkaline Phosphatase (38-126) U/L Total Protein (6.3-8.2) g/dL Albumin (3.5-5.0) g/dL Urine Color Yellow Urine Appearance Clear (Clear) Urine pH 5.0 (5.0-8.0) Ur Specific [place] 1.035 (1.001-1.035) Urine Protein Negative (Negative) Urine Glucose (UA) 4+ H (Negative) Urine Ketones Negative (Negative) Urine Blood Negative (Negative) Urine Nitrite Negative (Negative) Urine Bilirubin Negative (Negative) Urine Urobilinogen <2.0 (<2.0) mg/dL Ur Leukocyte Esterase Negative (Negative) Coronavirus (PCR) Not Detected (Not Detectd) Disposition Clinical Impression: Osteomyelitis, Fever, Right foot pain Disposition: ADMITTED IP TO THIS HOSP Condition: Stable Is patient prescribed a controlled substance at d/c from ED?: No Time of Disposition: 13:26 Decision to Admit Reason: Admit from EC Decision Date: 09/30/20 Decision Time: 13:26
[2020-09-30] MEDS: SODIUM CHLORIDE 0.9% 1,000 ML IV SCH ×2 (11:52→15:22)
[2020-09-30 12:02] LABS: Basophils % (A) 1 %; Eosinophils # (A) 0.1 k/uL (0-0.7); Eosinophils % (A) 2 %; HCT 39.8 % (34.0-46.0); Lymphocytes # (A) 1.7 k/uL (1.0-4.8); Lymphocytes % (A) 22 %; MCH 29.3 pg (25.0-35.0); MCHC 32.8 g/dL (31.0-37.0); MCV 89.4 fL (80.0-100.0); Mean Platelet Volume 6.4; Monocytes # (A) 0.3 k/uL (0-1.0); Monocytes % (A) 5 %; Neutrophils # (A) 5.2 k/uL (1.3-7.7); Neutrophils % (A) 70 %; Platelet Count 264 k/uL (150-450); RBC 4.45 m/uL (3.80-5.40); RDW 13.9 % (11.5-15.5); WBC 7.5 k/uL (3.8-10.6)
[2020-09-30 12:14] LABS: ALT 31 U/L (4-34); AST 32 U/L (14-36); African American GFR (CKD) >90 (>60 ml/min/1.73 sqM); Alkaline Phosphatase 135 U/L (38-126); Anion Gap 8 mmol/L; Blood Urea Nitrogen 18 mg/dL (7-17); Calcium 9.2 mg/dL (8.4-10.2); Carbon Dioxide 28 mmol/L (22-30); Chloride 102 mmol/L (98-107); Glucose 202 mg/dL (74-99); Non-African American GFR(CKD) >90 (>60 ml/min/1.73 sqM); Potassium 4.8 mmol/L (3.5-5.1); Sodium 138 mmol/L (137-145); Total Bilirubin 0.8 mg/dL (0.2-1.3); Total Protein 6.6 g/dL (6.3-8.2)
--- NOTE | 2020-09-30 12:57 | XR ---
EXAMINATION TYPE: XR foot complete RT DATE OF EXAM: 09/30/2020 CLINICAL HISTORY: Concern for myelitis. Fever. Pain at fifth metatarsal base. Nontraumatic right foot pain, concern for infection. TECHNIQUE: Frontal, lateral, and oblique images of the right foot are obtained. COMPARISON: Right foot radiograph 09/25/2020 FINDINGS: There is a mildly displaced linear fracture of the fifth metatarsal proximal diaphysis. No angulation. No evidence of dislocation. Mild adjacent soft tissue swelling. Mild periosteal reaction of the lateral aspect of the proximal fifth metatarsal in the region of the fracture. No evidence of erosion. IMPRESSION: 1. Mildly displaced linear fracture of the fifth metatarsal proximal diaphysis. 2. Mild periosteal reaction of the lateral fifth metatarsal in the region of the fracture. Different ial includes traumatic and infectious etiologies such as stress fractures or osteomyelitis. No osseou s erosion.
[2020-09-30 13:19] LABS: Appearance,Urine Clear (Clear); Bilirubin,Urine Negative (Negative); Blood,Urine Negative (Negative); Color,Urine Yellow; Glucose,Urine (UA) 4+ (Negative); Ketones,Urine Negative (Negative); Leukocyte Esterase,Urine Negative (Negative); Nitrite,Urine Negative (Negative); Protein,Urine Negative (Negative); Specific Gravity,Urine 1.035 (1.001-1.035); Urobilinogen,Urine <2.0 mg/dL (<2.0)
[2020-09-30] MEDS ORDERED: ACETAMINOPHEN TAB 325 MG TAB PO PRN (13:24)
[2020-09-30] MEDS ORDERED: VANCOMYCIN IV PER PHARMACY 1 EACH MISC MISCELLANE PRN (13:24)
[2020-09-30] MEDS ORDERED: NALOXONE 0.4 MG/ML 1 ML VIAL IV PRN (13:24)
[2020-09-30] MEDS ORDERED: PIPERACILLIN-TAZOBACTAM 3.375 GM in SODIUM CHLORIDE 0.9% 100 ML IVPB STA (13:26)
[2020-09-30] MEDS ORDERED: VANCOMYCIN 2,250 MG in SODIUM CHLORIDE 0.9% 500 ML 500 ML IVPB ONE (14:15)
[2020-09-30] MEDS: traMADol 50 MG TAB PO PRN ×2 (15:26→23:50)
--- NOTE | 2020-09-30 16:45 | P.HPIM ---
History of Present Illness H&P Date: 09/30/20 This is a 60-year-old female with past medical history noted below significant for underlying diabetes who presented to the emergency room with right foot swelling and pain. Patient said that her symptoms started a week ago with worsening swelling of the right foot and worsening pain to a point that she was unable to walk around. Patient said that she was seen by her primary care physician and was prescribed antibiotic with Keflex with minimal relief. [facility] and was given a prescription for Bactrim and was directed to come to the emergency room if not improving. Patient said that her pain is not getting any better and she is having difficulty walking vitor und. Her right foot is only slightly swollen compared to the left. There is no redness or warmth. Patient was evaluated in the ER and an x-ray of the right foot showed a mildly displaced fibular fracture of the fifth metatarsal proximal diaphysis. There was an area of reaction around the fracture concerning for osteomyelitis. Patient did not have any open wounds or trauma to the foot. She was started on broad-spectrum antibiotic and admitted to the hospital for further management. Review of Systems Review of system: 14 points review of systems were obtained and were negative except to what were mentioned in the HPI. Past Medical History Past Medical History: Cancer, Diabetes Mellitus, GERD/Reflux, Hyperlipidemia, Hypertension, Sleep Apnea/CPAP/BIPAP Additional Past Medical History / Comment(s): BREAST AND UTERINE CANCER History of Any Multi-Drug Resistant Organisms: None Reported Past Surgical History: Appendectomy, Breast Surgery, Hernia Repair, Hysterectomy, Joint Replacement, Orthopedic Surgery Additional Past Surgical History / Comment(s): DOUBLE MASTECTOMY. BILATERAL KNEE REPLACEMENTS Past Anesthesia/Blood Transfusion Reactions: No Reported Reaction Additional Past Anesthesia/Blood Transfusion Reaction / Comment(s): She has never received blood. Past Psychological History: Anxiety, Bipolar, Depression, Panic Disorder Smoking Status: Former smoker Past Alcohol Use History: None Reported Additional Past Alcohol Use History / Comment(s): Quit smoking 1980 Past Drug Use History: None Reported - Past Family History Brother(s) Family Medical History: Cancer Additional Family Medical History / Comment(s): COLON CANCER Father Family Medical History: Coronary Artery Disease (CAD), Diabetes Mellitus Additional Family Medical History / Comment(s): Father at age 81 yrs. He was on dialysis and was blind due to his diabetes. Mother Family Medical History: Congestive Heart Failure (CHF), Coronary Artery Disease (CAD), Hypertension Additional Family Medical History / Comment(s): Mother at age 81 yrs. Medications and Allergies Home Medications Medication Instructions Recorded Confirmed Type metFORMIN HCL [Glucophage] 1,000 mg PO BID 01/23/16 09/30/20 History Venlafaxine HCl ER [Effexor XR] 150 mg PO DAILY 07/17/17 09/30/20 History buPROPion XL [Wellbutrin XL] 150 mg PO DAILY 12/24/18 09/30/20 History Anastrozole [Arimidex] 1 mg PO DAILY 12/05/19 09/30/20 History Atorvastatin [Lipitor] 80 mg PO HS 12/05/19 09/30/20 History QUEtiapine [SEROquel] 200 mg PO HS 12/05/19 09/30/20 History Ascorbic Acid [Vitamin C] 500 mg PO DAILY 09/30/20 09/30/20 History Aspirin EC [Ecotrin Low Dose] 81 mg PO HS 09/30/20 09/30/20 History Cinnamon Bark [Cinnamon] 2,000 mg PO DAILY 09/30/20 09/30/20 History Ertugliflozin/Sitagliptin 1 tab PO DAILY 09/30/20 09/30/20 History [Steglujan 5-100 mg Tablet] Gabapentin [Neurontin] 100 mg PO HS 09/30/20 09/30/20 History Gabapentin [Neurontin] 200 mg PO DAILY 09/30/20 09/30/20 History Metoprolol Tartrate [Lopressor] 25 mg PO BID 09/30/20 09/30/20 History Mirabegron [Myrbetriq] 50 mg PO DAILY 09/30/20 09/30/20 History Mv-Min/Folic/Vit K/Lut/[id number] 1 tab PO DAILY 09/30/20 09/30/20 History [Alive Women's 50 Plus Tablet] glipiZIDE XL [Glucotrol Xl] 5 mg PO DAILY 09/30/20 09/30/20 History lisinopriL [Zestril] 5 mg PO DAILY 09/30/20 09/30/20 History Allergies Allergy/AdvReac Type Severity Reaction Status Date / Time azithromycin Allergy Swelling Verified 09/30/20 14:57 erythromycin base Allergy Anaphylaxis Verified 09/30/20 14:57 Iodinated Contrast Media Allergy Anaphylaxis Verified 09/30/20 14:57 Iodine and Iodide Containing Allergy Anaphylaxis Verified 09/30/20 14:57 Produc shellfish derived [Shellfish] Allergy Anaphylaxis Verified 09/30/20 14:57 morphine AdvReac Confusion Verified 09/30/20 14:57 Physical Exam Vitals: Vital Signs Temp Pulse Pulse Resp BP BP Pulse Ox 09/30/20 14:53 98.2 F 83 20 149/83 97 09/30/20 14:25 84 16 120/64 98 09/30/20 13:48 98.9 F 09/30/20 13:06 86 12 112/68 99 09/30/20 11:08 100.4 F H 82 20 127/88 97 Intake and Output 09/30/20 09/30/20 09/30/20 06:59 14:59 22:59 Other: Weight 114.305 kg 114.562 kg General: The patient is awake and alert, in no distress Eye: there is normal conjunctiva bilaterally. Neck: The neck is supple, there is no JVD. Cardiovascular: Normal S1-S2, no S3-S4, no murmurs. Respiratory: Lungs clear to auscultation bilaterally Gastrointestinal: Abdomen is soft, nontender Musculoskeletal: There is no pedal edema. Right foot only slightly swollen compared to the left in particular in the dorsal aspect. There is no erythema or warmth. There is palpable dorsalis pedis pulse bilaterally. No open wound Neurological:. Speech is normal. Skin: Skin is warm and dry Results CBC & Chem 7: 09/30/20 11:48 09/30/20 11:48 Labs: Abnormal Lab Results - Last 24 Hours (Table) 09/30/20 09/30/20 Range/Units 11:48 13:05 BUN 18 H (7-17) mg/dL Glucose 202 H (74-99) mg/dL Alkaline Phosphatase 135 H (38-126) U/L Urine Glucose (UA) 4+ H (Negative) Thrombosis Risk Factor Assmnt - Choose All That Apply Any of the Below Risk Factors Present?: Yes Each Factor Represents 1 point: Age 41-60 years, Obesity (BMI >25) Each Risk Factor Represents 3 Points: Family history of DVT/PE Thrombosis Risk Factor Assessment Total Risk Factor Score: 5 Thrombosis Risk Factor Assessment Level: High Risk Assessment and Plan Assessment: This is a 60-year-old female with past medical history noted below who presented to the hospital with worsening right foot pain. She was evaluated in the ER an d currently admitted for further management of her medical problems noted below. 1. Mildly displaced fracture of the fifth metatarsal proximal diaphysis, I would consult orthopedic for further evaluation. Pain control as needed. X-ray report with differential diagnosis of osteomyelitis is very less likely clinically. I would discontinue antibiotic for now. I would obtain inflammatory markers including CRP and ESR. Obtain MRI of the right foot for further evaluation. 2. Type 2 diabetes, hold oral medications and continue sliding scale insulin. A1c 8.3 last month per patient report 3. Low-grade fever on presentation of 100.4, we'll continue to monitor. Coronavirus PCR negative. UA negative. 4. Chronic medical problems, hyperlipidemia, underlying depression, essential hypertension, and morbid obesity 5. DVT prophylaxis with subcu Lovenox The patient is admitted with an anticipated greater than 2 midnight stay for evaluation of the medical problems noted above Discussed with: Patient and nursing staff Anticipated discharge date: To be determined based on clinical course Anticipated discharge place: home A total of 45 minutes was spent on the care of this complex patient more than 50% of the time was spent in counseling and care coordination.
[2020-09-30 18:12] LABS: Glucose,Whole Blood 135 mg/dL (75-99)
[2020-09-30] MEDS: INSULIN ASPART (NovoLOG) 100 UNIT/ML VIAL SQ SCH ×2 (18:19→20:35)
[2020-09-30 20:26] LABS: Glucose,Whole Blood 170 mg/dL (75-99)
[2020-09-30] MEDS: ASPIRIN 81 MG PO SCH (20:26)
[2020-09-30] MEDS: ATORVASTATIN 80 MG TAB PO SCH (20:26)
[2020-09-30] MEDS: GABAPENTIN 100 MG CAP PO SCH (20:27)
[2020-09-30] MEDS: QUEtiapine 100 MG TAB PO SCH (20:27)
[2020-09-30] MEDS: METOPROLOL TARTRATE 25 MG TAB PO SCH (20:27)
[2020-09-30] MEDS ORDERED: PIPERACILLIN-TAZOBACTAM 3.375 GM in SODIUM CHLORIDE 0.9% 100 ML IVPB SCH (22:00)
[2020-10-01] MEDS ORDERED: VANCOMYCIN 2,000 MG in SODIUM CHLORIDE 0.9% 500 ML 500 ML IVPB SCH (04:00)
[2020-10-01] MEDS: traMADol 50 MG TAB PO PRN ×2 (05:52→13:01)
[2020-10-01 06:51] LABS: Glucose,Whole Blood 143 mg/dL (75-99)
[2020-10-01] MEDS: INSULIN ASPART (NovoLOG) 100 UNIT/ML VIAL SQ SCH ×4 (06:54→20:56)
[2020-10-01 07:38] LABS: African American GFR (CKD) >90 (>60 ml/min/1.73 sqM); Non-African American GFR(CKD) >90 (>60 ml/min/1.73 sqM)
--- NOTE | 2020-10-01 09:17 | P.CNOR ---
History of Present Illness - HPI Consult date: 10/01/20 History of present illness: This is a 60-year-old female who is admitted for right foot fracture to rule out infection. Patient states that she has had pain in her right foot for 2 weeks. Patient denies any known injury. Patient states that she was treated as an outpatient with a boot, but has been in too much pain to bear weight on the right lower extremity. Patient states that she presented to the emergency room because her pain worsened. Patient states that she lives alone. Patient states that she does have a walker at home. Patient denies any fever, chills, numbness, weakness or tingling. Patient's past medical history significant for diabetes mellitus, GERD, hyperlipidemia, hypertension, sleep apnea and history of breast and uterine cancer. Review of Systems See HPI. Past Medical History Past Medical History: Cancer, Diabetes Mellitus, GERD/Reflux, Hyperlipidemia, Hypertension, Sleep Apnea/CPAP/BIPAP Additional Past Medical History / Comment(s): BREAST AND UTERINE CANCER History of Any Multi-Drug Resistant Organisms: None Reported Past Surgical History: Appendectomy, Breast Surgery, Hernia Repair, Hysterectomy, Joint Replacement, Orthopedic Surgery Additional Past Surgical History / Comment(s): DOUBLE MASTECTOMY. BILATERAL KNEE REPLACEMENTS Past Anesthesia/Blood Transfusion Reactions: No Reported Reaction Additional Past Anesthesia/Blood Transfusion Reaction / Comm: She has never rece ived blood. Past Psychological History: Anxiety, Bipolar, Depression, Panic Disorder Smoking Status: Former smoker Past Alcohol Use History: None Reported Additional Past Alcohol Use History / Comment(s): Quit smoking 1980 Past Drug Use History: None Reported - Past Family History Brother(s) Family Medical History: Cancer Additional Family Medical History / Comment(s): COLON CANCER Father Family Medical History: Coronary Artery Disease (CAD), Diabetes Mellitus Additional Family Medical History / Comment(s): Father at age 81 yrs. He was on dialysis and was blind due to his diabetes. Mother Family Medical History: Congestive Heart Failure (CHF), Coronary Artery Disease (CAD), Hypertension Additional Family Medical History / Comment(s): Mother at age 81 yrs. Medications and Allergies Home Medications Medication Instructions Recorded Confirmed Type metFORMIN HCL [Glucophage] 1,000 mg PO BID 01/23/16 09/30/20 History Venlafaxine HCl ER [Effexor XR] 150 mg PO DAILY 07/17/17 09/30/20 History buPROPion XL [Wellbutrin XL] 150 mg PO DAILY 12/24/18 09/30/20 History Anastrozole [Arimidex] 1 mg PO DAILY 12/05/19 09/30/20 History Atorvastatin [Lipitor] 80 mg PO HS 12/05/19 09/30/20 History QUEtiapine [SEROquel] 200 mg PO HS 12/05/19 09/30/20 History Ascorbic Acid [Vitamin C] 500 mg PO DAILY 09/30/20 09/30/20 History Aspirin EC [Ecotrin Low Dose] 81 mg PO HS 09/30/20 09/30/20 History Cinnamon Bark [Cinnamon] 2,000 mg PO DAILY 09/30/20 09/30/20 History Ertugliflozin/Sitagliptin 1 tab PO DAILY 09/30/20 09/30/20 History [Steglujan 5-100 mg Tablet] Gabapentin [Neurontin] 100 mg PO HS 09/30/20 09/30/20 History Gabapentin [Neurontin] 200 mg PO DAILY 09/30/20 09/30/20 History Metoprolol Tartrate [Lopressor] 25 mg PO BID 09/30/20 09/30/20 History Mirabegron [Myrbetriq] 50 mg PO DAILY 09/30/20 09/30/20 History Mv-Min/Folic/Vit K/Lut/[id number] 1 tab PO DAILY 09/30/20 09/30/20 History [Alive Women's 50 Plus Tablet] glipiZIDE XL [Glucotrol Xl] 5 mg PO DAILY 09/30/20 09/30/20 History lisinopriL [Zestril] 5 mg PO DAILY 09/30/20 09/30/20 History Allergies Allergy/AdvReac Type Severity Reaction Status Date / Time azithromycin Allergy Swelling Verified 09/30/20 14:57 erythromycin base Allergy Anaphylaxis Verified 09/30/20 14:57 Iodinated Contrast Media Allergy Anaphylaxis Verified 09/30/20 14:57 Iodine and Iodide Containing Allergy Anaphylaxis Verified 09/30/20 14:57 Produc shellfish derived [Shellfish] Allergy Anaphylaxis Verified 09/30/20 14:57 morphine AdvReac Confusion Verified 09/30/20 14:57 Physical Examination On exam there is no erythema or ecchymosis over the right lower extremity. There is minimal swelling to the right foot. There is tenderness to palpation over the lateral aspect of the right foot. Skin is intact. Patient has good range of motion of the right ankle. Calf is soft and nontender to palpation. Sensation intact. Neurovascular status and circulatory status are intact. Results X-rays of the right foot reveal nondisplaced fracture of the fifth metatarsal shaft. - Labs Labs: Abnormal Lab Results - Last 24 Hours (Table) 09/30/20 09/30/20 09/30/20 Range/Units 11:48 11:48 13:05 BUN 18 H (7-17) mg/dL Glucose 202 H (74-99) mg/dL POC Glucose (mg/dL) (75-99) mg/dL Alkaline Phosphatase 135 H (38-126) U/L C-Reactive Protein 12.3 H (<10.0) mg/L Urine Glucose (UA) 4+ H (Negative) 09/30/20 09/30/20 10/01/20 Range/Units 18:09 20:25 06:49 BUN (7-17) mg/dL Glucose (74-99) mg/dL POC Glucose (mg/dL) 135 H 170 H 143 H (75-99) mg/dL Alkaline Phosphatase (38-126) U/L C-Reactive Protein (<10.0) mg/L Urine Glucose (UA) (Negative) H & H 09/30/20 Range/Units 11:48 Hgb 13.0 (11.4-16.0) gm/dL Hct 39.8 (34.0-46.0) % Result Diagrams: 09/30/20 11:48 10/01/20 07:08 Assessment and Plan (1) Fracture of fifth metatarsal bone Current Visit: Yes Status: Acute Code(s): S92.353A - DISP FX OF FIFTH METATARSAL BONE, UNSP FOOT, INIT SNOMED Code(s): 998765958 (2) Foot fracture, right Current Visit: Yes Status: Acute Code(s): S92.901A - UNSP FRACTURE OF RIGHT FOOT, INIT ENCNTR FOR CLOSED FRACTURE SNOMED Code(s): 77693901 Plan: 1. Recommend nonweightbearing to the right lower extremity with a walking boot and walker. Discussed that toe-touch weightbearing for balance would be okay as the patient was concerned about being nonweightbearing as she lives alone. 2. Rest, ice and elevate the right foot for swelling. 3. Patient is well-appearing, afebrile and her white count is normal. Very low suspicion for any infectious process. It was discussed that the patient may have a stress fracture as the patient has no history of injury to the right foot. An MRI of the right foot is pending per internal medicine. 4. No surgical intervention planned. We will continue to follow.
[2020-10-01] MEDS ORDERED: GABAPENTIN 100 MG CAP PO ONE (09:30)
[2020-10-01] MEDS: ENOXAPARIN 40 MG/0.4 ML SYRINGE SQ SCH (09:33)
[2020-10-01] MEDS: lisinopriL 5 MG TAB PO SCH (09:34)
[2020-10-01] MEDS: GABAPENTIN 100 MG CAP PO SCH ×2 (09:35→20:40)
[2020-10-01] MEDS: buPROPion XL 150 MG TAB.ER.24H PO SCH (09:35)
[2020-10-01] MEDS: METOPROLOL TARTRATE 25 MG TAB PO SCH ×2 (09:35→20:50)
[2020-10-01] MEDS: ASCORBIC ACID 500 MG TAB PO SCH (09:36)
[2020-10-01] MEDS: ANASTROZOLE 1 MG TAB PO SCH (09:36)
[2020-10-01] MEDS: VENLAFAXINE HCL ER 150 MG CAP PO SCH (09:36)
--- NOTE | 2020-10-01 11:18 | P.PN ---
Subjective Progress Note Date: 10/01/20 Patient informed me that she is having severe pain in her right foot when she gets up or walk around. She is comfortably laying in bed. She said that she is unable to go home as she lives alone and she has to go upstairs to use her bathroom and go downstairs to do laundry and she does she can do that with the amount of pain that she is in right now. She denies any fevers or chills otherwise. Objective - Vital Signs Vital signs: Vital Signs Temp 98.0 F 10/01/20 08:15 Pulse 84 10/01/20 08:15 Resp 16 10/01/20 08:15 BP 122/79 10/01/20 08:15 Pulse Ox 95 10/01/20 08:15 Intake & Output 09/30/20 10/01/20 10/01/20 18:59 06:59 18:59 Intake Total 1999 Balance 1999 Weight 114.562 kg Intake: Intake, IV Titration 1000 Amount Sodium Chloride 0.9% 1, 1000 000 ml @ 75 mls/hr IV . [id number] ROSALVA Rx#:[id number] Oral 1000 Other: # Voids 1 - Exam General: The patient is awake and alert, in no distress Eye: there is normal conjunctiva bilaterally. Neck: The neck is supple, there is no JVD. Cardiovascular: Normal S1-S2, no S3-S4, no murmurs. Respiratory: Lungs clear to auscultation bilaterally Gastrointestinal: Abdomen is soft, nontender Musculoskeletal: There is no pedal edema. Neurological:. Speech is normal. Skin: Skin is warm and dry - Labs CBC & Chem 7: 09/30/20 11:48 10/01/20 07:08 Labs: Abnormal Lab Results - Last 24 Hours (Table) 09/30/20 09/30/20 09/30/20 Range/Units 11:48 11:48 13:05 BUN 18 H (7-17) mg/dL Glucose 202 H (74-99) mg/dL POC Glucose (mg/dL) (75-99) mg/dL Alkaline Phosphatase 135 H (38-126) U/L C-Reactive Protein 12.3 H (<10.0) mg/L Urine Glucose (UA) 4+ H (Negative) 09/30/20 09/30/20 10/01/20 Range/Units 18:09 20:25 06:49 BUN (7-17) mg/dL Glucose (74-99) mg/dL POC Glucose (mg/dL) 135 H 170 H 143 H (75-99) mg/dL Alkaline Phosphatase (38-126) U/L C-Reactive Protein (<10.0) mg/L Urine Glucose (UA) (Negative) Assessment and Plan Assessment: This is a 60-year-old female with past medical history noted below who presented to the hospital with worsening right foot pain. She was evaluated in the ER and currently admitted for further management of her medical problems noted below. 1. Mildly displaced fracture of the fifth metatarsal proximal diaphysis, seen and evaluated by orthopedic surgery. Preferably nonweightbearing to touch is okay. Pain control as needed. X-ray report with differential diagnosis of osteomyelitis is very less likely clinically. CRP and ESR are normal. No need of antibiotic at this point. MRI of the right foot for further evaluation scheduled for tomorrow. 2. Type 2 diabetes, hold oral medications and continue sliding scale insulin. A1c 8.3 last month per patient report 3. Low-grade fever on presentation of 100.4, we'll continue to monitor. Coronavirus PCR negative. UA negative. 4. Chronic medical problems, hyperlipidemia, underlying depression, essential hypertension, and morbid obesity 5. DVT prophylaxis with subcu Lovenox Today, I reviewed her medication list and lab work results. Consult PT/OT. I would discuss with nurse case management tomorrow if patient qualifies for ECF.
[2020-10-01 12:47] LABS: Glucose,Whole Blood 141 mg/dL (75-99)
[2020-10-01 17:45] LABS: Glucose,Whole Blood 133 mg/dL (75-99)
[2020-10-01 20:37] LABS: Glucose,Whole Blood 161 mg/dL (75-99)
[2020-10-01] MEDS: ATORVASTATIN 80 MG TAB PO SCH (20:40)
[2020-10-01] MEDS: ASPIRIN 81 MG PO SCH (20:40)
[2020-10-01] MEDS: QUEtiapine 100 MG TAB PO SCH (20:40)
[2020-10-02] MEDS: traMADol 50 MG TAB PO PRN ×3 (06:54→13:06)
[2020-10-02 06:58] LABS: Glucose,Whole Blood 141 mg/dL (75-99)
[2020-10-02] MEDS: INSULIN ASPART (NovoLOG) 100 UNIT/ML VIAL SQ SCH ×2 (07:01→13:01)
[2020-10-02] MEDS: METOPROLOL TARTRATE 25 MG TAB PO SCH (08:18)
[2020-10-02] MEDS: ENOXAPARIN 40 MG/0.4 ML SYRINGE SQ SCH (08:18)
[2020-10-02] MEDS: GABAPENTIN 100 MG CAP PO SCH (08:18)
[2020-10-02] MEDS: buPROPion XL 150 MG TAB.ER.24H PO SCH (08:19)
[2020-10-02] MEDS: ANASTROZOLE 1 MG TAB PO SCH (08:19)
[2020-10-02] MEDS: lisinopriL 5 MG TAB PO SCH (08:19)
[2020-10-02] MEDS: ASCORBIC ACID 500 MG TAB PO SCH (08:19)
[2020-10-02] MEDS: VENLAFAXINE HCL ER 150 MG CAP PO SCH (08:20)
[2020-10-02 08:58] VITALS: BP 126/79; PULSE 89; RESP 24; TEMP 98.1
--- NOTE | 2020-10-02 10:34 | P.PN ---
Subjective Progress Note Date: 10/02/20 This is a 60-year-old female with a past medical history of diabetes, GERD, hyperlipidemia, hypertension, sleep apnea, and who has a history of breast and uterine cancer that is being followed for a right foot 5th metatarsal fracture, and rule-out infection. Patient is seen and examined bedside this morning. She is scheduled to have an MRI of the right foot today. She has been immobilized in a tall CAM boot. Patient worked with physical therapy this morning and was able to ambulate in the alba with the assistance of a walker. She notes an improvement in her foot pain since admission. She overall feels well, she denies chest pain, shortness of breath, nausea, vomiting, fevers, chills. She denies any new complaints today. Vital signs stable, patient has been afebrile since admission. Objective - Vital Signs Vital signs: Vital Signs Temp 98.1 F 10/02/20 08:05 Pulse 89 10/02/20 08:05 Resp 24 10/02/20 08:05 BP 126/79 10/02/20 08:05 Pulse Ox 98 10/02/20 08:05 Intake & Output 10/01/20 10/02/20 10/02/20 18:59 06:59 18:59 Intake Total 800 Balance 800 Intake: Oral 800 Other: # Voids 1 2 1 - Exam On examination, the patient is sitting up in the bedside chair in no apparent distress. She is alert and oriented 3. On inspection of the right lower extremity, there is a CAM boot in place. The CAM boot is removed, and reveals very minimal swelling of the right lateral foot. There is no overlying erythema, warmth. No open wounds. There is significant pain to palpation of the fifth metatarsal. No pain on palpation of the lateral malleolus, medial malleolus, anterior ankle. No pain with passive range of motion of the ankle. Patient has good strength and range of motion of the ankle. Right lower extremity is warm and well perfused with brisk capillary refill distally. Calf is soft and nontender to palpation, no signs of DVT. - Labs CBC & Chem 7: 09/30/20 11:48 10/01/20 07:08 Labs: Abnormal Lab Results - Last 24 Hours (Table) 10/01/20 10/01/20 10/01/20 Range/Units 12:40 17:43 20:36 POC Glucose (mg/dL) 141 H 133 H 161 H (75-99) mg/dL 10/02/20 Range/Units 06:57 POC Glucose (mg/dL) 141 H (75-99) mg/dL Microbiology - Last 24 Hours (Table) 09/30/20 11:48 Blood Culture - Preliminary Blood No Growth after 24 hours Assessment and Plan Assessment: Non-displaced 5th metatarsal fracture, right. Rule-out infection, right foot. Plan: - Patient will continue immobilization of the right foot in a tall CAM boot. She will continue toe-touch weight bearing with a walker. - Continue physical therapy for gait and balance training. - We will await the results of the right foot MRI, scheduled for later today, per internal medicine. - Medical management per admitting team. - No surgical intervention planned at this time. We will continue to follow patient and make recommendations as needed.
--- NOTE | 2020-10-02 12:53 | MR ---
EXAMINATION TYPE: MR foot RT wo/w con DATE OF EXAM: 10/02/2020 COMPARISON: Right foot x-ray September 30, 2020 and older study September 25, 2020. HISTORY: Pain in the lateral RT foot, no known injury CONTRAST: Standard multiplanar, multisequence MRI departmental protocol utilizing 11.5 mL intravenous Gadavist gadolinium contrast. FINDINGS: Seen better on recent x-ray versus MRI acute nondisplaced transverse fracture through the p roximal diaphysis of the fifth metatarsal. This is likely present best on axial image 6. There is ove rall generalized osseous edema from base of fifth metatarsal to the distal metaphysis. Adjacent soft tissue edema is present. No suspicious osseous enhancement. Adjacent metatarsals show no suspicious e morris. Lisfranc joints are maintained. The PB tendon appears intact axial image 6. Normal sinus tarsi fat. Hindfoot structures are maintained. Flexion of the toes redemonstrated. No villafana spicious focal fluid collection. No suspicious enhancement noted. IMPRESSION: Findings consistent with acute nondisplaced stress fracture given lack of significant oss eous enhancement and location, acute osteomyelitis felt much less likely. Correlate clinically.
[2020-10-02 12:55] LABS: Glucose,Whole Blood 154 mg/dL (75-99)
--- NOTE | 2020-10-02 12:58 | P.DS ---
Providers Date of admission: 09/30/20 14:02 Expected date of discharge: 10/02/20 Attending physician: Hernan Montoya Consults: 10/01/20 08:52 Consult Physician Routine Consulting Provider: Yayo Lopez Consult Reason/Comments: possible osteomyelitis right foot Do you want consulting provider notified?: Yes Primary care physician: Shankar Veronica Hospital Course: This is a 60-year-old female with past medical history noted below who presented to the hospital with worsening right foot pain. She was evaluated in the ER and currently admitted for further management of her medical problems noted below. 1. Mildly displaced fracture of the fifth metatarsal proximal diaphysis, seen and evaluated by orthopedic surgery. Preferably nonweightbearing toe touch is okay. Pain control as needed. X-ray report with differential diagnosis of osteomyelitis is very less likely clinically. CRP and ESR are normal. No need of antibiotic at this point. MRI confirmed acute nondisplaced stress fracture with no evidence of osteomyelitis 2. Type 2 diabetes, resume home medication. A1c 8.3 last month per patient report 3. Low-grade fever on presentation of 100.4. Blood culture negative. Coronavirus PCR negative. UA negative. 4. Chronic medical problems, hyperlipidemia, underlying depression, essential hypertension, and morbid obesity Patient will be discharged home in a stable condition. For further details about this hospitalization please refer to the electronic chart. Time spent on discharge > 30 minutes including counseling and coordination of care Follow up with orthopedic in the office as directed Patient Condition at Discharge: Stable Plan - Discharge Summary Discharge Rx Participant: No New Discharge Prescriptions: New RX: traMADol HCl [Ultram] 50 mg PO Q6H PRN #12 tab PRN Reason: Moderate Pain Continue RX: metFORMIN HCL [Glucophage] 1,000 mg PO BID RX: Venlafaxine HCl ER [Effexor XR] 150 mg PO DAILY RX: buPROPion XL [Wellbutrin XL] 150 mg PO DAILY RX: Atorvastatin [Lipitor] 80 mg PO HS RX: Anastrozole [Arimidex] 1 mg PO DAILY RX: QUEtiapine [SEROquel] 200 mg PO HS RX: glipiZIDE XL [Glucotrol XL] 5 mg PO DAILY RX: Mirabegron [Myrbetriq] 50 mg PO DAILY RX: Ertugliflozin/Sitagliptin [Steglujan 5-100 mg Tablet] 1 tab PO DAILY RX: Cinnamon Bark [Cinnamon] 2,000 mg PO DAILY RX: Aspirin EC [Ecotrin Low Dose] 81 mg PO HS RX: Ascorbic Acid [Vitamin C] 500 mg PO DAILY RX: Gabapentin [Neurontin] 100 mg PO HS RX: Gabapentin [Neurontin] 200 mg PO DAILY RX: lisinopriL [Zestril] 5 mg PO DAILY RX: Metoprolol Tartrate [Lopressor] 25 mg PO BID RX: Mv-Min/Folic/Vit K/Lut/[id number] [Alive Women's 50 Plus Tablet] 1 tab PO DAILY Discharge Medication List RX: metFORMIN HCL [Glucophage] 1,000 mg PO BID 01/23/16 [History] RX: Venlafaxine HCl ER [Effexor XR] 150 mg PO DAILY 07/17/17 [History] RX: buPROPion XL [Wellbutrin XL] 150 mg PO DAILY 12/24/18 [History] RX: Anastrozole [Arimidex] 1 mg PO DAILY 12/05/19 [History] RX: Atorvastatin [Lipitor] 80 mg PO HS 12/05/19 [History] RX: QUEtiapine [SEROquel] 200 mg PO HS 12/05/19 [History] RX: Ascorbic Acid [Vitamin C] 500 mg PO DAILY 09/30/20 [History] RX: Aspirin EC [Ecotrin Low Dose] 81 mg PO HS 09/30/20 [History] RX: Cinnamon Bark [Cinnamon] 2,000 mg PO DAILY 09/30/20 [History] RX: Ertugliflozin/Sitagliptin [Steglujan 5-100 mg Tablet] 1 tab PO DAILY 09/30/20 [History] RX: Gabapentin [Neurontin] 100 mg PO HS 09/30/20 [History] RX: Gabapentin [Neurontin] 200 mg PO DAILY 09/30/20 [History] RX: Metoprolol Tartrate [Lopressor] 25 mg PO BID 09/30/20 [History] RX: Mirabegron [Myrbetriq] 50 mg PO DAILY 09/30/20 [History] RX: Mv-Min/Folic/Vit K/Lut/[id number] [Alive Women's 50 Plus Tablet] 1 tab PO DAILY 09/30/20 [History] RX: glipiZIDE XL [Glucotrol XL] 5 mg PO DAILY 09/30/20 [History] RX: lisinopriL [Zestril] 5 mg PO DAILY 09/30/20 [History] RX: traMADol HCl [Ultram] 50 mg PO Q6H PRN #12 tab 10/02/20 [Rx] Follow up Appointment(s)/Referral(s): Shankar Veronica MD [Primary Care Provider] - 1-2 days Patient Instructions/Handouts: Tramadol (By mouth), Piperacillin/Tazobactam (By injection), Vancomycin (By injection), Osteomyelitis (GEN), Pain Management (GEN)
== END 2020-10-02 15:35 | disposition home or self-care (01) | DRG 543 ==
LOC: EC 11:06 → 6PED 14:02
PROVIDERS: ADMIT Internal Medicine; ATTEND Internal Medicine
DX: M84.374A Stress fracture, right foot, initial encounter for fracture (principal); Z68.41 Body mass index [BMI] 40.0-44.9, adult; Z20.828 Contact with and (suspected) exposure to other viral communicable diseases; E66.01 Morbid (severe) obesity due to excess calories; E11.9 Type 2 diabetes mellitus without complications; F31.9 Bipolar disorder, unspecified; E78.5 Hyperlipidemia, unspecified; I10 Essential (primary) hypertension; G47.30 Sleep apnea, unspecified; K21.9 Gastro-esophageal reflux disease without esophagitis; K57.90 Diverticulosis of intestine, part unspecified, without perforation or abscess without bleeding; F41.0 Panic disorder [episodic paroxysmal anxiety]; X58.XXXA Exposure to other specified factors, initial encounter; Z82.49 Family history of ischemic heart disease and other diseases of the circulatory system; Z79.899 Other long term (current) drug therapy; Z79.811 Long term (current) use of aromatase inhibitors; Z79.84 Long term (current) use of oral hypoglycemic drugs; Z90.710 Acquired absence of both cervix and uterus; Z85.42 Personal history of malignant neoplasm of other parts of uterus; Z90.49 Acquired absence of other specified parts of digestive tract; Z96.653 Presence of artificial knee joint, bilateral; Z87.891 Personal history of nicotine dependence; Z90.13 Acquired absence of bilateral breasts and nipples; Z88.1 Allergy status to other antibiotic agents; Z91.041 Radiographic dye allergy status; Z88.5 Allergy status to narcotic agent; Z91.013 Allergy to seafood; Z80.0 Family history of malignant neoplasm of digestive organs; Z82.1 Family history of blindness and visual loss; Z83.3 Family history of diabetes mellitus
CPT/HCPCS: 36415; 80053; 81003; 82565; 83605; 85025; 85652; 86140; 87040; 87635; 99284

== ENCOUNTER → 2020-10-13 | Outpatient (CLI) | payer MEDICARE, OTHER | END | disposition home or self-care (01) | LOC: LABWHC1 13:29 | PROVIDERS: ATTEND Physician Assistant | DX: E55.9 Vitamin D deficiency, unspecified (principal) | CPT/HCPCS: 36415; 82306 ==

== ENCOUNTER 2022-04-14 15:34 | Emergency (ER) | payer MEDICARE, OTHER ==
[2022-04-14 16:01] VITALS: RESP 16; TEMP 98.1
--- NOTE | 2022-04-14 16:59 | XR ---
EXAMINATION TYPE: XR abdomen 1V DATE OF EXAM: 04/14/2022 4:56 PM INDICATION: Patient age:Female; 62 years old; Reason for study: constipation ;. COMPARISON: None. TECHNIQUE: One radiographic view of the abdomen was obtained. FINDINGS: Moderate stool burden throughout the colon. The bowel gas pattern is nonspecific without di lated loops of small or large bowel. The osseous structures are intact. No abnormal calcifications a re present. Fecal material and gas are demonstrated throughout the colon and rectum. IMPRESSION: Moderate stool burden with a nonspecific bowel gas pattern without radiographic evidence for acute pr ocess.
--- NOTE | 2022-04-14 17:01 | ED ---
General Adult HPI - General Chief complaint: Abdominal Pain Stated complaint: Constipation Time Seen by Provider: 04/14/22 16:13 Source: patient Mode of arrival: ambulatory Limitations: no limitations - History of Present Illness Initial comments: Melany is a 62yo F who presents to the ER with complaint of constipation. She reports that her last bowel movement was yesterday. Today she felt that she had the urge to have a bowel movement she states that she strained on the toilet for over an hour became diaphoretic and was unable have a bowel movement so she came to the ER. Patient states she needs help having a bowel movement. Patient states her last colonoscopy was 7 years ago she was most to have one at 7 years of has not scheduled that she does have a strong family history of colon cancer. She's not noticed any frequent constipation no narrowing of her stools, blood in her stool or any abnormalities. - Related Data Home Medications Medication Instructions Recorded Confirmed metFORMIN HCL [Glucophage] 1,000 mg PO BID 01/23/16 09/30/20 Venlafaxine HCl ER [Effexor XR] 150 mg PO DAILY 07/17/17 09/30/20 buPROPion XL [Wellbutrin XL] 150 mg PO DAILY 12/24/18 09/30/20 Anastrozole [Arimidex] 1 mg PO DAILY 12/05/19 09/30/20 Atorvastatin [Lipitor] 80 mg PO HS 12/05/19 09/30/20 QUEtiapine [SEROquel] 200 mg PO HS 12/05/19 09/30/20 Ascorbic Acid [Vitamin C] 500 mg PO DAILY 09/30/20 09/30/20 Aspirin EC [Ecotrin Low Dose] 81 mg PO HS 09/30/20 09/30/20 Cinnamon Bark [Cinnamon] 2,000 mg PO DAILY 09/30/20 09/30/20 Ertugliflozin/Sitagliptin 1 tab PO DAILY 09/30/20 09/30/20 [Steglujan 5-100 mg Tablet] Gabapentin [Neurontin] 100 mg PO HS 09/30/20 09/30/20 Gabapentin [Neurontin] 200 mg PO DAILY 09/30/20 09/30/20 Metoprolol Tartrate [Lopressor] 25 mg PO BID 09/30/20 09/30/20 Mirabegron [Myrbetriq] 50 mg PO DAILY 09/30/20 09/30/20 Mv-Min/Folic/Vit K/Lut/[id number] 1 tab PO DAILY 09/30/20 09/30/20 [Alive Women's 50 Plus Tablet] glipiZIDE XL [Glucotrol XL] 5 mg PO DAILY 09/30/20 09/30/20 lisinopriL [Zestril] 5 mg PO DAILY 09/30/20 09/30/20 Previous Rx's Medication Instructions Recorded traMADol HCl [Ultram] 50 mg PO Q6H PRN #12 tab 10/02/20 Allergies Allergy/AdvReac Type Severity Reaction Status Date / Time azithromycin Allergy Swelling Verified 04/14/22 16:01 erythromycin base Allergy Anaphylaxis Verified 04/14/22 16:01 Iodinated Contrast Media Allergy Anaphylaxis Verified 04/14/22 16:01 Iodine and Iodide Containing Allergy Anaphylaxis Verified 04/14/22 16:01 Produc shellfish derived [Shellfish] Allergy Anaphylaxis Verified 04/14/22 16:01 morphine AdvReac Confusion Verified 04/14/22 16:01 Review of Systems ROS Statement: Those systems with pertinent positive or pertinent negative responses have been documented in the HPI. ROS Other: All systems not noted in ROS Statement are negative. Past Medical History Past Medical History: Cancer, Diabetes Mellitus, GERD/Reflux, Hyperlipidemia, Hypertension, Sleep Apnea/CPAP/BIPAP Additional Past Medical History / Comment(s): BREAST AND UTERINE CANCER History of Any Multi-Drug Resistant Organisms: None Reported Past Surgical History: Appendectomy, Breast Surgery, Hernia Repair, Hysterectomy, Joint Replacement, Orthopedic Surgery Additional Past Surgical History / Comment(s): DOUBLE MASTECTOMY. BILATERAL KNEE REPLACEMENTS Past Anesthesia/Blood Transfusion Reactions: No Reported Reaction Additional Past Anesthesia/Blood Transfusion Reaction / Comment(s): She has never received blood. Past Psychological History: Anxiety, Bipolar, Depression, Panic Disorder Smoking Status: Former smoker Past Alcohol Use History: None Reported Past Drug Use History: None Reported - Past Family History Brother(s) Family Medical History: Cancer Additional Family Medical History / Comment(s): COLON CANCER Father Family Medical History: Coronary Artery Disease (CAD), Diabetes Mellitus Additional Family Medical History / Comment(s): Father at age 81 yrs. He was on dialysis and was blind due to his diabetes. Mother Family Medical History: Congestive Heart Failure (CHF), Coronary Artery Disease (CAD), Hypertension Additional Family Medical History / Comment(s): Mother at age 81 yrs. General Exam - General Exam Comments Initial Comments: Physical Exam GENERAL: Patient is well-developed and well-nourished. Patient is nontoxic and well-hydrated and is in no distress. HENT: Normocephalic, Atraumatic. EYES: PERRL, EOMI PULMONARY: Unlabored respirations. CARDIOVASCULAR: RRR Warm and well perfused extremities ABDOMEN: Non-distended SKIN: No rashes or bruising : Deferred NEUROLOGIC: Alert and oriented Normal speech Normal gait MUSCULOSKELETAL: Moving all extremities with no apparent injury PSYCHIATRIC: No SI/HI Limitations: no limitations Course Vital Signs 04/14/22 04/14/22 15:59 17:42 Temperature 98.1 F Pulse Rate 101 H 93 Respiratory 16 16 Rate Blood Pressure 138/70 133/70 O2 Sat by Pulse 97 95 Oximetry Medical Decision Making - Medical Decision Making The patient was seen and evaluated, history is obtained from the patient, x-ray was obtained to evaluate, patient did attempt a bowel movement here in the ER she did pass some firm stool nurse assisted. Removing it from the rectum. Patient did report some relief. Patient be given Dulcolax and Fleet enema to use at home. Return parameters discussed patient was discharged home in stable condition. Disposition Clinical Impression: Constipation Disposition: HOME SELF-CARE Condition: Stable Instructions (If sedation given, give patient instructions): Constipation (DC) Is patient prescribed a controlled substance at d/c from ED?: No Referrals: Shankar Veronica MD [Primary Care Provider] - 1-2 days
[2022-04-14 17:43] VITALS: BP 133/70; PULSE 93
[2022-04-14] MEDS ORDERED: bisacodyL 10 MG SUPP RECTAL STA (17:49)
[2022-04-14] MEDS ORDERED: NA PHOS,M-B/NA PHOS,DI-BA 133 ML ENEMA RECTAL STA (18:38)
== END 2022-04-14 18:49 | disposition home or self-care (01) ==
LOC: EC 15:34
DX: K59.00 Constipation, unspecified (principal); E11.9 Type 2 diabetes mellitus without complications; I10 Essential (primary) hypertension; K21.9 Gastro-esophageal reflux disease without esophagitis; E78.5 Hyperlipidemia, unspecified; Z88.1 Allergy status to other antibiotic agents; Z88.8 Allergy status to other drugs, medicaments and biological substances; Z91.040 Latex allergy status; Z91.013 Allergy to seafood; Z87.891 Personal history of nicotine dependence; Z88.5 Allergy status to narcotic agent; Z79.899 Other long term (current) drug therapy; Z79.84 Long term (current) use of oral hypoglycemic drugs; Z79.82 Long term (current) use of aspirin
CPT/HCPCS: 74018; 99283

== ENCOUNTER 2022-04-23 06:14 | Observation (INO) | payer MEDICARE, OTHER ==
[2022-04-23] MEDS ORDERED: methylPREDNISolone SOD SUCCI 125 MG/2 ML VIAL IV STA (06:36)
[2022-04-23] MEDS ORDERED: IPRATROPIUM-ALBUTEROL 3 ML NEB INHALATION STA ×2 (06:36→08:24)
--- NOTE | 2022-04-23 06:48 | XR ---
EXAMINATION TYPE: XR chest 2V DATE OF EXAM: 04/23/2022 COMPARISON: 12/05/2019 HISTORY: Difficulty breathing TECHNIQUE: Use FINDINGS: Heart and mediastinum are normal. Lungs are clear. Diaphragm is fairly normal. Bony thorax is intact. There is slight elevated right diaphragm IMPRESSION: There is slight elevated right diaphragm that could relate to some partial paralysis. No change. Normal heart.
[2022-04-23 07:19] LABS: Basophils # (A) 0.1 k/uL (0-0.2); Basophils % (A) 1 %; Eosinophils # (A) 0.2 k/uL (0-0.7); Eosinophils % (A) 4 %; HCT 41.5 % (34.0-46.0); HGB 13.1 gm/dL (11.4-16.0); Lymphocytes # (A) 1.2 k/uL (1.0-4.8); Lymphocytes % (A) 21 %; MCH 28.4 pg (25.0-35.0); MCHC 31.6 g/dL (31.0-37.0); Mean Platelet Volume 6.6; Monocytes # (A) 0.4 k/uL (0-1.0); Monocytes % (A) 8 %; Neutrophils # (A) 3.5 k/uL (1.3-7.7); Neutrophils % (A) 64 %; Platelet Count 214 k/uL (150-450); RBC 4.62 m/uL (3.80-5.40); RDW 13.7 % (11.5-15.5); WBC 5.5 k/uL (3.8-10.6)
[2022-04-23 07:49] LABS: ALT 33 U/L (4-34); AST 31 U/L (14-36); African American GFR (CKD) >90 (>60 ml/min/1.73 sqM); Albumin 3.9 g/dL (3.5-5.0); Alkaline Phosphatase 146 U/L (38-126); Anion Gap 12 mmol/L; Blood Urea Nitrogen 18 mg/dL (7-17); Calcium 8.7 mg/dL (8.4-10.2); Carbon Dioxide 24 mmol/L (22-30); Chloride 100 mmol/L (98-107); Glucose 250 mg/dL (74-99); Magnesium 1.5 mg/dL (1.6-2.3); Non-African American GFR(CKD) >90 (>60 ml/min/1.73 sqM); Potassium 3.8 mmol/L (3.5-5.1); Sodium 136 mmol/L (137-145); Total Bilirubin 0.5 mg/dL (0.2-1.3); Total Protein 6.3 g/dL (6.3-8.2)
--- NOTE | 2022-04-23 08:40 | ED ---
SOB HPI - General Chief Complaint: Shortness of Breath Stated Complaint: cough Time Seen by Provider: 04/23/22 06:27 Source: patient, RN notes reviewed, old records reviewed Mode of arrival: ambulatory Limitations: no limitations - History of Present Illness Initial Comments: Patient is a 62-year-old female with history of diabetes, hypertension, hyperl ipidemia, sleep apnea, presenting to emergency Department with complaints of wheezing and shortness of breath that worsened this morning. Patient noticed a cough starting about 4 days ago and has progressed to shortness of breath, wheezing. She has been coughing up lots of phlegm, congestion. She denies history of asthma or COPD. She is a nonsmoker. Patient denies fevers, no abdominal pain or nausea or vomiting. She does not receive the Covid vaccine, she is unsure about the flu vaccine. Patient has no further complaints. Upon arrival to the ER, she is afebrile, pulse is 103, respiratory 26, 93% on room air. - Related Data Home Medications Medication Instructions Recorded Confirmed Venlafaxine HCl ER [Effexor XR] 150 mg PO DAILY 07/17/17 04/23/22 buPROPion XL [Wellbutrin XL] 150 mg PO DAILY 12/24/18 04/23/22 Anastrozole [Arimidex] 1 mg PO DAILY 12/05/19 04/23/22 Atorvastatin [Lipitor] 80 mg PO HS 12/05/19 04/23/22 QUEtiapine [SEROquel] 200 mg PO HS 12/05/19 04/23/22 Cinnamon Bark [Cinnamon] 500 mg PO DAILY 09/30/20 04/23/22 Gabapentin [Neurontin] 100 mg PO BID 09/30/20 04/23/22 Metoprolol Tartrate [Lopressor] 25 mg PO BID 09/30/20 04/23/22 Mirabegron [Myrbetriq] 50 mg PO DAILY 09/30/20 04/23/22 lisinopriL [Zestril] 5 mg PO DAILY 09/30/20 04/23/22 Calcium Carbonate [Calcium] 600 mg PO DAILY 04/23/22 04/23/22 Cholecalciferol [Vitamin D3 (25 25 mcg PO DAILY 04/23/22 04/23/22 Mcg = 1000 Iu)] Empaglifloz/Linaglip/Metformin 1 tab PO BID 04/23/22 04/23/22 [Trijardy Xr 12.5-2.5-1,000 mg] Melatonin 10 mg PO HS 04/23/22 04/23/22 Turmeric Root Extract [Turmeric] 500 mg PO DAILY 04/23/22 04/23/22 Zinc 50 mg PO DAILY 04/23/22 04/23/22 glipiZIDE XL [Glucotrol Xl] 10 mg PO DAILY 04/23/22 04/23/22 Allergies Allergy/AdvReac Type Severity Reaction Status Date / Time azithromycin Allergy Swelling Verified 04/23/22 12:12 all over erythromycin base Allergy Swelling Verified 04/23/22 12:12 all over Iodinated Contrast Media Allergy Anaphylaxis Verified 04/23/22 12:12 Iodine and Iodide Containing Allergy Anaphylaxis Verified 04/23/22 12:12 Produc shellfish derived [Shellfish] Allergy Anaphylaxis Verified 04/23/22 12:12 morphine AdvReac Confusion Verified 04/23/22 12:12 Review of Systems ROS Statement: Those systems with pertinent positive or pertinent negative responses have been documented in the HPI. ROS Other: All systems not noted in ROS Statement are negative. Past Medical History Past Medical History: Cancer, Diabetes Mellitus, GERD/Reflux, Hyperlipidemia, Hypertension, Sleep Apnea/CPAP/BIPAP Additional Past Medical History / Comment(s): BREAST AND UTERINE CANCER History of Any Multi-Drug Resistant Organisms: None Reported Past Surgical History: Appendectomy, Breast Surgery, Hernia Repair, Hysterectomy, Joint Replacement, Orthopedic Surgery Additional Past Surgical History / Comment(s): DOUBLE MASTECTOMY. BILATERAL KNEE REPLACEMENTS Past Anesthesia/Blood Transfusion Reactions: No Reported Reaction Additional Past Anesthesia/Blood Transfusion Reaction / Comment(s): She has never received blood. Past Psychological History: Anxiety, Bipolar, Depression, Panic Disorder Smoking Status: Former smoker Past Alcohol Use History: Occasional Past Drug Use History: None Reported - Past Family History Brother(s) Family Medical History: Cancer Additional Family Medical History / Comment(s): COLON CANCER Father Family Medical History: Coronary Artery Disease (CAD), Diabetes Mellitus Additional Family Medical History / Comment(s): Father at age 81 yrs. He was on dialysis and was blind due to his diabetes. Mother Family Medical History: Congestive Heart Failure (CHF), Coronary Artery Disease (CAD), Hypertension Additional Family Medical History / Comment(s): Mother at age 81 yrs. General Exam - General Exam Comments Initial Comments: GENERAL: Patient is well-developed and well-nourished. Patient is nontoxic and mild distress. HEAD: Atraumatic, normocephalic. EYES: Pupils equal round and reactive to light, extraocular movements intact, sclera anicteric, conjunctiva are normal. Eyelids were unremarkable. ENT: Nares patent, oropharynx clear without exudates. Moist mucous membranes. NECK: Normal range of motion, supple without lymphadenopathy or JVD. LUNGS: Labored respirations. Decreased air movement, wheezing. HEART: Tachycardic rate and rhythm without murmurs, rubs or gallops. ABDOMEN: Soft, nontender, normoactive bowel sounds. No guarding, no rebound. No masses appreciated. MUSCULOSKELETAL: Normal extremities with adequate strength and normal range of motion, no pitting or edema. No clubbing or cyanosis. NEUROLOGICAL: Patient is alert and oriented x 3. Symmetrical smile. Normal speech, normal gait. PSYCH: Normal mood, normal affect. SKIN: Warm, Dry, normal turgor, no rashes or lesions noted. Limitations: no limitations Course Vital Signs 04/23/22 04/23/22 04/23/22 06:20 07:28 07:38 Temperature 98.9 F Pulse Rate 103 H 94 103 H Respiratory 26 H Rate Blood Pressure 134/78 O2 Sat by Pulse 93 L Oximetry 04/23/22 04/23/22 04/23/22 08:07 08:41 08:52 Temperature Pulse Rate 100 101 H 105 H Respiratory 20 Rate Blood Pressure 128/82 O2 Sat by Pulse 96 Oximetry 04/23/22 04/23/22 04/23/22 09:40 11:23 11:36 Temperature Pulse Rate 108 H 110 H 106 H Respiratory 14 Rate Blood Pressure 153/81 O2 Sat by Pulse 96 Oximetry 04/23/22 04/23/22 12:02 14:12 Temperature 98.5 F Pulse Rate 113 H 114 H Respiratory 20 20 Rate Blood Pressure 142/77 156/91 O2 Sat by Pulse 97 Oximetry Medical Decision Making - Medical Decision Making Patient is a 62-year-old female with history of sleep apnea, presenting with cough, wheezing, shortness of breath increasing over the past 4 days. Patient was in mild distress on arrival, patient was 91-93% on room air, put on 2 L which improved her symptoms. Covid and influenza are negative, chest x-ray showing no acute process. Lab work are stable. Patient was given 2 breathing treatments and dose of steroids continues to be symptomatic, scattered wheezes throughout. Continues to require 2 L of oxygen for comfort and mild hypoxia. Spoke with Dr. Castanon who agrees to admission, will continue breathing treatments and steroids as needed. Discussed case with Dr. Fraser. - Lab Data Result diagrams: 04/23/22 07:07 04/23/22 07:07 Lab Results 04/23/22 04/23/22 04/23/22 Range/Units 06:46 06:46 07:07 WBC 5.5 (3.8-10.6) k/uL RBC 4.62 (3.80-5.40) m/uL Hgb 13.1 (11.4-16.0) gm/dL Hct 41.5 (34.0-46.0) % MCV 90.0 (80.0-100.0) fL MCH 28.4 (25.0-35.0) pg MCHC 31.6 (31.0-37.0) g/dL RDW 13.7 (11.5-15.5) % Plt Count 214 (150-450) k/uL MPV 6.6 Neutrophils % 64 % Lymphocytes % 21 % Monocytes % 8 % Eosinophils % 4 % Basophils % 1 % Neutrophils # 3.5 (1.3-7.7) k/uL Lymphocytes # 1.2 (1.0-4.8) k/uL Monocytes # 0.4 (0-1.0) k/uL Eosinophils # 0.2 (0-0.7) k/uL Basophils # 0.1 (0-0.2) k/uL Sodium (137-145) mmol/L Potassium (3.5-5.1) mmol/L Chloride (98-107) mmol/L Carbon Dioxide (22-30) mmol/L Anion Gap mmol/L BUN (7-17) mg/dL Creatinine (0.52-1.04) mg/dL Est GFR (CKD-EPI)AfAm (>60 ml/min/1.73 sqM) Est GFR (CKD-EPI)NonAf (>60 ml/min/1.73 sqM) Glucose (74-99) mg/dL Plasma Lactic Acid Jimi (0.7-2.0) mmol/L Calcium (8.4-10.2) mg/dL Magnesium (1.6-2.3) mg/dL Total Bilirubin (0.2-1.3) mg/dL AST (14-36) U/L ALT (4-34) U/L Alkaline Phosphatase (38-126) U/L Total Protein (6.3-8.2) g/dL Albumin (3.5-5.0) g/dL Coronavirus (PCR) Not Detected (Not Detectd) Influenza Type A RNA Not Detected (Not Detectd) Influenza Type B (PCR) Not Detected (Not Detectd) 04/23/22 04/23/22 Range/Units 07:07 07:07 WBC (3.8-10.6) k/uL RBC (3.80-5.40) m/uL Hgb (11.4-16.0) gm/dL Hct (34.0-46.0) % MCV (80.0-100.0) fL MCH (25.0-35.0) pg MCHC (31.0-37.0) g/dL RDW (11.5-15.5) % Plt Count (150-450) k/uL MPV Neutrophils % % Lymphocytes % % Monocytes % % Eosinophils % % Basophils % % Neutrophils # (1.3-7.7) k/uL Lymphocytes # (1.0-4.8) k/uL Monocytes # (0-1.0) k/uL Eosinophils # (0-0.7) k/uL Basophils # (0-0.2) k/uL Sodium 136 L (137-145) mmol/L Potassium 3.8 (3.5-5.1) mmol/L Chloride 100 (98-107) mmol/L Carbon Dioxide 24 (22-30) mmol/L Anion Gap 12 mmol/L BUN 18 H (7-17) mg/dL Creatinine 0.68 (0.52-1.04) mg/dL Est GFR (CKD-EPI)AfAm >90 (>60 ml/min/1.73 sqM) Est GFR (CKD-EPI)NonAf >90 (>60 ml/min/1.73 sqM) Glucose 250 H (74-99) mg/dL Plasma Lactic Acid Jimi 0.9 (0.7-2.0) mmol/L Calcium 8.7 (8.4-10.2) mg/dL Magnesium 1.5 L (1.6-2.3) mg/dL Total Bilirubin 0.5 (0.2-1.3) mg/dL AST 31 (14-36) U/L ALT 33 (4-34) U/L Alkaline Phosphatase 146 H (38-126) U/L Total Protein 6.3 (6.3-8.2) g/dL Albumin 3.9 (3.5-5.0) g/dL Coronavirus (PCR) (Not Detectd) Influenza Type A RNA (Not Detectd) Influenza Type B (PCR) (Not Detectd) Disposition Clinical Impression: Dyspnea, Hypoxia Disposition: ADMITTED IP TO THIS HOSP Condition: Stable Decision Date: 04/23/22 Decision Time: 09:35
[2022-04-23] MEDS ORDERED: NALOXONE 0.4 MG/ML 1 ML VIAL IV PRN (09:30)
[2022-04-23] MEDS ORDERED: ACETAMINOPHEN TAB 325 MG TAB PO PRN (09:30)
[2022-04-23] MEDS ORDERED: IPRATROPIUM-ALBUTEROL 3 ML NEB INHALATION PRN ×2 (09:33→10:57)
--- NOTE | 2022-04-23 10:53 | P.HPIM ---
History of Present Illness H&P Date: 04/23/22 History of Presenting Illness: Patient is a very pleasant 62-year-old female with a past medical history of hypertension, hyperlipidemia, anxiety, depression, GERD, [id number] diabetes mellitus, breast cancer status post double mastectomy followed by chemo, previous nicotine use quit smoking 30 years ago but reports exposure to secondhand smoke her entire life as her is a smoker and all of her family members are smokers that smoke in the house. Patient presented to the emergency department with a chief complaint of shortness of breath and productive cough. Patient reports symptoms began on Friday04/19/22 and have progressively worsened. Patient denies having any fevers, chills, headache, lightheadedness, dizziness, sore throat or dysphasia, chest pain or palpitations, abdominal pain, nausea, vomiting, or experiencing any n umbness/tingling/weakness in her extremities. Patient underwent full evaluation in the emergency department. Vital signs stable with exception of mild tachycardia with heart rate 110s. Chest x-ray negative for acute cardiopulmonary process showing slightly elevated right diaphragm possibly secondary to right hemiparesis of diaphragm. CBC and CMP were unremarkable with the exception of hyperglycemia with glucose of 250, hypomagnesemia with magnesium of 1.5, and elevated alkaline phosphatase of 146. Influenza A, influenza B, and Covid PCR were all negative. Patient admitted under our servi hero with consultation to pulmonology. Review of systems: Pertinent positives and negatives as discussed in HPI, a complete review of systems was performed and all other systems are negative. Physical exam: Vital signs reviewed and stable. General: Nontoxic, no distress and appears stated age. Derm: Skin warm and dry, normal coloration for ethnicity. Head: Atraumatic, normocephalic and symmetric. Eyes: EOMs intact, no lid lag, and anicteric sclera Mouth: no lip lesions, mucus membranes moist Cardiovascular: regular rate and rhythm with normal S1S2, no murmur, positive posterior tibial pulses bilaterally, and cap refill < 2 seconds. Lungs: Increased respiratory effort without acute respiratory distress. Respirations even and regular. Lungs tight with diffuse expiratory wheezes bilaterally. No rhonchi, no rales, no wheezing, and no accessory muscle usage. Abdominal: soft, nontender to palpation, no guarding, no appreciable organomegaly Ext: ROM intact. No gross muscle atrophy, no edema, no contractures Neuro: Speech clear, face symmetrical and CN II-XII grossly intact with no noted focal neuro deficits Psych: Alert and oriented to person, place, time, and situation. Appropriate and pleasant affect. Assessment and Plan of Care: Acute bronchitis Shortness of breath Elevated d-dimer -Consult pulmonology for evaluation of possible right hemiparesis of diaphragm, and patient will likely need to follow up outpatient for PFTs upon discharge to rule out underlying obstructive lung disease. -Oxygenation to be administered and titrated as needed to maintain SPO2 equal to or greater than 92% -Telemetry monitoring. -Monitor Pulse-oximetry -Duonebs every 4 hours scheduled and as needed for SOB and/or wheezing -Incentive Spirometry, encourage use 10-15 times hourly while awake -Steroids: Solu-Medrol -Pro-calcitonin to be obtained, no need for antibiotics at this time as patient not showing signs of bacterial infection -D-dimer obtained and minimally elevated at 0.84, due to this elevation along with current heart rate in 120s, we will complete a VQ scan as patient has anaphylactic ALLERGY to contrast. Hypomagnesemia -Replaced, we will continue to monitor with repeat a.m. labs. Sinus tachycardia -Obtain EKG -Continue telemetry monitoring. Hypertension -Monitor vital signs and continue daily medication regimen with lisinopril and metoprolol. Hyperlipidemia -Continue daily medication regimen with atorvastatin 80 mg nightly. Rrn-[id number] diabetes mellitus -Hold Trijardy and glipizide and placed on glycemic protocol with NovoLog sliding scale. Anxiety and depression -Continue daily medication regimen with Wellbutrin, Seroquel, and Effexor. The patient is admitted with an anticipated less than 2 midnight stay for evaluation of shortness of breath with acute bronchitis CODE STATUS: Full code DVT prophylaxis: Heparin Discussed with: Patient and RN Anticipated discharge date: 1-[address]: Home A total of 43 minutes was spent on the care of this complex patient more than 50% of the time was spent in counseling and care coordination. Cam Johnson NP rendered care for this patient independently, reviewed the findings and plan as documented in the note above. I did not physically speak with or examine the patient on this date. Past Medical History Past Medical History: Cancer, Diabetes Mellitus, GERD/Reflux, Hyperlipidemia, Hypertension, Sleep Apnea/CPAP/BIPAP Additional Past Medical History / Comment(s): BREAST AND UTERINE CANCER History of Any Multi-Drug Resistant Organisms: None Reported Past Surgical History: Appendectomy, Breast Surgery, Hernia Repair, Hysterectomy, Joint Replacement, Orthopedic Surgery Additional Past Surgical History / Comment(s): DOUBLE MASTECTOMY. BILATERAL KNEE REPLACEMENTS Past Anesthesia/Blood Transfusion Reactions: No Reported Reaction Additional Past Anesthesia/Blood Transfusion Reaction / Comment(s): She has never received blood. Past Psychological History: Anxiety, Bipolar, Depression, Panic Disorder Smoking Status: Former smoker Past Alcohol Use History: Occasional Past Drug Use History: None Reported - Past Family History Brother(s) Family Medical History: Cancer Additional Family Medical History / Comment(s): COLON CANCER Father Family Medical History: Coronary Artery Disease (CAD), Diabetes Mellitus Additional Family Medical History / Comment(s): Father at age 81 yrs. He was on dialysis and was blind due to his diabetes. Mother Family Medical History: Congestive Heart Failure (CHF), Coronary Artery Disease (CAD), Hypertension Additional Family Medical History / Comment(s): Mother at age 81 yrs. Medications and Allergies Home Medications Medication Instructions Recorded Confirmed Type Venlafaxine HCl ER [Effexor XR] 150 mg PO DAILY 07/17/17 04/23/22 History buPROPion XL [Wellbutrin XL] 150 mg PO DAILY 12/24/18 04/23/22 History Anastrozole [Arimidex] 1 mg PO DAILY 12/05/19 04/23/22 History Atorvastatin [Lipitor] 80 mg PO HS 12/05/19 04/23/22 History QUEtiapine [SEROquel] 200 mg PO HS 12/05/19 04/23/22 History Cinnamon Bark [Cinnamon] 500 mg PO DAILY 09/30/20 04/23/22 History Gabapentin [Neurontin] 100 mg PO BID 09/30/20 04/23/22 History Metoprolol Tartrate [Lopressor] 25 mg PO BID 09/30/20 04/23/22 History Mirabegron [Myrbetriq] 50 mg PO DAILY 09/30/20 04/23/22 History lisinopriL [Zestril] 5 mg PO DAILY 09/30/20 04/23/22 History Calcium Carbonate [Calcium] 600 mg PO DAILY 04/23/22 04/23/22 History Cholecalciferol [Vitamin D3 (25 25 mcg PO DAILY 04/23/22 04/23/22 History Mcg = 1000 Iu)] Empaglifloz/Linaglip/Metformin 1 tab PO BID 04/23/22 04/23/22 History [Trijardy Xr 12.5-2.5-1,000 mg] Melatonin 10 mg PO HS 04/23/22 04/23/22 History Turmeric Root Extract [Turmeric] 500 mg PO DAILY 04/23/22 04/23/22 History Zinc 50 mg PO DAILY 04/23/22 04/23/22 History glipiZIDE XL [Glucotrol Xl] 10 mg PO DAILY 04/23/22 04/23/22 History Allergies Allergy/AdvReac Type Severity Reaction Status Date / Time azithromycin Allergy Swelling Verified 04/23/22 12:12 all over erythromycin base Allergy Swelling Verified 04/23/22 12:12 all over Iodinated Contrast Media Allergy Anaphylaxis Verified 04/23/22 12:12 Iodine and Iodide Containing Allergy Anaphylaxis Verified 04/23/22 12:12 Produc shellfish derived [Shellfish] Allergy Anaphylaxis Verified 04/23/22 12:12 morphine AdvReac Confusion Verified 04/23/22 12:12 Physical Exam Osteopathic Statement: *. No significant issues noted on an osteopathic structural exam other than those noted in the History and Physical/Consult. Vitals: Vital Signs Temp Pulse Resp BP Pulse Ox 04/23/22 09:40 108 H 14 153/81 96 04/23/22 08:52 105 H 04/23/22 08:41 101 H 04/23/22 08:07 100 20 128/82 96 04/23/22 07:38 103 H 04/23/22 07:28 94 04/23/22 06:20 98.9 F 103 H 26 H 134/78 93 L Intake and Output 04/22/22 04/23/22 04/23/22 22:59 06:59 14:59 Other: Weight 109.769 kg Results CBC & Chem 7: 04/23/22 07:07 04/23/22 07:07 Labs: Abnormal Lab Results - Last 24 Hours (Table) 04/23/22 Range/Units 07:07 Sodium 136 L (137-145) mmol/L BUN 18 H (7-17) mg/dL Glucose 250 H (74-99) mg/dL Magnesium 1.5 L (1.6-2.3) mg/dL Alkaline Phosphatase 146 H (38-126) U/L
[2022-04-23] MEDS: IPRATROPIUM-ALBUTEROL 3 ML NEB INHALATION SCH ×3 (11:21→20:24)
[2022-04-23] MEDS: MAGNESIUM SULFATE-D5W PMX 1 GM in DEXTROSE/WATER 1 100ML.BAG IVPB SCH ×3 (11:22→13:32)
[2022-04-23 11:31] LABS: Glucose,Whole Blood 290 mg/dL (75-99)
[2022-04-23] MEDS: INSULIN ASPART (NovoLOG) 100 UNIT/ML VIAL SQ SCH ×3 (12:54→21:32)
--- NOTE | 2022-04-23 13:44 | P.CNPUL ---
History of Present Illness Consult date: 04/23/22 Reason for consult: dyspnea, cough Chief complaint: Coughing, wheezing History of present illness: This is a 62-year-old white female patient with past medical history of hypertension, hyperlipidemia, morbid obesity, type 2 diabetes mellitus, obstructive sleep apnea, remote brief history of smoking, in remission for the last 30 years, patient states she only smoked for a year, history of breast cancer status post double mastectomy, and chemotherapy with last bout of chemotherapy in August 2019, presented to the emergency department on 04/23/2022 complaining of shortness of breath, coughing and wheezing that star shashank about 4 days ago and has progressed. Patient states she has been coughing up lots of phlegm, complaining of chest congestion. Denies any history of chronic lung disease, no history of COPD or asthma. No fever or chills, no nausea vomiting or diarrhea. Patient is not vaccinated against COVID 19, but she did test negative for COVID-19, and influenza A and B. CBC was within normal limits, d-dimer 0.84, [place] sunroom profile were unremarkable, glucose was 250, LFTs are within normal limits. Lactic acid 0.9, chest x-ray showed slight elevated right hemidiaphragm that could be related to partial paralysis, unchanged compared to previous chest x-ray from 2020. Review of Systems All systems: negative Constitutional: Denies chills, Denies fever Eyes: denies blurred vision, denies pain Ears, nose, mouth and throat: Denies headache, Denies sore throat Cardiovascular: Denies chest pain, Denies shortness of breath Respiratory: Reports cough, Reports dyspnea Gastrointestinal: Denies abdominal pain, Denies diarrhea, Denies nausea, Denies vomiting Genitourinary: Denies dysuria, Denies hematuria Musculoskeletal: Denies myalgias Integumentary: Denies pruritus, Denies rash Neurological: Denies numbness, Denies weakness Psychiatric: Denies anxiety, Denies depression Endocrine: Denies fatigue, Denies weight change Past Medical History Past Medical History: Cancer, Diabetes Mellitus, GERD/Reflux, Hyperlipidemia, Hypertension, Sleep Apnea/CPAP/BIPAP Additional Past Medical History / Comment(s): BREAST AND UTERINE CANCER History of Any Multi-Drug Resistant Organisms: None Reported Past Surgical History: Appendectomy, Breast Surgery, Hernia Repair, Hysterectomy, Joint Replacement, Orthopedic Surgery Additional Past Surgical History / Comment(s): DOUBLE MASTECTOMY. BILATERAL KNEE REPLACEMENTS Past Anesthesia/Blood Transfusion Reactions: No Reported Reaction Additional Past Anesthesia/Blood Transfusion Reaction / Comment(s): She has never received blood. Past Psychological History: Anxiety, Bipolar, Depression, Panic Disorder Smoking Status: Former smoker Past Alcohol Use History: Occasional Past Drug Use History: None Reported - Past Family History Brother(s) Family Medical History: Cancer Additional Family Medical History / Comment(s): COLON CANCER Father Family Medical History: Coronary Artery Disease (CAD), Diabetes Mellitus Additional Family Medical History / Comment(s): Father at age 81 yrs. He was on dialysis and was blind due to his diabetes. Mother Family Medical History: Congestive Heart Failure (CHF), Coronary Artery Disease (CAD), Hypertension Additional Family Medical History / Comment(s): Mother at age 81 yrs. Medications and Allergies Home Medications Medication Instructions Recorded Confirmed Type Venlafaxine HCl ER [Effexor XR] 150 mg PO DAILY 07/17/17 04/23/22 History buPROPion XL [Wellbutrin XL] 150 mg PO DAILY 12/24/18 04/23/22 History Anastrozole [Arimidex] 1 mg PO DAILY 12/05/19 04/23/22 History Atorvastatin [Lipitor] 80 mg PO HS 12/05/19 04/23/22 History QUEtiapine [SEROquel] 200 mg PO HS 12/05/19 04/23/22 History Cinnamon Bark [Cinnamon] 500 mg PO DAILY 09/30/20 04/23/22 History Gabapentin [Neurontin] 100 mg PO BID 09/30/20 04/23/22 History Metoprolol Tartrate [Lopressor] 25 mg PO BID 09/30/20 04/23/22 History Mirabegron [Myrbetriq] 50 mg PO DAILY 09/30/20 04/23/22 History lisinopriL [Zestril] 5 mg PO DAILY 09/30/20 04/23/22 History Calcium Carbonate [Calcium] 600 mg PO DAILY 04/23/22 04/23/22 History Cholecalciferol [Vitamin D3 (25 25 mcg PO DAILY 04/23/22 04/23/22 History Mcg = 1000 Iu)] Empaglifloz/Linaglip/Metformin 1 tab PO BID 04/23/22 04/23/22 History [Trijardy Xr 12.5-2.5-1,000 mg] Melatonin 10 mg PO HS 04/23/22 04/23/22 History Turmeric Root Extract [Turmeric] 500 mg PO DAILY 04/23/22 04/23/22 History Zinc 50 mg PO DAILY 04/23/22 04/23/22 History glipiZIDE XL [Glucotrol Xl] 10 mg PO DAILY 04/23/22 04/23/22 History Allergies Allergy/AdvReac Type Severity Reaction Status Date / Time azithromycin Allergy Swelling Verified 04/23/22 12:12 all over erythromycin base Allergy Swelling Verified 04/23/22 12:12 all over Iodinated Contrast Media Allergy Anaphylaxis Verified 04/23/22 12:12 Iodine and Iodide Containing Allergy Anaphylaxis Verified 04/23/22 12:12 Produc shellfish derived [Shellfish] Allergy Anaphylaxis Verified 04/23/22 12:12 morphine AdvReac Confusion Verified 04/23/22 12:12 Physical Exam Vitals: Vital Signs Temp Pulse Resp BP Pulse Ox 04/23/22 12:02 113 H 20 142/77 97 04/23/22 11:36 106 H 04/23/22 11:23 110 H 04/23/22 09:40 108 H 14 153/81 96 04/23/22 08:52 105 H 04/23/22 08:41 101 H 04/23/22 08:07 100 20 128/82 96 04/23/22 07:38 103 H 04/23/22 07:28 94 04/23/22 06:20 98.9 F 103 H 26 H 134/78 93 L Intake and Output 04/22/22 04/23/22 04/23/22 22:59 06:59 14:59 Other: Weight 109.769 kg GENERAL EXAM: Alert, very pleasant, 62-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 HEAD: Normocephalic/atraumatic. EYES: Normal reaction of pupils, equal size. Conjunctiva pink, sclera white. NOSE: Clear with pink turbinates. THROAT: No erythema or exudates. NECK: No masses, no JVD, no thyroid enlargement, no adenopathy. CHEST: No chest wall deformity. Symmetrical expansion. LUNGS: Coarse breath sounds, with rhonchi CVS: Regular rate and rhythm, normal S1 and S2, no gallops, no murmurs, no rubs ABDOMEN: Soft, nontender. No hepatosplenomegaly, normal bowel sounds, no guarding or rigidity. EXTREMITIES: No clubbing, no edema, no cyanosis, 2+ pulses and upper and lower extremities. MUSCULOSKELETAL: Muscle strength and tone normal. SPINE: No scoliosis or deformity SKIN: No rashes CENTRAL NERVOUS SYSTEM: Alert and oriented -3. No focal deficits, tone is normal in all 4 extremities. PSYCHIATRIC: Alert and oriented -3. Appropriate affect. Intact judgment and insight. Results - Laboratory Findings CBC and BMP: 04/23/22 07:07 04/23/22 07:07 PT/INR, D-dimer D-Dimer 0.84 mg/L FEU (<0.60) H 04/23/22 11:10 Abnormal lab findings: Abnormal Labs 04/23/22 04/23/22 04/23/22 07:07 11:10 11:18 D-Dimer 0.84 H Sodium 136 L BUN 18 H Glucose 250 H POC Glucose (mg/dL) 290 H Magnesium 1.5 L Alkaline Phosphatase 146 H - Diagnostic Findings Chest x-ray: report reviewed, image reviewed Assessment and Plan Plan: Assessment: #1. Acute tracheobronchitis, with secondary bronchospasm. COVID-19 PCR, influenza A and B were negative. Chest x-ray shows slightly elevated right hemidiaphragm, chronic #2. History of obstructive sleep apnea #3. History of breast cancer, status post double mastectomy and chemotherapy #4. Morbid obesity with BMI 40.3 kg/m #5. Essential hypertension #6. Hyperlipidemia #7. Diabetes mellitus type 2 #8. Remote history of smoking, patient only smoked for 1 year, has been in remission for last 30 years #9. History of anxiety disorder Plan: Chest x-ray has been reviewed, patient was examined at the bedside We will increase IV steroids to 60 g every 6 hours Tessalon Perles 200 mg 3 times a day DuoNeb, Pulmicort and Perforomist Continue to follow her clinical course I have personally seen and examined the patient, performed the documentation and the assessment and plan as written. Number of minutes spent on the visit: [15] Time with Patient: Greater than 30
--- NOTE | 2022-04-23 16:58 | NM ---
EXAMINATION TYPE: NM pul perfusion DATE OF EXAM: 04/23/2022 COMPARISON: Perfusion scan 11/23/2017, chest radiograph 04/23/2022, CT chest 11/26/2019. History: patient age:Female; 62 years old; Reason for study: Tachycardia, shortness of breath, positive d-dimer; Following administration of 5.2 mCi Tc 99m MAA. Images obtained post injection. No ventilation was p erformed. FINDINGS: No ventilation was performed Delayed images demonstrate no perfusion abnormalities. No segmental defects are noted. IMPRESSION: PE absent by perfusion only modified PIOPED II criteria.
[2022-04-23 17:04] LABS: Glucose,Whole Blood 264 mg/dL (75-99)
[2022-04-23] MEDS: methylPREDNISolone SOD SUCCI 125 MG/2 ML VIAL IV SCH (18:19)
[2022-04-23] MEDS: BENZONATATE 100 MG CAP PO SCH (18:20)
[2022-04-23] MEDS: BUDESONIDE 1 MG/2 ML NEBU INHALATION SCH (20:24)
[2022-04-23] MEDS: FORMOTEROL FUMARATE 20 MCG/2 ML NEBU INHALATION SCH (20:24)
[2022-04-23 20:39] LABS: Glucose,Whole Blood 307 mg/dL (75-99)
[2022-04-23] MEDS ORDERED: methylPREDNISolone SOD SUCCI 125 MG/2 ML VIAL IV SCH (21:00)
[2022-04-23] MEDS: MELATONIN 5 MG TABLET PO SCH (21:33)
[2022-04-23] MEDS: METOPROLOL TARTRATE 25 MG TAB PO SCH (21:33)
[2022-04-23] MEDS: ATORVASTATIN 80 MG TAB PO SCH (21:33)
[2022-04-23] MEDS: GABAPENTIN 100 MG CAP PO SCH (21:33)
[2022-04-23] MEDS: QUEtiapine 100 MG TAB PO SCH (21:33)
[2022-04-24] MEDS: HEPARIN SODIUM,PORCINE/PF 5,000 UNIT/0.5 ML SYRINGE SQ SCH ×3 (00:42→15:58)
[2022-04-24] MEDS: BENZONATATE 100 MG CAP PO SCH ×4 (00:43→21:17)
[2022-04-24] MEDS: methylPREDNISolone SOD SUCCI 125 MG/2 ML VIAL IV SCH ×4 (00:43→18:22)
[2022-04-24] MEDS: IPRATROPIUM-ALBUTEROL 3 ML NEB INHALATION SCH ×7 (01:04→23:17)
[2022-04-24 06:41] LABS: Glucose,Whole Blood 246 mg/dL (75-99)
[2022-04-24] MEDS: FORMOTEROL FUMARATE 20 MCG/2 ML NEBU INHALATION SCH ×2 (07:16→19:30)
[2022-04-24] MEDS: BUDESONIDE 1 MG/2 ML NEBU INHALATION SCH ×2 (07:16→19:30)
[2022-04-24] MEDS: GABAPENTIN 100 MG CAP PO SCH ×2 (08:01→21:17)
[2022-04-24] MEDS: CALCIUM CARBONATE 500 MG CHEWABLE PO SCH (08:01)
[2022-04-24] MEDS: lisinopriL 5 MG TAB PO SCH (08:01)
[2022-04-24] MEDS: CHOLECALCIFEROL 25 MCG (1000 IU) TABLET PO SCH (08:01)
[2022-04-24] MEDS: ZINC SULFATE 220 MG CAP PO SCH (08:01)
[2022-04-24] MEDS: METOPROLOL TARTRATE 25 MG TAB PO SCH ×2 (08:01→21:18)
[2022-04-24] MEDS: VENLAFAXINE HCL ER 150 MG CAP PO SCH (08:03)
[2022-04-24] MEDS: buPROPion XL 150 MG TAB.ER.24H PO SCH (08:03)
[2022-04-24] MEDS: INSULIN ASPART (NovoLOG) 100 UNIT/ML VIAL SQ SCH ×4 (08:04→21:40)
[2022-04-24] MEDS: ANASTROZOLE 1 MG TAB PO SCH (08:04)
[2022-04-24] MEDS: NON FORMULARY DRUG (Mirabegron [Myrbetriq] 50 MG Tab.Er.24h) PO SCH (11:08)
--- NOTE | 2022-04-24 11:18 | P.PN ---
Subjective Progress Note Date: 04/24/22 Principal diagnosis: Shortness of breath This is a 62-year-old white female patient with past medical history of hypertension, hyperlipidemia, morbid obesity, type 2 diabetes mellitus, obstructive sleep apnea, remote brief history of smoking, in remission for the last 30 years, patient states she only smoked for a year, history of breast cancer status post double mastectomy, and chemotherapy with last bout of chemotherapy in August 2019, presented to the emergency department on 04/23/2022 complaining of shortness of breath, coughing and wheezing that started about 4 days ago and has progressed. Patient states she has been coughing up lots of phlegm, complaining of chest congestion. Denies any history of chronic lung disease, no history of COPD or asthma. No fever or chills, no nausea vomiting or diarrhea. Patient is not vaccinated against COVID 19, but she did test negative for COVID-19, and influenza A and B. CBC was within normal limits, d-dimer 0.84, [place] sunroom profile were unremarkable, glucose was 250, LFTs are within normal limits. Lactic acid 0.9, chest x-ray showed slight elevated right hemidiaphragm that could be related to partial paralysis, unchanged compared to previous chest x-ray from 2019. On 04/24/2022 patient seen in follow-up on medical surgical floor, she states she is breathing better, still has a lot of anxiety, but overall feeling better. She is on 3 L of oxygen pulse ox is 92-94%. Afebrile, hemodynamically she is stable. No cognitive chest discomfort. Remains on nebulized broncho-dilators, she is on Tessalon Perles, and IV Solu-Medrol 60 mg every 6 hours. No acute events overnight. Patient had slightly elevated d-dimer at 0.84, and a VQ scan was obtained, no ventilation was performed, but there was no perfusion abnormalities. 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 HEAD: Normocephalic/atraumatic. EYES: Normal reaction of pupils, equal size. Conjunctiva pink, sclera white. NOSE: Clear with pink turbinates. THROAT: No erythema or exudates. NECK: No masses, no JVD, no thyroid enlargement, no adenopathy. CHEST: No chest wall deformity. Symmetrical expansion. LUNGS: Coarse breath sounds, with rhonchi CVS: Regular rate and rhythm, normal S1 and S2, no gallops, no murmurs, no rubs ABDOMEN: Soft, nontender. No hepatosplenomegaly, normal bowel sounds, no guarding or rigidity. EXTREMITIES: No clubbing, no edema, no cyanosis, 2+ pulses and upper and lower extremities. MUSCULOSKELETAL: Muscle strength and tone normal. SPINE: No scoliosis or deformity SKIN: No rashes CENTRAL NERVOUS SYSTEM: Alert and oriented -3. No focal deficits, tone is normal in all 4 extremities. PSYCHIATRIC: Alert and oriented -3. Appropriate affect. Intact judgment and insight. - Labs CBC & Chem 7: 04/23/22 07:07 04/23/22 07:07 Labs: Abnormal Lab Results - Last 24 Hours (Table) 04/23/22 04/23/22 04/23/22 Range/Units 11:10 11:18 17:00 D-Dimer 0.84 H (<0.60) mg/L FEU POC Glucose (mg/dL) 290 H 264 H (75-99) mg/dL 04/23/22 04/24/22 Range/Units 20:37 06:40 D-Dimer (<0.60) mg/L FEU POC Glucose (mg/dL) 307 H 246 H (75-99) mg/dL Assessment and Plan Plan: Assessment: #1. Acute tracheobronchitis, with secondary bronchospasm. COVID-19 PCR, influenza A and B were negative. Chest x-ray shows slightly elevated right hemidiaphragm, which is chronic #2. History of obstructive sleep apnea #3. History of breast cancer, status post double mastectomy and chemotherapy #4. Morbid obesity with BMI 40.3 kg/m #5. Essential hypertension #6. Hyperlipidemia #7. Diabetes mellitus type 2 #8. Remote history of smoking, patient only smoked for 1 year, has been in remission for last 30 years #9. History of anxiety disorder Plan: Patient is improving Continue IV steroids, Continue breathing treatments VQ scan showed negative perfusion scan Clinical patient is improving Continue current inpatient treatment I have personally seen and examined the patient, performed the documentation and the assessment and plan as written. Number of minutes spent on the visit: [15] Time with Patient: Less than 30
[2022-04-24 11:49] LABS: Glucose,Whole Blood 378 mg/dL (75-99)
[2022-04-24 12:44] LABS: Basophils % (A) 0 %; Eosinophils % (A) 0 %; HCT 40.5 % (34.0-46.0); HGB 13.3 gm/dL (11.4-16.0); Lymphocytes # (A) 0.9 k/uL (1.0-4.8); Lymphocytes % (A) 8 %; MCH 29.3 pg (25.0-35.0); MCHC 32.7 g/dL (31.0-37.0); MCV 89.5 fL (80.0-100.0); Mean Platelet Volume 6.5; Monocytes # (A) 0.3 k/uL (0-1.0); Monocytes % (A) 3 %; Neutrophils # (A) 9.7 k/uL (1.3-7.7); Neutrophils % (A) 88 %; Platelet Count 264 k/uL (150-450); RBC 4.52 m/uL (3.80-5.40); RDW 14.1 % (11.5-15.5); WBC 11.1 k/uL (3.8-10.6)
[2022-04-24 13:15] LABS: African American GFR (CKD) >90 (>60 ml/min/1.73 sqM); Anion Gap 9 mmol/L; Blood Urea Nitrogen 22 mg/dL (7-17); Calcium 8.9 mg/dL (8.4-10.2); Carbon Dioxide 24 mmol/L (22-30); Chloride 98 mmol/L (98-107); Glucose 326 mg/dL (74-99); Non-African American GFR(CKD) >90 (>60 ml/min/1.73 sqM); Sodium 131 mmol/L (137-145)
--- NOTE | 2022-04-24 15:21 | P.PN ---
Subjective Progress Note Date: 04/24/22 History of Presenting Illness: Patient is a very pleasant 62-year-old female with a past medical history of hypertension, hyperlipidemia, anxiety, depression, GERD, [id number] diabetes mellitus, breast cancer status post double mastectomy followed by dong cantu, previous nicotine use quit smoking 30 years ago but reports exposure to secondhand smoke her entire life as her is a smoker and all of her family members are smokers that smoke in the house. Patient presented to the emergency department with a chief complaint of shortness of breath and productive cough. Patient reports symptoms began on Friday04/19/22 and have progressively worsened. Patient denies having any fevers, chills, headache, lightheadedness, dizziness, sore throat or dysphasia, chest pain or palpitations, abdominal pain, nausea, vomiting, or experiencing any numbness/ tingling/weakness in her extremities. Patient underwent full evaluation in the emergency department. Vital signs stable with exception of mild tachycardia with heart rate 110s. Chest x-ray negative for acute cardiopulmonary process showing slightly elevated right diaphragm possibly secondary to right hemiparesis of diaphragm. CBC and CMP were unremarkable with the exception of hyperglycemia with glucose of 250, hypomagnesemia with magnesium of 1.5, and elevated alkaline phosphatase of 146. Influenza A, influenza B, and Covid PCR were all negative. Patient admitted under our services with consultation to pulmonology. Interval history: Patient was seen and examined at the bedside. She still complaining of difficulty reading this patient with ambulation. She is currently on 3 L nasal cannula. Otherwise no acute changes overnight Vital signs reviewed and stable. General: Nontoxic, no distress and appears stated age. Derm: Skin warm and dry, normal coloration for ethnicity. Head: Atraumatic, normocephalic and symmetric. Eyes: EOMs intact, no lid lag, and anicteric sclera Mouth: no lip lesions, mucus membranes moist Cardiovascular: regular rate and rhythm with normal S1S2, no murmur, positive posterior tibial pulses bilaterally, and cap refill < 2 seconds. Lungs: Increased respiratory effort without acute respiratory distress. Resp irations even and regular. Lungs tight with diffuse expiratory wheezes bilaterally. No rhonchi, no rales, no wheezing, and no accessory muscle usage. Abdominal: soft, nontender to palpation, no guarding, no appreciable organomegaly Ext: ROM intact. No gross muscle atrophy, no edema, no contractures Neuro: Speech clear, face symmetrical and CN II-XII grossly intact with no noted focal neuro deficits Psych: Alert and oriented to person, place, time, and situation. Appropriate and pleasant affect Assessment and plan: Acute asthmatic bronchitis -Symptoms improving with steroids. -Resume bronchodilator treatment -Oxygenation to be administered and titrated as needed to maintain SPO2 equal to or greater than 92% -Telemetry monitoring. -IV Rocephin -Monitor Pulse-oximetry -Appreciate pulmonary input -Negative VQ scan -Unremarkable progress to the level Hypomagnesemia -Replaced, we will continue to monitor with repeat a.m. labs. Sinus tachycardia -Obtain EKG -Continue telemetry monitoring. Hypertension -Monitor vital signs and continue daily medication regimen with lisinopril and metoprolol. Hyperlipidemia -Continue daily medication regimen with atorvastatin 80 mg nightly. Lln-lopbafd-[id number] diabetes mellitus -Hold Trijardy and glipizide and placed on glycemic protocol with NovoLog sliding scale. Anxiety and depression -Continue daily medication regimen with Wellbutrin, Seroquel, and Effexor. Morbid obesity The patient is admitted with an anticipated less than 2 midnight stay for evaluation of shortness of breath with acute bronchitis CODE STATUS: Full code DVT prophylaxis: Heparin Objective - Vital Signs Vital signs: Vital Signs Temp 98.0 F 04/24/22 14:20 Pulse 99 04/24/22 14:20 Resp 18 04/24/22 14:20 BP 118/63 04/24/22 14:20 Pulse Ox 96 04/24/22 14:20 FiO2 Intake & Output 04/23/22 04/24/22 04/24/22 18:59 06:59 18:59 Intake Total 444 Balance 444 Weight 109.769 kg Intake: Oral 444 Other: Voiding Method Toilet Toilet # Voids 1 2 6 - Labs CBC & Chem 7: 04/24/22 12:14 04/24/22 12:14 Labs: Abnormal Lab Results - Last 24 Hours (Table) 04/23/22 04/23/22 04/24/22 Range/Units 17:00 20:37 06:40 WBC (3.8-10.6) k/uL Neutrophils # (1.3-7.7) k/uL Lymphocytes # (1.0-4.8) k/uL Sodium (137-145) mmol/L BUN (7-17) mg/dL Glucose (74-99) mg/dL POC Glucose (mg/dL) 264 H 307 H 246 H (75-99) mg/dL 04/24/22 04/24/22 04/24/22 Range/Units 11:48 12:14 12:14 WBC 11.1 H (3.8-10.6) k/uL Neutrophils # 9.7 H (1.3-7.7) k/uL Lymphocytes # 0.9 L (1.0-4.8) k/uL Sodium 131 L (137-145) mmol/L BUN 22 H (7-17) mg/dL Glucose 326 H (74-99) mg/dL POC Glucose (mg/dL) 378 H (75-99) mg/dL
[2022-04-24] MEDS ORDERED: AZITHROMYCIN 500 MG in SODIUM CHLORIDE 0.9% 250 ML IVPB SCH (15:30)
[2022-04-24 17:08] LABS: Glucose,Whole Blood 368 mg/dL (75-99)
[2022-04-24 21:14] LABS: Glucose,Whole Blood 496 mg/dL (75-99)
[2022-04-24] MEDS: DOXYCYCLINE 100 MG in SODIUM CHLORIDE 0.9% 100 ML IVPB SCH (21:17)
[2022-04-24] MEDS: ATORVASTATIN 80 MG TAB PO SCH (21:18)
[2022-04-24] MEDS: QUEtiapine 100 MG TAB PO SCH (21:18)
[2022-04-24] MEDS: MELATONIN 5 MG TABLET PO SCH (21:18)
[2022-04-24] MEDS ORDERED: INSULIN ASPART (NovoLOG) 100 UNIT/ML VIAL SQ ONE (21:29)
[2022-04-25] MEDS: methylPREDNISolone SOD SUCCI 125 MG/2 ML VIAL IV SCH ×3 (00:48→12:29)
[2022-04-25] MEDS: HEPARIN SODIUM,PORCINE/PF 5,000 UNIT/0.5 ML SYRINGE SQ SCH ×2 (00:49→08:12)
[2022-04-25] MEDS: IPRATROPIUM-ALBUTEROL 3 ML NEB INHALATION SCH ×4 (03:23→15:14)
[2022-04-25 04:12] LABS: Glucose,Whole Blood 257 mg/dL (75-99)
[2022-04-25 06:52] LABS: Glucose,Whole Blood 286 mg/dL (75-99)
[2022-04-25 07:39] VITALS: RESP 18
[2022-04-25] MEDS: BUDESONIDE 1 MG/2 ML NEBU INHALATION SCH (08:05)
[2022-04-25] MEDS: FORMOTEROL FUMARATE 20 MCG/2 ML NEBU INHALATION SCH (08:05)
[2022-04-25] MEDS: DOXYCYCLINE 100 MG in SODIUM CHLORIDE 0.9% 100 ML IVPB SCH (08:11)
[2022-04-25] MEDS: BENZONATATE 100 MG CAP PO SCH (08:12)
[2022-04-25] MEDS: buPROPion XL 150 MG TAB.ER.24H PO SCH (08:12)
[2022-04-25] MEDS: CHOLECALCIFEROL 25 MCG (1000 IU) TABLET PO SCH (08:13)
[2022-04-25] MEDS: QUEtiapine 100 MG TAB PO SCH (08:13)
[2022-04-25] MEDS: METOPROLOL TARTRATE 25 MG TAB PO SCH (08:13)
[2022-04-25] MEDS: ANASTROZOLE 1 MG TAB PO SCH (08:13)
[2022-04-25] MEDS: lisinopriL 5 MG TAB PO SCH (08:13)
[2022-04-25] MEDS: ZINC SULFATE 220 MG CAP PO SCH (08:13)
[2022-04-25] MEDS: CALCIUM CARBONATE 500 MG CHEWABLE PO SCH (08:13)
[2022-04-25] MEDS: INSULIN ASPART (NovoLOG) 100 UNIT/ML VIAL SQ SCH ×2 (08:15→12:28)
[2022-04-25] MEDS: GABAPENTIN 100 MG CAP PO SCH (10:18)
[2022-04-25] MEDS: VENLAFAXINE HCL ER 150 MG CAP PO SCH (10:18)
[2022-04-25] MEDS: NON FORMULARY DRUG (Mirabegron [Myrbetriq] 50 MG Tab.Er.24h) PO SCH (10:20)
--- NOTE | 2022-04-25 10:59 | P.PN ---
Subjective Progress Note Date: 04/25/22 Principal diagnosis: Shortness of breath This is a 62-year-old white female patient with past medical history of hypertension, hyperlipidemia, morbid obesity, type 2 diabetes mellitus, obstructive sleep apnea, remote brief history of smoking, in remission for the last 30 years, patient states she only smoked for a year, history of breast cancer status post double mastectomy, and chemotherapy with last bout of chemotherapy in August 2019, presented to the emergency department on 04/23/2022 complaining of shortness of breath, coughing and wheezing that started about 4 days ago and has progressed. Patient states she has been coughing up lots of phlegm, complaining of chest congestion. Denies any history of chronic lung disease, no history of COPD or asthma. No fever or chills, no nausea vomiting or diarrhea. Patient is not vaccinated against COVID 19, but she did test negative for COVID-19, and influenza A and B. CBC was within normal limits, d-dimer 0.84, [place] sunroom profile were unremarkable, glucose was 250, LFTs are within normal limits. Lactic acid 0.9, chest x-ray showed slight elevated right hemidiaphragm that could be related to partial paralysis, unchanged compared to previous chest x-ray from 2019. On 04/24/2022 patient seen in follow-up on medical surgical floor, she states she is breathing better, still has a lot of anxiety, but overall feeling better. She is on 3 L of oxygen pulse ox is 92-94%. Afebrile, hemodynamically she is stable. No cognitive chest discomfort. Remains on nebulized broncho-dilators, she is on Tessalon Perles, and IV Solu-Medrol 60 mg every 6 hours. No acute events overnight. Patient had slightly elevated d-dimer at 0.84, and a VQ scan was obtained, no ventilation was performed, but there was no perfusion abnormalities. On 04/25/2022 patient seen in follow-up on medical surgical floor, she is still little wheezy, but overall improving, vital signs have been stable, patient is on room air, satting 96%, afebrile. Cough is improving. No complaints of chest discomfort, she remains on nebulized bronchodilators, empiric antibiotics, and IV steroids. 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 HEAD: Normocephalic/atraumatic. EYES: Normal reaction of pupils, equal size. Conjunctiva pink, sclera white. NOSE: Clear with pink turbinates. THROAT: No erythema or exudates. NECK: No masses, no JVD, no thyroid enlargement, no adenopathy. CHEST: No chest wall deformity. Symmetrical expansion. LUNGS: Coarse breath sounds, with rhonchi CVS: Regular rate and rhythm, normal S1 and S2, no gallops, no murmurs, no rubs ABDOMEN: Soft, nontender. No hepatosplenomegaly, normal bowel sounds, no guarding or rigidity. EXTREMITIES: No clubbing, no edema, no cyanosis, 2+ pulses and upper and lower extremities. MUSCULOSKELETAL: Muscle strength and tone normal. SPINE: No scoliosis or deformity SKIN: No rashes CENTRAL NERVOUS SYSTEM: Alert and oriented -3. No focal deficits, tone is normal in all 4 extremities. PSYCHIATRIC: Alert and oriented -3. Appropriate affect. Intact judgment and insight. - Labs CBC & Chem 7: 04/24/22 12:14 04/24/22 12:14 Labs: Abnormal Lab Results - Last 24 Hours (Table) 04/24/22 04/24/22 04/24/22 Range/Units 11:48 12:14 12:14 WBC 11.1 H (3.8-10.6) k/uL Neutrophils # 9.7 H (1.3-7.7) k/uL Lymphocytes # 0.9 L (1.0-4.8) k/uL Sodium 131 L (137-145) mmol/L BUN 22 H (7-17) mg/dL Glucose 326 H (74-99) mg/dL POC Glucose (mg/dL) 378 H (75-99) mg/dL 04/24/22 04/24/22 04/25/22 Range/Units 17:06 21:11 04:10 WBC (3.8-10.6) k/uL Neutrophils # (1.3-7.7) k/uL Lymphocytes # (1.0-4.8) k/uL Sodium (137-145) mmol/L BUN (7-17) mg/dL Glucose (74-99) mg/dL POC Glucose (mg/dL) 368 H 496 H 257 H (75-99) mg/dL 04/25/22 Range/Units 06:50 WBC (3.8-10.6) k/uL Neutrophils # (1.3-7.7) k/uL Lymphocytes # (1.0-4.8) k/uL Sodium (137-145) mmol/L BUN (7-17) mg/dL Glucose (74-99) mg/dL POC Glucose (mg/dL) 286 H (75-99) mg/dL Assessment and Plan Plan: Assessment: #1. Acute tracheobronchitis, with secondary bronchospasm. COVID-19 PCR, in fluenza A and B were negative. Chest x-ray shows slightly elevated right hemidiaphragm, which is chronic #2. History of obstructive sleep apnea #3. History of breast cancer, status post double mastectomy and chemotherapy #4. Morbid obesity with BMI 40.3 kg/m #5. Essential hypertension #6. Hyperlipidemia #7. Diabetes mellitus type 2 #8. Remote history of smoking, patient only smoked for 1 year, has been in remission for last 30 years #9. History of anxiety disorder Plan: Patient is improving Still slightly bronchospastic Vital signs are stable She could be considered for discharge home on prednisone taper, and breathing treatments or inhaler Outpatient follow-up with Dr. Cristina in the office in 7-10 days I have personally seen and examined the patient, performed the documentation and the assessment and plan as written. Number of minutes spent on the visit: [15] Time with Patient: Less than 30
[2022-04-25 11:45] LABS: Glucose,Whole Blood 388 mg/dL (75-99)
[2022-04-25 12:35] LABS: Basophils % (A) 0 %; Eosinophils % (A) 0 %; HCT 39.4 % (34.0-46.0); HGB 12.4 gm/dL (11.4-16.0); Lymphocytes # (A) 1.1 k/uL (1.0-4.8); Lymphocytes % (A) 10 %; MCH 28.6 pg (25.0-35.0); MCHC 31.4 g/dL (31.0-37.0); MCV 91.1 fL (80.0-100.0); Mean Platelet Volume 6.7; Monocytes # (A) 0.4 k/uL (0-1.0); Monocytes % (A) 4 %; Neutrophils # (A) 9.2 k/uL (1.3-7.7); Neutrophils % (A) 85 %; Platelet Count 218 k/uL (150-450); RBC 4.32 m/uL (3.80-5.40); RDW 13.8 % (11.5-15.5); WBC 10.8 k/uL (3.8-10.6)
[2022-04-25 12:45] LABS: African American GFR (CKD) >90 (>60 ml/min/1.73 sqM); Anion Gap 8 mmol/L; Blood Urea Nitrogen 22 mg/dL (7-17); Carbon Dioxide 25 mmol/L (22-30); Chloride 100 mmol/L (98-107); Glucose 329 mg/dL (74-99); Non-African American GFR(CKD) >90 (>60 ml/min/1.73 sqM); Potassium 4.7 mmol/L (3.5-5.1); Sodium 133 mmol/L (137-145)
--- NOTE | 2022-04-25 13:30 | P.DS ---
Providers Date of admission: 04/24/22 15:28 Expected date of discharge: 04/25/22 Attending physician: Maribel Solorzano DO Consults: 04/23/22 10:54 Consult Physician Routine Consulting Provider: Nellie Guardado Consult Reason/Comments: SOB, concerns of possible right hemiparalysis of diaphragm Do you want consulting provider notified?: Yes Primary care physician: Shankar Veronica Hospital Course: Hospital Course: istory of Presenting Illness: Patient is a very pleasant 62-year-old female with a past medical history of hypertension, hyperlipidemia, anxiety, depression, GERD, alv-rlgmebp-wakuuoyfm diabetes mellitus, breast cancer status post double mastectomy followed by chemo, previous nicotine use quit smoking 30 years ago but reports exposure to secondhand smoke her entire life as her is a smoker and all of her family members are smokers that smoke in the house. Patient presented to the emergency department with a chief complaint of shortness of breath and productive cough. Patient reports symptoms began on Friday04/19/22 and have progressively worsened. Patient denies having any fevers, chills, headache, lightheadedness, dizziness, sore throat or dysphasia, chest pain or palpitations, abdominal pain, nausea, vomiting, or experiencing any numbness/tingling/weakness in her extremities. Patient underwent full evaluation in the emergency department. Vital signs stable with exception of mild tachycardia with heart rate 110s. Chest x-ray negative for acute cardiopulmonary process showing slightly elevated right diaphragm possibly secondary to right hemiparesis of diaphragm. CBC and CMP were unremarkable with the exception of hyperglycemia with glucose of 250, hypomagnesemia with magnesium of 1.5, and elevated alkaline phosphatase of 146. Influenza A, influenza B, and Covid PCR were all negative. Patient admitted under our services with consultation to pulmonology. Physical examination on discharge: General: non toxic, no distress, appears at stated age Derm: warm, dry Head: atraumatic, normocephalic, symmetric Eyes: EOMI, no lid lag, anicteric sclera Mouth: no lip lesion, mucus membranes moist Cardiovascular: S1S2 reg, no murmur, positive posterior tibial pulse bilateral, Lungs: CTA bilateral, no rhonchi, no rales , no accessory muscle use Abdominal: soft, nontender to palpation, no guarding, no appreciable organomegaly Ext: no gross muscle atrophy, no edema, no contractures Neuro: CN II-XI grossly intact, no focal neuro deficits Psych: Alert, oriented, appropriate affect Hospital course in detail the problem list: Acute asthmatic bronchitis -Improving -Symptoms improving with steroids. -Discharged home on prednisone 40 mg daily for 5 days -Home O2 evaluation prior to discharge -Appreciate pulmonary input -Negative VQ scan -Unremarkable progress to the level Hypomagnesemia -Replaced, we will continue to monitor with repeat a.m. labs. Sinus tachycardia -Resolved Hypertension -Monitor vital signs and continue daily medication regimen with lisinopril and metoprolol. Hyperlipidemia -Continue daily medication regimen with atorvastatin 80 mg nightly. Rpa-nuskmin-cwwbvikby diabetes mellitus -Hold Trijardy and glipizide and placed on glycemic protocol with NovoLog sliding scale. Anxiety and depression -Continue daily medication regimen with Wellbutrin, Seroquel, and Effexor. Morbid obesity Patient Condition at Discharge: Stable Patient Condition at Discharge: Stable Plan - Discharge Summary Discharge Rx Participant: Yes New Discharge Prescriptions: New predniSONE [Deltasone] 40 mg PO DAILY 5 Days #10 tab Formoterol Fumarate [Perforomist] 20 mcg INHALATION RT-BID #1 ml Benzonatate [Tessalon Perles] 200 mg PO TID #30 cap Doxycycline [Vibramycin] 100 mg PO BID 7 Days #14 capsule Continue Venlafaxine HCl ER [Effexor XR] 150 mg PO DAILY buPROPion XL [Wellbutrin XL] 150 mg PO DAILY Atorvastatin [Lipitor] 80 mg PO HS Anastrozole [Arimidex] 1 mg PO DAILY QUEtiapine [SEROquel] 200 mg PO HS Mirabegron [Myrbetriq] 50 mg PO DAILY Cinnamon Bark [Cinnamon] 500 mg PO DAILY Gabapentin [Neurontin] 100 mg PO BID lisinopriL [Zestril] 5 mg PO DAILY Metoprolol Tartrate [Lopressor] 25 mg PO BID Calcium Carbonate [Calcium] 600 mg PO DAILY Melatonin 10 mg PO HS Empaglifloz/Linaglip/Metformin [Trijardy Xr 12.5-2.5-1,000 mg] 1 tab PO BID Zinc 50 mg PO DAILY Turmeric Root Extract [Turmeric] 500 mg PO DAILY Cholecalciferol [Vitamin D3 (25 Mcg = 1000 Iu)] 25 mcg PO DAILY glipiZIDE XL [Glucotrol XL] 10 mg PO DAILY Discharge Medication List Venlafaxine HCl ER [Effexor XR] 150 mg PO DAILY 07/17/17 [History] buPROPion XL [Wellbutrin XL] 150 mg PO DAILY 12/24/18 [History] Anastrozole [Arimidex] 1 mg PO DAILY 12/05/19 [History] Atorvastatin [Lipitor] 80 mg PO HS 12/05/19 [History] QUEtiapine [SEROquel] 200 mg PO HS 12/05/19 [History] Cinnamon Bark [Cinnamon] 500 mg PO DAILY 09/30/20 [History] Gabapentin [Neurontin] 100 mg PO BID 09/30/20 [History] Metoprolol Tartrate [Lopressor] 25 mg PO BID 09/30/20 [History] Mirabegron [Myrbetriq] 50 mg PO DAILY 09/30/20 [History] lisinopriL [Zestril] 5 mg PO DAILY 09/30/20 [History] Calcium Carbonate [Calcium] 600 mg PO DAILY 04/23/22 [History] Cholecalciferol [Vitamin D3 (25 Mcg = 1000 Iu)] 25 mcg PO DAILY 04/23/22 [History] Empaglifloz/Linaglip/Metformin [Trijardy Xr 12.5-2.5-1,000 mg] 1 tab PO BID 03/26 12/15 [History] Melatonin 10 mg PO HS 04/23/22 [History] Turmeric Root Extract [Turmeric] 500 mg PO DAILY 04/23/22 [History] Zinc 50 mg PO DAILY 04/23/22 [History] glipiZIDE XL [Glucotrol XL] 10 mg PO DAILY 04/23/22 [History] Benzonatate [Tessalon Perles] 200 mg PO TID #30 cap 04/25/22 [Rx] Doxycycline [Vibramycin] 100 mg PO BID 7 Days #14 capsule 04/25/22 [Rx] Formoterol Fumarate [Perforomist] 20 mcg INHALATION RT-BID #1 ml 04/25/22 [Rx] predniSONE [Deltasone] 40 mg PO DAILY 5 Days #10 tab 04/25/22 [Rx] Follow up Appointment(s)/Referral(s): Shankar Veronica MD [Primary Care Provider] - 1-2 days Edin Cristina DO [Doctor of Osteopathic Medicine] - 1 Week
[2022-04-25 13:46] VITALS: BP 117/78; TEMP 97.6
[2022-04-25 15:25] VITALS: PULSE 98
== END 2022-04-25 15:34 | disposition home or self-care (01) ==
LOC: EC 06:14 → 6NMEDSUR 09:48 → INTOOBSV 04-24 15:28 → OBSVTOIN 04-24 15:28 → UNDODISIN 04-25 15:34
PROVIDERS: ADMIT Internal Medicine; ATTEND Internal Medicine
DX: J20.9 Acute bronchitis, unspecified (principal); R09.02 Hypoxemia; J45.909 Unspecified asthma, uncomplicated; E11.65 Type 2 diabetes mellitus with hyperglycemia; E83.42 Hypomagnesemia; R79.89 Other specified abnormal findings of blood chemistry; R74.8 Abnormal levels of other serum enzymes; K21.9 Gastro-esophageal reflux disease without esophagitis; I10 Essential (primary) hypertension; E78.5 Hyperlipidemia, unspecified; R00.0 Tachycardia, unspecified; G47.33 Obstructive sleep apnea (adult) (pediatric); E66.01 Morbid (severe) obesity due to excess calories; Z68.41 Body mass index [BMI] 40.0-44.9, adult; F31.9 Bipolar disorder, unspecified; F41.0 Panic disorder [episodic paroxysmal anxiety]; F41.9 Anxiety disorder, unspecified; Z20.822 Contact with and (suspected) exposure to COVID-19; Z77.22 Contact with and (suspected) exposure to environmental tobacco smoke (acute) (chronic); Z79.811 Long term (current) use of aromatase inhibitors; Z79.84 Long term (current) use of oral hypoglycemic drugs; Z79.899 Other long term (current) drug therapy; Z88.1 Allergy status to other antibiotic agents; Z88.5 Allergy status to narcotic agent; Z91.041 Radiographic dye allergy status; Z91.013 Allergy to seafood; Z92.21 Personal history of antineoplastic chemotherapy; Z87.891 Personal history of nicotine dependence; Z28.310 Unvaccinated for COVID-19; Z90.13 Acquired absence of bilateral breasts and nipples; Z85.3 Personal history of malignant neoplasm of breast; Z90.710 Acquired absence of both cervix and uterus; Z96.653 Presence of artificial knee joint, bilateral; Z85.42 Personal history of malignant neoplasm of other parts of uterus; Z90.49 Acquired absence of other specified parts of digestive tract; Z98.890 Other specified postprocedural states; Z83.3 Family history of diabetes mellitus; Z82.49 Family history of ischemic heart disease and other diseases of the circulatory system; Z80.0 Family history of malignant neoplasm of digestive organs; Z82.1 Family history of blindness and visual loss; Z84.1 Family history of disorders of kidney and ureter; Z81.2 Family history of tobacco abuse and dependence
CPT/HCPCS: 96376 ×3; 96366; 96367; 96372 ×2; 96365; 96375; 99285; 36415; 94640 ×6; 94760; 85379; 80053; 80048 ×2; 83605; 83735; 85025 ×3; 87502; 84145; 87635; 71046; 78580; G0378 ×3; A9540; J2930 ×3; S0170 ×2; J3475; J1644 ×2

== ENCOUNTER → 2022-07-22 | Outpatient (CLI) | payer MEDICARE, OTHER ==
--- NOTE | 2022-07-22 17:13 | US ---
EXAMINATION TYPE: US kidneys/renal and bladder DATE OF EXAM: 07/22/2022 COMPARISON: US 2014 CLINICAL HISTORY: R10.9 ABD PAIN. Back pain, hematuria EXAM MEASUREMENTS: Right Kidney: 11.2 x 6.4 x 5.0 cm Left Kidney: 10.6 x 6.2 x 4.9 cm Difficult and limited study due to patient body habitus Right Kidney: visualized portions appear wnl Left Kidney: visualized portions appear wnl Bladder: wnl Bilateral Jets seen: no IMPRESSION: No evidence of renal mass or obstruction. No evidence of bladder mass.
== END | disposition home or self-care (01) ==
LOC: RADUSWWP 16:38
PROVIDERS: ATTEND Family Medicine
DX: M54.9 Dorsalgia, unspecified (principal); R10.9 Unspecified abdominal pain; R31.9 Hematuria, unspecified
CPT/HCPCS: 76770

== ENCOUNTER 2023-10-10 08:55 | Day surgery (SDC) | payer MEDICARE, OTHER ==
[~2023-10-10 08:55] MED LIST changes: -ACETAMINOPHEN TAB 500 MG TAB PO ONE; -DEXAMETHASONE SOD PHOSPHATE 10 MG/ML 1 ML VIAL IV ONE; -HYDROmorphone 0.5 MG/0.5 ML SYRINGE IVP PRN; +LACTATED RINGERS 1,000 ML IV SCH; +LIDOCAINE 1% (10MG/ML) FOR IV START INTRADERMA PRN; -LIDOCAINE 1% 20 ML VIAL (10MG/ML) FOR IV START INTRADERMA PRN; -MELOXICAM 7.5 MG TAB PO ONE; -MIDAZOLAM 2 MG/2 ML VIAL IV PRN; -ONDANSETRON 4 MG/2 ML VIAL IVP ONE; -ROPIVACAINE 246.25 MG, EPINEPHrine 0.5 MG, KETOROLAC 30 MG, cloNIDine HCL/PF 80 MCG, WA... MISCELLANE ONE; -SCOPOLAMINE 1.5MG/72HR PATCH TRANSDERM ONE; -TRANEXAMIC ACID 1,000 MG in SODIUM CHLORIDE 0.9% 50 ML IVPB ONE
[2023-10-10] MEDS ORDERED: LACTATED RINGERS 1,000 ML IV ONE (09:30)
[2023-10-10 09:51] LABS: Glucose,Whole Blood 86 mg/dL (70-110)
[2023-10-10 10:02] VITALS: TEMP 97.6
[2023-10-10] MEDS ORDERED: PROPOFOL 10 MG/ML 20 ML VIAL IV ONE (10:35)
--- NOTE | 2023-10-10 10:54 | P.PCN ---
Date of Procedure: 10/10/23 Procedure(s) Performed: BRIEF HISTORY: Patient is a 63-year-old pleasant white female scheduled for an elective colonoscopy as a part of screening for colon cancer. PROCEDURE PERFORMED: Colonoscopy with biopsy. PREOPERATIVE DIAGNOSIS: Screening for colon cancer. IV sedation per Anesthesia. PROCEDURE: After informed consent was obtained, the patient, was brought into the endoscopy unit. IV sedation was administered by Anesthesia under continuous monitoring. Digital rectal examination was normal. Initially the Olympus CF-160 flexible video colonoscope was then inserted in the rectum, gradually advanced into the cecum without any difficulty. Careful examination was performed as the scope was gradually being withdrawn. Ileocecal valve and the appendiceal orifice were visualized and appeared normal. Prep was fair.. Mucosa of the cecum, appeared normal. Ascending colon there was a 5mm sessile polyp removed by cold biopsy. Rest of the ascending colon, transverse colon, descending colon, sigmoid colon, and rectum appeared normal. Retroflexion was performed in the rectum and no lesions were seen. The patient tolerated the procedure well. IMPRESSION: 5 mm ascending colon polyp status post cold biopsy Rest of the colon appeared normal RECOMMENDATIONS: Findings of this examination were discussed with the patient as well as a family.. She was advised to follow with the biopsy results. If the biopsy was adenoma she can have a repeat colonoscopy in 5 years.
[2023-10-10 11:10] LABS: Glucose,Whole Blood 82 mg/dL (70-110)
[2023-10-10 11:48] VITALS: BP 116/73; PULSE 91; RESP 18
== END 2023-10-10 11:40 | disposition home or self-care (01) ==
LOC: ORWHC2ENDO 08:55
PROVIDERS: ATTEND Internal Medicine Gastroenterology
DX: Z12.11 Encounter for screening for malignant neoplasm of colon (principal); D12.2 Benign neoplasm of ascending colon; I10 Essential (primary) hypertension; E78.5 Hyperlipidemia, unspecified; E11.9 Type 2 diabetes mellitus without complications; F31.9 Bipolar disorder, unspecified; F41.9 Anxiety disorder, unspecified; K21.9 Gastro-esophageal reflux disease without esophagitis; Z79.84 Long term (current) use of oral hypoglycemic drugs; Z79.4 Long term (current) use of insulin; Z79.899 Other long term (current) drug therapy; Z91.048 Other nonmedicinal substance allergy status; Z91.041 Radiographic dye allergy status; Z91.013 Allergy to seafood; Z88.5 Allergy status to narcotic agent; Z80.0 Family history of malignant neoplasm of digestive organs
CPT/HCPCS: 45380; J2704; 88305

== ENCOUNTER 2024-03-04 18:06 | Emergency (ER) | payer MEDICARE, OTHER ==
--- NOTE | 2024-03-04 18:40 | ED ---
General Adult HPI - General Chief complaint: Arrhythmia/Palpitations Stated complaint: flu like symptoms Time Seen by Provider: 03/04/24 18:38 Source: patient, RN notes reviewed Mode of arrival: ambulatory Limitations: no limitations - History of Present Illness Initial comments: 63-year-old female presenting to the ER with a chief complaint of congestion and generalized abdominal pain. Patient states she started to have congestion, cough and generalized myalgias on Friday about 5 days ago. She denies any known sick contacts, fevers, chest pain, shortness of breath, diarrhea/constipation, urinary complaints or peripheral edema. She states she has not been taking anything [id number] for her current symptoms. Denies any other complaints at this time. - Related Data Home Medications Medication Instructions Recorded Confirmed Venlafaxine HCl ER [Effexor XR] 150 mg PO DAILY 07/17/17 10/10/23 buPROPion XL [Wellbutrin XL] 150 mg PO DAILY 12/24/18 10/10/23 Anastrozole [Arimidex] 1 mg PO DAILY 12/05/19 10/10/23 Atorvastatin [Lipitor] 80 mg PO HS 12/05/19 10/10/23 QUEtiapine [SEROquel] 200 mg PO HS 12/05/19 10/10/23 Cinnamon Bark [Cinnamon] 2,000 mg PO DAILY 09/30/20 10/10/23 Metoprolol Tartrate [Lopressor] 25 mg PO BID 09/30/20 10/10/23 Mirabegron [Myrbetriq] 50 mg PO DAILY 09/30/20 10/10/23 lisinopriL [Zestril] 5 mg PO DAILY 09/30/20 10/10/23 Calcium Carbonate [Calcium] 1,200 mg PO DAILY 04/23/22 10/10/23 Cholecalciferol [Vitamin D3 (25 100 mcg PO DAILY 04/23/22 10/10/23 Mcg = 1000 Iu)] Melatonin [Melatonin ER] 10 mg PO HS 04/23/22 10/10/23 Turmeric Root Extract [Turmeric] 500 mg PO DAILY 04/23/22 10/10/23 Zinc 50 mg PO DAILY 04/23/22 10/10/23 Albuterol Inhaler [Ventolin Hfa 2 puff INHALATION TID PRN 10/07/23 10/10/23 Inhaler] Ascorbic Acid [Vitamin C] 1,000 mg PO DAILY 10/07/23 10/10/23 Empagliflozin [Jardiance] 25 mg PO QAM 10/07/23 10/10/23 Formoterol Fumarate [Perforomist] 20 mcg INHALATION RT-BID PRN 10/07/23 10/10/23 Miralax Gummies 2 tab PO DAILY 10/07/23 10/10/23 Omeprazole 40 mg PO DAILY 10/07/23 10/10/23 Vit No.179/Iron/Folic 2 tablet PO DAILY 10/07/23 10/10/23 [ Tablet] Tirzepatide [Mounjaro] 12.5 mg SQ MO 10/07/23 10/10/23 metFORMIN HCL ER [Glucophage XR] 1,000 mg PO QAM 10/07/23 10/10/23 Allergies Allergy/AdvReac Type Severity Reaction Status Date / Time azithromycin Allergy Swelling Verified 03/04/24 18:27 all over erythromycin base Allergy Swelling Verified 03/04/24 18:27 all over Iodinated Contrast Media Allergy Anaphylaxis Verified 03/04/24 18:27 Iodine and Iodide Containing Allergy Anaphylaxis Verified 03/04/24 18:27 Produc shellfish derived [Shellfish] Allergy Anaphylaxis Verified 03/04/24 18:27 morphine AdvReac Confusion Verified 03/04/24 18:27 Review of Systems ROS Statement: Those systems with pertinent positive or pertinent negative responses have been documented in the HPI. ROS Other: All systems not noted in ROS Statement are negative. Past Medical History Past Medical History: Cancer, Diabetes Mellitus, GERD/Reflux, Hyperlipidemia, Hypertension, Sleep Apnea/CPAP/BIPAP Additional Past Medical History / Comment(s): Routine colonoscopy/family hx of colon cancer. BREAST AND UTERINE CANCER, no cpap History of Any Multi-Drug Resistant Organisms: None Reported Past Surgical History: Appendectomy, Breast Surgery, Hernia Repair, Hysterectomy, Joint Replacement, Orthopedic Surgery Additional Past Surgical History / Comment(s): DOUBLE MASTECTOMY. BILATERAL KNEE REPLACEMENTS, R foot ORIF with hardware. Past Anesthesia/Blood Transfusion Reactions: No Reported Reaction Additional Past Anesthesia/Blood Transfusion Reaction / Comment(s): She has never received blood. Past Psychological History: Anxiety, Bipolar, Depression, Panic Disorder Smoking Status: Former smoker Past Alcohol Use History: None Reported Past Drug Use History: None Reported - Past Family History Brother(s) Family Medical History: Cancer Additional Family Medical History / Comment(s): COLON CANCER Father Family Medical History: Coronary Artery Disease (CAD), Diabetes Mellitus, Eye Disorder Additional Family Medical History / Comment(s): Father at age 81 yrs. He was on dialysis and was blind due to his diabetes. Mother Family Medical History: Congestive Heart Failure (CHF), Coronary Artery Disease (CAD), Hypertension Additional Family Medical History / Comment(s): Mother at age 81 yrs. General Exam Limitations: no limitations General appearance: alert, in no apparent distress Head exam: Present: atraumatic, normocephalic, normal inspection Eye exam: Present: normal appearance, PERRL, EOMI. Absent: scleral icterus, conjunctival injection, periorbital swelling ENT exam: Present: normal exam, normal oropharynx, mucous membranes moist, TM's normal bilaterally Neck exam: Present: normal inspection. Absent: tenderness, meningismus, lymphadenopathy Respiratory exam: Present: normal lung sounds bilaterally. Absent: respiratory distress, wheezes, rales, rhonchi, stridor Cardiovascular Exam: Present: regular rate, normal rhythm, normal heart sounds. Absent: systolic murmur, diastolic murmur, rubs, gallop, clicks GI/Abdominal exam: Present: soft, normal bowel sounds. Absent: distended, tenderness, guarding, rebound, rigid Neurological exam: Present: alert, oriented X3, CN II-XII intact Psychiatric exam: Present: normal affect, normal mood Skin exam: Present: warm, dry, intact, normal color. Absent: rash Course Vital Signs 03/04/24 03/04/24 18:23 18:44 Temperature 98.1 F Pulse Rate 96 91 Respiratory 20 18 Rate Blood Pressure 146/81 O2 Sat by Pulse 93 L 96 Oximetry Medical Decision Making - Medical Decision Making Was pt. sent in by a medical professional or institution (, PA, TARIFF EXPERT, urgent care, hospital, or [facility]...) When possible be specific @ -No Did you speak to anyone other than the patient for history (EMS, parent, family, police, friend...)? What history was obtained from this source @ -No Did you review nursing and triage notes (agree or disagree)? Why? @ -I reviewed and agree with nursing and triage notes Were old charts reviewed (outside hosp., previous admission, EMS record, old EKG, old radiological studies, urgent care reports/EKG's, [facility] records)? Report findings @ -No old charts were reviewed Differential Diagnosis (chest pain, altered mental status, abdominal pain women, abdominal pain men, vaginal bleeding, weakness, fever, dyspnea, syncope, headache, dizziness, GI bleed, back pain, seizure, CVA, palpatations, mental health, musculoskeletal)? @ -COVID, RSV, influenza, viral sinusitis, pneumonia this list is not meant to be all-inclusive EKG interpreted by me (3pts min.). @ -None X-rays interpreted by me (1pt min.). @ -Chest x-ray interpreted by me negative for acute cardiopulmonary process. CT interpreted by me (1pt min.). @ -None done U/S interpreted by me (1pt. min.). @ -None done What testing was considered but not performed or refused? (CT, X-rays, U/S, labs)? Why? @ -None What meds were considered but not given or refused? Why? @ -Patient refused analgesic medication Did you discuss the management of the patient with other professionals (professionals i.e. , PA, TARIFF EXPERT, lab, RT, psych nurse, psychiatric social worker, chief of safety and protection, teacher, unarmed security officer, case consultant)? Give summary @ -No Was smoking cessation discussed for >3mins.? @ -No Was critical care preformed (if so, how long)? @ -No Were there social determinants of health that impacted care today? How? (Homelessness, low income, unemployed, alcoholism, drug addiction, transportation, low edu. Level, literacy, decrease access to med. care, [facility], rehab)? @ -No Was there de-escalation of care discussed even if they declined (Discuss DNR or withdrawal of care, Hospice)? DNR status @ -No What co-morbidities impacted this encounter? (DM, HTN, Smoking, COPD, CAD, Cancer, CVA, ARF, Chemo, Hep., AIDS, mental health diagnosis, sleep apnea, morbid obesity)? @ -History of breast cancer Was patient admitted / discharged? Hospital course, mention meds given and route, prescriptions, significant lab abnormalities, going to OR and other pertinent info. @ -Discharge. 63-year-old female presenting to the ER with a chief complaint of myalgias. History and physical exam completed. Vital stable. Patient no signs of acute distress and nontoxic-appearing. Lung sounds clear to auscultation bilaterally. COVID-positive. RSV and influenza negative. Chest x-ray interpreted by me negative for acute cardiopulmonary process. Patient refused analgesic medication. Results discussed with patient, all questions answered. Upon reevaluation, patient resting comfortably in no signs of acute distress in exam room. Return parameters discussed. Patient discharged in stable condition with follow-up to PCP. Patient verbally expressed understanding and agreement with care plan. Case discussed with ED attending, Dr. Bundy. Undiagnosed new problem with uncertain prognosis? @ -No Drug Therapy requiring intensive monitoring for toxicity (Heparin, Nitro, I nsulin, Cardizem)? @ -No Were any procedures done? @ -No Diagnosis/symptom? @ -Viral sinusitis/COVID Acute, or Chronic, or Acute on Chronic? @ -Acute Uncomplicated (without systemic symptoms) or Complicated (systemic symptoms)? @ -Uncomplicated Side effects of treatment? @ -No Exacerbation, Progression, or Severe Exacerbation? @ -No Poses a threat to life or bodily function? How? (Chest pain, [place], [place], pneumonia, PE, COPD, DKA, ARF, appy, cholecystitis, CVA, Diverticulitis, Homicidal, Suicidal, threat to staff... and all critical care pts) @ -No - Lab Data Lab Results 03/04/24 Range/Units 18:42 Influenza Type A (PCR) Not Detected (Not Detectd) Influenza Type B (PCR) Not Detected (Not Detectd) RSV (PCR) Not Detected (Not Detectd) SARS-CoV-2 (PCR) Detected A (Not Detectd) Disposition Clinical Impression: COVID-19, Acute viral sinusitis Disposition: HOME SELF-CARE Condition: Stable Instructions (If sedation given, give patient instructions): Coronavirus Disease 2019 (COVID-19), Fever in Adults (ED) Additional Instructions: Alternate Tylenol and Motrin every 4-6 hours for fever and symptom control. Follow-up with PCP. Return to the ER for any new or worsening concerns. Is patient prescribed a controlled substance at d/c from ED?: No Referrals: Shankar Veronica MD [Primary Care Provider] - 1-2 days Time of Disposition: 21:27
[2024-03-04 18:50] VITALS: RESP 18
--- NOTE | 2024-03-04 21:05 | XR ---
EXAMINATION TYPE: XR chest 2V DATE OF EXAM: 03/04/2024 6:54 PM CLINICAL INDICATION:Female, 63 years old with history of cough; [facility] COMPARISON: 01/04/2023 TECHNIQUE: XR chest 2V. Frontal and lateral views of the chest.. FINDINGS: Lines/Tubes/Devices: No indwelling lines are seen. Extrinsic densities are present. Heart/mediastinum: Heart size is normal. Stable mildly tortuous aorta. Pulmonary vascularity: Not increased, Lungs/Pleura: There is no evidence of pleural effusion, focal consolidation, or pneumothorax. Musculoskeletal: No acute osseous abnormality demonstrated in the limits of the exam. Similar mild a symmetric elevation right hemidiaphragm. Other findings: None. IMPRESSION: No acute cardiopulmonary abnormality. No significant change.
[2024-03-04 21:51] VITALS: BP 112/80; PULSE 79; TEMP 98.5
== END 2024-03-04 21:45 | disposition home or self-care (01) ==
LOC: EC 18:06
DX: U07.1 COVID-19 (principal); J01.90 Acute sinusitis, unspecified; Z87.891 Personal history of nicotine dependence; Z91.041 Radiographic dye allergy status; Z91.013 Allergy to seafood; Z88.1 Allergy status to other antibiotic agents; Z88.5 Allergy status to narcotic agent
CPT/HCPCS: 71046; 87636; 99285

== ENCOUNTER 2024-06-04 17:48 | Emergency (ER) | payer MEDICARE, OTHER ==
--- NOTE | 2024-06-04 18:22 | ED ---
General Adult HPI - General Chief complaint: Weakness Stated complaint: Hypertension Time Seen by Provider: 06/04/24 17:58 Source: patient, EMS Mode of arrival: EMS Limitations: no limitations - History of Present Illness Initial comments: Dictation was produced using X[employer] dictation software. please excuse any grammatical, word or spelling errors. Chief Complaint: 64-year-old diabetic female presents emergency department for generalized weakness, shakiness and nausea History of Present Illness: Patient 64-year-old female states that she went to bed feeling her usual state of health. She woke up in the middle the night with left shoulder pain that radiate down the arm. States that she also felt like her heart was racing. Patient went back to bed woke up this morning started to feel weak, tremulous and nauseated. She called EMS was brought to the ER. Patient states that her arm no longer hurts. She does report history of diabetes. She states that she is also in remission for breast cancer. The ROS documented in this emergency department record has been reviewed and confirmed by me. Those systems with pertinent positive or negative responses have been documented in the HPI. All other systems are other negative and/or noncontributory. - Related Data Home Medications Medication Instructions Recorded Confirmed Venlafaxine HCl ER [Effexor XR] 150 mg PO DAILY 07/17/17 10/10/23 buPROPion XL [Wellbutrin XL] 150 mg PO DAILY 12/24/18 10/10/23 Anastrozole [Arimidex] 1 mg PO DAILY 12/05/19 10/10/23 Atorvastatin [Lipitor] 80 mg PO HS 12/05/19 10/10/23 QUEtiapine [SEROquel] 200 mg PO HS 12/05/19 10/10/23 Cinnamon Bark [Cinnamon] 2,000 mg PO DAILY 09/30/20 10/10/23 Metoprolol Tartrate [Lopressor] 25 mg PO BID 09/30/20 10/10/23 Mirabegron [Myrbetriq] 50 mg PO DAILY 09/30/20 10/10/23 lisinopriL [Zestril] 5 mg PO DAILY 09/30/20 10/10/23 Calcium Carbonate [Calcium] 1,200 mg PO DAILY 04/23/22 10/10/23 Cholecalciferol [Vitamin D3 (25 100 mcg PO DAILY 04/23/22 10/10/23 Mcg = 1000 Iu)] Melatonin [Melatonin ER] 10 mg PO HS 04/23/22 10/10/23 Turmeric Root Extract [Turmeric] 500 mg PO DAILY 04/23/22 10/10/23 Zinc 50 mg PO DAILY 04/23/22 10/10/23 Albuterol Inhaler [Ventolin Hfa 2 puff INHALATION TID PRN 10/07/23 10/10/23 Inhaler] Ascorbic Acid [Vitamin C] 1,000 mg PO DAILY 10/07/23 10/10/23 Empagliflozin [Jardiance] 25 mg PO QAM 10/07/23 10/10/23 Formoterol Fumarate [Perforomist] 20 mcg INHALATION RT-BID PRN 10/07/23 10/10/23 Miralax Gummies 2 tab PO DAILY 10/07/23 10/10/23 Omeprazole 40 mg PO DAILY 10/07/23 10/10/23 Vit No.179/Iron/Folic 2 tablet PO DAILY 10/07/23 10/10/23 [ Tablet] Tirzepatide [Mounjaro] 12.5 mg SQ MO 10/07/23 10/10/23 metFORMIN HCL ER [Glucophage XR] 1,000 mg PO QAM 10/07/23 10/10/23 Allergies Allergy/AdvReac Type Severity Reaction Status Date / Time azithromycin Allergy Swelling Verified 06/04/24 17:58 all over erythromycin base Allergy Swelling Verified 06/04/24 17:58 all over Iodinated Contrast Media Allergy Anaphylaxis Verified 06/04/24 17:58 Iodine and Iodide Containing Allergy Anaphylaxis Verified 06/04/24 17:58 Produc shellfish derived [Shellfish] Allergy Anaphylaxis Verified 06/04/24 17:58 morphine AdvReac Confusion Verified 06/04/24 17:58 Review of Systems ROS Statement: Those systems with pertinent positive or pertinent negative responses have been documented in the HPI. ROS Other: All systems not noted in ROS Statement are negative. Past Medical History Past Medical History: Cancer, Diabetes Mellitus, GERD/Reflux, Hyperlipidemia, Hypertension, Sleep Apnea/CPAP/BIPAP Additional Past Medical History / Comment(s): Routine colonoscopy/family hx of colon cancer. BREAST AND UTERINE CANCER, no cpap History of Any Multi-Drug Resistant Organisms: None Reported Past Surgical History: Appendectomy, Breast Surgery, Hernia Repair, Hysterectomy, Joint Replacement, Orthopedic Surgery Additional Past Surgical History / Comment(s): DOUBLE MASTECTOMY. BILATERAL KNEE REPLACEMENTS, R foot ORIF with hardware. Past Anesthesia/Blood Transfusion Reactions: No Reported Reaction Additional Past Anesthesia/Blood Transfusion Reaction / Comment(s): She has never received blood. Past Psychological History: Anxiety, Bipolar, Depression, Panic Disorder Smoking Status: Former smoker Past Alcohol Use History: None Reported Past Drug Use History: None Reported - Past Family History Brother(s) Family Medical History: Cancer Additional Family Medical History / Comment(s): COLON CANCER Father Family Medical History: Coronary Artery Disease (CAD), Diabetes Mellitus, Eye Disorder Additional Family Medical History / Comment(s): Father at age 81 yrs. He was on dialysis and was blind due to his diabetes. Mother Family Medical History: Congestive Heart Failure (CHF), Coronary Artery Disease (CAD), Hypertension Additional Family Medical History / Comment(s): Mother at age 81 yrs. General Exam - General Exam Comments Initial Comments: PHYSICAL EXAM: General Impression: Alert and oriented x3, not in acute distress HEENT: Normocephalic atraumatic, extra-ocular movements intact, pupils equal and reactive to light bilaterally, mucous membranes moist. Cardiovascular: Heart regular rate and rhythm Chest: Able to complete full sentences, no retractions, no tachypnea Abdomen: abdomen soft, non-tender, non-distended, no organomegaly Musculoskeletal: Pulses present and equal in all extremities, no peripheral edema Motor: no focal deficits noted Neurological: CN II-XII grossly intact, no focal motor or sensory deficits noted Skin: Intact with no visualized rashes Psych: Normal affect and mood Limitations: no limitations Course Vital Signs 06/04/24 06/04/24 17:50 18:34 Temperature 98.4 F 98.1 F Pulse Rate 94 91 Respiratory 16 16 Rate Blood Pressure 139/84 102/64 O2 Sat by Pulse 97 96 Oximetry EKG Findings - EKG Comments: EKG Findings:: My EKG interpretation: Ventricular rate 93, sinus rhythm, NC interval 180, QRS 112, QTc 408. No NC prolongation, no QTC prolongation, no ST or T-wave changes noted. Overall, this EKG is unremarkable Medical Decision Making - Medical Decision Making Was pt. sent in by a medical professional or institution (Dr., PA, WIRELESS CONSTRUCTION MANAGER, urgent care, hospital, or penitentiary...) When possible be specific @ -No Did you speak to anyone other than the patient for history (EMS, parent, family, police, friend...)? What history was obtained from this source @ -No Did you review nursing and triage notes (agree or disagree)? Why? @ -I reviewed and agree with nursing and triage notes Were old charts reviewed (outside hosp., previous admission, EMS record, old EKG, old radiological studies, urgent care reports/EKG's, penitentiary records)? Report findings @ -No old charts were reviewed Differential Diagnosis (chest pain, altered mental status, abdominal pain women, abdominal pain men, vaginal bleeding, musculoskeletal, weakness, fever, dyspnea, syncope, headache, dizziness, GI bleed, back pain, seizure, CVA, palpatations, mental health)? @ -Differential Weakness: Hypoglycemia, shock, sepsis, hyponatremia, anemia, infection, GA, ETOH, adverse medicine reaction, overdose, stroke, this is not meant to be an all-inclusive list. EKG interpreted by me (3pts min.). @ -See above X-rays interpreted by me (1pt min.). @ -None done CT interpreted by me (1pt min.). @ -None done U/S interpreted by me (1pt. min.). @ -None done What testing was considered but not performed or refused? (CT, X-rays, U/S, labs)? Why? @ -None What meds were considered but not given or refused? Why? @ -None Was smoking cessation discussed for >3mins.? @ -No Were there social determinants of health that impacted care today? How? (Homelessness, low income, unemployed, alcoholism, drug addiction, transportation, low edu. Level, literacy, decrease access to med. care, custodial, rehab)? @ -No Was there de-escalation of care discussed even if they declined (Discuss DNR or withdrawal of care, Hospice)? DNR status @ -No What co-morbidities impacted this encounter? (DM, HTN, Smoking, COPD, CAD, Cancer, CVA, ARF, Chemo, Hep., AIDS, mental health diagnosis, sleep apnea, morbid obesity)? @ -None Was patient admitted / discharged? Hospital course, mention meds given and route, prescriptions, significant lab abnormalities, going to OR and other pertinent info. @ -64-year-old female presents emergency department generalized weakness. Vital signs upon arrival are within acceptable limits. Physical examination is benign. Laboratory evaluation obtained. CBC is unremarkable. Metabolic panel shows hypomagnesemia with a level 1.4. Patient given parenteral magnesium. Urinalysis and viral testing negative. Patient given IV fluids. Discussed with patient disposition options. She states she feels well to go home. Patient advised follow-up with primary care doctor. Did you discuss the management of the patient with other professionals (professionals i.e. , PA, WIRELESS CONSTRUCTION MANAGER, lab, RT, psych nurse, social service technician, maintenance team member, teacher, state patrol officer, high risk case manager)? Give summary @ -No Was critical care preformed (if so, how long)? @ -No Undiagnosed new problem with uncertain prognosis? @ -No Drug Therapy requiring intensive monitoring for toxicity (Heparin, Nitro, Insulin, Cardizem)? @ -No Were any procedures done? @ -No Diagnosis/symptom? Acute, or Chronic, or Acute on Chronic? Uncomplicated (without systemic symptoms) or Complicated (systemic symptoms)? @ -Hypomagnesemia Side effects of treatment? @ -No Exacerbation, Progression, or Severe Exacerbation? @ -No Poses a threat to life or bodily function? How? (Chest pain, USA, GA, pneumonia, PE, COPD, DKA, ARF, appy, cholecystitis, CVA, Diverticulitis, Homicidal, Suicidal, threat to staff... and all critical care pts) @ -yes - Lab Data Result diagrams: 06/04/24 18:36 06/04/24 18:36 Lab Results 06/04/24 06/04/24 06/04/24 Range/Units 18:36 18:36 18:36 WBC 7.7 (3.8-10.6) k/uL RBC 4.41 (3.80-5.40) m/uL Hgb 12.9 (11.4-16.0) gm/dL Hct 38.8 (34.0-46.0) % MCV 88.1 (80.0-100.0) fL MCH 29.2 (25.0-35.0) pg MCHC 33.1 (31.0-37.0) g/dL RDW 13.9 (11.5-15.5) % Plt Count 225 (150-450) k/uL MPV 6.7 Neutrophils % 73 % Lymphocytes % 20 % Monocytes % 4 % Eosinophils % 2 % Basophils % 0 % Neutrophils # 5.6 (1.3-7.7) k/uL Lymphocytes # 1.5 (1.0-4.8) k/uL Monocytes # 0.3 (0-1.0) k/uL Eosinophils # 0.1 (0-0.7) k/uL Basophils # 0.0 (0-0.2) k/uL Sodium 141 (137-145) mmol/L Potassium 3.4 L (3.5-5.1) mmol/L Chloride 110 H (98-107) mmol/L Carbon Dioxide 25 (22-30) mmol/L Anion Gap 6 mmol/L BUN 9 (7-17) mg/dL Creatinine 0.42 L (0.52-1.04) mg/dL Est GFR (CKD-EPI)AfAm >90 (>60 ml/min/1.73 sqM) Est GFR (CKD-EPI)NonAf >90 (>60 ml/min/1.73 sqM) Glucose 181 H (74-99) mg/dL Calcium 8.7 (8.4-10.2) mg/dL Magnesium 1.4 L (1.6-2.3) mg/dL Total Bilirubin 0.7 (0.2-1.3) mg/dL AST 32 (14-36) U/L ALT 26 (4-34) U/L Alkaline Phosphatase 118 (38-126) U/L Troponin I (0.000-0.034) ng/mL Total Protein 6.0 L (6.3-8.2) g/dL Albumin 3.7 (3.5-5.0) g/dL Urine Color Colorless Urine Appearance Clear (Clear) Urine pH 6.0 (5.0-8.0) Ur Specific [place] 1.033 (1.001-1.035) Urine Protein Negative (Negative) Urine Glucose (UA) 4+ H (Negative) Urine Ketones Negative (Negative) Urine Blood Negative (Negative) Urine Nitrite Negative (Negative) Urine Bilirubin Negative (Negative) Urine Urobilinogen <2.0 (<2.0) mg/dL Ur Leukocyte Esterase Negative (Negative) Influenza Type A (PCR) (Not Detectd) Influenza Type B (PCR) (Not Detectd) RSV (PCR) (Not Detectd) SARS-CoV-2 (PCR) (Not Detectd) 06/04/24 06/04/24 Range/Units 18:36 18:36 WBC (3.8-10.6) k/uL RBC (3.80-5.40) m/uL Hgb (11.4-16.0) gm/dL Hct (34.0-46.0) % MCV (80.0-100.0) fL MCH (25.0-35.0) pg MCHC (31.0-37.0) g/dL RDW (11.5-15.5) % Plt Count (150-450) k/uL MPV Neutrophils % % Lymphocytes % % Monocytes % % Eosinophils % % Basophils % % Neutrophils # (1.3-7.7) k/uL Lymphocytes # (1.0-4.8) k/uL Monocytes # (0-1.0) k/uL Eosinophils # (0-0.7) k/uL Basophils # (0-0.2) k/uL Sodium (137-145) mmol/L Potassium (3.5-5.1) mmol/L Chloride (98-107) mmol/L Carbon Dioxide (22-30) mmol/L Anion Gap mmol/L BUN (7-17) mg/dL Creatinine (0.52-1.04) mg/dL Est GFR (CKD-EPI)AfAm (>60 ml/min/1.73 sqM) Est GFR (CKD-EPI)NonAf (>60 ml/min/1.73 sqM) Glucose (74-99) mg/dL Calcium (8.4-10.2) mg/dL Magnesium (1.6-2.3) mg/dL Total Bilirubin (0.2-1.3) mg/dL AST (14-36) U/L ALT (4-34) U/L Alkaline Phosphatase (38-126) U/L Troponin I <0.012 (0.000-0.034) ng/mL Total Protein (6.3-8.2) g/dL Albumin (3.5-5.0) g/dL Urine Color Urine Appearance (Clear) Urine pH (5.0-8.0) Ur Specific [place] (1.001-1.035) Urine Protein (Negative) Urine Glucose (UA) (Negative) Urine Ketones (Negative) Urine Blood (Negative) Urine Nitrite (Negative) Urine Bilirubin (Negative) Urine Urobilinogen (<2.0) mg/dL Ur Leukocyte Esterase (Negative) Influenza Type A (PCR) Not Detected (Not Detectd) Influenza Type B (PCR) Not Detected (Not Detectd) RSV (PCR) Not Detected (Not Detectd) SARS-CoV-2 (PCR) Not Detected (Not Detectd) Disposition Clinical Impression: Hypomagnesemia Disposition: HOME SELF-CARE Condition: Fair Instructions (If sedation given, give patient instructions): Hypomagnesemia (ED) Is patient prescribed a controlled substance at d/c from ED?: No Referrals: Shankar Veronica MD [Primary Care Provider] - 1-2 days Time of Disposition: 19:50
[2024-06-04 18:35] VITALS: TEMP 98.1
[2024-06-04 19:01] LABS: Basophils % (A) 0 %; Eosinophils # (A) 0.1 k/uL (0-0.7); Eosinophils % (A) 2 %; HCT 38.8 % (34.0-46.0); HGB 12.9 gm/dL (11.4-16.0); Lymphocytes # (A) 1.5 k/uL (1.0-4.8); Lymphocytes % (A) 20 %; MCH 29.2 pg (25.0-35.0); MCHC 33.1 g/dL (31.0-37.0); MCV 88.1 fL (80.0-100.0); Mean Platelet Volume 6.7; Monocytes # (A) 0.3 k/uL (0-1.0); Monocytes % (A) 4 %; Neutrophils # (A) 5.6 k/uL (1.3-7.7); Neutrophils % (A) 73 %; Platelet Count 225 k/uL (150-450); RBC 4.41 m/uL (3.80-5.40); RDW 13.9 % (11.5-15.5); WBC 7.7 k/uL (3.8-10.6)
[2024-06-04 19:08] LABS: ALT 26 U/L (4-34); African American GFR (CKD) >90 (>60 ml/min/1.73 sqM); Albumin 3.7 g/dL (3.5-5.0); Anion Gap 6 mmol/L; Blood Urea Nitrogen 9 mg/dL (7-17); Calcium 8.7 mg/dL (8.4-10.2); Carbon Dioxide 25 mmol/L (22-30); Chloride 110 mmol/L (98-107); Glucose 181 mg/dL (74-99); Non-African American GFR(CKD) >90 (>60 ml/min/1.73 sqM); Sodium 141 mmol/L (137-145); Total Bilirubin 0.7 mg/dL (0.2-1.3)
[2024-06-04 19:25] LABS: AST 32 U/L (14-36); Potassium 3.4 mmol/L (3.5-5.1)
[2024-06-04 19:26] LABS: Alkaline Phosphatase 118 U/L (38-126); Magnesium 1.4 mg/dL (1.6-2.3)
[2024-06-04 19:38] LABS: Appearance,Urine Clear (Clear); Bilirubin,Urine Negative (Negative); Blood,Urine Negative (Negative); Color,Urine Colorless; Glucose,Urine (UA) 4+ (Negative); Ketones,Urine Negative (Negative); Leukocyte Esterase,Urine Negative (Negative); Nitrite,Urine Negative (Negative); Protein,Urine Negative (Negative); Specific Gravity,Urine 1.033 (1.001-1.035); Urobilinogen,Urine <2.0 mg/dL (<2.0)
[2024-06-04] MEDS: MAGNESIUM SULFATE-D5W PMX 1 GM in DEXTROSE/WATER 1 100ML.BAG IVPB SCH (20:02)
[2024-06-04] MEDS: SODIUM CHLORIDE 0.9% 1,000 ML IV STA (20:03)
[2024-06-04 22:14] VITALS: BP 156/83; PULSE 82; RESP 18
== END 2024-06-04 22:15 | disposition home or self-care (01) ==
LOC: EC 17:48
DX: E83.42 Hypomagnesemia (principal); I10 Essential (primary) hypertension; M25.512 Pain in left shoulder; Z87.891 Personal history of nicotine dependence; Z88.5 Allergy status to narcotic agent; Z88.1 Allergy status to other antibiotic agents; Z88.8 Allergy status to other drugs, medicaments and biological substances; Z91.041 Radiographic dye allergy status; Z91.013 Allergy to seafood; Z79.899 Other long term (current) drug therapy
CPT/HCPCS: 36415; 93005; 80053; 83735; 84484; 85025; 81003; 87636; 99285; 96365; 96366; J3475

== ENCOUNTER 2024-10-03 14:25 | Emergency (ER) | payer MEDICARE, OTHER ==
[2024-10-03 14:33] VITALS: RESP 20
--- NOTE | 2024-10-03 14:40 | ED ---
Lower Extremity Injury HPI - General Chief Complaint: Extremity Injury, Lower Stated Complaint: L ankle pain Time Seen by Provider: 10/03/24 14:38 Source: patient, RN notes reviewed Mode of arrival: ambulatory Limitations: no limitations - History of Present Illness Initial Comments: 64-year-old female presenting to the ER with a chief complaint of left ankle injury. Patient states on 09-22-2024 she was walking and accidentally twisted her ankle. She states she felt and heard a "crack". Patient states it has been "motor" to walk on foot since. She states on Friday she was also walking and felt a "pop" in the same ankle. She has been taking [id number] Aleve without pain control. Patient is concerned she broke her ankle. Patient denies any other injuries or complaints at this time. - Related Data Home Medications Medication Instructions Recorded Confirmed Venlafaxine HCl ER [Effexor XR] 150 mg PO DAILY 07/17/17 10/10/23 buPROPion XL [Wellbutrin XL] 150 mg PO DAILY 12/24/18 10/10/23 Anastrozole [Arimidex] 1 mg PO DAILY 12/05/19 10/10/23 Atorvastatin [Lipitor] 80 mg PO HS 12/05/19 10/10/23 QUEtiapine [SEROquel] 200 mg PO HS 12/05/19 10/10/23 Cinnamon Bark [Cinnamon] 2,000 mg PO DAILY 09/30/20 10/10/23 Metoprolol Tartrate [Lopressor] 25 mg PO BID 09/30/20 10/10/23 Mirabegron [Myrbetriq] 50 mg PO DAILY 09/30/20 10/10/23 lisinopriL [Zestril] 5 mg PO DAILY 09/30/20 10/10/23 Calcium Carbonate [Calcium] 1,200 mg PO DAILY 04/23/22 10/10/23 Cholecalciferol [Vitamin D3 (25 100 mcg PO DAILY 04/23/22 10/10/23 Mcg = 1000 Iu)] Melatonin [Melatonin Tr] 10 mg PO HS 04/23/22 10/10/23 Turmeric Root Extract [Turmeric] 500 mg PO DAILY 04/23/22 10/10/23 Zinc 50 mg PO DAILY 04/23/22 10/10/23 Albuterol Inhaler [Ventolin Hfa 2 puff INHALATION TID PRN 10/07/23 10/10/23 Inhaler] Ascorbic Acid [Vitamin C] 1,000 mg PO DAILY 10/07/23 10/10/23 Empagliflozin [Jardiance] 25 mg PO QAM 10/07/23 10/10/23 Formoterol Fumarate [Perforomist] 20 mcg INHALATION RT-BID PRN 10/07/23 10/10/23 Miralax Gummies 2 tab PO DAILY 10/07/23 10/10/23 Omeprazole 40 mg PO DAILY 10/07/23 10/10/23 Vit No.179/Iron/Folic 2 tablet PO DAILY 10/07/23 10/10/23 [ Tablet] Tirzepatide [Mounjaro] 12.5 mg SQ MO 10/07/23 10/10/23 metFORMIN HCL ER [Glucophage XR] 1,000 mg PO QAM 10/07/23 10/10/23 Allergies Allergy/AdvReac Type Severity Reaction Status Date / Time azithromycin Allergy Swelling Verified 10/03/24 14:33 all over erythromycin base Allergy Swelling Verified 10/03/24 14:33 all over Iodinated Contrast Media Allergy Anaphylaxis Verified 10/03/24 14:33 Iodine and Iodide Containing Allergy Anaphylaxis Verified 10/03/24 14:33 Produc shellfish derived [Shellfish] Allergy Anaphylaxis Verified 10/03/24 14:33 morphine AdvReac Confusion Verified 10/03/24 14:33 Review of Systems ROS Statement: Those systems with pertinent positive or pertinent negative responses have been documented in the HPI. ROS Other: All systems not noted in ROS Statement are negative. Past Medical History Past Medical History: Cancer, Diabetes Mellitus, GERD/Reflux, Hyperlipidemia, Hypertension, Sleep Apnea/CPAP/BIPAP Additional Past Medical History / Comment(s): Routine colonoscopy/family hx of colon cancer. BREAST AND UTERINE CANCER, no cpap History of Any Multi-Drug Resistant Organisms: None Reported Past Surgical History: Appendectomy, Breast Surgery, Hernia Repair, Hysterectomy, Joint Replacement, Orthopedic Surgery Additional Past Surgical History / Comment(s): DOUBLE MASTECTOMY. BILATERAL KNEE REPLACEMENTS, R foot ORIF with hardware. Past Anesthesia/Blood Transfusion Reactions: No Reported Reaction Additional Past Anesthesia/Blood Transfusion Reaction / Comment(s): She has never received blood. Past Psychological History: Anxiety, Bipolar, Depression, Panic Disorder Smoking Status: Former smoker Past Alcohol Use History: None Reported Past Drug Use History: None Reported - Past Family History Brother(s) Family Medical History: Cancer Additional Family Medical History / Comment(s): COLON CANCER Father Family Medical History: Coronary Artery Disease (CAD), Diabetes Mellitus, Eye Disorder Additional Family Medical History / Comment(s): Father at age 81 yrs. He was on dialysis and was blind due to his diabetes. Mother Family Medical History: Congestive Heart Failure (CHF), Coronary Artery Disease (CAD), Hypertension Additional Family Medical History / Comment(s): Mother at age 81 yrs. General Exam Limitations: no limitations General appearance: alert, in no apparent distress Respiratory exam: Present: normal lung sounds bilaterally. Absent: respiratory distress, wheezes, rales, rhonchi, stridor Cardiovascular Exam: Present: regular rate, normal rhythm, normal heart sounds. Absent: systolic murmur, diastolic murmur, rubs, gallop, clicks Extremities exam: Present: tenderness (Left lateral malleolus with overlying edema and mild ecchymosis. Limited range of motion due to pain. 2+ PT and DP pulses. Sensation intact.), normal capillary refill Neurological exam: Present: alert, oriented X3, CN II-XII intact Skin exam: Present: warm, dry, intact, normal color. Absent: rash Course Vital Signs 10/03/24 10/03/24 14:31 15:23 Temperature 98.3 F 98.1 F Pulse Rate 87 82 Respiratory 20 20 Rate Blood Pressure 156/109 150/82 O2 Sat by Pulse 99 99 Oximetry Medical Decision Making - Medical Decision Making Was pt. sent in by a medical professional or institution (, PA, TOE PULLER, urgent care, hospital, or intermediate...) When possible be specific @ -No Did you speak to anyone other than the patient for history (EMS, parent, family, police, friend...)? What history was obtained from this source @ -No Did you review nursing and triage notes (agree or disagree)? Why? @ -I reviewed and agree with nursing and triage notes Were old charts reviewed (outside hosp., previous admission, EMS record, old EKG, old radiological studies, urgent care reports/EKG's, intermediate records)? Report findings @ -No old charts were reviewed Differential Diagnosis (chest pain, altered mental status, abdominal pain women, abdominal pain men, vaginal bleeding, weakness, fever, dyspnea, syncope, headache, dizziness, GI bleed, back pain, seizure, CVA, palpatations, mental health, musculoskeletal)? @ -Differential Musculoskeletal: Muscular strain, contusion, ligament sprain, fracture, arthritis, septic arthritis, bursitis, cellulitis, muscle spasm, nerve compression, DVT, arterial occlusion, herpes zoster, electrolyte abnormality, tumor.... This is not meant to be in all inclusive list EKG interpreted by me (3pts min.). @ -None done X-rays interpreted by me (1pt min.). @ -Left ankle x-ray interpreted me negative for acute osseous process. CT interpreted by me (1pt min.). @ -None done U/S interpreted by me (1pt. min.). @ -None done What testing was considered but not performed or refused? (CT, X-rays, U/S, labs)? Why? @ -None What meds were considered but not given or refused? Why? @ -Patient refused analgesic medications Did you discuss the management of the patient with other professionals (professionals i.e. , PA, TOE PULLER, lab, RT, psych nurse, criminal justice social worker, mainframe analyst, teacher, sales promotion officer, briefcase sewer)? Give summary @ -No Was smoking cessation discussed for >3mins.? @ -No Was critical care preformed (if so, how long)? @ -No Were there social determinants of health that impacted care today? How? (Homelessness, low income, unemployed, alcoholism, drug addiction, transportation, low edu. Level, literacy, decrease access to med. care, long term, rehab)? @ -No Was there de-escalation of care discussed even if they declined (Discuss DNR or withdrawal of care, Hospice)? DNR status @ -No What co-morbidities impacted this encounter? (DM, HTN, Smoking, COPD, CAD, Cancer, CVA, ARF, Chemo, Hep., AIDS, mental health diagnosis, sleep apnea, morbid obesity)? @ -None Was patient admitted / discharged? Hospital course, mention meds given and route, prescriptions, significant lab abnormalities, going to OR and other pertinent info. @ -Discharge. 65-year-old female presenting to the ER with a chief complaint of left ankle injury. History and physical exam completed. Vital stable. Patient in no signs of acute distress nontoxic-appearing. Left lower extremity neurovascular intact. There is edema, tenderness and contusion over left lateral malleolus. Patient has limited range of motion due to pain. X-ray obtained negative for acute osseous process. Pain believed to be due to ligamentous/soft tissue injury. Patient placed in an [place] wrap. Conservative treatment options discussed. Patient refused analgesic medications in the ER. Strict return parameters discussed. Patient discharged in stable condition with follow-up to PCP. Patient verbally expressed understanding and agreement with care plan. Case discussed with ED attending, Dr. Bundy. Undiagnosed new problem with uncertain prognosis? @ -No Drug Therapy requiring intensive monitoring for toxicity (Heparin, Nitro, Insulin, Cardizem)? @ -No Were any procedures done? @ -No Diagnosis/symptom? @ -Ankle sprain Acute, or Chronic, or Acute on Chronic? @ -Acute Uncomplicated (without systemic symptoms) or Complicated (systemic symptoms)? @ -Uncomplicated Side effects of treatment? @ -No Exacerbation, Progression, or Severe Exacerbation? @ -No Poses a threat to life or bodily function? How? (Chest pain, USA, [place], pneumonia, PE, COPD, DKA, ARF, appy, cholecystitis, CVA, Diverticulitis, Homicidal, Suicidal, threat to staff... and all critical care pts) @ -No - Radiology Data Radiology results: report reviewed, image reviewed Disposition Clinical Impression: Ankle sprain Disposition: HOME SELF-CARE Condition: Stable Instructions (If sedation given, give patient instructions): Ankle Sprain (ED) Additional Instructions: Recommend [id number] ibuprofen and Tylenol for pain control. I also recommend elevation, compression and rest. Follow-up with PCP. Return to the ER for any new or worsening concerns. Is patient prescribed a controlled substance at d/c from ED?: No Referrals: Shankar Veronica MD [Primary Care Provider] - 1-2 days Time of Disposition: 15:18
--- NOTE | 2024-10-03 15:05 | XR ---
EXAMINATION TYPE: XR ankle complete LT DATE OF EXAM: 10/03/2024 2:45 PM COMPARISON: None CLINICAL INDICATION: Female, 64 years old with history of pain TECHNIQUE: XR ankle complete LT; ankle is imaged in frontal, lateral and oblique projections. FINDINGS: There is no evidence of acute osseous pathology. No evidence of subluxation or dislocation. Kager's fat pad is intact. Mild soft tissue swelling around the ankle. No radiopaque foreign bodies are ident ified. Calcaneal plantar spurring is present. IMPRESSION: 1. No evidence of acute fracture. 2. Subcutaneous swelling around the ankle likely secondary to underlying soft tissue injury. [facility], , 10/03/2024 3:03 PM
[2024-10-03 15:24] VITALS: BP 150/82; PULSE 82; TEMP 98.1
== END 2024-10-03 16:44 | disposition home or self-care (01) ==
LOC: EC 14:25
DX: S93.402A Sprain of unspecified ligament of left ankle, initial encounter (principal); Z88.1 Allergy status to other antibiotic agents; Z88.5 Allergy status to narcotic agent; Z91.041 Radiographic dye allergy status; Z91.013 Allergy to seafood; Z87.891 Personal history of nicotine dependence; Z88.8 Allergy status to other drugs, medicaments and biological substances; X50.1XXA Overexertion from prolonged static or awkward postures, initial encounter; Y93.01 Activity, walking, marching and hiking
CPT/HCPCS: 99283

== ENCOUNTER → 2025-06-09 | Outpatient (CLI) | payer MEDICARE, OTHER ==
--- NOTE | 2025-06-23 10:54 | BMR ---
EXAM DATE: 06/09/2025 EXAM DESCRIPTION: MRI-Breast Bilat (W/WO Contrast) INDICATION: Diagnostic MRI history right breast cancer status post bilateral mastectomy. Abnormal left-sided lymph nodes. COMPARISON: Comparison is made with relevant prior imaging in PACS. CONTRAST: 10 cc of Gadavist TECHNIQUE: Multiplanar MRI imaging of both breasts was performed with a dedicated breast coil, before and after intravenous administration of gadolinium contrast, using the standard breast mass protocol. Computer-aided detection was used to aid in interpretation. FINDINGS: General breast composition: The breasts are almost entirely fatty Background parenchymal enhancement: Minimal FINDINGS: Right Breast: Review of the dynamic contrast-enhanced series shows postmastectomy changes. No rapidly enhancing masses, suspicious enhancement patterns or other abnormalities. The T2 weighted series shows no abnormality. There are a couple morphologically normal appearing level 1 axillary lymph nodes, there is limited evaluation of the level 2 and 3 lymph nodes due to artifact. Left Breast: Review of the dynamic contrast-enhanced series shows postmastectomy changes. No rapidly enhancing masses, suspicious enhancement patterns or other abnormalities. The T2 weighted series shows no abnormality. There are a couple morphologically normal appearing level 1 axillary lymph nodes, there is limited evaluation of the level 2 and 3 lymph nodes due to artifact. IMPRESSION: 1. Bilateral postmastectomy changes. No MRI evidence of malignancy. 2. There are a couple morphologically normal appearing level 1 axillary lymph nodes without cortical thickening bilaterally. There is limited visualization of the level 2 and level 3 lymph nodes, if the abnormal lymph nodes were noted to be at level 2 or 3, consider CT chest for further evaluation. BI-RADS Category2- Benign MTDD
== END | disposition home or self-care (01) ==
LOC: RADMRIMAIN 18:03
PROVIDERS: ATTEND Family Medicine
DX: N63.23 Unspecified lump in the left breast, lower outer quadrant (principal); Z85.3 Personal history of malignant neoplasm of breast; Z90.13 Acquired absence of bilateral breasts and nipples
CPT/HCPCS: 77049; A9585